=== PATIENT | male | born 1960 | race Caucasian/White ===

== ENCOUNTER 2022-01-11 08:48 | Day surgery (SDC) | payer BC ==
[2022-01-11 09:06] VITALS: BP 111/67; PULSE 102; RESP 16
--- NOTE | 2022-01-11 09:11 | P.PCN ---
Date of Procedure: 01/11/22 Preoperative Diagnosis: Pleural effusion, left-sided Postoperative Diagnosis: Pleural effusion, left-sided Procedure(s) Performed: Thoracentesis with ultrasound guidance Anesthesia: local Surgeon: Clary Castillo Estimated Blood Loss (ml): 0 Condition: stable Disposition: same day Operative Findings: A time out was performed and the chest x-ray was reviewed, the appropriate side was confirmed and marked. Ultrasound was used to cyndee the left-sided pleural effusion. My hands were washed immediately prior to the procedure. I wore a surgical cap, mask with protective eyewear, sterile gown and sterile gloves throughout the procedure. The patient was prepped and draped in a sterile manner using chlorhexidine scrub after the appropriate level was percussed and confirmed by ultrasound. 1% lidocaine was used to anesthesize the skin, subcutaneous tissue, superior aspect of the rib periosteum and parietal pleura. A finder needle was then introduced over the superior aspect of the rib to locate the pleural fluid; 2colored fluid was aspirated at a depth of approximately 2 cm. A 10-blade scalpel was used to eugenia the skin at the insertion site. The Trtd-w-Sssnswim needle was then introduced through the skin incision into the pleural space using negative aspiration pressure and the red colometric indicator to confirm appropriate positioning of the needle. The thoracentesis catheter was then threaded without difficulty. 650ml of turbid colored fluid was removed without difficulty. The catheter was then removed. No immediate complications were noted during the procedure. A post-procedure chest x-ray is pending at the time of this note. The fluid will be sent for studies. Estimated blood loss is 0cc
--- NOTE | 2022-01-11 09:28 | XR ---
EXAMINATION TYPE: XR chest 1V portable DATE OF EXAM: 01/11/2022 Comparison: 01/10/2022 Clinical History: 61-year-old male post left thoracentesis- pleural effusion Findings: Heart upper limits of normal in size. Sternotomy wires and post-CABG clips in the mediastinum. Surgic al clips project at the left upper quadrant. Mild interstitial prominence in the left hemithorax. No pneumothorax. Resolution of most of the previous left effusion. Impression: 1. Resolution of most of the previous left effusion. No pneumothorax. 2. Post-CABG changes. 3. Slight increase in interstitial opacities in the left hemithorax. Follow-up to exclude any develop ing infection.
[2022-01-12 06:22] LABS: Appearance,BF Hazy
[2022-01-12 06:41] LABS: Glucose, BF Source Pleural Fluid; Glucose, Body Fluid 97 mg/dL; LDH, Body Fluid Source Pleural Fluid; T. Protein, Body Fluid Source Pleural Fluid; Total Protein, Body Fluid 3450 mg/dL
== END 2022-01-14 07:51 | disposition home or self-care (01) ==
LOC: PROCWHC3 08:48
PROVIDERS: ATTEND Internal Medicine Critical Care Medicine
DX: C78.2 Secondary malignant neoplasm of pleura (principal)
CPT/HCPCS: 32554; 71045; 82945; 83615; 84157; 87070; 87075; 87077; 87116; 87186; 87205; 87206; 88108; 88305; 88341; 88342; 89050

== ENCOUNTER → 2022-01-11 | Outpatient (CLI) | payer BC ==
--- NOTE | 2022-01-11 15:45 | US ---
EXAMINATION TYPE: US chest DATE OF EXAM: 01/11/2022 COMPARISON: Radiograph same day CLINICAL HISTORY: 61-year-old male J91.8 Pleural Effusion. TECHNIQUE: Targeted ultrasound of the posterior lower left hemithorax FINDINGS: EXAM MEASUREMENTS: Left Pleural Effusion pocket size: 9.1 cm Left skin surface to fluid distance: 1.6 cm Left side marked for possible thoracentesis outside the dept. Pulmonologists are able to review the images in the patient?s EMR. IMPRESSIONS: Moderate size left-sided pleural effusion.
== END | disposition home or self-care (01) ==
LOC: RADUSWWP 08:29
PROVIDERS: ATTEND Internal Medicine Critical Care Medicine
DX: J90 Pleural effusion, not elsewhere classified (principal)
CPT/HCPCS: 76604

== ENCOUNTER → 2022-01-28 | Outpatient (CLI) | payer BC ==
--- NOTE | 2022-02-01 08:01 | PE ---
EXAMINATION TYPE: PET CT fusion skull to thigh DATE OF EXAM: 01/28/2022 COMPARISON: Outside CTA January 05, 2022 HISTORY: Lung cancer diagnosed and treated over 20 years ago. TECHNIQUE: Following the intravenous administration of 10.41 mCi of F-18 FDG, whole body images are performed from the skull base to the midthigh. Images are reviewed on the computer in the coronal, a xial, and sagittal planes. Reconstructed rotating images are created on independent workstation and reviewed on the computer. A localization and attenuation correction CT is performed in conjunction with the PET scan. Blood glucose level was 98. SCAN: Initial Scan FINDINGS: SKULL BASE AND NECK: No areas of abnormal hypermetabolic uptake. CHEST, MEDIASTINUM, AND HILAR REGION: Persistent abnormal hypermetabolic mass left hilar region exten ding superiorly and anteriorly measuring approximately 3.7 x 2.2 cm axial image 86 with max SUV of 8. 71. There is peripheral consolidation. There is persistent small to moderate-sized left pleural effus ion which is ametabolic. Subcentimeter mildly hypermetabolic area posterior left lower lung could ref lect pleural metastatic deposit axial image 126, max SUV is 3.46 at this level without CT correlate. This could also correspond to rib without definitive lesion. There is abnormal 1 cm lymph node adjacent to descending aorta axial image 106, Max SUV is 3.96. Ther e is abnormal 1.3 cm subcarinal hypermetabolic lymph node axial image 88, max SUV is 4.87. There is a bnormal 1.5 x 0.9 cm AP window hypermetabolic lymph node, max SUV is 4.58 on axial image 81. ABDOMEN AND PELVIS: No adrenal masses. Normal excretion. Uptake along course of right ureter is seen. No definitive areas of abnormal hypermetabolic uptake. OSSEOUS STRUCTURES: Subtle mildly hypermetabolic focus on axial image 83 in the right scapula, max HERNANDEZ V is 2.11, subtle sclerotic lesion may be present. OTHER CT: Moderate to severe calcified plaque bilateral carotid bulb level. Post CABG changes with st ernal wires and mediastinal clips. Right-sided subareolar gynecomastia. Surgical clips left groin region. Scattered bilateral pelvic phleboliths. Mildly enlarged prostate co nsistent with BPH. Additional surgical clips along the aorta and left iliac vessels. Scoliosis in the thoracolumbar spine with multilevel spurring and disc space narrowing. IMPRESSION: Left hilar mass or neoplasm with abnormal thoracic adenopathy. Asymmetric small to modera te size left pleural effusion. Possible early pleural-based metastatic lesion. Possible early osseous metastatic disease. Short-term monitoring advised..
== END | disposition home or self-care (01) ==
LOC: RADPETMAIN 07:18
PROVIDERS: ATTEND Internal Medicine Hematology & Oncology
DX: R91.8 Other nonspecific abnormal finding of lung field (principal); R59.0 Localized enlarged lymph nodes; J90 Pleural effusion, not elsewhere classified
CPT/HCPCS: 78815; A9552

== ENCOUNTER → 2022-01-29 | Outpatient (CLI) | payer BC ==
--- NOTE | 2022-01-30 03:55 | MR ---
EXAMINATION TYPE: MR brain wo/w con DATE OF EXAM: 01/29/2022 COMPARISON: None HISTORY: Lung cancer, evaluate for metastatic disease. CONTRAST: Standard multiplanar, multisequence MRI departmental protocol images were obtained without contrast a nd with 8 mL intravenous Gadavist gadolinium contrast. The ventricles and sulci appear normal. There is no mass effect or midline shift. No sign of intracra nial hemorrhage. Brainstem is intact. No evidence of an acute infarct on the diffusion images. There is multiple foci of increased signal on the FLAIR images in the periventricular white matter. T otal number is approximately 25 and these measure up to 7 mm. Cerebellum is intact. Corpus callosum a ppears intact. Sella turcica is normal. Contrast images show no pathologic enhancement. There is normal enhancement of the venous sinuses. IMPRESSION: White matter signal changes that could relate to demyelinating disease are less likely microvascular ischemia. No evidence of cortical infarct. No evidence of intracranial metastatic disease.
== END | disposition home or self-care (01) ==
LOC: RADMRIMAIN 13:02
PROVIDERS: ATTEND Internal Medicine Hematology & Oncology
DX: C34.90 Malignant neoplasm of unspecified part of unspecified bronchus or lung (principal)
CPT/HCPCS: 70553; A9585

== ENCOUNTER 2022-02-17 09:21 | Day surgery (SDC) | payer BC ==
[~2022-02-17 09:21] MED LIST: DEXAMETHASONE SOD PHOSPHATE 4 MG/ML 1 ML VIAL IV PRN; FAMOTIDINE 20 MG/2 ML VIAL IV PRN; ONDANSETRON 4 MG/2 ML VIAL IVP PRN; metroNIDAZOLE-NS PMX 500 MG in SALINE 1 100ML.BAG IVPB PRN
[2022-02-17] MEDS ORDERED: HYDROmorphone 0.5 MG/0.5 ML SYRINGE IVP PRN (09:55)
[2022-02-17] MEDS ORDERED: ONDANSETRON 4 MG/2 ML VIAL IVP ONE (09:55)
[2022-02-17] MEDS ORDERED: DEXAMETHASONE SOD PHOSPHATE 4 MG/ML 1 ML VIAL IV ONE (09:55)
[2022-02-17] MEDS: LACTATED RINGERS 1,000 ML IV SCH (10:11)
[2022-02-17] MEDS: OXYMETAZOLINE 0.05% NASL SPRAY 1 SPRAY BOTTLE EA NOSTRIL PRN ×5 (10:18→10:38)
[2022-02-17] MEDS ORDERED: MIDAZOLAM 2 MG/2 ML VIAL IVP ONE (10:33)
[2022-02-17] MEDS ORDERED: MIDAZOLAM 2 MG/2 ML VIAL ONE (12:21)
[2022-02-17] MEDS ORDERED: KETAMINE 10 MG/ML 20 ML VIAL ONE (12:21)
[2022-02-17] MEDS ORDERED: LIDOCAINE 2% INJ 20 MG/ML (2 ML VIAL) ONE (12:21)
[2022-02-17] MEDS ORDERED: fentaNYL (PF) 50 MCG/ML 2 ML AMP ONE (12:21)
[2022-02-17] MEDS ORDERED: GLYCOPYRROLATE 0.2 MG/ML 2 ML VIAL ONE (12:21)
[2022-02-17] MEDS ORDERED: PROPOFOL 10 MG/ML 20 ML VIAL IV ONE (12:21)
[2022-02-17] MEDS ORDERED: DEXAMETHASONE SOD PHOSPHATE 10 MG/ML 1 ML VIAL ONE (12:21)
[2022-02-17] MEDS ORDERED: LIDOCAINE 1%-EPI 1:100,000 20 ML VIAL SQ ONE (13:30)
[2022-02-17] MEDS ORDERED: BUPIVACAINE (PF) 0.5% 30 ML VIAL SQ ONE (13:30)
[2022-02-17] MEDS ORDERED: BACITRACIN ZINC 500 UNIT/GM OINT 28.4 GM TUBE TOPICAL ONE (14:07)
[2022-02-17] MEDS ORDERED: LACTATED RINGERS 1,000 ML IV ONE (14:11)
--- NOTE | 2022-02-17 14:30 | P.OP ---
Date of Procedure: 02/17/22 Preoperative Diagnosis: Left vocal cord paralysis, aspiration, dysphasia Postoperative Diagnosis: Same Procedure(s) Performed: Flexible direct laryngoscopy, left medialization thyroplasty utilizing a #10 Moise implant Anesthesia: JADE Surgeon: Chris Bloom Estimated Blood Loss (ml): 5 Pathology: none sent Condition: stable Disposition: PACU Indications for Procedure: This patient has a left vocal cord paralysis with associated aspiration, aphonia etc. After long discussion elected to proceed forward with a left medialization thyroplasty. All risks, benefits and alternative therapies were discussed in detail. Consent was obtained and all questions were answered. Patient's etiology for his left vocal cord paralysis is from a pulmonary malignancy. Operative Findings: Patient's left vocal cord was paralyzed any lateralized position. Right vocal cord had good function. Patient has issues with aspiration because of the paralysis. Description of Procedure: This patient was taken to the operative room and placed in the supine position. IV sedation was administered to the patient through a functioning IV line and monitored throughout the entire case by the department of anesthesia. A direct microscopic laryngoscopy was performed with use of a Zeiss microscope. Direct visualization was performed. We found a-LEFT VOCAL CORD PARALYSIS IN THE PARAMEDIAN POSITION. The neck was sterilely prepped and draped in usual fashion and the incision was marked. With use of lidocaine 1% with epinephrine 12 1000, the skin and deeper strap muscles were anesthetized. An incision was made over the lower portion of the thyroid cartilage horizontally in the neck. Hemostasis was obtained with use of electrocoagulation realizing a #12 setting without the flow of oxygen to prevent any fire risk. We dissected through the platysmas muscle to the strap muscles. We the strap muscles in the midline. We then exposed the thyroid cartilage the appropriate side of surgery. We then made a window into the lower portion of the thyroid cartilage in the usual fashion for Moise implant to be inserted. We then used with the sizer several different implants resistant to the voice and checked for stridor utilizing implants from #7-10. WE UTILIZED A #6 FEMALE MOISE IMPLANT ON THE LEFT SIDE. This was secured into position in the usual fashion. We then irrigated and then closed the strap muscles with 4-0 Vicryl in an interrupted type fashion. The close the platysmas layer of 4-0 Vicryl in an interrupted type fashion. We then closed the deep subcutaneous tissue with 4-0 Monocryl in an interrupted type fashion. We then closed the skin with a 5-0 Prolene in a running nonlocking fashion. Bacitracin ointment and Telfa were applied along with a Medpor tape. The patient tolerated this well and the patient is to follow up with me in the office in 1 week. One week voice rest restrictions were given that her absolute area and no heavy lifting or bending. She was also advised that if any stridor should occur she should come to the emergency room. They have been given my cell phone number and contact information.
[2022-02-17] MEDS ORDERED: NALOXONE 0.4 MG/ML 1 ML VIAL IV PRN ×2 (14:31→14:33)
[2022-02-17] MEDS ORDERED: HYDROcodone/APAP 5-325MG 1 EACH TAB PO PRN (14:33)
[2022-02-17] MEDS ORDERED: ONDANSETRON 4 MG/2 ML VIAL IVP PRN (14:33)
[2022-02-17] MEDS: D5-0.45% NACL WITH KCL 20MEQ/L 1,000 ML IV SCH (17:19)
--- NOTE | 2022-02-17 18:05 | XR ---
EXAMINATION TYPE: XR chest 1V portable DATE OF EXAM: 02/17/2022 COMPARISON: 01/11/2022 HISTORY: Shortness of breath TECHNIQUE: Single frontal view of the chest is obtained. FINDINGS: There is diffuse opacity in the left lower lobe relatively sparing the apex. There is acco mpanying moderate left pleural effusion. No pneumothorax seen. The cardiac silhouette size is partia lly obscured. Median sternotomy again seen. The osseous structures are stable. Stable left upper qu adrant surgical clips. IMPRESSION: Left pleural effusion with diffuse opacity.
[2022-02-17 19:45] VITALS: TEMP 97.6
[2022-02-17] MEDS: predniSONE 20 MG TAB PO SCH (20:03)
--- NOTE | 2022-02-17 23:06 | US ---
EXAMINATION TYPE: US chest DATE OF EXAM: 02/17/2022 COMPARISON: Xray chest 02/17/22 CLINICAL HISTORY: Markings for thoracentesis by pulmonary staff. TECHNIQUE: Targeted ultrasound of the posterior lower bilateral hemithoraces EXAM MEASUREMENTS: Left Pleural Effusion pocket size: 8.2 cm Left skin surface to fluid distance: 2.5 cm Right side NOT marked for possible thoracentesis outside the dept. Left side marked for possible thoracentesis outside the dept. Pulmonologists are able to review the images in the patient?s EMR. IMPRESSIONS: There is demonstrated moderate sized left pleural effusion.
[2022-02-18] MEDS: predniSONE 20 MG TAB PO SCH (08:20)
[2022-02-18] MEDS ORDERED: LIDOCAINE 2% (PF) 20 MG/ML 5 ML VIAL ONE (08:51)
--- NOTE | 2022-02-18 10:08 | XR ---
EXAMINATION TYPE: XR chest 1V portable DATE OF EXAM: 02/18/2022 HISTORY: Shortness of breath. COMPARISON: 02/17/22 TECHNIQUE: Single view of the chest is submitted. FINDINGS: Demonstrated are scattered senescent parenchymal change. Persistent but improving opacity throughout the left lung. The heart is stable. Hilar and mediastinal structures are within normal limits. Degenerative changes are seen of the dorsal spine. IMPRESSION: 1. Persistent but improving opacity throughout the left lung.
[2022-02-18] MEDS: LACTATED RINGERS 1,000 ML IV SCH (10:54)
[2022-02-18 12:07] VITALS: BMI 23.1
--- NOTE | 2022-02-18 13:01 | P.PN ---
Subjective Progress Note Date: 02/18/22 Principal diagnosis: Pulmonary effusion Status post left medialization thyroplasty for left vocal cord paralysis Patient had a thoracentesis with removal of a large amount of fluid. Patient feels much better. per pulmonary, the patient is ready to be discharged. Voice is actually excellent after implant placement. Objective - Vital Signs Vital signs: Vital Signs Temp 97.6 F 02/18/22 04:25 Pulse 95 02/18/22 04:25 Resp 18 02/18/22 04:25 BP 106/64 02/18/22 04:25 Pulse Ox 93 L 02/18/22 04:25 FiO2 Intake & Output 02/17/22 02/18/22 02/18/22 18:59 06:59 18:59 Intake Total 1350 580 Output Total 10 Balance 1340 580 Weight 75.4 kg 75.4 kg Intake: IV 1350 Intake, IV Titration 580 Amount D5-0.45% NaCl with KCl 480 20Meq/l 1,000 ml @ 40 mls /hr IV .Q24H REBA Rx#: [id number] ceFAZolin 1,000 mg In 100 Sodium Chloride 0.9% 50 ml @ 100 mls/hr IVPB Q8H REBA Rx#:[id number] Oral 0 Output: Estimated Blood Loss 10 Other: Voiding Method Toilet # Voids 3 - Constitutional General appearance: Present: average body habitus - EENT EENT Comment(s): Incision is good. Dressing in place. Voice is good. No stridor is noted. Eyes: Present: PERRLA ENT: Present: normal oropharynx - Neck Neck: Absent: lymphadenopathy - Integumentary Integumentary: Absent: calor - Musculoskeletal Musculoskeletal: Present: gait normal. Absent: generalized weakness - Psychiatric Psychiatric: Present: A&O x's 3 Assessment and Plan (1) Vocal cord paralysis Current Visit: Yes Status: Acute Code(s): J38.00 - PARALYSIS OF VOCAL CORDS AND LARYNX, UNSPECIFIED SNOMED Code(s): 999689869 Plan: Patient had a thoracentesis with removal of a large amount of fluid. Patient feels better. The patient is cleared to be discharged from the pulmonary an ENT perspective. Discharge instructions and prescriptions have been written for. She is to follow up with me in the office next week. He has 7 days of voice rest. Time with Patient: Greater than 30
[2022-02-18 13:16] VITALS: BP 161/83; PULSE 117; RESP 24
--- NOTE | 2022-02-18 13:17 | P.CNPUL ---
History of Present Illness Consult date: 02/18/22 Requesting physician: Chris Bloom Reason for consult: dyspnea, abnormal CXR/CT Chief complaint: Hoarseness, left-sided vocal cord paralysis History of present illness: This is a pleasant 61-year-old male patient who has a recent diagnosis of Hodgkin's lymphoma in remission stage II a at the time of diagnosis, coronary artery disease with previous coronary artery bypass grafting. He was recently seen in our office after being found to have a left hilar/infrahilar mass along with mediastinal lymphadenopathy and acute hoarseness highly suggestive of entrapment of the recurrent laryngeal nerve on the left. He is also found to have a left sided pleural effusion and had undergone a thoracentesis on 01/11/[address] Castillo that was positive for metastatic adenocarcinoma consistent with pulmonary primary. PET scan revealed positive left hilar mass with abnormal thoracic adenopathy. Asymmetric small to moderate-sized left pleural effusion. Possible early pleural-based metastatic lesion. Possible early osseous metastatic disease. He'll be referred to oncology services. He was also seen by ENT regarding the hoarseness and was brought in electively yesterday for a flexible direct laryngoscopy, left medius medialization thyroplasty utilizing a #10 Moise implant. His family had requested our services for a known recurrent left-sided pleural effusion and requested us to perform another thoracentesis. He was seen and evaluated today. Ultrasound of the left chest revealed a 8.2 cm pocket. Thoracentesis performed today by Dr. Mcneill with 900 ML's of cloudy yellow fluid returned. Chest x-ray revealed improved aeration of the left lung with persistent opacity. No evidence of pneumothorax. He is maintaining good O2 saturations in the 90s on room air. Sh ortness of breath, cough or congestion. He is afebrile. Review of Systems REVIEW OF SYSTEMS: CONSTITUTIONAL: Denies any recent significant weight loss or weight gain. EYES: Denies change in vision. EARS, NOSE, MOUTH, THROAT: Positive for hoarseness. CARDIOVASCULAR: Denies chest pain, palpitations or syncopal episodes. RESPIRATORY: Denies shortness of breath, cough, congestion or hemoptysis. GASTROINTESTINAL: Denies change in appetite, denies abdominal pain GENITOURINARY: Denies hematuria, denies infections. MUSKULOSKELETAL: Denies pain, denies swelling. INTEGUMENTARY: Denies rash, denies eczema. NEUROLOGICAL: Denies recent memory loss, no recent seizure activity. PSYCHIATRIC: Denies anxiety, denies depression. HEMATOLOGIC/LYMPHATIC: Denies anemia, denies enlarged lymph nodes. Past Medical History Past Medical History: Cancer, GERD/Reflux, Hyperlipidemia, Hypertension Additional Past Medical History / Comment(s): recent dx. of lung cancer-sees Dr Valerio-hasn't started tx. yet, SOB w/exertion & hoarseness, has upcoming appt. to see Dr. Schneider regarding recent carotid doppler results History of Any Multi-Drug Resistant Organisms: None Reported Past Surgical History: Coronary Bypass/CABG, Heart Catheterization With Stent, Hernia Repair Additional Past Surgical History / Comment(s): double bypass 20 yrs. ago Past Anesthesia/Blood Transfusion Reactions: No Reported Reaction Date of Last Stent Placement:: unk Past Psychological History: No Psychological Hx Reported Smoking Status: Never smoker Past Alcohol Use History: Occasional Past Drug Use History: None Reported - Past Family History Mother Family Medical History: No Reported History Father Family Medical History: Chest Pain / Angina Medications and Allergies Home Medications Medication Instructions Recorded Confirmed Type Aspirin [Adult Low Dose Aspirin EC] 81 mg PO DAILY 01/11/22 02/17/22 History OLANZapine [ZyPREXA] 10 mg PO HS 02/16/22 02/17/22 History Omeprazole [PriLOSEC] 40 mg PO DAILY 02/16/22 02/17/22 History Rosuvastatin Calcium [Crestor] 40 mg PO DAILY 02/16/22 02/17/22 History amLODIPine [Norvasc] 10 mg PO DAILY 02/16/22 02/17/22 History Allergies Allergy/AdvReac Type Severity Reaction Status Date / Time No Known Allergies Allergy Verified 02/17/22 09:58 Physical Exam Vitals: Vital Signs Temp Pulse Resp BP Pulse Ox 02/18/22 04:25 97.6 F 95 18 106/64 93 L 02/17/22 20:00 16 02/17/22 19:15 97.6 F 102 H 16 131/99 91 L 02/17/22 18:14 98.4 F 72 18 126/70 95 02/17/22 15:41 104 H 16 132/76 95 02/17/22 15:02 101 H 16 107/68 98 02/17/22 14:47 102 H 16 109/67 98 02/17/22 14:31 102 H 16 110/72 98 02/17/22 14:16 103 H 14 153/96 92 L Intake and Output 02/17/22 02/18/22 02/18/22 22:59 06:59 14:59 Intake Total 0 580 Balance 0 580 Intake: Intake, IV Titration 580 Amount D5-0.45% NaCl with KCl 480 20Meq/l 1,000 ml @ 40 mls /hr IV .Q24H REBA Rx#: [id number] ceFAZolin 1,000 mg In 100 Sodium Chloride 0.9% 50 ml @ 100 mls/hr IVPB Q8H REBA Rx#:[id number] Oral 0 Other: Voiding Method Toilet # Voids 3 Weight 75.4 kg 75.4 kg GENERAL EXAM: Alert, active, pleasant 61-year-old male patient, on room air, fairly comfortable in no apparent distress. HEAD: Normocephalic. EYES: Normal reaction of pupils, equal size. NOSE: Clear with pink turbinates. THROAT: No erythema or exudates. NECK: Dressing to anterior neck dry and intact. No masses, no JVD. CHEST: No chest wall deformity. LUNGS: Equal air entry with crackles, dullness in the left base. CVS: S1 and S2 normal with no audible murmur, regular rhythm. ABDOMEN: No hepatosplenomegaly, normal bowel sounds, no guarding or rigidity. SPINE: No scoliosis or deformity SKIN: No rashes CENTRAL NERVOUS SYSTEM: No focal deficits, tone is normal in all 4 extremities. EXTREMITIES: There is no peripheral edema. No clubbing, no cyanosis. Peripheral pulses are intact. Results - Diagnostic Findings Chest x-ray: image reviewed Assessment and Plan Assessment: 1 Left vocal cord paralysis with aspiration and dysphagia secondary to primary pulmonary adenocarcinoma. Status post flexible direct laryngoscopy, left medialization thyroplasty utilizing a #10 Moise implant. Postoperative day #1 2 Recurrent left-sided pleural effusion secondary to pulmonary adenocarcinoma diagnosed via pleural fluid from thoracentesis on 01/11/2022 3 History of Hodgkin's lymphoma, in remission, stage II at time of diagnosis 4 History of coronary artery disease with previous coronary artery bypass grafting 5 Hypertension 6 Hyperlipidemia 7 History of diverticulosis Plan: The patient was seen and evaluated Chest x-ray, ultrasound, medications reviewed Left-sided thoracentesis performed today with 900 ML's of cloudy yellow fluid returned Fluid was not sent for analysis or cytology due to previous diagnosis Follow up with Dr. Castillo in our office in 1-2 weeks' I have personally seen and examined the patient, performed the documentation and the assessment and plan as written. Number of minutes spent on the visit: 20.
[2022-02-18] MEDS: D5-0.45% NACL WITH KCL 20MEQ/L 1,000 ML IV SCH (14:22)
--- NOTE | 2022-02-18 15:16 | FL ---
Modified barium swallow. HISTORY: Dysphagia. Modified barium swallow was performed with the department of speech pathology. The patient was prese nted with various consistencies of barium. There is a one episode of aspiration with thin liquid barium. Vallecular and piriform sinus pooling o f ingested material. Full report is to follow from the department of speech pathology. Impression: Aspiration with thin liquid barium
--- NOTE | 2022-02-18 17:17 | OP ---
OPERATIVE REPORT OPERATIVE REPORT: Left-sided thoracentesis. PREOPERATIVE DIAGNOSIS: Recurrent left-sided pleural effusion/malignant. POSTOPERATIVE DIAGNOSIS: Recurrent left-sided pleural effusion/malignant. ANESTHESIA USED: Two mL of 1% lidocaine. PROCEDURE DESCRIPTION: The patient was placed in a sitting-upright position, leaning forward over a table. The area below the left scapula was prepared in a sterile fashion. Drapes were applied. The fluid was earlier localized by ultrasound. The marking was at the level of the 8th intercostal space and tip of the scapula. The area was locally anesthetized with 2 mL of 1% lidocaine. The fluid was localized with a 26-gauge needle. Then a small tiny incision was made at the same site, and a 9-Anguillan catheter was inserted at the same site, advanced into the pleural space until the fluid was obtained. The catheter was advanced over the needle, and the needle was pulled out of the pleural space. Freely flowing clear fluid was removed; roughly 900 mL of gretchen-colored fluid was removed from the left pleural space. Procedure was well tolerated. The fluid was discarded since we already have a diagnosis made from previous thoracentesis. Procedure was well tolerated. Chest x-ray showed no complications. The patient could be cleared to be discharged home today. MMODL / IJN: [id number] /
== END 2022-02-18 16:00 | disposition home or self-care (01) ==
LOC: OR 09:21 → 5NMEDONC 15:53 → OR 02-18 16:00
PROVIDERS: ATTEND Otolaryngology
DX: C34.90 Malignant neoplasm of unspecified part of unspecified bronchus or lung (principal); C79.9 Secondary malignant neoplasm of unspecified site; J91.0 Malignant pleural effusion; J38.01 Paralysis of vocal cords and larynx, unilateral; R47.02 Dysphasia; R49.1 Aphonia; I25.10 Atherosclerotic heart disease of native coronary artery without angina pectoris; C85.92 Non-Hodgkin lymphoma, unspecified, intrathoracic lymph nodes; Z95.1 Presence of aortocoronary bypass graft; K21.9 Gastro-esophageal reflux disease without esophagitis; E78.5 Hyperlipidemia, unspecified; I10 Essential (primary) hypertension; E78.00 Pure hypercholesterolemia, unspecified; Z95.5 Presence of coronary angioplasty implant and graft; Z98.890 Other specified postprocedural states; Z79.82 Long term (current) use of aspirin; Z79.899 Other long term (current) drug therapy; Z82.49 Family history of ischemic heart disease and other diseases of the circulatory system
CPT/HCPCS: 92611; 74230; 71045 ×2; 76604; 32554; 31591; L8509; J2250; J1100 ×2; J0690 ×3; J2405; J3010; J2704; J7512; J2001 ×2

== ENCOUNTER → 2022-03-21 | Outpatient (CLI) | payer BC ==
--- NOTE | 2022-03-21 17:39 | CT ---
EXAMINATION TYPE: CT angio chest DATE OF EXAM: 03/21/2022 COMPARISON: None HISTORY: SOB CT DLP: 278.9 mGycm Automated exposure control for dose reduction was used. CONTRAST: Performed with IV Contrast, patient injected with 80 mL of Isovue 370. There are Three-D postprocessed images. There is left-sided hydrothorax. There is complete atelectasis of the left lung. There is occlusion o f the left mainstem bronchus. I see no evidence of filling defect in the pulmonary arteries. Thoracic aorta is atheromatous. No aneurysm or dissection. No mediastinal adenopathy. Thoracic spine is intac t. There is no compression fracture. There are sternal wires. There is bilateral enlargement of the a drenal glands that measure up to 2.5 cm and have low attenuation. IMPRESSION: Large left pleural effusion with complete atelectasis of the left lung. Occlusion of the left mainste m bronchus. No evidence of pulmonary embolism. There is significant progression of the pleural fluid and atelectasis of the left lung compared to PET/CT scan of 01/28/2022. There is some adrenal gland en largement that could be metastatic disease and appears increased compared to old PET CT scan.
== END | disposition home or self-care (01) ==
LOC: RADCTMAIN 16:05
PROVIDERS: ATTEND Internal Medicine Hematology & Oncology
DX: J90 Pleural effusion, not elsewhere classified (principal); J98.11 Atelectasis
CPT/HCPCS: 82565; 84520; 71275; 36415; Q9967

== ENCOUNTER 2022-03-25 12:06 | Day surgery (SDC) | payer BC ==
[2022-03-25 12:46] VITALS: RESP 16; TEMP 98.2
[2022-03-25 12:54] LABS: Mean Platelet Volume 7.3; Platelet Count 795 k/uL (150-450)
[2022-03-25 13:03] LABS: Prothrombin Time 10.8 sec (9.0-12.0)
[2022-03-25 13:53] VITALS: BP 117/69; PULSE 100
--- NOTE | 2022-03-25 14:40 | US ---
EXAMINATION TYPE: US thoracentesis DATE OF EXAM: 03/25/2022 COMPARISON: NONE HISTORY: Pleural effusion. FINDINGS: Maximal barrier technique was utilized. The skin overlying a suitable pocket of fluid was localized and the overlying skin prepped and draped. Lidocaine was used for local anesthesia. Ultras ound was used with sterile technique. A 5 Turkish catheter over guide needle was advanced into the pl eural fluid collection using ultrasound guidance and the catheter advanced, needle removed. Approxim ately 1.3 liter(s) of yellow fluid was removed. Catheter was withdrawn and hemostasis achieved. The re is no immediate complication. The patient discharged in stable condition without complication. Sp ecimen sent for laboratory analysis. IMPRESSION: STATUS POST ULTRASOUND GUIDED THORACENTESIS, POST PROCEDURE CHEST X-RAY PENDING. THIS ND OCEDURE WAS PERFORMED BY THE UNDERSIGNED.
--- NOTE | 2022-03-25 14:42 | XR ---
EXAMINATION TYPE: XR chest 1V portable DATE OF EXAM: 03/25/2022 COMPARISON: Chest x-ray dated 02/18/2022 HISTORY: Pleural effusion on the left status post thoracentesis TECHNIQUE: Single frontal view of the chest is obtained. FINDINGS: There is opacification of left hemithorax. Postop changes are noted, is volume loss in the left hemithorax. Right lung is well aerated. Cardiac mediastinal silhouette is partially obscured. N o evident pneumothorax. IMPRESSION: No evident complication status post left thoracentesis. Residual left effusion and assoc iated atelectasis, patient became symptomatic during the procedure. Patient is asymptomatic at this t alex.
== END 2022-03-25 14:20 | disposition home or self-care (01) ==
LOC: RADPROMAIN 12:06
PROVIDERS: ATTEND Internal Medicine Hematology & Oncology
DX: J90 Pleural effusion, not elsewhere classified (principal)
CPT/HCPCS: 32555; 36415; 71045; 85049; 85610; 88108; 88305

== ENCOUNTER 2022-04-07 08:59 | Emergency (ER) | payer BC ==
[2022-04-07 09:19] VITALS: TEMP 98.3
--- NOTE | 2022-04-07 09:36 | ED ---
General Adult HPI - General Chief complaint: Shortness of Breath Stated complaint: fluid in lung, chemo pt Time Seen by Provider: 04/07/22 09:21 Source: patient, RN notes reviewed Mode of arrival: ambulatory Limitations: no limitations - History of Present Illness Initial comments: 61-year-old male presents emergency Department with chief complaint of shortness breath. Patient has lung cancer with recurrent pleural effusion. Patient states he feels like he has fluid buildup. He is scheduled after this week for weekly paracentesis by radiology. Patient states that he had a drink last week but states he feels too short of breath. Patient denies any fevers or chills no abdominal pain no other acute changes patient is currently on chemotherapy t herapy - Related Data Home Medications Medication Instructions Recorded Confirmed Aspirin [Adult Low Dose Aspirin EC] 81 mg PO DAILY 01/11/22 04/07/22 OLANZapine [ZyPREXA] 10 mg PO HS 02/16/22 04/07/22 Omeprazole [PriLOSEC] 40 mg PO DAILY 02/16/22 04/07/22 Rosuvastatin Calcium [Crestor] 40 mg PO HS 02/16/22 04/07/22 amLODIPine [Norvasc] 10 mg PO DAILY 02/16/22 04/07/22 Folic Acid 1 mg PO DAILY 04/07/22 04/07/22 Hydrocortisone Cream 1 applic TOPICAL BID 04/07/22 04/07/22 [Hydrocortisone 2.5% Cream] Isosorbide Mononitrate ER [Imdur] 60 mg PO DAILY 04/07/22 04/07/22 Nystatin [Nystatin Oral Susp] 400,000 unit PO QID 04/07/22 04/07/22 Zolpidem [Ambien] 10 mg PO HS 04/07/22 04/07/22 clonazePAM [KlonoPIN] 1 mg PO DAILY PRN 04/07/22 04/07/22 ondansetron HCL [Zofran] 8 mg PO Q6H PRN 04/07/22 04/07/22 Allergies Allergy/AdvReac Type Severity Reaction Status Date / Time No Known Allergies Allergy Verified 04/07/22 10:47 Review of Systems ROS Statement: Those systems with pertinent positive or pertinent negative responses have been documented in the HPI. ROS Other: All systems not noted in ROS Statement are negative. Past Medical History Past Medical History: Cancer, GERD/Reflux, Hyperlipidemia, Hypertension Additional Past Medical History / Comment(s): recent dx. of lung cancer-sees Dr Valerio-hasn't started tx. yet, SOB w/exertion & hoarseness, has upcoming appt. to see Dr. Schneider regarding recent carotid doppler results. History of Any Multi-Drug Resistant Organisms: None Reported Past Surgical History: Coronary Bypass/CABG, Heart Catheterization With Stent, Hernia Repair Additional Past Surgical History / Comment(s): double bypass 20 yrs. ago. 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 Past Anesthesia/Blood Transfusion Reactions: No Reported Reaction Date of Last Stent Placement:: unk Past Psychological History: No Psychological Hx Reported Smoking Status: Never smoker Past Alcohol Use History: Occasional Past Drug Use History: None Reported - Past Family History Mother Family Medical History: No Reported History Father Family Medical History: Chest Pain / Angina General Exam Limitations: no limitations General appearance: alert, in no apparent distress Head exam: Present: atraumatic, normocephalic, normal inspection Eye exam: Present: normal appearance, PERRL, EOMI. Absent: scleral icterus, conjunctival injection, periorbital swelling ENT exam: Present: normal exam, normal oropharynx, mucous membranes moist Neck exam: Present: normal inspection, full ROM. Absent: tenderness, meningismus, lymphadenopathy Respiratory exam: Present: rales, decreased breath sounds. Absent: normal lung sounds bilaterally, respiratory distress, wheezes, rhonchi, stridor Cardiovascular Exam: Present: normal rhythm, tachycardia, normal heart sounds. Absent: systolic murmur, diastolic murmur, rubs, gallop, clicks Course Vital Signs 04/07/22 04/07/22 04/07/22 09:14 09:48 11:05 Temperature 98.3 F Pulse Rate 118 H Pulse Rate [ 116 H Pulse Oximetery ] Respiratory 22 22 20 Rate Blood Pressure 132/76 Blood Pressure 114/79 [Left Arm] O2 Sat by Pulse 96 95 96 Oximetry 04/07/22 04/07/22 11:39 11:46 Temperature Pulse Rate Pulse Rate [ 110 H 108 H Pulse Oximetery ] Respiratory 20 20 Rate Blood Pressure Blood Pressure 105/65 96/73 [Left Arm] O2 Sat by Pulse 94 L 94 L Oximetry Medical Decision Making - Medical Decision Making 61-year-old male presented for pleural effusion recurrent from lung cancer patient presented for thoracentesis which was performed patient we discharged in stable condition. Disposition Clinical Impression: Recurrent pleural effusion on left, Lung cancer, Status post thoracentesis Disposition: HOME SELF-CARE Condition: Stable Instructions (If sedation given, give patient instructions): Thoracentesis (DC) Additional Instructions: Please return to the Emergency Department if symptoms worsen or any other concerns. Is patient prescribed a controlled substance at d/c from ED?: No Referrals: Azael Bloom MD [Primary Care Provider] - 1-2 days Time of Disposition: 12:06
--- NOTE | 2022-04-07 09:48 | XR ---
EXAMINATION TYPE: XR chest 2V DATE OF EXAM: 04/07/2022 COMPARISON: 03/25/2022 HISTORY: 61-year-old male recurrent pleural effusion, shortness of breath TECHNIQUE: PA and lateral views FINDINGS: There is white out of the left hemithorax, unchanged from prior. Median sternotomy wires and extensiv e surgical clips along the left hilum. Surgical clips also present within the left upper quadrant. Ri ght lung and pleural space appear clear. IMPRESSION: Ongoing white out left hemithorax likely due to very large pleural effusion and underlying collapsed left lung. Post-CABG changes.
[2022-04-07] MEDS ORDERED: LIDOCAINE 1% INJ 10MG/ML (5 ML VIAL-PF) SQ ONE (11:22)
[2022-04-07] MEDS ORDERED: LIDOCAINE 1% PF 10 MG/ML (5 ML AMP) SQ ONE (11:22)
[2022-04-07 12:14] VITALS: BP 113/75; PULSE 115; RESP 18
--- NOTE | 2022-04-07 12:19 | XR ---
EXAMINATION TYPE: XR chest 2V DATE OF EXAM: 04/07/2022 COMPARISON: Chest x-ray 04/07/2022 HISTORY: Status post thoracentesis TECHNIQUE: Frontal and lateral views of the chest are obtained. FINDINGS: Left-sided hydropneumothorax is present, remaining lung shows increased attenuation, posto p change. Surgical clips are present in left upper quadrant. No evident tension. Heart is largely obs cured. Patient is post median sternotomy. Right lung is relatively spared. IMPRESSION: Left-sided hydropneumothorax, findings may represent trapped lung. Findings relayed to t [facility] clinician at the time of interpretation.
--- NOTE | 2022-04-07 13:08 | ED ---
Medical Decision Making - Medical Decision Making X-ray was read radiologist for concerns for [place] pneumothorax. Case discussed with Dr. Mancilla who reviewed x-ray and just advised patient have repeat x-ray and evaluation in office tomorrow. Disposition Clinical Impression: Recurrent pleural effusion on left, Lung cancer, Status post thoracentesis, Hydropneumothorax Disposition: HOME SELF-CARE Condition: Stable Instructions (If sedation given, give patient instructions): Thoracentesis (DC) Additional Instructions: Please follow-up with pulmonary tomorrow. Please return to the Emergency Department if symptoms worsen or any other concerns. 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
--- NOTE | 2022-04-07 13:44 | US ---
EXAMINATION TYPE: US thoracentesis DATE OF EXAM: 04/07/2022 COMPARISON: NONE HISTORY: Pleural effusion. FINDINGS: Maximal barrier technique was utilized. The skin overlying a suitable pocket of fluid was localized and the overlying skin prepped and draped. Lidocaine was used for local anesthesia. Ultras ound was used with sterile technique. A 5 Omani catheter over guide needle was advanced into the pl eural fluid collection using ultrasound guidance and the catheter advanced, needle removed. Approxim ately 1.3 liter(s) of serous fluid was removed. Catheter was withdrawn and hemostasis achieved. The re is note made of probable trapped lung with hydropneumothorax, case discussed with the referring cl inician at the time of interpretation of the post procedure chest x-ray. The patient discharged in s table condition without complication. IMPRESSION: STATUS POST ULTRASOUND GUIDED THORACENTESIS, POST PROCEDURE CHEST X-RAY as described. TH IS PROCEDURE WAS PERFORMED BY THE UNDERSIGNED.
== END 2022-04-07 13:10 | disposition home or self-care (01) ==
LOC: EC 08:59
DX: J91.8 Pleural effusion in other conditions classified elsewhere (principal); Z48.813 Encounter for surgical aftercare following surgery on the respiratory system; C34.90 Malignant neoplasm of unspecified part of unspecified bronchus or lung; K21.9 Gastro-esophageal reflux disease without esophagitis; I10 Essential (primary) hypertension; E78.5 Hyperlipidemia, unspecified; Z79.82 Long term (current) use of aspirin; Z79.899 Other long term (current) drug therapy
CPT/HCPCS: 71046; 32555; 99285; J2001

== ENCOUNTER 2022-04-10 12:56 | Inpatient (IN) | payer BC ==
[2022-04-10] MEDS ORDERED: SODIUM CHLORIDE 0.9% 500 ML 500 ML IV STA (13:17)
--- NOTE | 2022-04-10 13:27 | ED ---
SOB HPI - General Chief Complaint: Shortness of Breath Stated Complaint: SOB Time Seen by Provider: 04/10/22 13:18 Source: patient, family, RN notes reviewed, old records reviewed Mode of arrival: ambulatory Limitations: no limitations - History of Present Illness Initial Comments: 61-year-old male presents to the emergency room with complaints of shortness of breath worsening throughout the day. Patient has a history of lung cancer and is on chemotherapy. He is in the care of Dr. Castillo and Dr Valerio. He did have a thoracentesis 3 days ago and 1.3 L of fluid was removed. He states at that time he felt much better until shortness of breath returned today. He states he has a productive cough with clear mucous. He denies any fevers. No chest pain. Patient also has a history of hypertension, CABG, cardiac stent and GERD. MD Complaint: shortness of breath, cough -: days(s) (1) Severity scale (1-10): 0 Known History Of: other (Lung cancer) Associated Symptoms: cough, sputum production (clear) - Related Data Home Medications Medication Instructions Recorded Confirmed Aspirin [Adult Low Dose Aspirin EC] 81 mg PO DAILY 01/11/22 04/10/22 OLANZapine [ZyPREXA] 10 mg PO HS 02/16/22 04/10/22 Omeprazole [PriLOSEC] 40 mg PO DAILY 02/16/22 04/10/22 Rosuvastatin Calcium [Crestor] 40 mg PO HS 02/16/22 04/10/22 amLODIPine [Norvasc] 10 mg PO DAILY 02/16/22 04/10/22 Folic Acid 1 mg PO DAILY 04/07/22 04/10/22 Hydrocortisone Cream 1 applic TOPICAL BID 04/07/22 04/10/22 [Hydrocortisone 2.5% Cream] Isosorbide Mononitrate ER [Imdur] 90 mg PO DAILY 04/07/22 04/10/22 Nystatin [Nystatin Oral Susp] 400,000 unit PO QID 04/07/22 04/10/22 Zolpidem [Ambien] 10 mg PO HS 04/07/22 04/10/22 clonazePAM [KlonoPIN] 1 mg PO DAILY PRN 04/07/22 04/10/22 Albuterol Inhaler [Ventolin Hfa 2 puff INHALATION RT-Q6H PRN 04/10/22 04/10/22 Inhaler] Super Beta 1 tab PO HS 04/10/22 04/10/22 Ubidecarenone [Co Q-10] 300 mg PO DAILY 04/10/22 04/10/22 Allergies Allergy/AdvReac Type Severity Reaction Status Date / Time No Known Allergies Allergy Verified 04/10/22 15:10 Review of Systems ROS Statement: Those systems with pertinent positive or pertinent negative responses have been documented in the HPI. ROS Other: All systems not noted in ROS Statement are negative. Past Medical History Past Medical History: Cancer, GERD/Reflux, Hyperlipidemia, Hypertension Additional Past Medical History / Comment(s): recent dx. of lung cancer-sees Dr Valerio-hasn't started tx. yet, SOB w/exertion & hoarseness, has upcoming appt. to see Dr. Schneider regarding recent carotid doppler results. History of Any Multi-Drug Resistant Organisms: None Reported Past Surgical History: Coronary Bypass/CABG, Heart Catheterization With Stent, Hernia Repair Additional Past Surgical History / Comment(s): double bypass 20 yrs. ago. 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 Past Anesthesia/Blood Transfusion Reactions: No Reported Reaction Date of Last Stent Placement:: unk Past Psychological History: No Psychological Hx Reported Smoking Status: Never smoker Past Alcohol Use History: Occasional Past Drug Use History: None Reported - Past Family History Mother Family Medical History: No Reported History Father Family Medical History: Chest Pain / Angina General Exam Limitations: no limitations General appearance: alert, in no apparent distress Head exam: Present: atraumatic Eye exam: Absent: scleral icterus, conjunctival injection, periorbital swelling ENT exam: Present: mucous membranes dry Neck exam: Present: full ROM. Absent: tenderness, meningismus Respiratory exam: Present: decreased breath sounds. Absent: respiratory distress, wheezes, rales, rhonchi, stridor, chest wall tenderness Expanded Location: Decreased Breath Sounds: Lower, Left, Right Cardiovascular Exam: Present: tachycardia, irregular rhythm GI/Abdominal exam: Present: soft. Absent: distended, tenderness Extremities exam: Present: normal capillary refill Back exam: Absent: tenderness, CVA tenderness (R), CVA tenderness (L), rash noted Neurological exam: Present: alert, oriented X3 Psychiatric exam: Present: normal affect, normal mood Skin exam: Present: warm, dry, normal color. Absent: cyanosis, diaphoretic, petechiae, pallor Course Vital Signs 04/10/22 04/10/22 04/10/22 13:11 14:27 15:08 Temperature 99.8 F H Pulse Rate 112 H 131 H 137 H Respiratory 22 18 14 Rate Blood Pressure 104/64 106/84 96/63 O2 Sat by Pulse 93 L 95 94 L Oximetry - Reevaluation(s) Reevaluation #1: 04/10/22 15:16 His heart rate remains elevated at 130, Cardizem drip increased to 10. Patient has no complaints of chest pain or difficulty breathing, oxygen saturations up to 94% on nasal cannula. Patient was advised of the results and the need for admission. He is agreeable to this plan of care. I did speak with Dr. Quiles and Dr. Mancilla Time: 15:16 Medical Decision Making - Medical Decision Making Patient has a known history of lung cancer. He is currently on chemotherapy with Dr. Valerio. He was in the hospital 3 days ago and had a thoracentesis done, 1.3 L drained, states felt better until today when he became short of breath again. Chest x-ray shows a left hydropneumothorax as seen on prior with air-fluid level and increased effusion. Patient was placed on oxygen his oxygen saturation increased to 94%. Patient was found to be in A. fib with RVR with a rate in the 130s. He was started on a Cardizem drip which was titrated and remains tachycardic in the 110s. Patient denies any chest pain. Troponin is 0.034. I did speak with Dr. Quiles and Dr. Mancilla regarding patient. He will be admitted to the hospital. I did discuss the results with the patient and family member they are agreeable to admission. Patient denies any pain at this time is resting comfortably on the cart. I did discuss CODE STATUS with the patient and he states that he is a full code. My attending is Dr. Anne. - Lab Data Result diagrams: 04/10/22 14:05 04/10/22 14:05 Lab Results 04/10/22 04/10/22 04/10/22 Range/Units 13:49 14:05 14:05 WBC 8.6 (3.8-10.6) k/uL RBC 3.90 L (4.30-5.90) m/uL Hgb 11.8 L (13.0-17.5) gm/dL Hct 34.9 L (39.0-53.0) % MCV 89.5 (80.0-100.0) fL MCH 30.4 (25.0-35.0) pg MCHC 33.9 (31.0-37.0) g/dL RDW 14.6 (11.5-15.5) % Plt Count 246 (150-450) k/uL MPV 7.8 Neutrophils % (Manual) 67 % Lymphocytes % (Manual) 12 % Monocytes % (Manual) 21 % Neutrophils # (Manual) 5.76 (1.3-7.7) k/uL Lymphocytes # (Manual) 1.03 (1.0-4.8) k/uL Monocytes # (Manual) 1.81 H (0-1.0) k/uL Nucleated RBCs 0 (0-0) /100 WBC Manual Slide Review Performed Hypersegmented Neuts Present Rouleaux Present PT 10.6 (9.0-12.0) sec INR 1.0 (<1.2) APTT 22.9 (22.0-30.0) sec VBG pH 7.58 H (7.31-7.41) VBG pCO2 23 L (37-51) mmHg VBG HCO3 21 L (24-28) mmol/L Sodium (137-145) mmol/L Potassium (3.5-5.1) mmol/L Chloride (98-107) mmol/L Carbon Dioxide (22-30) mmol/L Anion Gap mmol/L BUN (9-20) mg/dL Creatinine (0.66-1.25) mg/dL Est GFR (CKD-EPI)AfAm (>60 ml/min/1.73 sqM) Est GFR (CKD-EPI)NonAf (>60 ml/min/1.73 sqM) Glucose (74-99) mg/dL Plasma Lactic Acid Edwin (0.7-2.0) mmol/L Calcium (8.4-10.2) mg/dL Magnesium (1.6-2.3) mg/dL Total Bilirubin (0.2-1.3) mg/dL AST (17-59) U/L ALT (4-49) U/L Alkaline Phosphatase (38-126) U/L Troponin I (0.000-0.034) ng/mL NT-Pro-B Natriuret Pep pg/mL Total Protein (6.3-8.2) g/dL Albumin (3.5-5.0) g/dL 04/10/22 04/10/22 04/10/22 Range/Units 14:05 14:05 14:05 WBC (3.8-10.6) k/uL RBC (4.30-5.90) m/uL Hgb (13.0-17.5) gm/dL Hct (39.0-53.0) % MCV (80.0-100.0) fL MCH (25.0-35.0) pg MCHC (31.0-37.0) g/dL RDW (11.5-15.5) % Plt Count (150-450) k/uL MPV Neutrophils % (Manual) % Lymphocytes % (Manual) % Monocytes % (Manual) % Neutrophils # (Manual) (1.3-7.7) k/uL Lymphocytes # (Manual) (1.0-4.8) k/uL Monocytes # (Manual) (0-1.0) k/uL Nucleated RBCs (0-0) /100 WBC Manual Slide Review Hypersegmented Neuts Rouleaux PT (9.0-12.0) sec INR (<1.2) APTT (22.0-30.0) sec VBG pH (7.31-7.41) VBG pCO2 (37-51) mmHg VBG HCO3 (24-28) mmol/L Sodium 133 L (137-145) mmol/L Potassium 3.5 (3.5-5.1) mmol/L Chloride 99 (98-107) mmol/L Carbon Dioxide 23 (22-30) mmol/L Anion Gap 11 mmol/L BUN 12 (9-20) mg/dL Creatinine 0.81 (0.66-1.25) mg/dL Est GFR (CKD-EPI)AfAm >90 (>60 ml/min/1.73 sqM) Est GFR (CKD-EPI)NonAf >90 (>60 ml/min/1.73 sqM) Glucose 111 H (74-99) mg/dL Plasma Lactic Acid Edwin 1.0 (0.7-2.0) mmol/L Calcium 8.6 (8.4-10.2) mg/dL Magnesium 1.3 L (1.6-2.3) mg/dL Total Bilirubin 0.4 (0.2-1.3) mg/dL AST 25 (17-59) U/L ALT 18 (4-49) U/L Alkaline Phosphatase 71 (38-126) U/L Troponin I 0.034 (0.000-0.034) ng/mL NT-Pro-B Natriuret Pep pg/mL Total Protein 5.9 L (6.3-8.2) g/dL Albumin 3.4 L (3.5-5.0) g/dL 04/10/22 Range/Units 14:05 WBC (3.8-10.6) k/uL RBC (4.30-5.90) m/uL Hgb (13.0-17.5) gm/dL Hct (39.0-53.0) % MCV (80.0-100.0) fL MCH (25.0-35.0) pg MCHC (31.0-37.0) g/dL RDW (11.5-15.5) % Plt Count (150-450) k/uL MPV Neutrophils % (Manual) % Lymphocytes % (Manual) % Monocytes % (Manual) % Neutrophils # (Manual) (1.3-7.7) k/uL Lymphocytes # (Manual) (1.0-4.8) k/uL Monocytes # (Manual) (0-1.0) k/uL Nucleated RBCs (0-0) /100 WBC Manual Slide Review Hypersegmented Neuts Rouleaux PT (9.0-12.0) sec INR (<1.2) APTT (22.0-30.0) sec VBG pH (7.31-7.41) VBG pCO2 (37-51) mmHg VBG HCO3 (24-28) mmol/L Sodium (137-145) mmol/L Potassium (3.5-5.1) mmol/L Chloride (98-107) mmol/L Carbon Dioxide (22-30) mmol/L Anion Gap mmol/L BUN (9-20) mg/dL Creatinine (0.66-1.25) mg/dL Est GFR (CKD-EPI)AfAm (>60 ml/min/1.73 sqM) Est GFR (CKD-EPI)NonAf (>60 ml/min/1.73 sqM) Glucose (74-99) mg/dL Plasma Lactic Acid Edwin (0.7-2.0) mmol/L Calcium (8.4-10.2) mg/dL Magnesium (1.6-2.3) mg/dL Total Bilirubin (0.2-1.3) mg/dL AST (17-59) U/L ALT (4-49) U/L Alkaline Phosphatase (38-126) U/L Troponin I (0.000-0.034) ng/mL NT-Pro-B Natriuret Pep 2920 pg/mL Total Protein (6.3-8.2) g/dL Albumin (3.5-5.0) g/dL - EKG Data Rate: tachycardia EKG Comments: A. fib with RVR with a ventricular rate of 146, QRS 0.91, QTC 0.375 When compared to previous EKG there are: previous EKG unavailable Critical Care Time Critical Care Time: Yes Total Critical Care Time: 34 (Cardizem drip for A. fib with RVR. Spoke with Dr. Mancilla pulmonology regarding hydropneumothorax.) Disposition Clinical Impression: New onset atrial fibrillation, Lung cancer, Shortness of breath, Hydropneumothorax, Recurrent pleural effusion on left Disposition: ADMITTED IP TO THIS [facility] Condition: Fair Decision Date: 04/10/22 Decision Time: 13:46
--- NOTE | 2022-04-10 14:00 | XR ---
EXAMINATION TYPE: XR chest 2V DATE OF EXAM: 04/10/2022 1:54 PM COMPARISON: Chest radiographs from 04/07/2022 TECHNIQUE: XR chest 2V Frontal and lateral views of the chest. CLINICAL INDICATION:Male, 61 years old with history of difficulty breathing; FINDINGS: Lungs/Pleura: There is a left hydropneumothorax has increased pleural effusion component on today's e xam. No evidence of right pneumothorax, pleural effusion or focal consolidation. Pulmonary vascularity: Unremarkable. Heart/mediastinum: Cardiomediastinal silhouette is partially obscured due to overlying and adjacent o pacities. Surgical clips project over the heart Musculoskeletal: No acute osseous pathology. Midline sternotomy wires are noted. Other: Surgical clips seen projecting over the left upper quadrant. IMPRESSION: Left hydropneumothorax as seen on prior with air-fluid level and increase in fluid/pleural effusion c omponent on today's exam.
[2022-04-10] MEDS: DILTIAZEM 125 MG in SODIUM CHLORIDE 0.9% 100 ML IV SCH (14:06)
[2022-04-10 14:11] LABS: VBG PH 7.58 (7.31-7.41)
[2022-04-10 14:23] LABS: ALT 18 U/L (4-49); AST 25 U/L (17-59); African American GFR (CKD) >90 (>60 ml/min/1.73 sqM); Albumin 3.4 g/dL (3.5-5.0); Alkaline Phosphatase 71 U/L (38-126); Anion Gap 11 mmol/L; Blood Urea Nitrogen 12 mg/dL (9-20); Calcium 8.6 mg/dL (8.4-10.2); Carbon Dioxide 23 mmol/L (22-30); Chloride 99 mmol/L (98-107); Glucose 111 mg/dL (74-99); Magnesium 1.3 mg/dL (1.6-2.3); Non-African American GFR(CKD) >90 (>60 ml/min/1.73 sqM); Partial Thromboplastin Time 22.9 sec (22.0-30.0); Potassium 3.5 mmol/L (3.5-5.1); Prothrombin Time 10.6 sec (9.0-12.0); Sodium 133 mmol/L (137-145); Total Bilirubin 0.4 mg/dL (0.2-1.3); Total Protein 5.9 g/dL (6.3-8.2)
[2022-04-10 14:25] LABS: HCT 34.9 % (39.0-53.0); HGB 11.8 gm/dL (13.0-17.5); MCH 30.4 pg (25.0-35.0); MCHC 33.9 g/dL (31.0-37.0); MCV 89.5 fL (80.0-100.0); Mean Platelet Volume 7.8; Platelet Count 246 k/uL (150-450); RDW 14.6 % (11.5-15.5); WBC 8.6 k/uL (3.8-10.6)
[2022-04-10] MEDS ORDERED: ACETAMINOPHEN TAB 325 MG TAB PO STA (14:25)
[2022-04-10] MEDS ORDERED: ACETAMINOPHEN ORAL SUSP 160 MG/5 ML CUP PO ONE (14:34)
[2022-04-10 15:02] LABS: Lymphocytes # (M) 1.03 k/uL (1.0-4.8); Monocytes # (M) 1.81 k/uL (0-1.0); Neutrophils # (M) 5.76 k/uL (1.3-7.7); Neutrophils % (M) 67 %; Nucleated Red Blood Cells 0 /100 WBC (0-0); Total Cells Counted 100
[2022-04-10] MEDS ORDERED: NALOXONE 0.4 MG/ML 1 ML VIAL IV PRN (15:03)
[2022-04-10] MEDS ORDERED: Magnesium Replacement Protocol 1 EACH MISC MISCELLANE PRN (15:12)
[2022-04-10] MEDS ORDERED: clonazePAM 1 MG TAB PO PRN (15:12)
[2022-04-10 15:15] LABS: Hypersegmented Neutrophils Present; Rouleaux Present
[2022-04-10] MEDS ORDERED: SODIUM CHLORIDE 0.9% 500 ML 500 ML IV ONE (15:24)
--- NOTE | 2022-04-10 18:01 | P.HPIM ---
History of Present Illness H&P Date: 04/10/22 Chief Complaint: Short of breath This is a pleasant 61-year-old patient follows with Dr. Bloom. Chronic stable medical conditions include GERD, lipidemia, hypertension,. Has a diagnosis of metastatic adenocarcinoma, being followed by Dr. Yen from oncology. Has received 2 rounds of chemotherapy. Also receiving immunotherapy. Patient's had about 4 hours of left thoracentesis the last one being 3 days ago. 1.3 L was removed from the left side. Patient is decreased appetite. Weight loss. Patient also has left vocal cord paralysis with left medial ligation thyroplasty with the Moise implant done by Dr. Blanchard. Patient felt better after his thoracentesis 3 days ago. Presents now with worsening shortness of breath. Cough with some yellow sputum. No fever no chills. Tired rundown. ER found to be in atrial flutter with a rate of 140s. X-ray shows left hydropneumothorax. Review of systems: GEN.: Decreased appetite and weight loss EYES: None HEENT: Hoarse voice NECK: None RESPIRATORY: As above CARDIOVASCULAR: None GASTROINTESTINAL: None GENITOURINARY: None MUSCULOSKELETAL: None LYMPHATICS: None HEMATOLOGICAL: None PSYCHIATRY: None NEUROLOGICAL: None Past medical history to include: Metastatic lung adenocarcinoma getting chemotherapy and immunotherapy, GERD, hypertension, hyperlipidemia, CAD with stent, coronary bypass vocal cord implant Social history: Lives with his children. No smoking. Alcohol occasionally. Joel. 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 EYES: Pupils equal. Conjunctiva normal. HEENT: External appearance of nose and ears normal, oral cavity grossly normal. NECK: JVD not raised; masses not palpable. HEART: Heart sounds irregular; no edema. LUNGS: Respiratory rate increased, not able to speak in full sentences, pulmonary decreased patient the left side;. ABDOMEN: Soft, nontender, liver spleen not palpable, no masses palpable. PSYCH: Alert and oriented x3; mood and affect slightly anxiousl. MUSCULOSKELETAL:No Clubbing/cyanosis;muscles-grossly intact NEUROLOGICAL: Cranial nerves grossly intact; no facial asymmetry, power and sensation grossly intact. LYMPHATICS: No lymph nodes palpable in the axilla and neck INVESTIGATIONS, reviewed in the clinical context: White count 8.6 hemoglobin 11.8 platelets 246 sodium 133 potassium 3.5 creatinine 0.81 Troponin I 0.034 proBNP 2920 EKG tracing personally reviewed by me-atrial flutter with a rate of 146 Chest x-ray film personally reviewed by me-left hydropneumothorax Previous testing Personal fluid: Prostatic adenocarcinoma CT angiogram chest [March] large left pleural effusion. Complete atelectasis left lung. Occlusion of left mainstem bronchus Assessment and plan -Recurrent large left pleural effusion from underlying malignancy with pneumothorax. Patient gently said previous 3 thoracentesis. Last one being 3 days ago. Will need pleurodesis. Or pleur vac. Consultation to pulmonary, cardiothoracic surgery. -Metastatic lung adenocarcinoma. Patient received 2 cycles of chemotherapy. Immunotherapy. Consult oncology -Essential hypertension On amlodipine -New onset atrial flutter with a rapid ventricular rate IV Cardizem drip. 2-D echocardiogram. -CAD with a prior history of coronary bypass Crestor -Left vocal cord paralysis with implantation -Insomnia Ambien -GERD Prilosec -Full code IV Cardizem drip. Resume home medications. Consultation to cardiology, pulmonary, oncology, cardiothoracic surgery. Care was discussed with the patient. Hold off any anticoagulation for now. Past Medical History Past Medical History: Cancer, GERD/Reflux, Hyperlipidemia, Hypertension Additional Past Medical History / Comment(s): recent dx. of lung cancer-sees Dr Valerio-chemo 10 days ago and immuno therapy , SOB w/exertion & hoarseness, has upcoming appt. to see Dr. Schneider regarding recent carotid doppler results. History of Any Multi-Drug Resistant Organisms: None Reported Past Surgical History: Coronary Bypass/CABG, Heart Catheterization With Stent, Hernia Repair Additional Past Surgical History / Comment(s): double bypass 20 yrs. ago. 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 Past Anesthesia/Blood Transfusion Reactions: No Reported Reaction Date of Last Stent Placement:: unk Smoking Status: Never smoker - Past Family History Mother Family Medical History: No Reported History Father Family Medical History: Chest Pain / Angina Medications and Allergies Home Medications Medication Instructions Recorded Confirmed Type Aspirin [Adult Low Dose Aspirin EC] 81 mg PO DAILY 01/11/22 04/10/22 History OLANZapine [ZyPREXA] 10 mg PO HS 02/16/22 04/10/22 History Omeprazole [PriLOSEC] 40 mg PO DAILY 02/16/22 04/10/22 History Rosuvastatin Calcium [Crestor] 40 mg PO HS 02/16/22 04/10/22 History amLODIPine [Norvasc] 10 mg PO DAILY 02/16/22 04/10/22 History Folic Acid 1 mg PO DAILY 04/07/22 04/10/22 History Hydrocortisone Cream 1 applic TOPICAL BID 04/07/22 04/10/22 History [Hydrocortisone 2.5% Cream] Isosorbide Mononitrate ER [Imdur] 90 mg PO DAILY 04/07/22 04/10/22 History Nystatin [Nystatin Oral Susp] 400,000 unit PO QID 04/07/22 04/10/22 History Zolpidem [Ambien] 10 mg PO HS 04/07/22 04/10/22 History clonazePAM [KlonoPIN] 1 mg PO DAILY PRN 04/07/22 04/10/22 History Albuterol Inhaler [Ventolin Hfa 2 puff INHALATION RT-Q6H PRN 04/10/22 04/10/22 History Inhaler] Super Beta 1 tab PO HS 04/10/22 04/10/22 History Ubidecarenone [Co Q-10] 300 mg PO DAILY 04/10/22 04/10/22 History Allergies Allergy/AdvReac Type Severity Reaction Status Date / Time No Known Allergies Allergy Verified 04/10/22 15:10 Physical Exam Vitals: Vital Signs Temp Pulse Resp BP Pulse Ox 04/10/22 16:27 93 L 04/10/22 16:20 100.3 F H 119 H 20 103/57 96 04/10/22 15:08 137 H 14 96/63 94 L 04/10/22 14:27 131 H 18 106/84 95 04/10/22 13:11 99.8 F H 112 H 22 104/64 93 L Intake and Output 04/10/22 04/10/22 04/10/22 06:59 14:59 22:59 Intake Total 2.25 Balance 2.25 Intake: Intake, IV Titration 2.25 Amount Diltiazem 125 mg In 2.25 Sodium Chloride 0.9% 100 ml @ 5 MG/HR 5 mls/hr IV .Q24H COUNT INCLUDES THE [facility] Rx#:[id number] Other: Weight 77.111 kg 77.111 kg Results CBC & Chem 7: 04/10/22 14:05 04/10/22 14:05 Labs: Abnormal Lab Results - Last 24 Hours (Table) 04/10/22 04/10/22 04/10/22 Range/Units 13:49 14:05 14:05 RBC 3.90 L (4.30-5.90) m/uL Hgb 11.8 L (13.0-17.5) gm/dL Hct 34.9 L (39.0-53.0) % Monocytes # (Manual) 1.81 H (0-1.0) k/uL VBG pH 7.58 H (7.31-7.41) VBG pCO2 23 L (37-51) mmHg VBG HCO3 21 L (24-28) mmol/L Sodium 133 L (137-145) mmol/L Glucose 111 H (74-99) mg/dL Magnesium 1.3 L (1.6-2.3) mg/dL Total Protein 5.9 L (6.3-8.2) g/dL Albumin 3.4 L (3.5-5.0) g/dL Thrombosis Risk Factor Assmnt - Choose All That Apply Each Factor Represents 1 point: Serious lung disease incl. pneumonia (< 1month) Each Risk Factor Represents 2 Points: Age 61-74 years, Malignancy Other congenital or acquired thrombophilia - If yes, enter type in comment: No Thrombosis Risk Factor Assessment Total Risk Factor Score: 5 Thrombosis Risk Factor Assessment Level: High Risk
[2022-04-10] MEDS: MAGNESIUM SULFATE-D5W PMX 1 GM in DEXTROSE/WATER 1 100ML.BAG IVPB SCH ×3 (18:19→23:00)
[2022-04-10] MEDS: ALBUTEROL HFA INHALER INHALATION PRN (20:52)
[2022-04-10] MEDS: ATORVASTATIN 80 MG TAB PO SCH (20:55)
[2022-04-10] MEDS: ZOLPIDEM 5 MG TAB PO SCH (20:55)
[2022-04-10] MEDS: OLANZapine 10 MG TAB PO SCH (20:55)
[2022-04-11] MEDS: MAGNESIUM SULFATE-D5W PMX 1 GM in DEXTROSE/WATER 1 100ML.BAG IVPB SCH (00:38)
[2022-04-11] MEDS: DILTIAZEM 125 MG in SODIUM CHLORIDE 0.9% 100 ML IV SCH (04:15)
[2022-04-11] MEDS: PANTOPRAZOLE 40 MG TABLET PO SCH (06:50)
[2022-04-11] MEDS: FOLIC ACID 1 MG TAB PO SCH (08:14)
[2022-04-11] MEDS: ALBUTEROL HFA INHALER INHALATION PRN ×2 (08:22→19:45)
[2022-04-11] MEDS: METOPROLOL TARTRATE 25 MG TAB PO SCH ×2 (08:57→20:03)
[2022-04-11] MEDS ORDERED: NON FORMULARY DRUG (Ubidecarenone [Co Q-10] 300 MG Capsule) PO SCH (09:00)
[2022-04-11] MEDS ORDERED: amLODIPine 10 MG TAB PO SCH (09:00)
[2022-04-11] MEDS ORDERED: ISOSORBIDE MONONITRATE ER 30 MG TAB.ER.24H PO SCH (09:00)
--- NOTE | 2022-04-11 10:39 | P.GSCN ---
History of Present Illness Consult date: 04/11/22 Reason for Consult: Recurrent malignant left-sided pleural effusion Requesting physician: Michael Quiles History of present illness: This is a 61-year-old gentleman who follows on an outpatient basis with Dr. Castillo for pulmonology and Dr. Valerio for oncology as well as Dr. Bloom for primary care. He has a previous medical history of recent diagnosis metastatic adenocarcinoma with primary lung origin status post chemotherapy and immunotherapy, left vocal cord paralysis status post left medialization thyroplasty, recurrent malignant left-sided pleural effusion status post thoracentesis 4, Hodgkin's lymphoma in remission, coronary artery disease status post CABG, hypertension, and hyperlipidemia. He presented to [facility] emergency room yesterday with complaints of increased shortness of breath. Apparently his most recent thoracentesis was 04/07/2022 with removal of 1.3 L of fluid, patient states he feel better for a few days after this treatment, however became short of breath again and for this reason reported to the emergency room. He was found to be in atrial fibrillation with rapid v entricular response, which is new for him and was started on IV Cardizem. Chest x-ray was completed demonstrating left hydropneumothorax with air fluid level. Due to this finding consultation was placed to cardiothoracic surgery for possible placement of Pleurx catheter. Review of Systems Review of systems was completed and was negative except as noted - Respiratory Reports as per HPI, Reports dyspnea Past Medical History Past Medical History: Coronary Artery Disease (CAD), Cancer, GERD/Reflux, Hype rlipidemia, Hypertension Additional Past Medical History / Comment(s): recent dx. of metastatic adenocarcinoma -sees Dr Valerio-chemo 10 days ago and immuno therapy , SOB w/e xertion & hoarseness, has upcoming appt. to see Dr. Schneider regarding recent carotid doppler results. Left vocal cord paralysis. Hodgkin's lymphoma in remission History of Any Multi-Drug Resistant Organisms: None Reported Past Surgical History: Coronary Bypass/CABG, Heart Catheterization With Stent, Hernia Repair Additional Past Surgical History / Comment(s): double bypass 20 yrs. ago. Left medialization thyroplasty utilizing a #[address] Bloom Past Anesthesia/Blood Transfusion Reactions: No Reported Reaction Date of Last Stent Placement:: unk Past Psychological History: No Psychological Hx Reported Smoking Status: Never smoker Past Alcohol Use History: None Reported Past Drug Use History: None Reported - Past Family History Mother Family Medical History: No Reported History Father Family Medical History: Chest Pain / Angina Medications and Allergies Home Medications Medication Instructions Recorded Confirmed Type Aspirin [Adult Low Dose Aspirin EC] 81 mg PO DAILY 01/11/22 04/10/22 History OLANZapine [ZyPREXA] 10 mg PO HS 02/16/22 04/10/22 History Omeprazole [PriLOSEC] 40 mg PO DAILY 02/16/22 04/10/22 History Rosuvastatin Calcium [Crestor] 40 mg PO HS 02/16/22 04/10/22 History amLODIPine [Norvasc] 10 mg PO DAILY 02/16/22 04/10/22 History Folic Acid 1 mg PO DAILY 04/07/22 04/10/22 History Hydrocortisone Cream 1 applic TOPICAL BID 04/07/22 04/10/22 History [Hydrocortisone 2.5% Cream] Isosorbide Mononitrate ER [Imdur] 90 mg PO DAILY 04/07/22 04/10/22 History Nystatin [Nystatin Oral Susp] 400,000 unit PO QID 04/07/22 04/10/22 History Zolpidem [Ambien] 10 mg PO HS 04/07/22 04/10/22 History clonazePAM [KlonoPIN] 1 mg PO DAILY PRN 04/07/22 04/10/22 History Albuterol Inhaler [Ventolin Hfa 2 puff INHALATION RT-Q6H PRN 04/10/22 04/10/22 History Inhaler] Super Beta 1 tab PO HS 04/10/22 04/10/22 History Ubidecarenone [Co Q-10] 300 mg PO DAILY 04/10/22 04/10/22 History Allergies Allergy/AdvReac Type Severity Reaction Status Date / Time No Known Allergies Allergy Verified 04/10/22 15:10 Surgical - Exam Vital Signs Temp Pulse Resp BP Pulse Ox 99.8 F H 112 H 22 104/64 93 L 04/10/22 13:11 04/10/22 13:11 04/10/22 13:11 04/10/22 13:11 04/10/22 13:11 CONSTITUTIONAL: Awake and alert, cooperative, no pain, mild respiratory distress, speaks in very short sentences EYES: Pupils equal, round, reactive to light, normal ocular movement ENT: Moist mucous membranes without oral lesions present NECK: No masses, no bruits, trachea midline RESPIRATORY: Lungs sounds very diminished left side. Respirations even, slightly labored. Currently on 3 L nasal cannula with oxygen saturation 92%. Strong cough. CARDIOVASCULAR: S1, S2 present. Regular rate and rhythm, sinus rhythm on telemetry with heart rate in the 80s. Palpable peripheral pulses bilaterally. No edema present. GASTROINTESTINAL: Abdomen soft, nontender, nondistended without masses or organomegaly noted. There is no rebound or guarding present. Active bowel sounds present 4 quadrants. GENITOURINARY: Deferred INTEGUMENTARY: Skin is warm and dry with evidence of good perfusion. NEUROLOGIC: Cranial nerves II through XII intact, normal coordination, no obvious motor or sensory deficits, speech is hoarse MUSKULOSKELETAL: Able to move all extremities, strength equal bilaterally, normal posture PSYCHIATRIC: Alert and oriented to person place and time, appropriate affect, intact judgment and insight Results - Labs 04/10/22 14:05 04/10/22 14:05 Abnormal Lab Results - Last 24 Hours (Table) 04/10/22 04/10/22 04/10/22 Range/Units 13:49 14:05 14:05 RBC 3.90 L (4.30-5.90) m/uL Hgb 11.8 L (13.0-17.5) gm/dL Hct 34.9 L (39.0-53.0) % Monocytes # (Manual) 1.81 H (0-1.0) k/uL VBG pH 7.58 H (7.31-7.41) VBG pCO2 23 L (37-51) mmHg VBG HCO3 21 L (24-28) mmol/L Sodium 133 L (137-145) mmol/L Glucose 111 H (74-99) mg/dL Magnesium 1.3 L (1.6-2.3) mg/dL Total Protein 5.9 L (6.3-8.2) g/dL Albumin 3.4 L (3.5-5.0) g/dL Diabetes panel 04/10/22 Range/Units 14:05 Sodium 133 L (137-145) mmol/L Potassium 3.5 (3.5-5.1) mmol/L Chloride 99 (98-107) mmol/L Carbon Dioxide 23 (22-30) mmol/L BUN 12 (9-20) mg/dL Creatinine 0.81 (0.66-1.25) mg/dL Glucose 111 H (74-99) mg/dL Calcium 8.6 (8.4-10.2) mg/dL AST 25 (17-59) U/L ALT 18 (4-49) U/L Alkaline Phosphatase 71 (38-126) U/L Total Protein 5.9 L (6.3-8.2) g/dL Albumin 3.4 L (3.5-5.0) g/dL Calcium panel 04/10/22 Range/Units 14:05 Calcium 8.6 (8.4-10.2) mg/dL Albumin 3.4 L (3.5-5.0) g/dL Pituitary panel 04/10/22 Range/Units 14:05 Sodium 133 L (137-145) mmol/L Potassium 3.5 (3.5-5.1) mmol/L Chloride 99 (98-107) mmol/L Carbon Dioxide 23 (22-30) mmol/L BUN 12 (9-20) mg/dL Creatinine 0.81 (0.66-1.25) mg/dL Glucose 111 H (74-99) mg/dL Calcium 8.6 (8.4-10.2) mg/dL Adrenal panel 04/10/22 Range/Units 14:05 Sodium 133 L (137-145) mmol/L Potassium 3.5 (3.5-5.1) mmol/L Chloride 99 (98-107) mmol/L Carbon Dioxide 23 (22-30) mmol/L BUN 12 (9-20) mg/dL Creatinine 0.81 (0.66-1.25) mg/dL Glucose 111 H (74-99) mg/dL Calcium 8.6 (8.4-10.2) mg/dL Total Bilirubin 0.4 (0.2-1.3) mg/dL AST 25 (17-59) U/L ALT 18 (4-49) U/L Alkaline Phosphatase 71 (38-126) U/L Total Protein 5.9 L (6.3-8.2) g/dL Albumin 3.4 L (3.5-5.0) g/dL - Imaging Chest x-ray: report reviewed, image reviewed CT scan - chest: report reviewed, image reviewed EKG: image reviewed Assessment and Plan Assessment: 1. Recent diagnosis metastatic adenocarcinoma with primary lung origin status post chemotherapy and immunotherapy 2. Recurrent malignant left-sided pleural effusion status post thoracentesis 4 3. Hydropneumothorax with trapped lung 4. New-onset atrial fibrillation with rapid ventricular response on admission, currently sinus rhythm 5. Shortness of breath, secondary to above 6. Left vocal cord paralysis status post left medialization thyroplasty 7. Hodgkin's lymphoma in remission 8. Coronary artery disease status post CABG 9. History of hypertension 10. History of hyperlipidemia Plan: The patient was seen and examined this morning at the bedside with Dr. Soto. Chart/diagnostics reviewed. The usual course of Pleurx catheter placement was discussed with the patient and his daughter at the bedside, risks and benefits were reviewed, all questions were answered. The case was also discussed with Dr. Castillo who strongly feels chest tube would be a more appropriate measure at this time to try and eliminate fluid as well as air, and allow possibility of lung to re-expand. Patient may need bronchoscopy. We will hold off on Pleurx catheter placement at this time. Wean O2 as tolerated. Encourage incentive spirometry use. Management of other medical comorbidities per internal medicine, oncology, pulmonology, cardiology. Thank you Dr. Quiles for this consult. More recommendations to follow. I have personally seen and examined the patient, performed the documentation and the assessment and plan as written. Number of minutes spent on the visit: 30. ADE Joshi The patient is a 61 year old male who was recently diagnosed with metastatic lung cancer. He has undergone left thoracenteses on multiple occasions. He presents now with recurrent effusion and shortness of breath. CXR also reveals partial left lung collapse. Patient will likely benefit from Pleur-x catheter. However, we will speak first with pulmonary to determine whether bronchoscopy vs. repeat thoracentesis may be better initial treatment. I have personally seen and examined the patient, reviewed the documentation and the assessment and plan as written. Number of minutes spent on the visit: 45. Pawel Soto M.D.
[2022-04-11 11:09] LABS: Glucose,Whole Blood 119 mg/dL (70-110)
--- NOTE | 2022-04-11 11:10 | P.CRDCN ---
History of Present Illness History of present illness: HISTORY OF PRESENT ILLNESS: This is a 61-year-old male with a past medical history significant for hypertension, hyperlipidemia, lung CA with most recent chemotherapy 2 weeks ago, and coronary artery disease with 2 vessel CABG approximately 20 years ago per patient. 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 We have been asked to see the patient in consultation for atrial fibrillation. Patient examined at the bedside. Patient presented to the hospital due to a chief complaint of shortness of breath. Patient has a history of recurrent left sided pleural effusions and has had previous thoracentesis performed with most recent being on 04/07/2022 with 1.3 L of fluid removed. Patient was found to be in A. fib with RVR. The patient denies a history of atrial fibrillation. The patient was started on IV Cardizem. At the time of my examination this morning, the patient is maintaining sinus mechanism. * EKG reveals A. fib with RVR * Chest xray left hydropneumothorax is seen on prior imaging with air-fluid levels and increase in fluid/pleural effusion component on today's exam * Laboratory data: WBC 8.6. Hemoglobin 11.8. Platelet count 246. Sodium 133. Potassium 3.5. BUN 12. Creatinine 0.81. Magnesium 1.7. Troponin 0.034. ProBNP 2920. TSH 2.060 * Current home cardiac medications include amlodipine 10 mg daily, Crestor 40 mg at night, Imdur 90 mg daily, aspirin 81 mg daily REVIEW OF SYSTEMS: At the time of my exam: CONSTITUTIONAL: Denies fever or chills. HEENT: Denies blurred vision, vision changes, or eye pain. Denies hemoptysis CARDIOVASCULAR: Denies chest pain. Denies orthopnea. Denies PND. Denies palpitations RESPIRATORY: Denies shortness of breath. GASTROINTESTINAL: Denies abdominal pain. Denies nausea or vomiting. HEMATOLOGIC: Denies bleeding disorders. GENITOURINARY: Denies any blood in urine. SKIN: Denies pruitis. Denies rash. PHYSICAL EXAM: VITAL SIGNS: Reviewed. GENERAL: Well-developed in no acute distress. HEENT: Head is normocephalic. Pupils are equal, round. Sclerae anicteric. Mucous membranes of the mouth are moist. Neck supple. No JVD or thyromegaly LUNGS: Respirations even and unlabored. Lungs with decreased air exchange on the left side. HEART: Regular rate and rhythm. S1 and S2 heard. Systolic murmur noted ABDOMEN: Soft. Nondistended. Nontender. EXTREMITIES: Normal range of motion. No clubbing or cyanosis. Peripheral pulses intact. No lower extremity edema NEUROLOGIC: Awake and alert. Oriented x 3. ASSESSMENT: Shortness of breath Lung cancer with recent chemotherapy 2 weeks ago Recurrent left pleural effusion s/p thoracentesis, most recent 04/07/2022 Left hydropneumothorax New-onset paroxysmal atrial fibrillation with RVR, currently maintaining sinus mechanism Coronary artery disease with previous CABG 2 vessels History of Hodgkin's lymphoma Hypertension Hyperlipidemia PLAN: Obtain 2D echo to assess cardiac structure and function Discontinue IV Cardizem Begin metoprolol 25 mg twice a day TSH checked and within normal limits Resume Imdur at a lower dose of 60mg daily Resume Norvasc if patients blood pressure increases Hold off on anticoagulation at this time as patient is scheduled for thoracentesis today Further recommendations pending patient course Nurse practitioner note has been reviewed by physician. Signing provider agrees with the documented findings, assessment, and plan of care. Past Medical History Past Medical History: Cancer, GERD/Reflux, Hyperlipidemia, Hypertension Additional Past Medical History / Comment(s): recent dx. of lung cancer-sees Dr Valerio-chemo 10 days ago and immuno therapy , SOB w/exertion & hoarseness, has upcoming appt. to see Dr. Schneider regarding recent carotid doppler results. History of Any Multi-Drug Resistant Organisms: None Reported Past Surgical History: Coronary Bypass/CABG, Heart Catheterization With Stent, Hernia Repair Additional Past Surgical History / Comment(s): double bypass 20 yrs. ago. 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 Past Anesthesia/Blood Transfusion Reactions: No Reported Reaction Date of Last Stent Placement:: unk Smoking Status: Never smoker - Past Family History Mother Family Medical History: No Reported History Father Family Medical History: Chest Pain / Angina Medications and Allergies Home Medications Medication Instructions Recorded Confirmed Type Aspirin [Adult Low Dose Aspirin EC] 81 mg PO DAILY 01/11/22 04/10/22 History OLANZapine [ZyPREXA] 10 mg PO HS 02/16/22 04/10/22 History Omeprazole [PriLOSEC] 40 mg PO DAILY 02/16/22 04/10/22 History Rosuvastatin Calcium [Crestor] 40 mg PO HS 02/16/22 04/10/22 History amLODIPine [Norvasc] 10 mg PO DAILY 02/16/22 04/10/22 History Folic Acid 1 mg PO DAILY 04/07/22 04/10/22 History Hydrocortisone Cream 1 applic TOPICAL BID 04/07/22 04/10/22 History [Hydrocortisone 2.5% Cream] Isosorbide Mononitrate ER [Imdur] 90 mg PO DAILY 04/07/22 04/10/22 History Nystatin [Nystatin Oral Susp] 400,000 unit PO QID 04/07/22 04/10/22 History Zolpidem [Ambien] 10 mg PO HS 04/07/22 04/10/22 History clonazePAM [KlonoPIN] 1 mg PO DAILY PRN 04/07/22 04/10/22 History Albuterol Inhaler [Ventolin Hfa 2 puff INHALATION RT-Q6H PRN 04/10/22 04/10/22 History Inhaler] Super Beta 1 tab PO HS 04/10/22 04/10/22 History Ubidecarenone [Co Q-10] 300 mg PO DAILY 04/10/22 04/10/22 History Allergies Allergy/AdvReac Type Severity Reaction Status Date / Time No Known Allergies Allergy Verified 04/10/22 15:10 Physical Exam Vitals: Vital Signs Temp Pulse Pulse Resp BP BP Pulse Ox 04/11/22 04:00 98.1 F 99 18 102/65 92 L 04/11/22 02:00 109 H 18 04/11/22 00:00 97.9 F 109 H 18 139/57 94 L 04/10/22 20:00 98.1 F 106 H 18 124/67 95 04/10/22 16:27 93 L 04/10/22 16:20 100.3 F H 119 H 20 103/57 96 04/10/22 16:10 97.1 F L 92 20 165/65 95 04/10/22 15:08 137 H 14 96/63 94 L 04/10/22 14:27 131 H 18 106/84 95 04/10/22 13:11 99.8 F H 112 H 22 104/64 93 L Intake and Output 04/10/22 04/11/22 04/11/22 22:59 06:59 14:59 Intake Total 462.75 Balance 462.75 Intake: Intake, IV Titration 222.75 Amount Diltiazem 125 mg In 122.75 Sodium Chloride 0.9% 100 ml @ 5 MG/HR 5 mls/hr IV .Q24H [facility] Rx#:[id number] Magnesium Sulfate-D5w Pmx 100 1 gm In Dextrose/Water 1 100ml.bag @ 100 mls/hr IVPB Q1H [facility] Rx#: [id number] Oral 240 Other: Voiding Method Urinal Urinal # Voids 1 Weight 77.111 kg Results 04/10/22 14:05 04/10/22 14:05 Cardiac Enzymes 04/10/22 04/10/22 Range/Units 14:05 14:05 AST 25 (17-59) U/L Troponin I 0.034 (0.000-0.034) ng/mL Coagulation 04/10/22 Range/Units 14:05 PT 10.6 (9.0-12.0) sec APTT 22.9 (22.0-30.0) sec CBC 04/10/22 Range/Units 14:05 WBC 8.6 (3.8-10.6) k/uL RBC 3.90 L (4.30-5.90) m/uL Hgb 11.8 L (13.0-17.5) gm/dL Hct 34.9 L (39.0-53.0) % Plt Count 246 (150-450) k/uL Comprehensive Metabolic Panel 04/10/22 Range/Units 14:05 Sodium 133 L (137-145) mmol/L Potassium 3.5 (3.5-5.1) mmol/L Chloride 99 (98-107) mmol/L Carbon Dioxide 23 (22-30) mmol/L BUN 12 (9-20) mg/dL Creatinine 0.81 (0.66-1.25) mg/dL Glucose 111 H (74-99) mg/dL Calcium 8.6 (8.4-10.2) mg/dL AST 25 (17-59) U/L ALT 18 (4-49) U/L Alkaline Phosphatase 71 (38-126) U/L Total Protein 5.9 L (6.3-8.2) g/dL Albumin 3.4 L (3.5-5.0) g/dL Current Medications Generic Name Dose Route Start Last Admin Trade Name Freq PRN Reason Stop Dose Admin Albuterol Sulfate 2 puff 04/10/22 15:12 04/10/22 20:52 Albuterol Hfa Inhaler INHALATION 2 puff RT-Q6H PRN Administration Shortness Of Breath Atorvastatin Calcium 80 mg 04/10/22 21:00 04/10/22 20:55 Atorvastatin 80 Mg Tab PO 80 mg HS [facility] Administration Clonazepam 1 mg 04/10/22 15:12 04/10/22 20:55 Clonazepam 1 Mg Tab PO 1 mg DAILY PRN Administration Anxiety Folic Acid 1 mg 04/11/22 09:00 Folic Acid 1 Mg Tab PO DAILY [facility] Diltiazem HCl 125 mg/ Sodium 125 mls @ 5 mls/hr 04/10/22 13:45 04/11/22 04:15 Chloride IV 10 mg/hr .Q24H [facility] 10 mls/hr Administration 5 MG/HR Miscellaneous Information 1 each 04/10/22 15:12 Magnesium Replacement Protocol 1 Each Misc MISCELLANE DAILY PRN Per Protocol Protocol Naloxone HCl 0.2 mg 04/10/22 15:03 Naloxone 0.4 Mg/Ml 1 Ml Vial IV Q2M PRN Opioid Reversal Olanzapine 10 mg 04/10/22 21:00 04/10/22 20:55 Olanzapine 10 Mg Tab PO 10 mg HS REBA Administration Pantoprazole Sodium 40 mg 04/11/22 07:30 04/11/22 06:50 Pantoprazole 40 Mg Tablet PO 40 mg DAILY@0730 [facility] Administration Zolpidem Tartrate 10 mg 04/10/22 21:00 04/10/22 20:55 Zolpidem 5 Mg Tab PO 10 mg HS REBA Administration Intake and Output 04/10/22 04/11/22 04/11/22 22:59 06:59 14:59 Intake Total 462.75 Balance 462.75 Intake: Intake, IV Titration 222.75 Amount Diltiazem 125 mg In 122.75 Sodium Chloride 0.9% 100 ml @ 5 MG/HR 5 mls/hr IV .Q24H [facility] Rx#:[id number] Magnesium Sulfate-D5w Pmx 100 1 gm In Dextrose/Water 1 100ml.bag @ 100 mls/hr IVPB Q1H [facility] Rx#: [id number] Oral 240 Other: Voiding Method Urinal Urinal # Voids 1 Weight 77.111 kg 04/10/22 14:05 04/10/22 14:05
[2022-04-11] MEDS: HYDROmorphone 1 MG/ML 1 ML SYRINGE IVP PRN ×2 (13:28→19:39)
--- NOTE | 2022-04-11 13:42 | P.PN ---
Progress Note - Text Progress Note Date: 04/11/22 Chief Complaint: Short of breath This is a pleasant 61-year-old patient follows with Dr. Bloom. Chronic stable medical conditions include GERD, lipidemia, hypertension,. Has a diagnosis of metastatic adenocarcinoma, being followed by Dr. Yen from oncology. Has re ceived 2 rounds of chemotherapy. Also receiving immunotherapy. Patient's had about 4 hours of left thoracentesis the last one being 3 days ago. 1.3 L was removed from the left side. Patient is decreased appetite. Weight loss. Patient also has left vocal cord paralysis with left medial ligation thyroplasty with the Moise implant done by Dr. Blanchard. Patient felt better after his thoracentesis 3 days ago. Presents now with worsening shortness of breath. Cough with some yellow sputum. No fever no chills. Tired rundown. ER found to be in atrial flutter with a rate of 140s. X-ray shows left hydropneumothorax. April 11: Patient moved to the ICU. Discussed with Dr. Castillo. 4 chest tube. Patient may have a proximal obstruction of the bronchus. Shortness of breath. Patient back into sinus rhythm. Cardizem drip discontinued. Started on metoprolol 25 mg twice a day. R Active Medications Albuterol Sulfate (Albuterol Hfa Inhaler) 2 puff INHALATION RT-Q6H PRN PRN Reason: Shortness Of Breath Last Admin: 04/11/22 08:22 Dose: 2 puff Atorvastatin Calcium (Atorvastatin 80 Mg Tab) 80 mg PO HS [facility] Last Admin: 04/10/22 20:55 Dose: 80 mg Clonazepam (Clonazepam 1 Mg Tab) 1 mg PO DAILY PRN PRN Reason: Anxiety Last Admin: 04/10/22 20:55 Dose: 1 mg Folic Acid (Folic Acid 1 Mg Tab) 1 mg PO DAILY [facility] Last Admin: 04/11/22 08:14 Dose: 1 mg Hydromorphone HCl (Hydromorphone 1 Mg/Ml 1 Ml Syringe) 1 mg IVP Q4HR PRN PRN Reason: Pain Last Admin: 04/11/22 13:28 Dose: 1 mg Isosorbide Mononitrate (Isosorbide Mononitrate Er 60 Mg Tab.Er.24h) 60 mg PO DAILY [facility] Metoprolol Tartrate (Metoprolol Tartrate 25 Mg Tab) 25 mg PO BID [facility] Last Admin: 04/11/22 08:57 Dose: 25 mg Miscellaneous Information (Magnesium Replacement Protocol 1 Each Misc) 1 each MISCELLANE DAILY PRN; Protocol PRN Reason: Per Protocol Naloxone HCl (Naloxone 0.4 Mg/Ml 1 Ml Vial) 0.2 mg IV Q2M PRN PRN Reason: Opioid Reversal Olanzapine (Olanzapine 10 Mg Tab) 10 mg PO [facility] Last Admin: 04/10/22 20:55 Dose: 10 mg Pantoprazole Sodium (Pantoprazole 40 Mg Tablet) 40 mg PO DAILY@30 [facility] Last Admin: 04/11/22 06:50 Dose: 40 mg Zolpidem Tartrate (Zolpidem 5 Mg Tab) 10 mg PO [facility] Last Admin: 04/10/22 20:55 Dose: 10 mg Past medical history to include: Metastatic lung adenocarcinoma getting chemotherapy and immunotherapy, GERD, hypertension, hyperlipidemia, CAD with stent, coronary bypass vocal cord implant Social history: Lives with his children. No smoking. Alcohol occasionally. 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 EYES: Pupils equal. Conjunctiva normal. HEENT: External appearance of nose and ears normal, oral cavity grossly normal. NECK: JVD not raised; masses not palpable. HEART: Heart sounds regular; no edema. LUNGS: Respiratory rate increased, not able to speak in full sentences, pulmonary decreased patient the left side;. ABDOMEN: Soft, nontender, liver spleen not palpable, no masses palpable. PSYCH: Alert and oriented x3; mood and affect slightly anxiousl. INVESTIGATIONS, reviewed in the clinical context: TSH 2.0 White count 8.6 hemoglobin 11.8 platelets 246 sodium 133 potassium 3.5 creatinine 0.81 Troponin I 0.034 proBNP 2920 EKG tracing personally reviewed by me-atrial flutter with a rate of 146 Chest x-ray film personally reviewed by me-left hydropneumothorax Previous testing Personal fluid: Prostatic adenocarcinoma CT angiogram chest [March] large left pleural effusion. Complete atelectasis left lung. Occlusion of left mainstem bronchus Assessment and plan -Recurrent large left pleural effusion from underlying malignancy with pneumothorax. previous 3 thoracentesis. Last one being 3 days ago. Pending chest tube placement. -Metastatic lung adenocarcinoma. Patient received 2 cycles of chemotherapy. Immunotherapy. Follow with oncology -Essential hypertension On amlodipine -Paroxysmal atrial flutter with a rapid ventricular rate, currently in sinus rhythm IV Cardizem drip discontinued. Lopressor 25 mg twice a day 2-D echocardiogram. -CAD with a prior history of coronary bypass Crestor -Left vocal cord paralysis with implantation -Insomnia Ambien -GERD Prilosec -Full code IV Cardizem check discontinued. Started on Lopressor. Pending chest tube placement. Discussed with the patient. Patient may have proximal obstruction the bronchus. Prognosis guarded
--- NOTE | 2022-04-11 13:44 | P.CONS ---
History of Present Illness - Reason for Consult Consult date: 04/11/22 Stage 4 lung Cancer - History of Present Illness CT Scan revealed large left Hilar mass and left pleural effusion > US-Guided thoracentesis on 01/11/22 revealed metastatic Adenocarcinoma. He denies anorexia or weight loss, having horseness, was seen by Dr Bloom> has left vocal cord paralysis. He had history of intra-thoracic Hodgkins disease 30 years ago, treated with XRT to chest then upon recurrence was given ABVD ([facility])> CR Denies anorexia or weight loss He is a life time non smoker, no ETOH use. Has history of CAD > CABG/Stents > stable 02/15/22: Having recurrent thoracentesis, PD-L1 0%, no actionable mutations ([facility]). Will have surgery for L vocal cord by Dr Bloom soon. He is now admitted after pneuthorax after thoracentesis. Awaiting chest tube today. He is feeling overall ok. Daughter at bedside Review of Systems All systems: negative Constitutional: Reports as per HPI Past Medical History Past Medical History: Cancer, GERD/Reflux, Hyperlipidemia, Hypertension Additional Past Medical History / Comment(s): recent dx. of lung cancer-sees Dr Valerio-chemo 10 days ago and immuno therapy , SOB w/exertion & hoarseness, has upcoming appt. to see Dr. Schneider regarding recent carotid doppler results. History of Any Multi-Drug Resistant Organisms: None Reported Past Surgical History: Coronary Bypass/CABG, Heart Catheterization With Stent, Hernia Repair Additional Past Surgical History / Comment(s): double bypass 20 yrs. ago. 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 Past Anesthesia/Blood Transfusion Reactions: No Reported Reaction Date of Last Stent Placement:: unk Smoking Status: Never smoker - Past Family History Mother Family Medical History: No Reported History Father Family Medical History: Chest Pain / Angina Medications and Allergies Home Medications Medication Instructions Recorded Confirmed Type Aspirin [Adult Low Dose Aspirin EC] 81 mg PO DAILY 01/11/22 04/10/22 History OLANZapine [ZyPREXA] 10 mg PO HS 02/16/22 04/10/22 History Omeprazole [PriLOSEC] 40 mg PO DAILY 02/16/22 04/10/22 History Rosuvastatin Calcium [Crestor] 40 mg PO HS 02/16/22 04/10/22 History amLODIPine [Norvasc] 10 mg PO DAILY 02/16/22 04/10/22 History Folic Acid 1 mg PO DAILY 04/07/22 04/10/22 History Hydrocortisone Cream 1 applic TOPICAL BID 04/07/22 04/10/22 History [Hydrocortisone 2.5% Cream] Isosorbide Mononitrate ER [Imdur] 90 mg PO DAILY 04/07/22 04/10/22 History Nystatin [Nystatin Oral Susp] 400,000 unit PO QID 04/07/22 04/10/22 History Zolpidem [Ambien] 10 mg PO HS 04/07/22 04/10/22 History clonazePAM [KlonoPIN] 1 mg PO DAILY PRN 04/07/22 04/10/22 History Albuterol Inhaler [Ventolin Hfa 2 puff INHALATION RT-Q6H PRN 04/10/22 04/10/22 History Inhaler] Super Beta 1 tab PO HS 04/10/22 04/10/22 History Ubidecarenone [Co Q-10] 300 mg PO DAILY 04/10/22 04/10/22 History Allergies Allergy/AdvReac Type Severity Reaction Status Date / Time No Known Allergies Allergy Verified 04/10/22 15:10 Physical Exam Vitals: Vital Signs Temp Pulse Pulse Resp BP BP Pulse Ox 04/11/22 12:00 93 42 H 122/76 91 L 04/11/22 11:30 90 39 H 122/76 90 L 04/11/22 11:09 98.9 F 87 39 H 90 L 04/11/22 08:22 92 L 04/11/22 08:08 98.0 F 107 H 27 H 124/73 94 L 04/11/22 04:00 98.1 F 99 18 102/65 92 L 04/11/22 02:00 109 H 18 04/11/22 00:00 97.9 F 109 H 18 139/57 94 L 04/10/22 20:00 98.1 F 106 H 18 124/67 95 04/10/22 16:27 93 L 04/10/22 16:20 100.3 F H 119 H 20 103/57 96 04/10/22 16:10 97.1 F L 92 20 165/65 95 04/10/22 15:08 137 H 14 96/63 94 L 04/10/22 14:27 131 H 18 106/84 95 Intake and Output 04/10/22 04/11/22 04/11/22 22:59 06:59 14:59 Intake Total 462.75 200 Balance 462.75 200 Intake: IV 20 0.9 20 Intake, IV Titration 222.75 Amount Diltiazem 125 mg In 122.75 Sodium Chloride 0.9% 100 ml @ 5 MG/HR 5 mls/hr IV .Q24H [facility] Rx#:[id number] Magnesium Sulfate-D5w Pmx 100 1 gm In Dextrose/Water 1 100ml.bag @ 100 mls/hr IVPB Q1H [facility] Rx#: [id number] Oral 240 180 Other: Voiding Method Urinal Urinal Urinal # Voids 1 1 Weight 77.111 kg - Constitutional General appearance: cooperative, no acute distress - Neck Neck: normal ROM - Respiratory Respiratory: bilateral: diminished - Cardiovascular Rhythm: regularly irregular - Gastrointestinal General gastrointestinal: soft - Integumentary Integumentary: pale - Neurologic Neurologic: CNII-XII intact - Musculoskeletal Musculoskeletal: generalized weakness - Psychiatric Psychiatric: A&O x's 3 Results CBC & Chem 7: 04/10/22 14:05 04/10/22 14:05 Labs: Abnormal Lab Results - Last 24 Hours (Table) 04/10/22 04/10/22 04/10/22 Range/Units 13:49 14:05 14:05 RBC 3.90 L (4.30-5.90) m/uL Hgb 11.8 L (13.0-17.5) gm/dL Hct 34.9 L (39.0-53.0) % Monocytes # (Manual) 1.81 H (0-1.0) k/uL VBG pH 7.58 H (7.31-7.41) VBG pCO2 23 L (37-51) mmHg VBG HCO3 21 L (24-28) mmol/L Sodium 133 L (137-145) mmol/L Glucose 111 H (74-99) mg/dL POC Glucose (mg/dL) (70-110) mg/dL Magnesium 1.3 L (1.6-2.3) mg/dL Total Protein 5.9 L (6.3-8.2) g/dL Albumin 3.4 L (3.5-5.0) g/dL 04/11/22 Range/Units 11:08 RBC (4.30-5.90) m/uL Hgb (13.0-17.5) gm/dL Hct (39.0-53.0) % Monocytes # (Manual) (0-1.0) k/uL VBG pH (7.31-7.41) VBG pCO2 (37-51) mmHg VBG HCO3 (24-28) mmol/L Sodium (137-145) mmol/L Glucose (74-99) mg/dL POC Glucose (mg/dL) 119 H (70-110) mg/dL Magnesium (1.6-2.3) mg/dL Total Protein (6.3-8.2) g/dL Albumin (3.5-5.0) g/dL Chest x-ray: report reviewed Assessment and Plan (1) Hydropneumothorax Narrative/Plan: - CTA is following await their decision for intervention or surveillance of pneumothorax - Discussed with patient and daughter that weakened lungs from cancer will increase risk Current Visit: Yes Status: Acute Code(s): J94.8 - OTHER SPECIFIED PLEURAL CONDITIONS SNOMED Code(s): 81677101 (2) Lung cancer Narrative/Plan: Due for next round of treatment next week, anticipate being discharged and able to continue on schedule Current Visit: Yes Status: Acute Code(s): C34.90 - MALIGNANT NEOPLASM OF UNSP PART OF UNSP BRONCHUS OR LUNG SNOMED Code(s): 753252271 Plan: Dr. Gann: I have completed the full history and physical and developed the above impression and plan, agree with dictation, dictated as a ascribe
--- NOTE | 2022-04-11 13:55 | P.CNPUL ---
History of Present Illness Consult date: 04/11/22 Reason for consult: dyspnea History of present illness: This is a 61-year-old male patient was hospitalized yesterday with worsening shortness of breath. The patient is known to have stage IV adenocarcinoma of the lung. The patient presented to us with worsening shortness of breath, anorexia, weight loss, hoarseness and at that time is CAT scan of the chest revealed a left hilar mass along with left-sided pleural effusion. Based on that, the patient underwent thoracentesis on 01/11/2022 and the pathology was consistent with stage IV adenocarcinoma of the lung. The patient also underwent a medialization thyroplasty, by ENT. The patient accordingly was referred to medical oncology. He was started on systemic treatment and the patient was given a combination of carboplatin Taxol in addition to Keytruda. Since then, the patient had another thoracentesis on 02/15/2022 and the most recent thoracentesis that was done last week resulted in to development of a left-sided hydropneumothorax with absence of the expansion of the left lung. The patient was seen in the office following that and he was quite stable. Over the weekend his condition got worse and the patient came into the emergency room with worsening shortness of breath and he was hospitalized accordingly. Repeat chest x-ray showed a left-sided hydropneumothorax previously with increase in air- fluid level on the left. The patient was admitted to the hospital. Pulmonary consultation was requested. I saw the patient in the morning and the patient was quite short of breath. A chest at the intensive care unit. I inserted a left-sided chest tube, a 24-Venezuelan to with partially especially the left lung and persistent left apical pneumothorax. There was adequate drainage of left- sided pleural effusion and a pneumothorax after the chest tube insertion. The patient remains hemodynamically stable at this point in time. On his blood work, the white cell count 8.6 and hemoglobin 11.8 and a platelet count of 246. Coagulation profile within normal limits. Sodium is at 133 with a potassium level of 3.5 and a BUN of 12 with a creatinine of 0.8. TSH is within normal limits. 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 Is known to have coronary artery disease with previous coronary artery bypass surgery and coronary stent insertion. Note that the patient's fluid analysis was sent for molecular testing and the patient has a PD-L1 0% without any actionable mutation. Review of Systems Constitutional: Reports fatigue, Reports poor appetite, Reports weakness Eyes: denies as per HPI, denies blurred vision, denies bulging eye, denies decreased vision, denies diplopia, denies discharge, denies dry eye, denies irritation, denies itching, denies pain, denies photophobia, denies loss of peripheral vision, denies loss of vision, denies tunnel vision/blind spots Ears: deny: decreased hearing, ear discharge, earache, tinnitus Ears, nose, mouth and throat: Reports as per HPI Breasts: absent: as per HPI, gynecomastia Cardiovascular: Reports decreased exercise tolerance, Reports dyspnea on exertion Respiratory: Reports dyspnea Gastrointestinal: Reports as per HPI Genitourinary: Reports as per HPI Musculoskeletal: Reports as per HPI Musculoskeletal: absent: ankle pain, ankle stiffness, ankle swelling Integumentary: Reports as per HPI Neurological: Reports as per HPI, Reports gait dysfunction Psychiatric: Reports as per HPI, Reports sleep disturbances Endocrine: Reports as per HPI, Reports fatigue Hematologic/Lymphatic: Reports as per HPI Allergic/Immunologic: Reports as per HPI Past Medical History Past Medical History: Cancer (Lung adenocarcinoma, stage IV, previous history of Hodgkin's lymphoma), GERD/Reflux, Hyperlipidemia, Hypertension Additional Past Medical History / Comment(s): recent dx. of lung cancer-sees Dr Valerio-chemo 10 days ago and immuno therapy , SOB w/exertion & hoarseness, has upcoming appt. to see Dr. Schneider regarding recent carotid doppler results. History of Any Multi-Drug Resistant Organisms: None Reported Past Surgical History: Coronary Bypass/CABG, Heart Catheterization With Stent, Hernia Repair Additional Past Surgical History / Comment(s): double bypass 20 yrs. ago. 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 Past Anesthesia/Blood Transfusion Reactions: No Reported Reaction Date of Last Stent Placement:: unk Smoking Status: Never smoker - Past Family History Mother Family Medical History: No Reported History Father Family Medical History: Chest Pain / Angina Medications and Allergies Home Medications Medication Instructions Recorded Confirmed Type Aspirin [Adult Low Dose Aspirin EC] 81 mg PO DAILY 01/11/22 04/10/22 History OLANZapine [ZyPREXA] 10 mg PO HS 02/16/22 04/10/22 History Omeprazole [PriLOSEC] 40 mg PO DAILY 02/16/22 04/10/22 History Rosuvastatin Calcium [Crestor] 40 mg PO HS 02/16/22 04/10/22 History amLODIPine [Norvasc] 10 mg PO DAILY 02/16/22 04/10/22 History Folic Acid 1 mg PO DAILY 04/07/22 04/10/22 History Hydrocortisone Cream 1 applic TOPICAL BID 04/07/22 04/10/22 History [Hydrocortisone 2.5% Cream] Isosorbide Mononitrate ER [Imdur] 90 mg PO DAILY 04/07/22 04/10/22 History Nystatin [Nystatin Oral Susp] 400,000 unit PO QID 04/07/22 04/10/22 History Zolpidem [Ambien] 10 mg PO HS 04/07/22 04/10/22 History clonazePAM [KlonoPIN] 1 mg PO DAILY PRN 04/07/22 04/10/22 History Albuterol Inhaler [Ventolin Hfa 2 puff INHALATION RT-Q6H PRN 04/10/22 04/10/22 History Inhaler] Super Beta 1 tab PO HS 04/10/22 04/10/22 History Ubidecarenone [Co Q-10] 300 mg PO DAILY 04/10/22 04/10/22 History Allergies Allergy/AdvReac Type Severity Reaction Status Date / Time No Known Allergies Allergy Verified 04/10/22 15:10 Physical Exam Vitals: Vital Signs Temp Pulse Pulse Resp BP BP Pulse Ox 04/11/22 12:00 93 42 H 122/76 91 L 04/11/22 11:30 90 39 H 122/76 90 L 04/11/22 11:09 98.9 F 87 39 H 90 L 04/11/22 08:22 92 L 04/11/22 08:08 98.0 F 107 H 27 H 124/73 94 L 04/11/22 04:00 98.1 F 99 18 102/65 92 L 04/11/22 02:00 109 H 18 04/11/22 00:00 97.9 F 109 H 18 139/57 94 L 04/10/22 20:00 98.1 F 106 H 18 124/67 95 04/10/22 16:27 93 L 04/10/22 16:20 100.3 F H 119 H 20 103/57 96 04/10/22 16:10 97.1 F L 92 20 165/65 95 04/10/22 15:08 137 H 14 96/63 94 L 04/10/22 14:27 131 H 18 106/84 95 Intake and Output 04/10/22 04/11/22 04/11/22 22:59 06:59 14:59 Intake Total 462.75 200 Balance 462.75 200 Intake: IV 20 0.9 20 Intake, IV Titration 222.75 Amount Diltiazem 125 mg In 122.75 Sodium Chloride 0.9% 100 ml @ 5 MG/HR 5 mls/hr IV .Q24H [facility] Rx#:[id number] Magnesium Sulfate-D5w Pmx 100 1 gm In Dextrose/Water 1 100ml.bag @ 100 mls/hr IVPB Q1H [facility] Rx#: [id number] Oral 240 180 Other: Voiding Method Urinal Urinal Urinal # Voids 1 1 Weight 77.111 kg CONSTITUTIONAL: Awake and alert, cooperative, no pain, mild respiratory distress, speaks in very short sentences, currently on 3 L of oxygen by nasal cannula, slightly anxious EYES: Pupils equal, round, reactive to light, normal ocular movement ENT: Moist mucous membranes without oral lesions present NECK: No masses, no bruits, trachea midline RESPIRATORY: Lungs sounds very diminished left side. Respirations even, slightly labored. Currently on 3 L nasal cannula with oxygen saturation 92%. Strong cough. Left-sided chest tube in place with positive air leak and possible drainage. CARDIOVASCULAR: S1, S2 present. Regular rate and rhythm, sinus rhythm on telemetry with heart rate in the 80s. Palpable peripheral pulses bilaterally. No edema present. GASTROINTESTINAL: Abdomen soft, nontender, nondistended without masses or organomegaly noted. There is no rebound or guarding present. Active bowel sounds present 4 quadrants. GENITOURINARY: Deferred INTEGUMENTARY: Skin is warm and dry with evidence of good perfusion. NEUROLOGIC: Cranial nerves II through XII intact, normal coordination, no obvious motor or sensory deficits, speech is hoarse MUSKULOSKELETAL: Able to move all extremities, strength equal bilaterally, normal posture PSYCHIATRIC: Alert and oriented to person place and time, appropriate affect, intact judgment and insight Results - Laboratory Findings CBC and BMP: 04/10/22 14:05 04/10/22 14:05 PT/INR, D-dimer PT 10.6 sec (9.0-12.0) 04/10/22 14:05 INR 1.0 (<1.2) 04/10/22 14:05 Abnormal lab findings: Abnormal Labs 04/10/22 04/10/22 04/10/22 13:49 14:05 14:05 RBC 3.90 L Hgb 11.8 L Hct 34.9 L Monocytes # (Manual) 1.81 H VBG pH 7.58 H VBG pCO2 23 L VBG HCO3 21 L Sodium 133 L Glucose 111 H POC Glucose (mg/dL) Magnesium 1.3 L Total Protein 5.9 L Albumin 3.4 L 04/11/22 11:08 RBC Hgb Hct Monocytes # (Manual) VBG pH VBG pCO2 VBG HCO3 Sodium Glucose POC Glucose (mg/dL) 119 H Magnesium Total Protein Albumin - Diagnostic Findings Chest x-ray: image reviewed CT scan - chest: image reviewed Assessment and Plan Plan: Stage IV adenocarcinoma of the lung with malignant left-sided pleural effusion. Left-sided hydropneumothorax which Lung, probably due to a hilar mass causing mass effect obstruction of the main airways. The patient had developed a hydropneumothorax following the procedure which involved a thoracentesis. Based on that, the patient was given a left-sided chest tube. Acute hypoxic respiratory failure secondary to above, currently on 3 L of oxygen by nasal cannula. 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 Coronary artery disease, previous bypass surgery. Hodgkin's lymphoma in remission. Hypertension Hyperlipidemia Constitutional symptoms with weight loss and generalized weakness all secondary to above. Plan Keep the patient ICU for the next 24 hours He is a left-sided chest tube in place Daily chest x-ray and there has been adequate partial reexpansion of the left lung. There is persistent pneumothorax and effusion in the left lung base along with volume loss in the left hilar mass. May need a bronchoscopy for airway inspection, suspecting a endobronchial tumor. Based on all this, the patient will be kept nothing by mouth after midnight for possible bronchoscopy in a.m. Provide patient incentive spirometer Dilaudid for pain control Monitor the output from the left sided chest tube Patient on systemic chemotherapy and immunotherapy Long-term prognosis poor based on the above-mentioned comorbidities. We'll continue to follow
--- NOTE | 2022-04-11 13:56 | P.PCN ---
Date of Procedure: 04/11/22 Preoperative Diagnosis: Left-sided hydropneumothorax Postoperative Diagnosis: Left-sided hydropneumothorax Procedure(s) Performed: Left-sided chest tube insertion, 24-Ugandan Anesthesia: local Surgeon: Clary Castillo Estimated Blood Loss (ml): 0 Condition: critical Disposition: ICU Operative Findings: A time-out was completed verifying correct patient, procedure, site, positioning, and special equipment if applicable. The patient was positioned appropriately for chest tube placement. The patients left chest was prepped and draped in sterile fashion. 1% Lidocaine was used to anesthetize the surrounding skin area. A 2 cm skin incision was made in the mid-axillary line at the inframammarycrease. Utilizing blunt dissection a subcutaneous tunnel was created cephalad just adjacent to the superior rib. The pleural space was entered bluntly and gush of fluid and air was observed. A finger was inserted into the pleural space to check for anatomy and guide tube insertion. A 24- [place]andan thoracostomy tube was inserted using a Miladis clamp and positioned appropriately. The chest tube was sutured securely to the skin and a sterile dressing applied. A pleurevac was attached to the chest tube and a chest x-ray obtained. I personally performed this procedure and I was was present for the entire procedure. Estimated Blood Loss: 0 The patient tolerated the procedure well and there were no complications.
--- NOTE | 2022-04-11 14:18 | XR ---
EXAMINATION TYPE: XR chest 1V portable DATE OF EXAM: 04/11/2022 COMPARISON: 04/10/2022 INDICATION: Chest tube insertion TECHNIQUE: Single frontal view of the chest is obtained. FINDINGS: The heart size is normal. The pulmonary vasculature is normal. There is a left-sided hydropneumothorax. Large pneumothorax at the lung apex. This is diminished post chest tube placement. Chest tube is directed towards the left apex. IMPRESSION: 1. Diminished left apical pneumothorax post chest tube placement. Previous hydrothorax is diminished from comparison.
[2022-04-11] MEDS ORDERED: FUROSEMIDE 10 MG/ML 4 ML VIAL IV STA (15:50)
--- NOTE | 2022-04-11 17:12 | CA ---
Transthoracic Echo Report Name: Davidson Soto Age: 61 Gender: M : 1960 Exam Date: 04/11/2022 10:44 Exam Location: [place] [facility] Ht (in): 71 Wt (lb): 170 Ordering Physician: Arnold Tirado Attending/Referring Phys: Insurance Executive Shani Benitez RDCS Procedure CPT: Indications: New-onset A. fib with RVR Cardiac Hx: Technical Quality: Good Contrast 1: Total Dose (mL): Contrast 2: Total Dose (mL): MEASUREMENTS (Male / Female) Normal Values 2D ECHO LV Diastolic Diameter PLAX 2.9 cm 4.2 - 5.9 / 3.9 - 5.3 cm LV Systolic Diameter PLAX 1.9 cm IVS Diastolic Thickness 0.9 cm 0.6 - 1.0 / 0.6 - 0.9 cm LVPW Diastolic Thickness 1.2 cm 0.6 - 1.0 / 0.6 - 0.9 cm LV Relative Wall Thickness 0.7 RV Internal Dim ED PLAX 2.0 cm M-MODE Aortic Root Diameter MM 3.2 cm LA Systolic Diameter MM 3.2 cm LA Ao Ratio MM 1.0 MV E Point Septal Separation 1.4 cm AV Cusp Separation MM 1.4 cm DOPPLER AV Peak Velocity 108.9 cm/s AV Peak Gradient 4.7 mmHg AI Peak Velocity 207.0 cm/s AI Peak Gradient 17.1 mmHg AI Pressure Half Time 370.5 ms MV Peak Velocity 167.5 cm/s MV Peak Gradient 11.2 mmHg MV Mean Velocity 107.2 cm/s MV Mean Gradient 5.2 mmHg MV Velocity Time Integral 38.6 cm MV Area PHT 3.0 cm??? MR Peak Velocity 333.6 cm/s MR Peak Gradient 44.5 mmHg Mitral E Point Velocity 142.8 cm/s Mitral A Point Velocity 108.3 cm/s Mitral E to A Ratio 1.3 MV Deceleration Time 246.3 ms TR Peak Velocity 94.7 cm/s TR Peak Gradient 3.6 mmHg Right Ventricular Systolic Press 8.6 mmHg FINDINGS Left Ventricle Left ventricular ejection fraction is estimated at 55-60 %. Left ventricular cavity size normal. Left ventricular wall thickness normal. Right Ventricle The right ventricle is normal in size and function. Right Atrium The right atrium is normal in size. Left Atrium The left atrium is normal in size. Mitral Valve Mild Mitral stenosis. There is mild mitral regurgitation. Mitral annular calcification. Mitral valve thickened. Aortic Valve Structurally normal aortic valve without significant sclerosis or stenosis. There is trace aortic regurgitation. Tricuspid Valve Structurally normal tricuspid valve without significant stenosis. Pulmonary artery systolic pressure is normal. Trace tricuspid regurgitation. Pulmonic Valve Structurally normal pulmonic valve without significant stenosis. There is no pulmonic regurgitation. Pericardium Normal pericardium without effusion. Aorta Normal aortic root dimension. CONCLUSIONS Normal LV systolic function. Mechanical calcification with mild mitral regurgitation and mild aortic stenosis Previewed by: Dr. Santo Durham MD (Electronically Signed) Final Date: 11 April 2022 17:11
[2022-04-11] MEDS: ATORVASTATIN 80 MG TAB PO SCH (20:03)
[2022-04-11] MEDS: ZOLPIDEM 5 MG TAB PO SCH (20:03)
[2022-04-11] MEDS: OLANZapine 10 MG TAB PO SCH (20:32)
[2022-04-11] MEDS ORDERED: Potassium Replacement Protocol 1 EACH MISC MISCELLANE PRN (20:56)
[2022-04-11] MEDS: POTASSIUM CHLORIDE 10 MEQ in WATER FOR INJECTION 1 100ML.BAG IVPB SCH ×3 (21:08→22:59)
[2022-04-12] MEDS: POTASSIUM CHLORIDE 10 MEQ in WATER FOR INJECTION 1 100ML.BAG IVPB SCH ×5 (00:01→10:59)
[2022-04-12] MEDS: HYDROmorphone 1 MG/ML 1 ML SYRINGE IVP PRN ×3 (03:34→20:08)
[2022-04-12 06:24] LABS: HGB 11.3 gm/dL (13.0-17.5); Hypochromasia Slight; MCH 30.7 pg (25.0-35.0); MCHC 32.3 g/dL (31.0-37.0); MCV 95.3 fL (80.0-100.0); Mean Platelet Volume 7.5; Platelet Count 159 k/uL (150-450); RBC 3.67 m/uL (4.30-5.90); RDW 15.3 % (11.5-15.5); WBC 8.1 k/uL (3.8-10.6)
[2022-04-12 06:38] LABS: African American GFR (CKD) >90 (>60 ml/min/1.73 sqM); Anion Gap 7 mmol/L; Blood Urea Nitrogen 13 mg/dL (9-20); Calcium 7.7 mg/dL (8.4-10.2); Carbon Dioxide 28 mmol/L (22-30); Chloride 97 mmol/L (98-107); Glucose 99 mg/dL (74-99); Non-African American GFR(CKD) >90 (>60 ml/min/1.73 sqM); Potassium 3.4 mmol/L (3.5-5.1); Sodium 132 mmol/L (137-145)
[2022-04-12] MEDS: PANTOPRAZOLE 40 MG TABLET PO SCH (07:16)
--- NOTE | 2022-04-12 07:21 | XR ---
EXAMINATION TYPE: XR chest 1V portable DATE OF EXAM: 04/12/2022 COMPARISON: 04/11/2021 HISTORY: Follow-up pneumothorax FINDINGS: Left-sided chest tube is unchanged in position. Left-sided pneumothorax persists and is smaller in si ze with apical pleural distance estimated at 3.4 cm versus 5.4 cm previously. There is hydropneumotho rax component. There is diffuse opacification throughout the aerated left lung. Stable appearance of the cardio-mediastinal structures at this time. IMPRESSION: 1. Persistent but improving left-sided pneumothorax. 2. Diffuse opacification of aerated left lung is again noted.
[2022-04-12] MEDS: ALBUTEROL HFA INHALER INHALATION PRN (07:38)
[2022-04-12] MEDS: FOLIC ACID 1 MG TAB PO SCH (08:00)
--- NOTE | 2022-04-12 08:16 | P.PN ---
Subjective Progress Note Date: 04/12/22 PROGRESS NOTE The patient is a 61-year-old male with a known history of CAD, post CABG 20 years ago, history of metastatic lung cancer, receiving chemotherapy and had thoracentesis who presented was progressive dyspnea and significant effusion on the left side. He had an episode of paroxysmal atrial ablation, maintaining sinus mechanism since. He underwent chest tube placement yesterday with improvement in his symptoms. He is scheduled for possible bronchoscopy to further evaluate his lung status. He denies any chest discomfort, dizziness or palpitations. He is feeling better overall. Hemodynamically he is stable. His echocardiogram showed normal left ventricle size and systolic function with mitral annulus calcification and mild mitral regurgitation. Medications: Lipitor 80 mg daily, isosorbide 60 mg daily, metoprolol 25 mg twice a day. PHYSICAL EXAMINATION: Blood pressure 120/70 heart rate 90 LUNGS: Improved air exchange on the left side with scattered rhonchi, chest tube in place HEART: Regular rate and rhythm, S1, S2. No S3. systolic ejection murmur ABDOMEN: Soft, nontender, no organomegaly EXTREMETIES: No edema LAB: Hemoglobin 11.3, platelets 159, potassium 3.4, BUN 13, creatinine 0.74 IMPRESSION: 1. Recurrent left sided pleural effusion with pneumothorax, post chest tube placement 2. Stage IV adenocarcinoma of the lung, receiving chemotherapy 3. Paroxysmal atrial fibrillation, maintaining sinus mechanism 4. Status post CABG, stable 5. History of hyperlipidemia 6. History of hypertension PLAN: 1. Continue beta alexandre 2. Restart aspirin 3. Further workup of his effusion with possible bronchoscopy 4. Depending on his blood pressure and heart rate further adjustment of his beta alexandre will be done. Objective - Vital Signs Vital signs: Vital Signs Temp 97.4 F L 04/12/22 04:00 Pulse 101 H 04/12/22 07:00 Resp 28 H 04/12/22 07:00 BP 140/98 04/12/22 07:00 Pulse Ox 93 L 04/12/22 07:00 FiO2 Intake & Output 04/11/22 04/12/22 04/12/22 18:59 06:59 18:59 Intake Total 260 680 10 Output Total 3500 2480 440 Balance -3240 -1800 -430 Weight 74.3 kg Intake: IV 80 120 10 0.9 80 120 10 Intake, IV Titration 400 Amount Potassium Chloride 10 meq 400 In Water For Injection 1 100ml.bag @ 100 mls/hr IVPB Q1HR [facility] Rx#: [id number] Oral 180 160 0 Output: Chest Tube Drainage 1300 380 40 Chest Tube Left Mid- 1300 380 40 Axillary Chest Urine 2200 2100 400 Other: Voiding Method Toilet Bedside Commode # Voids 0 1 1 - Labs CBC & Chem 7: 04/12/22 05:46 04/12/22 05:46 Labs: Abnormal Lab Results - Last 24 Hours (Table) 04/11/22 04/11/22 04/12/22 Range/Units 11:08 20:30 05:46 RBC 3.67 L (4.30-5.90) m/uL Hgb 11.3 L (13.0-17.5) gm/dL Hct 35.0 L (39.0-53.0) % Sodium (137-145) mmol/L Potassium 3.3 L (3.5-5.1) mmol/L Chloride (98-107) mmol/L POC Glucose (mg/dL) 119 H (70-110) mg/dL Calcium (8.4-10.2) mg/dL 04/12/22 Range/Units 05:46 RBC (4.30-5.90) m/uL Hgb (13.0-17.5) gm/dL Hct (39.0-53.0) % Sodium 132 L (137-145) mmol/L Potassium 3.4 L (3.5-5.1) mmol/L Chloride 97 L (98-107) mmol/L POC Glucose (mg/dL) (70-110) mg/dL Calcium 7.7 L (8.4-10.2) mg/dL
--- NOTE | 2022-04-12 09:01 | P.PN ---
Subjective Progress Note Date: 04/12/22 Principal diagnosis: Recurrent malignant left-sided pleural effusion. Past medical history significant for a recent diagnosis metastatic adenocarcinoma with primary lung origin status post chemotherapy and immunotherapy, left vocal cord paralysis status post left medialization thyroplasty, recurrent malignant left-sided pleural effusion status post thoracentesis 4, Hodgkin's lymphoma in remission, coronary artery disease status post CABG, hypertension, and hyperlipidemia. Status post day #1 left-sided chest tube placement by Dr. Castillo from pulmonary/critical care medicine. The patient was seen and examined in follow-up today 04/12/2022 at his bedside in the intensive care unit. Currently he is laying in bed, is awake, alert, oriented 3 and is in no acute distress. A left-sided chest tube was placed yesterday by Dr. Castillo due to a left-sided hydropneumothorax. The left sided chest tube remains in place to low continuous wall suction -20 cm H2O. No air leak is present. Draining thin serosanguineous drainage with 180 mL output in the last 8 hours and 1.6 L output in the last 24 hours. Currently he rates his pain 5 out of 10 on the pain scale to the chest tube insertion site. Oxygen saturations are 94% on 2 L nasal cannula. Bedside telemetry showing sinus tachycardia heart rate 100 BPM. Chest x-ray this morning shows a persistent but improving left-sided pneumothorax. Laboratory results this morning show a WBC count 8.1, hemoglobin 11.3, hematocrit 35.0, platelets 159, sodium 132, potassium 3.4, chloride 97, CO2 28, BUN 13, creatinine 0.74 and calcium 7.7. He's been afebrile in the last 24 hours. Objective - Vital Signs Vital signs: Vital Signs Temp 97.4 F L 04/12/22 04:00 Pulse 101 H 04/12/22 07:00 Resp 28 H 04/12/22 07:00 BP 140/98 04/12/22 07:00 Pulse Ox 93 L 04/12/22 07:00 FiO2 Intake & Output 04/11/22 04/12/22 04/12/22 18:59 06:59 18:59 Intake Total 260 680 10 Output Total 3500 2480 440 Balance -3240 -1800 -430 Weight 74.3 kg Intake: IV 80 120 10 0.9 80 120 10 Intake, IV Titration 400 Amount Potassium Chloride 10 meq 400 In Water For Injection 1 100ml.bag @ 100 mls/hr IVPB Q1HR [facility] Rx#: [id number] Oral 180 160 0 Output: Chest Tube Drainage 1300 380 40 Chest Tube Left Mid- 1300 380 40 Axillary Chest Urine 2200 2100 400 Other: Voiding Method Toilet Bedside Commode # Voids 0 1 1 - Exam CONSTITUTIONAL: Sitting up in bed in the intensive care unit, appears comfortable, cooperative, no apparent acute distress. HEENT: Neck is supple, no JVD, no lymphadenopathy. RESPIRATORY: Lungs sounds with scattered rhonchi throughout, diminished to his left lower lobe.. Respirations are symmetrical and nonlabored. Currently on 2 L nasal cannula with oxygen saturations 94%. Strong cough. CARDIOVASCULAR: Regular rhythm and rate. S1 and S2 present, negative for S3, gallop or murmur. Palpable peripheral pulses. No edema present. GASTROINTESTINAL: Abdomen soft, nontender, nondistended. Hypoactive bowel sounds present 4 quadrants. Tolerating diet. Passing flatus. No guarding or rigidity. GENITOURINARY: Continues to void. 1200 mL of urine output in the last 8 hours INTEGUMENTARY: Skin is warm and dry with no evidence of clubbing or cyanosis. Dressing is clean, dry and intact to his left chest tube insertion site. NEUROLOGIC: Cranial nerves II through XII intact. No focal deficits. MUSKULOSKELETAL: Able to move all extremities, strength equal bilaterally, generalized weakness. PSYCHIATRIC: Alert and oriented to person place and time, appropriate affect, intact judgment and insight. Left pleural chest tube with 180 mL of thin sero sanguineous drainage overnight, 1600 mL output in the last 24 hours. - Allied health notes Allied health notes reviewed: nursing - Labs CBC & Chem 7: 04/12/22 05:46 04/12/22 05:46 Labs: Abnormal Lab Results - Last 24 Hours (Table) 04/11/22 04/11/22 04/12/22 Range/Units 11:08 20:30 05:46 RBC 3.67 L (4.30-5.90) m/uL Hgb 11.3 L (13.0-17.5) gm/dL Hct 35.0 L (39.0-53.0) % Sodium (137-145) mmol/L Potassium 3.3 L (3.5-5.1) mmol/L Chloride (98-107) mmol/L POC Glucose (mg/dL) 119 H (70-110) mg/dL Calcium (8.4-10.2) mg/dL 04/12/22 Range/Units 05:46 RBC (4.30-5.90) m/uL Hgb (13.0-17.5) gm/dL Hct (39.0-53.0) % Sodium 132 L (137-145) mmol/L Potassium 3.4 L (3.5-5.1) mmol/L Chloride 97 L (98-107) mmol/L POC Glucose (mg/dL) (70-110) mg/dL Calcium 7.7 L (8.4-10.2) mg/dL - Imaging and Cardiology Chest x-ray: report reviewed, image reviewed Assessment and Plan Assessment: 1. Recent diagnosis metastatic adenocarcinoma with primary lung origin status post chemotherapy and immunotherapy 2. Recurrent malignant left-sided pleural effusion status post thoracentesis 4 3. Hydropneumothorax with trapped lung, status post placement of left pleural chest tube by pulmonary/critical care medicine 4. New-onset atrial fibrillation with rapid ventricular response on admission, currently sinus rhythm 5. Shortness of breath, secondary to above 6. Left vocal cord paralysis status post left medialization thyroplasty 7. Hodgkin's lymphoma in remission 8. Coronary artery disease status post CABG 9. History of hypertension 10. History of hyperlipidemia Plan: 1. Keep left pleural chest tube in place to low continuous wall suction -20 cm H2O. 2. The patient is currently nothing by mouth, possible bronchoscopy today by pulmonary/critical care medicine. 3. We will order an incentive spirometry and encourage use 10 times every hour while awake. 4. Wean oxygen as tolerated. 5. Continued discussion on Pleurx catheter placement and timing. 6. Pain control per current when necessary orders. 7. Medical management other comorbidities per primary care service, oncology, hematology and cardiology. 8. More recommendations to follow based on patient's clinical course. Time with Patient: Greater than 30
[2022-04-12] MEDS: METOPROLOL TARTRATE 25 MG TAB PO SCH ×2 (10:29→20:08)
[2022-04-12] MEDS: ASPIRIN 81 MG PO SCH (10:29)
[2022-04-12] MEDS: ISOSORBIDE MONONITRATE ER 60 MG TAB.ER.24H PO SCH (10:29)
--- NOTE | 2022-04-12 10:44 | P.PN ---
Progress Note - Text Progress Note Date: 04/12/22 Chief Complaint: Short of breath This is a pleasant 61-year-old patient follows with Dr. Bloom. Chronic stable medical conditions include GERD, lipidemia, hypertension,. Has a diagnosis of metastatic adenocarcinoma, being followed by Dr. Yen from oncology. Has re ceived 2 rounds of chemotherapy. Also receiving immunotherapy. Patient's had about 4 hours of left thoracentesis the last one being 3 days ago. 1.3 L was removed from the left side. Patient is decreased appetite. Weight loss. Patient also has left vocal cord paralysis with left medial ligation thyroplasty with the Moise implant done by Dr. Blanchard. Patient felt better after his thoracentesis 3 days ago. Presents now with worsening shortness of breath. Cough with some yellow sputum. No fever no chills. Tired rundown. ER found to be in atrial flutter with a rate of 140s. X-ray shows left hydropneumothorax. April 11: Patient moved to the ICU. Discussed with Dr. Castillo. 4 chest tube. Patient may have a proximal obstruction of the bronchus. Shortness of breath. Patient back into sinus rhythm. Cardizem drip discontinued. Started on metoprolol 25 mg twice a day. April 12: ICU. Patient had a left-sided chest tube placed yesterday. Has put on about 1.7 L. Has Dilaudid for pain control. On [address] Castillo is contemplating bronchoscopy. Patient nothing by mouth. Sinus rhythm. Some pain of the chest tube site. Congested cough. Chest x-ray shows some left-sided pneumothorax, pleural fluid./Infiltrates Active Medications Albuterol Sulfate (Albuterol Hfa Inhaler) 2 puff INHALATION RT-Q6H PRN PRN Reason: Shortness Of Breath Last Admin: 04/12/22 07:38 Dose: 2 puff Aspirin (Aspirin 81 Mg) 81 mg PO DAILY [facility] Last Admin: 04/12/22 10:29 Dose: 81 mg Atorvastatin Calcium (Atorvastatin 80 Mg Tab) 80 mg PO HS REBA Last Admin: 04/11/22 20:03 Dose: 80 mg Clonazepam (Clonazepam 1 Mg Tab) 1 mg PO DAILY PRN PRN Reason: Anxiety Last Admin: 04/10/22 20:55 Dose: 1 mg Folic Acid (Folic Acid 1 Mg Tab) 1 mg PO DAILY [facility] Last Admin: 04/12/22 08:00 Dose: Not Given Hydromorphone HCl (Hydromorphone 1 Mg/Ml 1 Ml Syringe) 1 mg IVP Q4HR PRN PRN Reason: Pain Last Admin: 04/12/22 03:34 Dose: 1 mg Potassium Chloride 10 meq/ IV (Solution) 100 mls @ 100 mls/hr IVPB Q1HR [facility]; Protocol Stop: 04/12/22 11:59 Last Admin: 04/12/22 09:39 Dose: 100 mls/hr Isosorbide Mononitrate (Isosorbide Mononitrate Er 60 Mg Tab.Er.24h) 60 mg PO DAILY [facility] Last Admin: 04/12/22 10:29 Dose: 60 mg Metoprolol Tartrate (Metoprolol Tartrate 25 Mg Tab) 25 mg PO BID [facility] Last Admin: 04/12/22 10:29 Dose: 25 mg Miscellaneous Information (Magnesium Replacement Protocol 1 Each Misc) 1 each MISCELLANE DAILY PRN; Protocol PRN Reason: Per Protocol Miscellaneous Information (Potassium Replacement Protocol 1 Each Misc) 1 each MISCELLANE DAILY PRN; Protocol PRN Reason: Per Protocol Naloxone HCl (Naloxone 0.4 Mg/Ml 1 Ml Vial) 0.2 mg IV Q2M PRN PRN Reason: Opioid Reversal Olanzapine (Olanzapine 10 Mg Tab) 10 mg PO [facility] Last Admin: 04/11/22 20:32 Dose: 10 mg Pantoprazole Sodium (Pantoprazole 40 Mg Tablet) 40 mg PO DAILY@0730 [facility] Last Admin: 04/12/22 07:16 Dose: Not Given Zolpidem Tartrate (Zolpidem 5 Mg Tab) 10 mg PO [facility] Last Admin: 04/11/22 20:03 Dose: 10 mg Past medical history to include: Metastatic lung adenocarcinoma getting chemotherapy and immunotherapy, GERD, hypertension, hyperlipidemia, CAD with stent, coronary bypass vocal cord implant Social history: Lives with his children. No smoking. Alcohol occasionally. Joel. Soya artis/wheat Family history: Reviewed, noncontributory to presentation Physical examination: VITAL SIGNS: 98.4, 96, 28, 140/98, 95% on 2 L GENERAL: Sitting up in bed awake tired. EYES: Pupils equal. Conjunctiva normal. HEENT: External appearance of nose and ears normal, oral cavity grossly normal. NECK: JVD not raised; masses not palpable. HEART: First seconds are normal; no edema. LUNGS: Respiratory rate increased, decreased breath sounds. Left-sided chest tube.. ABDOMEN: Soft, nontender, liver spleen not palpable, no masses palpable. PSYCH: Alert and oriented x3; mood and affect slightly anxiousl. INVESTIGATIONS, reviewed in the clinical context: April 12: White count 8.1 hemoglobin 11.3 platelets 159 sodium 132 potassium 3.4 creatinine 0.74 2-D echocardiogram: EF 55-60%. TSH 2.0 White count 8.6 hemoglobin 11.8 platelets 246 sodium 133 potassium 3.5 creatinine 0.81 Troponin I 0.034 proBNP 2920 EKG tracing personally reviewed by me-atrial flutter with a rate of 146 Chest x-ray film personally reviewed by me-left hydropneumothorax Previous testing Pleural fluid: Metastatic adenocarcinoma CT angiogram chest [March] large left pleural effusion. Complete atelectasis left lung. Occlusion of left mainstem bronchus Assessment and plan -Recurrent large left pleural effusion from underlying malignancy with pneumothorax. previous 3 thoracentesis. : Slow to respond chest tube placed April 11 -Metastatic lung adenocarcinoma. Patient received 2 cycles of chemotherapy. Immunotherapy. Follow with oncology -Possible secondary pneumonia from obstruction on the left side Start ceftriaxone. Check pro-calcitonin -Essential hypertension On amlodipine -Paroxysmal atrial flutter with a rapid ventricular rate, currently in sinus rhythm IV Cardizem drip discontinued. Lopressor 25 mg twice a day -CAD with a prior history of coronary bypass Crestor -Left vocal cord paralysis with implantation -Insomnia Josefina Aguillon -Full code Lopressor. Oxygen 2 L. Supplement potassium. Pain control. Add ceftriaxone. Possible bronchoscopy by Dr. Castillo. Discussed with patient. Check pro- calcitonin.
--- NOTE | 2022-04-12 13:10 | P.PN ---
Subjective Progress Note Date: 04/12/22 On today's evaluation of 04/12/2022, the patient is on oxygen 2 L per minute nasal cannula. The patient is calm and comfortable and the patient is following commands and answering questions. Note that the left-sided chest tube was inserted yesterday and there was evacuation of left-sided pleural effusion and left-sided pneumothorax. Subsequent chest x-ray from today shows a persistent but improving left-sided pneumothorax and there is diffuse opacification of the elevated lung on the left. Note that overnight, the patient drained approximately 3 L of pleural fluid out of the left-sided chest tube. Note that the patient was also given a dose of Lasix 40 mg IV push and the neck fluid balance is -5 L over the past 24 hours. Clinically is feeling better. Less short of breath. His lungs are congested and the patient is scheduled to undergo bronchoscopy for airway inspection today. No evidence of any air leak on the chest tubes. The patient white cell count of 8.1 with a hemoglobin of 1 1.3. The patient also has a sodium level of 132 with a potassium level of 3.4. BUN is at 30 with a creatinine of 0.7. The patient's calcium level is at 7.7. The patient remains on bronchodilators and the patient is receiving albuterol HFA. The patient on IV Rocephin as an empiric antibiotic coverage. He is receiving Dilaudid for pain control. Objective - Vital Signs Vital signs: Vital Signs Temp 98.2 F 04/12/22 12:00 Pulse 87 04/12/22 12:00 Resp 24 04/12/22 12:00 BP 101/66 04/12/22 12:00 Pulse Ox 96 04/12/22 12:00 FiO2 Intake & Output 04/11/22 04/12/22 04/12/22 18:59 06:59 18:59 Intake Total 260 680 460 Output Total 3500 2480 940 Balance -3240 -1800 -480 Weight 74.3 kg Intake: IV 80 120 460 0.9 80 120 60 Potassium Chloride 10 meq 400 In Water For Injection 1 100ml.bag @ 100 mls/hr IVPB Q1HR [facility] Rx#: [id number] Intake, IV Titration 400 Amount Potassium Chloride 10 meq 400 In Water For Injection 1 100ml.bag @ 100 mls/hr IVPB Q1HR [facility] Rx#: [id number] Oral 180 160 0 Output: Chest Tube Drainage 1300 380 140 Chest Tube Left Mid- 1300 380 140 Axillary Chest Urine 2200 2100 800 Other: Voiding Method Toilet Bedside Commode Bedside Commode # Voids 0 1 1 - Exam CONSTITUTIONAL: Sitting up in bed in the intensive care unit, appears comfortable, cooperative, no apparent acute distress. HEENT: Neck is supple, no JVD, no lymphadenopathy. RESPIRATORY: Lungs sounds with scattered rhonchi throughout, diminished to his left lower lobe.. Respirations are symmetrical and nonlabored. Currently on 2 L nasal cannula with oxygen saturations 94%. Strong cough. CARDIOVASCULAR: Regular rhythm and rate. S1 and S2 present, negative for S3, gallop or murmur. Palpable peripheral pulses. No edema present. GASTROINTESTINAL: Abdomen soft, nontender, nondistended. Hypoactive bowel sounds present 4 quadrants. Tolerating diet. Passing flatus. No guarding or rigidity. GENITOURINARY: Continues to void. 1200 mL of urine output in the last 8 hours INTEGUMENTARY: Skin is warm and dry with no evidence of clubbing or cyanosis. Dressing is clean, dry and intact to his left chest tube insertion site. NEUROLOGIC: Cranial nerves II through XII intact. No focal deficits. MUSKULOSKELETAL: Able to move all extremities, strength equal bilaterally, generalized weakness. PSYCHIATRIC: Alert and oriented to person place and time, appropriate affect, intact judgment and insight. Left pleural chest tube with 180 mL of thin serosanguineous drainage overnight, 1600 mL output in the last 24 hours. - Labs CBC & Chem 7: 04/12/22 05:46 04/12/22 05:46 Labs: Abnormal Lab Results - Last 24 Hours (Table) 04/11/22 04/12/22 04/12/22 Range/Units 20:30 05:46 05:46 RBC 3.67 L (4.30-5.90) m/uL Hgb 11.3 L (13.0-17.5) gm/dL Hct 35.0 L (39.0-53.0) % Sodium 132 L (137-145) mmol/L Potassium 3.3 L 3.4 L (3.5-5.1) mmol/L Chloride 97 L (98-107) mmol/L Calcium 7.7 L (8.4-10.2) mg/dL Assessment and Plan Plan: Stage IV adenocarcinoma of the lung with malignant left-sided pleural effusion. Left-sided hydropneumothorax which Lung, probably due to a hilar mass causing mass effect obstruction of the main airways. The patient had developed a hydropneumothorax following the procedure which involved a thoracentesis. Based on that, the patient was given a left-sided chest tube. There was evacuation of approximately 3 L of pleural fluid and air from the left lung and the patient's chest x-ray shows opacification of the right lung on the left and a 10% pneumothorax on the left. Chest tube is in excellent location for now. No evidence of any air leak. Acute hypoxic respiratory failure secondary to above, currently on 3 L of oxygen by nasal cannula. Shortness of breath secondary to above, improving New-onset atrial fibrillation current rhythm is sinus Left vocal cord paralysis secondary to hilar mass post medialization thyroplasty. Coronary artery disease, previous bypass surgery. Hodgkin's lymphoma in remission. Hypertension Hyperlipidemia Constitutional symptoms with weight loss and generalized weakness all secondary to above. Plan Put the patient on DuoNeb nebulized treatments around the clock Bronchoscopy scheduled to be done today for an airway inspection Keep the left-sided chest tube in place to monitor the air leak and output Continue using the incentive spirometer Dilaudid for pain control Monitor the output from the left sided chest tube Patient on systemic chemotherapy and immunotherapy Long-term prognosis poor based on the above-mentioned comorbidities. We'll continue to follow We'll keep the patient denies to follow 24 hours
[2022-04-12] MEDS ORDERED: PHENYLEPHRINE-0.9% NACL SYG 1,000 MCG/10 ML SYRINGE ONE (14:21)
[2022-04-12] MEDS ORDERED: SUCCINYLCHOLINE CHLORIDE 200 MG/10 ML VIAL IV ONE (14:21)
[2022-04-12] MEDS ORDERED: MIDAZOLAM 2 MG/2 ML VIAL ONE (14:21)
[2022-04-12] MEDS ORDERED: LIDOCAINE 2% INJ 20 MG/ML (2 ML VIAL) ONE (14:21)
[2022-04-12] MEDS ORDERED: PROPOFOL 10 MG/ML 20 ML VIAL IV ONE (14:21)
[2022-04-12] MEDS ORDERED: fentaNYL (PF) 50 MCG/ML 2 ML AMP ONE (14:21)
[2022-04-12] MEDS ORDERED: IV FLUID CONTINUATION 1,000 ML IV ONE ×2 (14:27)
--- NOTE | 2022-04-12 14:51 | P.PCN ---
Date of Procedure: 04/12/22 Preoperative Diagnosis: Left-sided hydropneumothorax post chest tube insertion Left lung adenocarcinoma Postoperative Diagnosis: Extensive tumor involvement both endobronchial and extrinsic compression completely occluding the left upper lobe anterior and apical segments and causi ng significant narrowing of the lingular segment. Several endobronchial tumor was seen near completely occluding the orifice of the superior segment left lower lobe and causing narrowing of the left lower lobe by around 50% Procedure(s) Performed: Flexible bronchoscopy, airway inspection Anesthesia: GETA Surgeon: Clary Castillo Estimated Blood Loss (ml): 0 Pathology: none sent Condition: critical Disposition: ICU Operative Findings: This procedure was done to evaluate this patient's airways as the patient is known to have adenocarcinoma of the lung and the patient developed recurrent left-sided pleural effusion complicated by left-sided hydropneumothorax requiring a chest tube insertion. 4 chest tube insertion, there was incomplete extension of the left lung with some residual pneumothorax and left apex and persistent opacification of the elevated lung on the left. As such, endobronchial tumor was suspected and an airway inspection was indicated This procedure was done in the endoscopy suite. The patient was intubated and placed on a mechanical ventilator in the usual fashion. The intubation process was done by CASTING INSPECTOR. The patient was intubated by #8 orotracheal tube. Following that, a flexible bronchoscope was introduced with orotracheal tube and was advanced into the lower trachea. The procedure was done as the patient was fully oxygenated and ventilated. Distal and mid trachea was within normal limits. Right mainstem bronchus revealed some looseness to secretions that were suctioned out. Examination of the right-sided fluid the right upper lobe bronchus, bronchus intermedius, right middle lobe bronchus and right lower lobe bronchus and the various segments of the right lung were essentially patent and within normal limits. Following that, bronchoscope was moved to the left. Left mainstem bronchus was patent. The secondary bethany left upper and left lower lobe was involved with endobronchial tumor as the bethany was quite irregular and swollen and there was some friable mucosa growth findings suggestive of malignancy. Bronchoscope was moved to the left upper lobe bronchus. There was extensive amount of endobronchial tumor and signs of extrinsic compression with significant irregularities causing complete obstruction of the apical posterior and anterior segment of the left upper lobe. As for the lingular segment, it was significantly narrowed and I was unable to pass the flexible bronchoscope through the orifice of the lingula. The bronchoscope was moved to the left lower lobe bronchus which was again narrowed and the left lower lobe bronchus was estimated to be reduced by about 50% of his normal caliber. Nevertheless, I was able to pass the bronchoscope and visualized the various segments of the left lower lobe. However, the superior segment was extrinsically compressed Postop diagnosis left hilar tumor with extensive endobronchial extension and narrowing of the apical posterior and anterior segment of the left upper lobe, lingular segment of the left upper lobe and the superior segment of the left lower lobe. The left lower lobe bronchus itself was quite narrowed yet patent. No biopsies were obtained. No samples were collected. Bronchoscope was removed. The patient was extubated and transferred to MICU in a stable condition
[2022-04-12] MEDS: IPRATROPIUM-ALBUTEROL 3 ML NEB INHALATION SCH (20:03)
[2022-04-12] MEDS: ATORVASTATIN 80 MG TAB PO SCH (20:07)
[2022-04-12] MEDS: OLANZapine 10 MG TAB PO SCH (20:08)
[2022-04-12] MEDS: ZOLPIDEM 5 MG TAB PO SCH (20:08)
[2022-04-13 02:24] LABS: Glucose,Whole Blood 99 mg/dL (70-110)
[2022-04-13] MEDS: PANTOPRAZOLE 40 MG TABLET PO SCH (06:34)
--- NOTE | 2022-04-13 07:48 | P.PN ---
Subjective Progress Note Date: 04/13/22 PROGRESS NOTE The patient is a 61-year-old male with a known history of CAD, post CABG 20 years ago, history of metastatic lung cancer, receiving chemotherapy and had thoracentesis who presented was progressive dyspnea and significant effusion on the left side. He had an episode of paroxysmal atrial ablation, maintaining sinus mechanism since. He underwent chest tube placement yesterday with improvement in his symptoms. He is scheduled for possible bronchoscopy to further evaluate his lung status. He denies any chest discomfort, dizziness or palpitations. He is feeling better overall. Hemodynamically he is stable. His echocardiogram showed normal left ventricle size and systolic function with mitral annulus calcification and mild mitral regurgitation. April 13: The patient is sitting up in the chair, feeling well, continues to be in sinus mechanism without any chest discomfort, dizziness or palpitations. He continues to have a chest tube. He underwent bronchoscopy yesterday, was found to have extensive tumor involvement in post endobronchial an extrinsic compression with complete occlusion of the left upper lobe anterior and apical segment with significant narrowing of the lingular segment. He feels that his breathing has improved. He denies any dizziness or palpitations. He has no nausea. Medications: Lipitor 80 mg daily, isosorbide 60 mg daily, metoprolol 25 mg twice a day. Aspirin once a day PHYSICAL EXAMINATION: Blood pressure 113/84 heart rate 93 LUNGS: Improved air exchange on the left side with scattered rhonchi, chest tube in place HEART: Regular rate and rhythm, S1, S2. No S3. systolic ejection murmur ABDOMEN: Soft, nontender, no organomegaly EXTREMETIES: No edema LAB: Pending IMPRESSION: 1. Recurrent left sided pleural effusion with pneumothorax, post chest tube placement 2. Stage IV adenocarcinoma of the lung, receiving chemotherapy with significant narrowing of his bronchitis by invasion of the tumor 3. Paroxysmal atrial fibrillation, maintaining sinus mechanism 4. Status post CABG, stable 5. History of hyperlipidemia 6. History of hypertension PLAN: 1. Continue beta alexandre 2. Continue present therapy 3. Further management of his effusion by pulmonary service 4. We will see him on as-needed basis, place call us for any question. Objective - Vital Signs Vital signs: Vital Signs Temp 97.6 F 04/13/22 00:00 Pulse 101 H 04/13/22 07:00 Resp 24 04/13/22 07:00 BP 113/84 04/13/22 07:00 Pulse Ox 91 L 04/13/22 07:00 FiO2 Intake & Output 04/12/22 04/13/22 04/13/22 18:59 06:59 18:59 Intake Total 760 160 10 Output Total 1090 1480 400 Balance -330 -1320 -390 Weight 75.2 kg Intake: IV 760 110 10 0.9 110 110 10 Potassium Chloride 10 meq 400 In Water For Injection 1 100ml.bag @ 100 mls/hr IVPB Q1HR [facility] Rx#: [id number] Oral 0 50 Output: Chest Tube Drainage 190 80 Chest Tube Left Mid- 190 80 Axillary Chest Urine 900 1400 400 Other: Voiding Method Bedside Commode Bedside Commode # Voids 1 1 1 - Labs CBC & Chem 7: 04/12/22 05:46 04/12/22 05:46 Labs: Abnormal Lab Results - Last 24 Hours (Table) 04/12/22 Range/Units 05:46 Procalcitonin 0.19 H (0.02-0.09) ng/mL
[2022-04-13] MEDS: IPRATROPIUM-ALBUTEROL 3 ML NEB INHALATION SCH ×3 (08:00→18:39)
[2022-04-13 08:21] LABS: African American GFR (CKD) >90 (>60 ml/min/1.73 sqM); Anion Gap 10 mmol/L; Blood Urea Nitrogen 14 mg/dL (9-20); Calcium 8.1 mg/dL (8.4-10.2); Carbon Dioxide 29 mmol/L (22-30); Chloride 96 mmol/L (98-107); Glucose 141 mg/dL (74-99); Non-African American GFR(CKD) >90 (>60 ml/min/1.73 sqM); Potassium 3.6 mmol/L (3.5-5.1); Sodium 135 mmol/L (137-145)
--- NOTE | 2022-04-13 08:24 | P.PN ---
Subjective Progress Note Date: 04/13/22 Principal diagnosis: Recent diagnosis metastatic adenocarcinoma with primary lung origin status post chemotherapy and immunotherapy, recurrent malignant left-sided pleural effusion, hydropneumothorax with trapped lung, new-onset atrial fibrillation with rapid ventricular response on admission. History of recurrent malignant left pleural effusion status post thoracentesis x 4, left vocal cord paralysis status post left medialization thyroplasty, hodgkin's lymphoma in remission, coronary artery disease status post CABG, hypertension, hyperlipidemia The patient was seen and examined in the ICU sitting up in a recliner in no acute distress. Remains in sinus rhythm to sinus tach, states shortness of breath has improved. Left pleural chest tube remains to continuous wall suction without any air leak present. Patient states pain is controlled on current medication regimen. Bronchoscopy completed yesterday by Dr. Castillo. No other new concerns. Objective - Vital Signs Vital signs: Vital Signs Temp 97.6 F 04/13/22 00:00 Pulse 101 H 04/13/22 07:00 Resp 24 04/13/22 07:00 BP 113/84 04/13/22 07:00 Pulse Ox 91 L 04/13/22 07:00 FiO2 Intake & Output 04/12/22 04/13/22 04/13/22 18:59 06:59 18:59 Intake Total 760 160 10 Output Total 1090 1480 400 Balance -330 -1320 -390 Weight 75.2 kg Intake: IV 760 110 10 0.9 110 110 10 Potassium Chloride 10 meq 400 In Water For Injection 1 100ml.bag @ 100 mls/hr IVPB Q1HR [facility] Rx#: [id number] Oral 0 50 Output: Chest Tube Drainage 190 80 Chest Tube Left Mid- 190 80 Axillary Chest Urine 900 1400 400 Other: Voiding Method Bedside Commode Bedside Commode # Voids 1 1 1 - Exam CONSTITUTIONAL: Appears comfortable, cooperative, no acute distress RESPIRATORY: Lungs sounds diminished bilaterally. Respirations even, nonlabored. Currently on 2 LPM NC with oxygen saturation 94%. Able to achieve 500-750 mL on incentive spirometry. Strong cough. CARDIOVASCULAR: S1, S2 present. Regular rate and rhythm, sinus rhythm to sinus tach on telemetry. Palpable peripheral pulses bilaterally. No edema present. No calf pain or tenderness noted. GASTROINTESTINAL: Abdomen soft, nontender, nondistended. Active bowel sounds present 4 quadrants. Tolerating diet. GENITOURINARY: Continues to void clear, yellow urine INTEGUMENTARY: Skin is warm and dry with evidence of good perfusion. NEUROLOGIC: Cranial nerves II through XII intact MUSKULOSKELETAL: Able to move all extremities, strength equal bilaterally, gait normal PSYCHIATRIC: Alert and oriented to person place and time, appropriate affect, intact judgment and insight INVASIVE LINES AND TUBES: Left pleural chest tube present and connected to wall suction, no air leak present, 40 mL serosanguineous drainage overnight, 300 mL in the last 24 hours - Allied health notes Allied health notes reviewed: nursing - Labs CBC & Chem 7: 04/12/22 05:46 04/13/22 07:45 Labs: Abnormal Lab Results - Last 24 Hours (Table) 04/12/22 Range/Units 05:46 Procalcitonin 0.19 H (0.02-0.09) ng/mL - Imaging and Cardiology Chest x-ray: image reviewed Assessment and Plan Assessment: 1. Recent diagnosis metastatic adenocarcinoma with primary lung origin status post chemotherapy and immunotherapy, status post bronchoscopy by Dr. Castillo 2. Recurrent malignant left-sided pleural effusion status post thoracentesis 4, status post left pleural chest tube placement by Dr. Castillo 3. Hydropneumothorax with trapped lung 4. New-onset atrial fibrillation with rapid ventricular response on admission, currently sinus rhythm 5. Shortness of breath, secondary to above 6. Left vocal cord paralysis status post left medialization thyroplasty 7. Hodgkin's lymphoma in remission 8. Coronary artery disease status post CABG 9. History of hypertension 10. History of hyperlipidemia Plan: 1. Keep left pleural chest tube in place to low continuous wall suction -20 cm H2O. 2. Wean oxygen as tolerated. Encourage incentive spirometry use 10 times every hour while awake 3. Increase activity as tolerated 4. Pain control per current medication regimen 5. Will monitor daily CXR 6. Medical management other comorbidities per internal medicine, oncology, hematology and cardiology. 7. More recommendations to follow
[2022-04-13] MEDS: ASPIRIN 81 MG PO SCH (08:59)
[2022-04-13] MEDS: METOPROLOL TARTRATE 25 MG TAB PO SCH ×2 (08:59→21:09)
[2022-04-13] MEDS: ISOSORBIDE MONONITRATE ER 60 MG TAB.ER.24H PO SCH (08:59)
[2022-04-13] MEDS: FOLIC ACID 1 MG TAB PO SCH (08:59)
[2022-04-13] MEDS: HYDROmorphone 1 MG/ML 1 ML SYRINGE IVP PRN (09:09)
--- NOTE | 2022-04-13 10:13 | XR ---
EXAMINATION TYPE: XR chest 1V portable DATE OF EXAM: 04/13/2022 COMPARISON: 04/12/2022 INDICATION: Left hydropneumothorax TECHNIQUE: Single frontal view of the chest is obtained. FINDINGS: The heart size is normal. The pulmonary vasculature is normal. There is opacification through the left lung. Left-sided chest tube is present. The pneumothorax angelic ins present. Surgical clips in the left hilar region. Sternotomy wires are in the midline. IMPRESSION: 1. Stable appearing left apical pneumothorax. Left-sided chest tube remains position. 2. Diffuse increased lung markings in the visualized left lung
--- NOTE | 2022-04-13 12:30 | P.PN ---
Subjective Progress Note Date: 04/13/22 On today's evaluation of 04/12/2022, the patient is on oxygen 2 L per minute nasal cannula. The patient is calm and comfortable and the patient is following commands and answering questions. Note that the left-sided chest tube was inserted yesterday and there was evacuation of left-sided pleural effusion and left-sided pneumothorax. Subsequent chest x-ray from today shows a persistent but improving left-sided pneumothorax and there is diffuse opacification of the elevated lung on the left. Note that overnight, the patient drained approximately 3 L of pleural fluid out of the left-sided chest tube. Note that the patient was also given a dose of Lasix 40 mg IV push and the neck fluid balance is -5 L over the past 24 hours. Clinically is feeling better. Less short of breath. His lungs are congested and the patient is scheduled to undergo bronchoscopy for airway inspection today. No evidence of any air leak on the chest tubes. The patient white cell count of 8.1 with a hemoglobin of 1 1.3. The patient also has a sodium level of 132 with a potassium level of 3.4. BUN is at 30 with a creatinine of 0.7. The patient's calcium level is at 7.7. The patient remains on bronchodilators and the patient is receiving albuterol HFA. The patient on IV Rocephin as an empiric antibiotic coverage. He is receiving Dilaudid for pain control. 04/13/2022, the patient remains on 2 L. The patient is comfortable. Ultrasound the left-sided chest tube is minimal at this point in time and there may be some stable looking left apical pneumothorax. Monitor the output from the chest tube is minimal and there is no evidence of any air leak at this point in time. Bronchoscopy was done and the patient was found to have significant amount of endobronchial tumor and extrinsic compression in the left upper lobe. The left lower lobe superior segment was very much narrowed and the left lower lobe superior segment was also narrowed.Based on that, the left lung is partially trapped. Nevertheless, the patient has achieved reasonably expansion of the left lung and for that reason we're planning to put a Pleurx catheter. I made recommendations to remove the chest tube to let some of the pleural fluid reaccumulate and the plan is to go ahead and put a Pleurx catheter was there is some enough fluid to committing in the left pleural space. The patient is doing well otherwise.. He has no specific complaints. Objective - Vital Signs Vital signs: Vital Signs Temp 97.6 F 04/13/22 00:00 Pulse 98 04/13/22 08:14 Resp 24 04/13/22 07:00 BP 113/84 04/13/22 07:00 Pulse Ox 91 L 04/13/22 07:00 FiO2 Intake & Output 04/12/22 04/13/22 04/13/22 18:59 06:59 18:59 Intake Total 760 160 10 Output Total 1090 1480 400 Balance -330 -1320 -390 Weight 75.2 kg Intake: IV 760 110 10 0.9 110 110 10 Potassium Chloride 10 meq 400 In Water For Injection 1 100ml.bag @ 100 mls/hr IVPB Q1HR [facility] Rx#: [id number] Oral 0 50 Output: Chest Tube Drainage 190 80 Chest Tube Left Mid- 190 80 Axillary Chest Urine 900 1400 400 Other: Voiding Method Bedside Commode Bedside Commode # Voids 1 1 1 - Exam CONSTITUTIONAL: Sitting up in bed in the intensive care unit, appears comfortable, cooperative, no apparent acute distress. HEENT: Neck is supple, no JVD, no lymphadenopathy. RESPIRATORY: Lungs sounds with scattered rhonchi throughout, diminished to his left lower lobe.. Respirations are symmetrical and nonlabored. Currently on 2 L nasal cannula with oxygen saturations 94%. Strong cough. CARDIOVASCULAR: Regular rhythm and rate. S1 and S2 present, negative for S3, gallop or murmur. Palpable peripheral pulses. No edema present. GASTROINTESTINAL: Abdomen soft, nontender, nondistended. Hypoactive bowel sounds present 4 quadrants. Tolerating diet. Passing flatus. No guarding or rigidity. GENITOURINARY: Continues to void. 1200 mL of urine output in the last 8 hours INTEGUMENTARY: Skin is warm and dry with no evidence of clubbing or cyanosis. Dressing is clean, dry and intact to his left chest tube insertion site. NEUROLOGIC: Cranial nerves II through XII intact. No focal deficits. MUSKULOSKELETAL: Able to move all extremities, strength equal bilaterally, generalized weakness. PSYCHIATRIC: Alert and oriented to person place and time, appropriate affect, intact judgment and insight. Left pleural chest tube with 180 mL of thin seros anguineous drainage overnight, 1600 mL output in the last 24 hours. - Labs CBC & Chem 7: 08/09/22 05:46 04/13/22 07:45 Labs: Abnormal Lab Results - Last 24 Hours (Table) 04/12/22 04/13/22 Range/Units 05:46 07:45 Sodium 135 L (137-145) mmol/L Chloride 96 L (98-107) mmol/L Glucose 141 H (74-99) mg/dL Calcium 8.1 L (8.4-10.2) mg/dL Procalcitonin 0.19 H (0.02-0.09) ng/mL Assessment and Plan Plan: Stage IV adenocarcinoma of the lung with malignant left-sided pleural effusion. Left-sided hydropneumothorax post chest tube drainage and post bronchoscopy. There is endobronchial tumor in the left upper lobe apical posterior and anterior segment and left lower lobe superior segment and both of these areas are completely closed with extensive compression endobronchial tumor. The lingular segment is extremely narrowed and the left lower lobe bronchus is also narrowed yet it is patent and the various other segments of the left were patent . As such, the left lung is partially. Nevertheless, the patient had reasonable reexpansion of the left lung with a stable left apical pneumothorax. The plan is to proceed with a Pleurx catheter. Acute hypoxic respiratory failure secondary to above, currently on 2 L of oxygen by nasal cannula. Shortness of breath secondary to above, improving New-onset atrial fibrillation current rhythm is sinus Left vocal cord paralysis secondary to hilar mass post medialization thyroplasty. Coronary artery disease, previous bypass surgery. Hodgkin's lymphoma in remission. Hypertension Hyperlipidemia Constitutional symptoms with weight loss and generalized weakness all secondary to above. Plan Remove the chest tube today Awaiting pleural fluid the atrial fibrillation for subsequent Pleurx catheter insertion DuoNeb nebulized treatments around the clock Bronchoscopy was done and the results were discussed Continue using the incentive spirometer Dilaudid for pain control Patient on systemic chemotherapy and immunotherapy Daily chest x-rays Long-term prognosis poor based on the above-mentioned comorbidities. We'll continue to follow
--- NOTE | 2022-04-13 13:32 | P.PN ---
Progress Note - Text Progress Note Date: 04/13/22 Chief Complaint: Short of breath This is a pleasant 61-year-old patient follows with Dr. Bloom. Chronic stable medical conditions include GERD, lipidemia, hypertension,. Has a diagnosis of metastatic adenocarcinoma, being followed by Dr. Yen from oncology. Has re ceived 2 rounds of chemotherapy. Also receiving immunotherapy. Patient's had about 4 hours of left thoracentesis the last one being 3 days ago. 1.3 L was removed from the left side. Patient is decreased appetite. Weight loss. Patient also has left vocal cord paralysis with left medial ligation thyroplasty with the Moise implant done by Dr. Blanchard. Patient felt better after his thoracentesis 3 days ago. Presents now with worsening shortness of breath. Cough with some yellow sputum. No fever no chills. Tired rundown. ER found to be in atrial flutter with a rate of 140s. X-ray shows left hydropneumothorax. April 11: Patient moved to the ICU. Discussed with Dr. Castillo. 4 chest tube. Patient may have a proximal obstruction of the bronchus. Shortness of breath. Patient back into sinus rhythm. Cardizem drip discontinued. Started on metoprolol 25 mg twice a day. April 12: ICU. Patient had a left-sided chest tube placed yesterday. Has put on about 1.7 L. Has Dilaudid for pain control. On [address] Castillo is contemplating bronchoscopy. Patient nothing by mouth. Sinus rhythm. Some pain of the chest tube site. Congested cough. Chest x-ray shows some left-sided pneumothorax, pleural fluid./Infiltrates April 13: ICU: Chest tube removed. Dressing in place. Plan for some accumulation of pleural fluid to have the Pleur-evac place. Did eat his breakfast. Sinus rhythm. Pain controlled Active Medications Albuterol Sulfate (Albuterol Hfa Inhaler) 2 puff INHALATION RT-Q6H PRN PRN Reason: Shortness Of Breath Last Admin: 04/12/22 07:38 Dose: 2 puff Albuterol/Ipratropium (Ipratropium-Albuterol 3 Ml Neb) 3 ml INHALATION RT-TID REBA Last Admin: 04/13/22 12:18 Dose: Not Given Aspirin (Aspirin 81 Mg) 81 mg PO DAILY [facility] Last Admin: 04/13/22 08:59 Dose: 81 mg Atorvastatin Calcium (Atorvastatin 80 Mg Tab) 80 mg PO HS [facility] Last Admin: 04/12/22 20:07 Dose: 80 mg Clonazepam (Clonazepam 1 Mg Tab) 1 mg PO DAILY PRN PRN Reason: Anxiety Last Admin: 04/10/22 20:55 Dose: 1 mg Folic Acid (Folic Acid 1 Mg Tab) 1 mg PO DAILY [facility] Last Admin: 04/13/22 08:59 Dose: 1 mg Hydromorphone HCl (Hydromorphone 1 Mg/Ml 1 Ml Syringe) 1 mg IVP Q4HR PRN PRN Reason: Pain Last Admin: 04/13/22 09:09 Dose: 1 mg Ceftriaxone Sodium 1 gm/ (Sodium Chloride) 50 mls @ 100 mls/hr IVPB Q12HR [facility]; Protocol Last Admin: 04/13/22 08:59 Dose: 100 mls/hr Isosorbide Mononitrate (Isosorbide Mononitrate Er 60 Mg Tab.Er.24h) 60 mg PO DAILY [facility] Last Admin: 04/13/22 08:59 Dose: 60 mg Metoprolol Tartrate (Metoprolol Tartrate 25 Mg Tab) 25 mg PO BID [facility] Last Admin: 04/13/22 08:59 Dose: 25 mg Miscellaneous Information (Magnesium Replacement Protocol 1 Each Misc) 1 each MISCELLANE DAILY PRN; Protocol PRN Reason: Per Protocol Miscellaneous Information (Potassium Replacement Protocol 1 Each Misc) 1 each MISCELLANE DAILY PRN; Protocol PRN Reason: Per Protocol Naloxone HCl (Naloxone 0.4 Mg/Ml 1 Ml Vial) 0.2 mg IV Q2M PRN PRN Reason: Opioid Reversal Olanzapine (Olanzapine 10 Mg Tab) 10 mg PO HS [facility] Last Admin: 04/12/22 20:08 Dose: 10 mg Pantoprazole Sodium (Pantoprazole 40 Mg Tablet) 40 mg PO DAILY@0730 [facility] Last Admin: 04/13/22 06:34 Dose: 40 mg Zolpidem Tartrate (Zolpidem 5 Mg Tab) 10 mg PO HS [facility] Last Admin: 04/12/22 20:08 Dose: 10 mg Past medical history to include: Metastatic lung adenocarcinoma getting chemotherapy and immunotherapy, GERD, hypertension, hyperlipidemia, CAD with stent, coronary bypass vocal cord implant Social history: Lives with his children. No smoking. Alcohol occasionally. Jole. 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 Conjunctiva normal. HEENT: External appearance of nose and ears normal, oral cavity grossly normal. NECK: JVD not raised; masses not palpable. HEART: First seconds are normal; no edema. LUNGS: Respiratory rate increased, decreased breath sounds. Dressing over the chest tube site ABDOMEN: Soft, nontender, liver spleen not palpable, no masses palpable. PSYCH: Alert and oriented x3; mood and affect slightly anxiousl. INVESTIGATIONS, reviewed in the clinical context: April 13: Potassium 3.6 creatinine 0.71 Pro-calcitonin 0.19 April 12: White count 8.1 hemoglobin 11.3 platelets 159 sodium 132 potassium 3.4 creatinine 0.74 2-D echocardiogram: EF 55-60%. TSH 2.0 White count 8.6 hemoglobin 11.8 platelets 246 sodium 133 potassium 3.5 creatinine 0.81 Troponin I 0.034 proBNP 2920 EKG tracing personally reviewed by me-atrial flutter with a rate of 146 Chest x-ray film personally reviewed by me-left hydropneumothorax Previous testing Pleural fluid: Metastatic adenocarcinoma CT angiogram chest [March] large left pleural effusion. Complete atelectasis left lung. Occlusion of left mainstem bronchus Assessment and plan -Recurrent large left pleural effusion from underlying malignancy with pneumothorax. previous 3 thoracentesis. : Slow to respond chest tube placed April 11-discontinued April 13. -Metastatic lung adenocarcinoma. Patient received 2 cycles of chemotherapy. Immunotherapy. Follow with oncology -Possible secondary pneumonia from obstruction on the left side IV ceftriaxone. -Essential hypertension On amlodipine -Paroxysmal atrial flutter with a rapid ventricular rate, currently in sinus rhythm IV Cardizem drip discontinued. Lopressor 25 mg twice a day -CAD with a prior history of coronary bypass Crestor -Left vocal cord paralysis with implantation, by Dr. Blanchard -Kelly Rocha -LISA Aguillon -Full code Lopressor. Oxygen 2 L. IV ceftriaxone. Chest tubes removed today. pending Pleur-evac. Discussed with patient
[2022-04-13] MEDS ORDERED: DILTIAZEM 125 MG in SODIUM CHLORIDE 0.9% 100 ML IV SCH (21:00)
[2022-04-13] MEDS: OLANZapine 10 MG TAB PO SCH (21:10)
[2022-04-13] MEDS: ZOLPIDEM 5 MG TAB PO SCH (21:10)
[2022-04-13] MEDS: ATORVASTATIN 80 MG TAB PO SCH (21:10)
[2022-04-13] MEDS ORDERED: SODIUM CHLORIDE 0.9% 500 ML 200 ML IV ONE (23:11)
[2022-04-13] MEDS ORDERED: NOREPINEPHRINE 4 MG in SODIUM CHLORIDE 0.9% 250 ML IV SCH (23:45)
[2022-04-13] MEDS: ALBUTEROL HFA INHALER INHALATION PRN (23:45)
[2022-04-14 07:14] LABS: HCT 36.7 % (39.0-53.0); HGB 12.1 gm/dL (13.0-17.5); MCH 30.4 pg (25.0-35.0); MCHC 33.1 g/dL (31.0-37.0); MCV 91.8 fL (80.0-100.0); Mean Platelet Volume 8.2; Platelet Count 236 k/uL (150-450); RBC 3.99 m/uL (4.30-5.90); RDW 15.1 % (11.5-15.5); WBC 7.7 k/uL (3.8-10.6)
[2022-04-14 07:29] LABS: African American GFR (CKD) >90 (>60 ml/min/1.73 sqM); Anion Gap 10 mmol/L; Blood Urea Nitrogen 9 mg/dL (9-20); Calcium 8.1 mg/dL (8.4-10.2); Carbon Dioxide 31 mmol/L (22-30); Chloride 94 mmol/L (98-107); Glucose 93 mg/dL (74-99); Non-African American GFR(CKD) >90 (>60 ml/min/1.73 sqM); Potassium 3.3 mmol/L (3.5-5.1); Sodium 135 mmol/L (137-145)
--- NOTE | 2022-04-14 07:32 | XR ---
EXAMINATION TYPE: XR chest 1V portable DATE OF EXAM: 04/14/2022 Comparison: 04/13/2022 Clinical History: 61-year-old male Left hydropneumothorax Findings: Median sternotomy wires are present with post-CABG clips in the mediastinum. The left-sided chest tub e has been removed in the interval. A left basilar pleural catheter is demonstrated. A small left [employer] pneumothorax remains measuring 3.4 cm, not significantly changed. Underlying extensive opacificat ion throughout the left lung and small left pleural effusion remains. Surgical clips below the left h emidiaphragm. Impression: Persistent left-sided hydropneumothorax. 3.4 cm apical pneumothorax component and a small effusion. E xtensive consolidation throughout the left lung persists.
[2022-04-14] MEDS ORDERED: POTASSIUM CHLORIDE ER 20 MEQ TAB.ER PO SCH (08:00)
[2022-04-14] MEDS: ASPIRIN 81 MG PO SCH (08:28)
[2022-04-14] MEDS: FOLIC ACID 1 MG TAB PO SCH (08:28)
[2022-04-14] MEDS: METOPROLOL TARTRATE 25 MG TAB PO SCH (08:28)
[2022-04-14] MEDS: PANTOPRAZOLE 40 MG TABLET PO SCH (08:28)
[2022-04-14] MEDS: ISOSORBIDE MONONITRATE ER 60 MG TAB.ER.24H PO SCH (08:28)
[2022-04-14] MEDS ORDERED: Potassium Replacement Protocol 1 EACH MISC MISCELLANE PRN (08:29)
[2022-04-14] MEDS: POTASSIUM BICARBONATE/CIT AC 20 MEQ TABLET.EFF NG-TUBE SCH ×2 (08:37→12:35)
[2022-04-14] MEDS: IPRATROPIUM-ALBUTEROL 3 ML NEB INHALATION SCH ×3 (08:57→21:07)
[2022-04-14] MEDS: HYDROmorphone 1 MG/ML 1 ML SYRINGE IVP PRN ×2 (11:01→16:58)
[2022-04-14] MEDS ORDERED: MIDAZOLAM 2 MG/2 ML VIAL IV PRN (11:05)
[2022-04-14] MEDS ORDERED: LACTATED RINGERS 1,000 ML IV SCH (11:05)
[2022-04-14] MEDS ORDERED: LIDOCAINE 1% (10MG/ML) FOR IV START INTRADERMA PRN (11:05)
--- NOTE | 2022-04-14 12:09 | P.PN ---
Subjective Progress Note Date: 04/14/22 Principal diagnosis: Recurrent malignant left-sided pleural effusion. Past medical history significant for a recent diagnosis metastatic adenocarcinoma with primary lung origin status post chemotherapy and immunotherapy, left vocal cord paralysis status post left medialization thyroplasty, recurrent malignant left-sided pleural effusion status post thoracentesis 4, Hodgkin's lymphoma in remission, coronary artery disease status post CABG, hypertension, and hyperlipidemia. The patient was seen and examined today 04/14/2022 at his bedside in the intensive care unit. Currently is lying in bed, as awake, alert, oriented 3 and is in no acute apparent distress. Oxygen saturations are 94% on 2 L nasal cannula and he is achieving 1500 mL on his incentive spirometry with much encouragement. A Cardizem drip is infusing at 5 mg/hour. Bedside telemetry showing normal sinus rhythm heart rate 96 BPM. His left pleural chest tube was removed without incident yesterday. A follow-up chest x-ray today shows a persistent left-sided apical pneumothorax. He remains afebrile last 24 hours. Laboratory results this morning show a WBC count 7.7, hemoglobin 12.1, hematocrit 36.7, platelets 236, sodium 135, potassium 3.3, BUN 9, and creatinine 0.69. Objective - Vital Signs Vital signs: Vital Signs Temp 98.4 F 04/14/22 08:00 Pulse 95 04/14/22 11:16 Resp 13 04/14/22 09:00 BP 136/80 04/14/22 09:00 Pulse Ox 94 L 04/14/22 09:00 FiO2 Intake & Output 04/13/22 04/14/22 04/14/22 18:59 06:59 18:59 Intake Total 1070 670 320 Output Total 1320 1550 Balance -250 -880 320 Weight 76.8 kg Intake: IV 120 370 70 0.9 120 320 20 cefTRIAXone 1 gm In 50 50 Sodium Chloride 0.9% 50 ml @ 100 mls/hr IVPB Q12HR [facility] Rx#:[id number] Oral 950 300 250 Output: Chest Tube Drainage 20 Chest Tube Left Mid- 20 Axillary Chest Urine 1300 1550 Other: Voiding Method Bedside Commode Bedside Commode Bedside Commode # Voids 1 1 # Bowel Movements 1 - Exam CONSTITUTIONAL: Sitting up in bed in the intensive care unit, appears comfortable, cooperative, no apparent acute distress. HEENT: Neck is supple, no JVD, no lymphadenopathy. RESPIRATORY: Lungs sounds with essentially clear throughout with few scattered rhonchi throughout, diminished to his bilateral bases Respirations are symmetrical and nonlabored. Currently on 2 L nasal cannula with oxygen saturations 94%. Strong cough. Achieving 1500 mL on his incentive spirometry. CARDIOVASCULAR: Regular rhythm and rate. S1 and S2 present, negative for S3, gallop. Systolic murmur 3/6 heard best to his right sternal border. Palpable peripheral pulses. No edema present. GASTROINTESTINAL: Abdomen soft, nontender, nondistended. Active bowel sounds present 4 quadrants. Tolerating diet. Passing flatus. No guarding or rigidity. GENITOURINARY: Continues to void. 700 mL of urine output in the last 8 hours INTEGUMENTARY: Skin is warm and dry with no evidence of clubbing or cyanosis. Dressing is clean, dry and intact to his left chest tube insertion site. NEUROLOGIC: Cranial nerves II through XII intact. No focal deficits. MUSKULOSKELETAL: Able to move all extremities, strength equal bilaterally, generalized weakness. PSYCHIATRIC: Alert and oriented to person place and time, appropriate affect, intact judgment and insight. - Allied health notes Allied health notes reviewed: nursing - Labs CBC & Chem 7: 04/14/22 06:27 08 06:27 Labs: Abnormal Lab Results - Last 24 Hours (Table) 04/14/22 04/14/22 Range/Units 06:27 06:27 RBC 3.99 L (4.30-5.90) m/uL Hgb 12.1 L (13.0-17.5) gm/dL Hct 36.7 L (39.0-53.0) % Sodium 135 L (137-145) mmol/L Potassium 3.3 L (3.5-5.1) mmol/L Chloride 94 L (98-107) mmol/L Carbon Dioxide 31 H (22-30) mmol/L Calcium 8.1 L (8.4-10.2) mg/dL - Imaging and Cardiology Chest x-ray: report reviewed, image reviewed Assessment and Plan Assessment: 1. Recent diagnosis metastatic adenocarcinoma with primary lung origin status post chemotherapy and immunotherapy 2. Recurrent malignant left-sided pleural effusion status post thoracentesis 4 3. Hydropneumothorax with trapped lung, status post placement of left pleural chest tube by pulmonary/critical care medicine 4. New-onset atrial fibrillation with rapid ventricular response on admission, currently sinus rhythm 5. Shortness of breath, secondary to above 6. Left vocal cord paralysis status post left medialization thyroplasty 7. Hodgkin's lymphoma in remission 8. Coronary artery disease status post CABG 9. History of hypertension 10. History of hyperlipidemia Plan: 1. The patient is tentatively scheduled for a left-sided Pleurx catheter placement for tomorrow 04/15/2022 if his pleural effusion re-occurs. 2. Wean oxygen as tolerated. Encourage use of his incentive spirometry 10 times every hour while awake. 3. Pain control per current when necessary orders 4. Medical management other comorbidities per primary care service, oncology, hematology and cardiology. 5. Continue to monitor daily chest x-rays. 6. More recommendations to follow based on patient's clinical course. Time with Patient: Greater than 30
--- NOTE | 2022-04-14 15:47 | P.PN ---
Subjective Progress Note Date: 04/14/22 On today's evaluation of 04/12/2022, the patient is on oxygen 2 L per minute nasal cannula. The patient is calm and comfortable and the patient is following commands and answering questions. Note that the left-sided chest tube was inserted yesterday and there was evacuation of left-sided pleural effusion and left-sided pneumothorax. Subsequent chest x-ray from today shows a persistent but improving left-sided pneumothorax and there is diffuse opacification of the elevated lung on the left. Note that overnight, the patient drained approximately 3 L of pleural fluid out of the left-sided chest tube. Note that the patient was also given a dose of Lasix 40 mg IV push and the neck fluid balance is -5 L over the past 24 hours. Clinically is feeling better. Less short of breath. His lungs are congested and the patient is scheduled to undergo bronchoscopy for airway inspection today. No evidence of any air leak on the chest tubes. The patient white cell count of 8.1 with a hemoglobin of 1 1.3. The patient also has a sodium level of 132 with a potassium level of 3.4. BUN is at 30 with a creatinine of 0.7. The patient's calcium level is at 7.7. The patient remains on bronchodilators and the patient is receiving albuterol HFA. The patient on IV Rocephin as an empiric antibiotic coverage. He is receiving Dilaudid for pain control. 04/13/2022, the patient remains on 2 L. The patient is comfortable. Ultrasound the left-sided chest tube is minimal at this point in time and there may be some stable looking left apical pneumothorax. Monitor the output from the chest tube is minimal and there is no evidence of any air leak at this point in time. Bronchoscopy was done and the patient was found to have significant amount of endobronchial tumor and extrinsic compression in the left upper lobe. The left lower lobe superior segment was very much narrowed and the left lower lobe superior segment was also narrowed.Based on that, the left lung is partially trapped. Nevertheless, the patient has achieved reasonably expansion of the left lung and for that reason we're planning to put a Pleurx catheter. I made recommendations to remove the chest tube to let some of the pleural fluid reaccumulate and the plan is to go ahead and put a Pleurx catheter was there is some enough fluid to committing in the left pleural space. The patient is doing well otherwise.. He has no specific complaints. 04/14/2022, the patient is doing well and liters of oxygen by nasal cannula. Follow up chest x-ray today shows consolidation/mass within the elevated left lung and there is a persistent left apical pneumothorax in the order of 10-15%. Note that the chest was ordered to be removed and the patient is doing well. Overnight, the patient had a episodes of A. fib RVR, started on a Cardizem drip and within a short period of time the patient converted back into normal sinus rhythm. Currently, the patient is still on a Cardizem drip running at 5 mg an hour and the patient is also on metoprolol 25 mg twice a day. 90 tablets abuse for now. Remains on aspirin. Cardiothoracic surgeries on the case for possible Pleurx catheter insertion Objective - Vital Signs Vital signs: Vital Signs Temp 99.5 F 04/14/22 15:30 Pulse 100 04/14/22 15:30 Resp 19 04/14/22 15:30 BP 116/63 04/14/22 15:30 Pulse Ox 95 04/14/22 15:30 FiO2 Intake & Output 04/13/22 04/14/22 04/14/22 18:59 06:59 18:59 Intake Total 1070 670 320 Output Total 1320 1550 Balance -250 -880 320 Weight 76.8 kg Intake: IV 120 370 70 0.9 120 320 20 cefTRIAXone 1 gm In 50 50 Sodium Chloride 0.9% 50 ml @ 100 mls/hr IVPB Q12HR [facility] Rx#:[id number] Oral 950 300 250 Output: Chest Tube Drainage 20 Chest Tube Left Mid- 20 Axillary Chest Urine 1300 1550 Other: Voiding Method Bedside Commode Bedside Commode Bedside Commode # Voids 1 1 # Bowel Movements 1 - Exam CONSTITUTIONAL: Sitting up in bed in the intensive care unit, appears comfortable, cooperative, no apparent acute distress. HEENT: Neck is supple, no JVD, no lymphadenopathy. RESPIRATORY: Lungs sounds with scattered rhonchi throughout, diminished to his left lower lobe.. Respirations are symmetrical and nonlabored. Currently on 2 L nasal cannula with oxygen saturations 94%. CARDIOVASCULAR: Regular rhythm and rate. S1 and S2 present, negative for S3, gallop or murmur. Palpable peripheral pulses. No edema present. GASTROINTESTINAL: Abdomen soft, nontender, nondistended. Hypoactive bowel sounds present 4 quadrants. Tolerating diet. Passing flatus. No guarding or rigidity. GENITOURINARY: Continues to void. INTEGUMENTARY: Skin is warm and dry with no evidence of clubbing or cyanosis. Dressing is clean, dry and intact to his left chest tube insertion site. NEUROLOGIC: Cranial nerves II through XII intact. No focal deficits. MUSKULOSKELETAL: Able to move all extremities, strength equal bilaterally, generalized weakness. PSYCHIATRIC: Alert and oriented to person place and time, appropriate affect, intact judgment and insight. - Labs CBC & Chem 7: 04/14/22 06:27 08 06:27 Labs: Abnormal Lab Results - Last 24 Hours (Table) 04/14/22 04/14/22 Range/Units 06:27 06:27 RBC 3.99 L (4.30-5.90) m/uL Hgb 12.1 L (13.0-17.5) gm/dL Hct 36.7 L (39.0-53.0) % Sodium 135 L (137-145) mmol/L Potassium 3.3 L (3.5-5.1) mmol/L Chloride 94 L (98-107) mmol/L Carbon Dioxide 31 H (22-30) mmol/L Calcium 8.1 L (8.4-10.2) mg/dL Assessment and Plan Plan: Stage IV adenocarcinoma of the lung with malignant left-sided pleural effusion. Post chest tube drainage. The chest is currently removed. Left-sided hydropneumothorax post chest tube drainage and post bronchoscopy. There is endobronchial tumor in the left upper lobe apical posterior and anterior segment and left lower lobe superior segment and both of these areas are completely closed with extensive compression endobronchial tumor. The lingular segment is extremely narrowed and the left lower lobe bronchus is also narrowed yet it is patent and the various other segments of the left were patent. As such, the left lung is partially. Nevertheless, repeat chest x-ray from today shows adequate expansion of the left lung with persistent left apical pneumothorax and the patient would likely benefit from a Pleurx catheter insertion. Acute hypoxic respiratory failure secondary to above, currently on 2 L of oxygen by nasal cannula. Shortness of breath secondary to above, improving New-onset atrial fibrillation current rhythm is sinus, the patient had another episode of atrial fibrillation overnight currently on Cardizem drip at 5 mg an hour Left vocal cord paralysis secondary to hilar mass post medialization thyroplasty. Coronary artery disease, previous bypass surgery. Hodgkin's lymphoma in remission. Hypertension Hyperlipidemia Constitutional symptoms with weight loss and generalized weakness all secondary to above. Plan Awaiting Pleurx catheter insertion Discontinue the Cardizem drip Increase the metoprolol to 50 mg twice a day DuoNeb nebulized treatments around the clock Bronchoscopy was done and the results were discussed Continue using the incentive spirometer Dilaudid for pain control Patient on systemic chemotherapy and immunotherapy Oxygen 2 L per minute nasal cannula and arrange home O2 Long-term prognosis poor based on the above-mentioned comorbidities. We'll continue to follow May be able to transfer out of the intensive care unit
[2022-04-14] MEDS: ZOLPIDEM 5 MG TAB PO SCH (19:54)
[2022-04-14] MEDS: ATORVASTATIN 80 MG TAB PO SCH (19:55)
[2022-04-14] MEDS: METOPROLOL TARTRATE 50 MG TAB PO SCH (19:55)
[2022-04-14] MEDS: OLANZapine 10 MG TAB PO SCH (20:27)
--- NOTE | 2022-04-14 20:43 | P.PN ---
Progress Note - Text Progress Note Date: 04/14/22 Chief Complaint: Short of breath This is a pleasant 61-year-old patient follows with Dr. Bloom. Chronic stable medical conditions include GERD, lipidemia, hypertension,. Has a diagnosis of metastatic adenocarcinoma, being followed by Dr. Yen from oncology. Has re ceived 2 rounds of chemotherapy. Also receiving immunotherapy. Patient's had about 4 hours of left thoracentesis the last one being 3 days ago. 1.3 L was removed from the left side. Patient is decreased appetite. Weight loss. Patient also has left vocal cord paralysis with left medial ligation thyroplasty with the Moise implant done by Dr. Blanchard. Patient felt better after his thoracentesis 3 days ago. Presents now with worsening shortness of breath. Cough with some yellow sputum. No fever no chills. Tired rundown. ER found to be in atrial flutter with a rate of 140s. X-ray shows left hydropneumothorax. April 11: Patient moved to the ICU. Discussed with Dr. Castillo. 4 chest tube. Patient may have a proximal obstruction of the bronchus. Shortness of breath. Patient back into sinus rhythm. Cardizem drip discontinued. Started on metoprolol 25 mg twice a day. April 12: ICU. Patient had a left-sided chest tube placed yesterday. Has put on about 1.7 L. Has Dilaudid for pain control. On [address] Castillo is contemplating bronchoscopy. Patient nothing by mouth. Sinus rhythm. Some pain of the chest tube site. Congested cough. Chest x-ray shows some left-sided pneumothorax, pleural fluid./Infiltrates Bronchoscopy 04/12/[address] Castillo Extensive tumor involvement both endobronchial and extrinsic compression completely occluding the left upper lobe anterior and apical segments and causing significant narrowing of the lingular segment. Several endobronchial tumor was seen near completely occluding the orifice of the superior segment left lower lobe and causing narrowing of the left lower lobe by around 50% April 13: ICU: Chest tube removed. Dressing in place. Plan for some accumulation of pleural fluid to have the Pleur-evac place. Did eat his breakfast. Sinus rhythm. Pain controlled April 14:saw the patient this morning in ICU. Pain control. Some shortness of breath. Sinus rhythm. Did eat some. Chest x-ray showed persistent left-sided hydropneumothorax. With consolidation. Active Medications Albuterol Sulfate (Albuterol Hfa Inhaler) 2 puff INHALATION RT-Q6H PRN PRN Reason: Shortness Of Breath Last Admin: 04/13/22 23:45 Dose: 2 puff Albuterol/Ipratropium (Ipratropium-Albuterol 3 Ml Neb) 3 ml INHALATION RT-TID [facility] Last Admin: 04/14/22 11:01 Dose: 3 ml Aspirin (Aspirin 81 Mg) 81 mg PO DAILY [facility] Last Admin: 04/14/22 08:28 Dose: 81 mg Atorvastatin Calcium (Atorvastatin 80 Mg Tab) 80 mg PO HS [facility] Last Admin: 04/14/22 19:55 Dose: 80 mg Clonazepam (Clonazepam 1 Mg Tab) 1 mg PO DAILY PRN PRN Reason: Anxiety Last Admin: 04/10/22 20:55 Dose: 1 mg Dexamethasone Sodium Phosphate (Dexamethasone Sod Phosphate 4 Mg/Ml 1 Ml Vial) 4 mg IV ONCE ONE Stop: 04/15/22 11:01 Folic Acid (Folic Acid 1 Mg Tab) 1 mg PO DAILY [facility] Last Admin: 04/14/22 08:28 Dose: 1 mg Hydromorphone HCl (Hydromorphone 1 Mg/Ml 1 Ml Syringe) 1 mg IVP Q4HR PRN PRN Reason: Pain Last Admin: 04/14/22 16:58 Dose: 1 mg Hydromorphone HCl (Hydromorphone 0.5 Mg/0.5 Ml Syringe) 0.5 mg IVP Q5M PRN PRN Reason: Phase 1 or 2 - Pain Control Stop: 04/15/22 23:00 Ceftriaxone Sodium 1 gm/ (Sodium Chloride) 50 mls @ 100 mls/hr IVPB Q12HR [facility]; Protocol Last Admin: 04/14/22 19:54 Dose: 100 mls/hr Lactated Ringer's (Lactated Ringers) 1,000 mls @ 20 mls/hr IV .Q24H [facility] Last Admin: 04/14/22 11:52 Dose: Not Given Isosorbide Mononitrate (Isosorbide Mononitrate Er 60 Mg Tab.Er.24h) 60 mg PO DAILY [facility] Last Admin: 04/14/22 08:28 Dose: 60 mg Lidocaine HCl (Lidocaine 1% (10mg/Ml) For Iv Start) 0.1 ml INTRADERMA PER PROTOCOL PRN PRN Reason: IV Start Metoprolol Tartrate (Metoprolol Tartrate 50 Mg Tab) 50 mg PO BID [facility] Last Admin: 04/14/22 19:55 Dose: 50 mg Midazolam HCl (Midazolam 2 Mg/2 Ml Vial) 2 mg IV ONCE PRN PRN Reason: Pre-Op Anxiety Stop: 04/15/22 23:00 Miscellaneous Information (Magnesium Replacement Protocol 1 Each Mis) 1 each MISCELLANE DAILY PRN; Protocol PRN Reason: Per Protocol Miscellaneous Information (Potassium Replacement Protocol 1 Each Misc) 1 each MISCELLANE DAILY PRN; Protocol PRN Reason: Per Protocol Naloxone HCl (Naloxone 0.4 Mg/Ml 1 Ml Vial) 0.2 mg IV Q2M PRN PRN Reason: Opioid Reversal Olanzapine (Olanzapine 10 Mg Tab) 10 mg PO [facility] Last Admin: 04/14/22 20:27 Dose: 10 mg Ondansetron HCl (Ondansetron 4 Mg/2 Ml Vial) 4 mg IVP ONCE ONE Stop: 04/15/22 11:01 Pantoprazole Sodium (Pantoprazole 40 Mg Tablet) 40 mg PO DAILY@0730 [facility] Last Admin: 04/14/22 08:28 Dose: 40 mg Zolpidem Tartrate (Zolpidem 5 Mg Tab) 10 mg PO [facility] Last Admin: 04/14/22 19:54 Dose: 10 mg Past medical history to include: Metastatic lung adenocarcinoma getting chemotherapy and immunotherapy, GERD, hypertension, hyperlipidemia, CAD with stent, coronary bypass vocal cord implant Social history: Lives with his children. No smoking. Alcohol occasionally. Joel. 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 Conjunctiva normal. HEENT: External appearance of nose and ears normal, oral cavity grossly normal. NECK: JVD not raised; masses not palpable. HEART: First seconds are normal; no edema. LUNGS: Respiratory rate increased, decreased breath sounds. Dressing over the chest tube site ABDOMEN: Soft, nontender, liver spleen not palpable, no masses palpable. PSYCH: Alert and oriented x3; mood and affect slightly anxiousl. INVESTIGATIONS, reviewed in the clinical context: Bronchoscopy 04/22/[address] Castillo Extensive tumor involvement both endobronchial and extrinsic compression completely occluding the left upper lobe anterior and apical segments and causing significant narrowing of the lingular segment. Several endobronchial tumor was seen near completely occluding the orifice of the superior segment left lower lobe and causing narrowing of the left lower lobe by around 50% April 13: Potassium 3.6 creatinine 0.71 Pro-calcitonin 0.19 April 12: White count 8.1 hemoglobin 11.3 platelets 159 sodium 132 potassium 3.4 creatinine 0.74 2-D echocardiogram: EF 55-60%. TSH 2.0 White count 8.6 hemoglobin 11.8 platelets 246 sodium 133 potassium 3.5 creatinine 0.81 Troponin I 0.034 proBNP 2920 EKG tracing personally reviewed by me-atrial flutter with a rate of 146 Chest x-ray film personally reviewed by me-left hydropneumothorax Previous testing Pleural fluid: Metastatic adenocarcinoma CT angiogram chest [March] large left pleural effusion. Complete atelectasis left lung. Occlusion of left mainstem bronchus Assessment and plan -Recurrent large left pleural effusion from underlying malignancy with pneumothorax. previous 3 thoracentesis. : Slow to respond chest tube placed April 11-discontinued April 13. -Metastatic lung adenocarcinoma. received 2 cycles of chemotherapy. Immunotherapy. Follow with oncology -Possible secondary pneumonia from obstruction on the left side IV ceftriaxone. -Essential hypertension amlodipine -Paroxysmal atrial flutter with a rapid ventricular rate, currently in sinus rhythm IV Cardizem drip discontinued. Lopressor 25 mg twice a day -CAD with a prior history of coronary bypass Crestor -Left vocal cord paralysis with implantation, by Dr. Blanchard -Insomnia [facility] -[facility] [place] -Full code Lopressor. Oxygen 2 L. IV ceftriaxone. pending Pleur-evac. Discussed with patient. Patient be moved to the medical floor.
[2022-04-15 03:27] VITALS: TEMP 98.2
[2022-04-15] MEDS ORDERED: DILTIAZEM 125 MG in SODIUM CHLORIDE 0.9% 100 ML IV SCH (05:00)
[2022-04-15] MEDS: PANTOPRAZOLE 40 MG TABLET PO SCH (05:51)
[2022-04-15] MEDS ORDERED: MIDAZOLAM 2 MG/2 ML VIAL IV PRN (07:00)
[2022-04-15] MEDS ORDERED: HYDROmorphone 0.5 MG/0.5 ML SYRINGE IVP PRN (07:00)
--- NOTE | 2022-04-15 07:18 | XR ---
EXAMINATION TYPE: XR chest 1V portable DATE OF EXAM: 04/15/2022 HISTORY: Shortness of breath. COMPARISON: 04/14/2022 TECHNIQUE: Single view of the chest is submitted. FINDINGS: Left apical pneumothorax is redemonstrated measuring 3.4 cm versus 3.4 cm previously. Persistent opac ification throughout the aerated left lung. Left effusion is noted. Pleural catheter at the left lung base has been removed. The right lung remains clear. Sternotomy wires mediastinal clips are in place . The heart is stable. Hilar and mediastinal structures are within normal limits. Degenerative changes are seen of the dorsal spine. IMPRESSION: 1. Essentially stable chest.
[2022-04-15] MEDS: IPRATROPIUM-ALBUTEROL 3 ML NEB INHALATION SCH ×2 (08:13→12:12)
[2022-04-15] MEDS: ISOSORBIDE MONONITRATE ER 60 MG TAB.ER.24H PO SCH (08:17)
[2022-04-15] MEDS: ASPIRIN 81 MG PO SCH (08:17)
[2022-04-15] MEDS: FOLIC ACID 1 MG TAB PO SCH (08:17)
[2022-04-15] MEDS: METOPROLOL TARTRATE 50 MG TAB PO SCH (08:17)
[2022-04-15] MEDS ORDERED: METOPROLOL TARTRATE 25 MG TAB PO STA (09:44)
--- NOTE | 2022-04-15 10:06 | P.PN ---
Subjective Progress Note Date: 04/15/22 Principal diagnosis: Recent diagnosis metastatic adenocarcinoma with primary lung origin status post chemotherapy and immunotherapy, recurrent malignant left-sided pleural effusion, hydropneumothorax with trapped lung, new-onset atrial fibrillation with rapid ventricular response on admission. History of recurrent malignant left pleural effusion status post thoracentesis x 4, left vocal cord paralysis status post left medialization thyroplasty, hodgkin's lymphoma in remission, coronary artery disease status post CABG, hypertension, hyperlipidemia The patient was seen and examined this morning sitting up in bed on the cardiac stepdown unit in no acute distress. Remains on room air with oxygen saturation in the mid 90s. States he feels better every day, denies pain or shortness of breath. Currently in sinus rhythm. Chest x-ray reviewed, no reaccumulation of fluid. No new concerns. Objective - Vital Signs Vital signs: Vital Signs Temp 98.2 F 04/15/22 03:26 Pulse 96 04/15/22 08:26 Resp 19 04/15/22 08:18 BP 119/70 04/15/22 08:18 Pulse Ox 96 04/15/22 08:18 FiO2 Intake & Output 04/14/22 04/15/22 04/15/22 18:59 06:59 18:59 Intake Total 320 223.5 Balance 320 223.5 Intake: IV 70 0.9 20 cefTRIAXone 1 gm In 50 Sodium Chloride 0.9% 50 ml @ 100 mls/hr IVPB Q12HR REBA Rx#:[id number] Intake, IV Titration 23.5 Amount Diltiazem 125 mg In 23.5 Sodium Chloride 0.9% 100 ml @ 5 MG/HR 5 mls/hr IV .Q24H REBA Rx#:[id number] Oral 250 200 Other: Voiding Method Bedside Commode Bedside Commode Bedside Commode # Voids 1 1 # Bowel Movements 1 0 - Exam CONSTITUTIONAL: Appears comfortable, cooperative, no acute distress RESPIRATORY: Lungs sounds diminished bilaterally. Respirations even, nonlabored. Currently on room air with oxygen saturation 96%. Able to achieve 1500 mL on incentive spirometry. Strong cough. CARDIOVASCULAR: S1, S2 present. Regular rate and rhythm, sinus rhythm on telemetry. Palpable peripheral pulses bilaterally. No edema present. No calf pain or tenderness noted. GASTROINTESTINAL: Abdomen soft, nontender, nondistended. Active bowel sounds present 4 quadrants. Tolerating diet. GENITOURINARY: Continues to void clear, yellow urine INTEGUMENTARY: Skin is warm and dry with evidence of good perfusion. NEUROLOGIC: Cranial nerves II through XII intact MUSKULOSKELETAL: Able to move all extremities, strength equal bilaterally, gait normal PSYCHIATRIC: Alert and oriented to person place and time, appropriate affect, intact judgment and insight - Allied health notes Allied health notes reviewed: nursing - Labs CBC & Chem 7: 04/14/22 06:27 04/14/22 06:27 - Imaging and Cardiology Chest x-ray: report reviewed, image reviewed Assessment and Plan Assessment: 1. Recent diagnosis metastatic adenocarcinoma with primary lung origin status post chemotherapy and immunotherapy, status post bronchoscopy by Dr. Castillo 2. Recurrent malignant left-sided pleural effusion status post thoracentesis 4, status post left pleural chest tube placement by Dr. Castillo 3. Hydropneumothorax with trapped lung 4. New-onset atrial fibrillation with rapid ventricular response on admission, currently sinus rhythm 5. Shortness of breath, secondary to above 6. Left vocal cord paralysis status post left medialization thyroplasty 7. Hodgkin's lymphoma in remission 8. Coronary artery disease status post CABG 9. History of hypertension 10. History of hyperlipidemia Plan: 1. No need for Pleurx at this time, will schedule for Pleurx catheter placement if/when pleural fluid re-accumulates 2. Encourage incentive spirometry use 10 times every hour while awake 3. Increase activity as tolerated. May remove dressings and allow patient shower daily 4. Pain control per current medication regimen 5. Will monitor daily CXR while hospitalized 6. Medical management other comorbidities per internal medicine, oncology, hematology and cardiology. 7. May be discharged home from cardiothoracic surgery standpoint. Follow up appointment with Dr. Scott with pre-appointment chest x-ray to be completed on 04/19/2022 for planning for Pleurx catheter placement if necessary
[2022-04-15 10:40] LABS: African American GFR (CKD) >90 (>60 ml/min/1.73 sqM); Anion Gap 8 mmol/L; Blood Urea Nitrogen 13 mg/dL (9-20); Calcium 7.7 mg/dL (8.4-10.2); Carbon Dioxide 29 mmol/L (22-30); Chloride 97 mmol/L (98-107); Glucose 120 mg/dL (74-99); Non-African American GFR(CKD) >90 (>60 ml/min/1.73 sqM); Potassium 3.3 mmol/L (3.5-5.1); Sodium 134 mmol/L (137-145)
[2022-04-15] MEDS ORDERED: DEXAMETHASONE SOD PHOSPHATE 4 MG/ML 1 ML VIAL IV ONE (11:00)
[2022-04-15] MEDS ORDERED: ONDANSETRON 4 MG/2 ML VIAL IVP ONE (11:00)
[2022-04-15 11:33] VITALS: BP 102/58; PULSE 91; RESP 17
--- NOTE | 2022-04-15 12:52 | P.PN ---
Subjective Progress Note Date: 04/15/22 HISTORY OF PRESENT ILLNESS: This is a 61-year-old male with a past medical history significant for hypertension, hyperlipidemia, lung CA with most recent chemotherapy 2 weeks ago, and coronary artery disease with 2 vessel CABG approximately 20 years ago per patient. Patient follows with a want ad receiver out of [place]. We have been asked to see the patient in consultation for atrial fibrillation. Patient examined at the bedside. Patient presented to the hospital due to a chief complaint of shortness of breath. Patient has a history of recurrent left sided pleural effusions and has had previous thoracentesis performed with most recent being on 04/07/2022 with 1.3 L of fluid removed. Patient was found to be in A. fib with RVR. The patient denies a history of atrial fibrillation. The patient was started on IV Cardizem. At the time of my examination this morning, the patient is maintaining sinus mechanism. * EKG reveals A. fib with RVR * Chest xray left hydropneumothorax is seen on prior imaging with air-fluid levels and increase in fluid/pleural effusion component on today's exam * Laboratory data: WBC 8.6. Hemoglobin 11.8. Platelet count 246. Sodium 133. Potassium 3.5. BUN 12. Creatinine 0.81. Magnesium 1.7. Troponin 0.034. ProBNP 2920. TSH 2.060 * Current home cardiac medications include amlodipine 10 mg daily, Crestor 40 mg at night, Imdur 90 mg daily, aspirin 81 mg daily 04/15/2022 Patient examined this morning at the bedside. Patient went into atrial fibrillation with RVR overnight. He was started on IV Cardizem. At the time of my examination, the patient is maintaining sinus mechanism with a heart rate in the 90s. He denies chest pain or pressure. He denies shortness of breath. Patient is anxious to be discharged home today. PHYSICAL EXAM: VITAL SIGNS: Reviewed. GENERAL: Well-developed in no acute distress. HEENT: Head is normocephalic. Pupils are equal, round. Sclerae anicteric. Mucous membranes of the mouth are moist. Neck supple. No JVD or thyromegaly LUNGS: Respirations even and unlabored. Lungs with decreased air exchange on the left side. HEART: Regular rate and rhythm. S1 and S2 heard. Systolic murmur noted ABDOMEN: Soft. Nondistended. Nontender. EXTREMITIES: Normal range of motion. No clubbing or cyanosis. Peripheral pulses intact. No lower extremity edema NEUROLOGIC: Awake and alert. Oriented x 3. ASSESSMENT: Shortness of breath Lung cancer with recent chemotherapy 2 weeks ago Recurrent left pleural effusion s/p thoracentesis, most recent 04/07/2022, status post chest tube insertion 04/12/2022 Left hydropneumothorax New-onset paroxysmal atrial fibrillation with RVR, currently maintaining sinus mechanism Coronary artery disease with previous CABG 2 vessels History of Hodgkin's lymphoma Hypertension Hyperlipidemia PLAN: Discontinue IV Cardizem Increase metoprolol tartrate to 75 mg twice a day Hold off on anticoagulation at this time as patient states he may be scheduled for outpatient for thoravent placement when his pleural effusion builds up again Patient to follow up outpatient with his primary want ad receiver. Further recommendations pending patient course Nurse practitioner note has been reviewed by physician. Signing provider agrees with the documented findings, assessment, and plan of care. Objective - Vital Signs Vital signs: Vital Signs Temp 98.2 F 04/15/22 03:26 Pulse 91 04/15/22 11:32 Resp 17 04/15/22 11:32 BP 102/58 04/15/22 11:32 Pulse Ox 98 04/15/22 11:32 FiO2 Intake & Output 04/14/22 04/15/22 04/15/22 18:59 06:59 18:59 Intake Total 320 223.5 Balance 320 223.5 Intake: IV 70 0.9 20 cefTRIAXone 1 gm In 50 Sodium Chloride 0.9% 50 ml @ 100 mls/hr IVPB Q12HR REBA Rx#:[id number] Intake, IV Titration 23.5 Amount Diltiazem 125 mg In 23.5 Sodium Chloride 0.9% 100 ml @ 5 MG/HR 5 mls/hr IV .Q24H REBA Rx#:[id number] Oral 250 200 Other: Voiding Method Bedside Commode Bedside Commode Bedside Commode # Voids 1 1 # Bowel Movements 1 0 - Labs CBC & Chem 7: 04/14/22 06:27 04/15/22 10:00 Labs: Abnormal Lab Results - Last 24 Hours (Table) 04/15/22 Range/Units 10:00 Sodium 134 L (137-145) mmol/L Potassium 3.3 L (3.5-5.1) mmol/L Chloride 97 L (98-107) mmol/L Glucose 120 H (74-99) mg/dL Calcium 7.7 L (8.4-10.2) mg/dL
--- NOTE | 2022-04-15 16:59 | P.DS ---
Providers Date of admission: 04/10/22 15:16 Expected date of discharge: 04/15/22 Attending physician: Michael Quiles Consults: 04/10/22 15:03 Consult Physician Routine Consulting Provider: William Mancilla Consult Reason/Comments: Hydropneumothorax, lung cancer Do you want consulting provider notified?: Already Contacted 04/10/22 15:06 Consult Physician Routine Consulting Provider: Cem Nicole Consult Reason/Comments: New-onset atrial fibrillation with RVR Do you want consulting provider notified?: Yes, Notify in am 04/10/22 15:31 Consult Physician Routine Consulting Provider: Darby Valerio Consult Reason/Comments: Lung cancer, hydropneumothorax Do you want consulting provider notified?: Yes, Notify in am 04/10/22 17:56 Consult Physician Routine Consulting Provider: Azael Barros Consult Reason/Comments: Recurrent pleural effusion Do you want consulting provider notified?: Yes Primary care physician: [facility] Course: Chief Complaint: Short of breath This is a pleasant 61-year-old patient follows with Dr. Bloom. Chronic stable medical conditions include GERD, lipidemia, hypertension,. Has a diagnosis of metastatic adenocarcinoma, being followed by Dr. Yen from oncology. Has received 2 rounds of chemotherapy. Also receiving immunotherapy. Patient's had about 4 hours of left thoracentesis the last one being 3 days ago. 1.3 L was removed from the left side. Patient is decreased appetite. Weight loss. Patient also has left vocal cord paralysis with left medial ligation thyroplasty with the Moise implant done by Dr. Blanchard. Patient felt better after his thoracentesis 3 days ago. Presents now with worsening shortness of breath. Cough with some yellow sputum. No fever no chills. Tired rundown. ER found to be in atrial flutter with a rate of 140s. X-ray shows left hydropneumothorax. April 11: Patient moved to the ICU. Discussed with Dr. Castillo. 4 chest tube. Patient may have a proximal obstruction of the bronchus. Shortness of breath. Patient back into sinus rhythm. Cardizem drip discontinued. Started on metoprolol 25 mg twice a day. April 12: ICU. Patient had a left-sided chest tube placed yesterday. Has put on about 1.7 L. Has Dilaudid for pain control. On [address] Castillo is contemplating bronchoscopy. Patient nothing by mouth. Sinus rhythm. Some pain of the chest tube site. Congested cough. Chest x-ray shows some left-sided pneumothorax, pleural fluid./Infiltrates Bronchoscopy 04/12/[address] Castillo Extensive tumor involvement both endobronchial and extrinsic compression completely occluding the left upper lobe anterior and apical segments and causing significant narrowing of the lingular segment. Several endobronchial tumor was seen near completely occluding the orifice of the superior segment left lower lobe and causing narrowing of the left lower lobe by around 50% April 13: ICU: Chest tube removed. Dressing in place. Plan for some accumulation of pleural fluid to have the Pleur-evac place. Did eat his breakfast. Sinus rhythm. Pain controlled April 14:saw the patient this morning in ICU. Pain control. Some shortness of breath. Sinus rhythm. Did eat some. Chest x-ray showed persistent left-sided hydropneumothorax. With consolidation. April 15: Doing better. Oral intake would. Discussed with Dr. Castillo. home today. Outpatient Pleur-evac placement. 96% on room air. Outpatient follow- ups arranged. Past medical history to include: Metastatic lung adenocarcinoma getting chemotherapy and immunotherapy, GERD, hypertension, hyperlipidemia, CAD with stent, coronary bypass vocal cord implant Social history: Lives with his children. No smoking. Alcohol occasionally. Joel. Soya artis/wheat Family history: Reviewed, noncontributory to presentation Physical examination: VITAL SIGNS: Afebrile, 91, 17, 102/58, 98% room air GENERAL: Sitting up in bed comfortable EYES: Pupils equal. Conjunctiva normal. HEENT: External appearance of nose and ears normal, oral cavity grossly normal. NECK: JVD not raised; masses not palpable. HEART: First seconds are normal; no edema. LUNGS: Respiratory rate increased, decreased breath sounds. Dressing over the chest tube site ABDOMEN: Soft, nontender, liver spleen not palpable, no masses palpable. PSYCH: Alert and oriented x3; mood and affect slightly anxiousl. INVESTIGATIONS, reviewed in the clinical context: Bronchoscopy 04/22/[address] Castillo Extensive tumor involvement both endobronchial and extrinsic compression completely occluding the left upper lobe anterior and apical segments and causing significant narrowing of the lingular segment. Several endobronchial tumor was seen near completely occluding the orifice of the superior segment left lower lobe and causing narrowing of the left lower lobe by around 50% April 13: Potassium 3.6 creatinine 0.71 Pro-calcitonin 0.19 April 12: White count 8.1 hemoglobin 11.3 platelets 159 sodium 132 potassium 3.4 creatinine 0.74 2-D echocardiogram: EF 55-60%. TSH 2.0 White count 8.6 hemoglobin 11.8 platelets 246 sodium 133 potassium 3.5 creatinine 0.81 Troponin I 0.034 proBNP 2920 EKG tracing personally reviewed by me-atrial flutter with a rate of 146 Chest x-ray film personally reviewed by me-left hydropneumothorax Previous testing Pleural fluid: Metastatic adenocarcinoma CT angiogram chest [March] large left pleural effusion. Complete atelectasis left lung. Occlusion of left mainstem bronchus Assessment and plan -Recurrent large left pleural effusion from underlying malignancy with pneumothorax. previous 3 thoracentesis. : chest tube placed April 11-discontinued April 13. For outpatient Pleur-evac placement -Metastatic lung adenocarcinoma. received 2 cycles of chemotherapy. Immunotherapy. Follow with oncology -Possible secondary pneumonia from obstruction on the left side IV ceftriaxone. No further antibiotics -Essential hypertension amlodipine -Paroxysmal atrial flutter with a rapid ventricular rate, currently in sinus rhythm IV Cardizem drip discontinued. Lopressor 75 mg twice a day -CAD with a prior history of coronary bypass Crestor. Lopressor. Imdur -Left vocal cord paralysis with implantation, by Dr. Blanchard -Insomnia Ambien -GERD Pal -Full code Disposition: Home Patient Condition at Discharge: Fair Plan - Discharge Summary Discharge Rx Participant: No New Discharge Prescriptions: New Isosorbide Mononitrate ER [Imdur] 60 mg PO DAILY #30 tab Metoprolol Tartrate [Lopressor] 75 mg PO BID #100 tab Continue OLANZapine [ZyPREXA] 10 mg PO HS Nystatin [Nystatin Oral Susp] 400,000 unit PO QID Hydrocortisone Cream [Hydrocortisone 2.5% Cream] 1 applic TOPICAL BID Folic Acid 1 mg PO DAILY clonazePAM [KlonoPIN] 1 mg PO DAILY PRN PRN Reason: Anxiety Albuterol Inhaler [Ventolin Hfa Inhaler] 2 puff INHALATION RT-Q6H PRN PRN Reason: Shortness Of Breath Ubidecarenone [Co Q-10] 300 mg PO DAILY Aspirin [Adult Low Dose Aspirin EC] 81 mg PO DAILY Omeprazole [PriLOSEC] 40 mg PO DAILY Rosuvastatin Calcium [Crestor] 40 mg PO HS Super Beta 1 tab PO HS Discontinued amLODIPine [Norvasc] 10 mg PO DAILY Zolpidem [Ambien] 10 mg PO HS Isosorbide Mononitrate ER [Imdur] 90 mg PO DAILY Discharge Medication List Aspirin [Adult Low Dose Aspirin EC] 81 mg PO DAILY 01/11/22 [History] OLANZapine [ZyPREXA] 10 mg PO HS 02/16/22 [History] Omeprazole [PriLOSEC] 40 mg PO DAILY 02/16/22 [History] Rosuvastatin Calcium [Crestor] 40 mg PO HS 02/16/22 [History] Folic Acid 1 mg PO DAILY 04/07/22 [History] Hydrocortisone Cream [Hydrocortisone 2.5% Cream] 1 applic TOPICAL BID 04/07/22 [History] Nystatin [Nystatin Oral Susp] 400,000 unit PO QID 04/07/22 [History] clonazePAM [KlonoPIN] 1 mg PO DAILY PRN 04/07/22 [History] Albuterol Inhaler [Ventolin Hfa Inhaler] 2 puff INHALATION RT-Q6H PRN 04/10/22 [History] Super Beta 1 tab PO HS 04/10/22 [History] Ubidecarenone [Co Q-10] 300 mg PO DAILY 04/10/22 [History] Isosorbide Mononitrate ER [Imdur] 60 mg PO DAILY #30 tab 04/15/22 [Rx] Metoprolol Tartrate [Lopressor] 75 mg PO BID #100 tab 04/15/22 [Rx] Follow up Appointment(s)/Referral(s): Tati Moss MD [STAFF PHYSICIAN] - 1 Week (office will call you to schedule appt if you do not hear from them within 1-2 days please call office.) Azael Bloom MD [Primary Care Provider] - 1-2 days Shan Scott MD [STAFF PHYSICIAN] - 04/19/22 2:00 pm (Please have chest x-ray completed at the hospital prior to appointment) Clary Castillo MD [STAFF PHYSICIAN] - 05/16/22 1:30 pm Ambulatory/Diagnostic Orders: XR chest 2V [RAD.AMB] Time Frame: 04/19/22, [facility], Location: [facility] Patient Instructions/Handouts: Spontaneous Pneumothorax (DC) Activity/Diet/Wound Care/Special Instructions: DISCHARGE INSTRUCTIONS: 1. No driving for 1 week, or until physician gives their ok. 2. No lifting, pushing, or pulling more than 10 pounds for 2 weeks. The physician will advise of any restriction changes. 3. Continue pain control per as needed orders. Alternate acetaminophen (Tylenol) and ibuprofen (Motrin/Advil) for pain. 4. Continue with incentive spirometry and splinting until otherwise directed by the physician. 5. Leave chest tube dressing for 48 hours. After that, remove all dressings and shower daily. 6. Routine incision care. No powders, lotions, ointments on incisions. 7. Please call surgeon/ENGINEERING TECHNICIAN [employer]ARKING for temp greater than 101 F or purulent drainage from incisions. Any question please call Rocio Mcleod or Conrado [employer] TECH[employer]IC[employer] regarding thoracic incisions or pleurx catheter or Discharge Disposition: HOME WITH HOME HEALTH SERVICES
[2022-04-15] MEDS ORDERED: METOPROLOL TARTRATE 25 MG TAB PO SCH (21:00)
== END 2022-04-15 12:19 | disposition home health service (06) | DRG 199 ==
LOC: EC 12:56 → 3SCARD 15:16 → 2SICU 04-11 11:02 → 3SCARD 04-14 11:57
PROVIDERS: ADMIT Hospitalist; ATTEND Hospitalist
PROC: 0W9B00Z Drainage of Left Pleural Cavity with Drainage Device, Open Approach (ICD-10-PCS; 2022-04-11 11:55)
PROC: 0BJ08ZZ Inspection of Tracheobronchial Tree, Via Natural or Artificial Opening Endoscopic (ICD-10-PCS; principal; 2022-04-12 09:20)
DX: J93.83 Other pneumothorax (principal); J96.01 Acute respiratory failure with hypoxia; J94.8 Other specified pleural conditions; C79.9 Secondary malignant neoplasm of unspecified site; I48.92 Unspecified atrial flutter; C34.12 Malignant neoplasm of upper lobe, left bronchus or lung; J91.0 Malignant pleural effusion; J98.19 Other pulmonary collapse; J98.11 Atelectasis; I10 Essential (primary) hypertension; J38.01 Paralysis of vocal cords and larynx, unilateral; I48.0 Paroxysmal atrial fibrillation; E78.5 Hyperlipidemia, unspecified; F41.9 Anxiety disorder, unspecified; R00.0 Tachycardia, unspecified; I25.10 Atherosclerotic heart disease of native coronary artery without angina pectoris; R49.0 Dysphonia; R26.9 Unspecified abnormalities of gait and mobility; R63.4 Abnormal weight loss; G47.00 Insomnia, unspecified; K21.9 Gastro-esophageal reflux disease without esophagitis; R63.0 Anorexia; Z92.21 Personal history of antineoplastic chemotherapy; Z85.71 Personal history of Hodgkin lymphoma; Z92.3 Personal history of irradiation; Z95.1 Presence of aortocoronary bypass graft; Z95.5 Presence of coronary angioplasty implant and graft; Z79.82 Long term (current) use of aspirin; Z68.23 Body mass index [BMI] 23.0-23.9, adult; Z79.899 Other long term (current) drug therapy; Z98.890 Other specified postprocedural states; Z82.49 Family history of ischemic heart disease and other diseases of the circulatory system
CPT/HCPCS: 31645; 36410; 36415; 71045; 71046; 76937; 80048; 80053; 82803; 83605; 83735; 83880; 84132; 84145; 84443; 84484; 85025; 85027; 85610; 85730; 93005; 93306; 94640; 94760; 96365; 96366; 99285

== ENCOUNTER → 2022-04-18 | Outpatient (CLI) | payer BC ==
--- NOTE | 2022-04-18 13:11 | XR ---
EXAMINATION TYPE: XR chest 2V DATE OF EXAM: 04/18/2022 10:07 AM COMPARISON: Chest radiographs from 04/15/2022. TECHNIQUE: XR chest 2V Frontal and lateral views of the chest. CLINICAL INDICATION:Male, 61 years old with history of J90 pleural effusion; FINDINGS: Lungs/Pleura: No significant change in size of left hydropneumothorax from prior examination measurin g up to 3.4 cm in the apex. Persistent opacification throughout the aerated left lung. The right lung remains clear. Pulmonary vascularity: Unremarkable. Heart/mediastinum: Cardiomediastinal silhouette is partially obscured but stable. Postoperative alcala ges are present in the mediastinum. Musculoskeletal: No acute osseous pathology. Midline sternotomy wires are noted and stable. Other findings: Surgical clips in the left upper quadrant redemonstrated. IMPRESSION: Persistent left-sided hydropneumothorax with 3.4 cm apical pneumothorax component and small effusion. Similar extensive consolidation throughout the left lung.
== END | disposition home or self-care (01) ==
LOC: RADXRMAIN 09:44
PROVIDERS: ATTEND Nurse Practitioner Acute Care
DX: J90 Pleural effusion, not elsewhere classified (principal)
CPT/HCPCS: 71046

== ENCOUNTER → 2022-05-03 | Outpatient (CLI) | payer BC ==
--- NOTE | 2022-05-03 12:55 | FL ---
Exam Date: 05/03/2022 11:51 AM. Modified barium swallow for dysphagia. Consistencies administered: Various consistency of barium. Thin, nectar, pudding, honey Fluoro time: 1 minute 45 seconds No images were sent to PACS. Please see speech pathology report.
== END | disposition home or self-care (01) ==
LOC: RADFLMAIN 11:16
PROVIDERS: ATTEND Otolaryngology
DX: R13.10 Dysphagia, unspecified (principal)
CPT/HCPCS: 74230

== ENCOUNTER → 2022-05-20 | Outpatient (CLI) | payer BC ==
--- NOTE | 2022-05-23 09:35 | PE ---
Nuclear medicine PET CT HISTORY: Left lung carcinoma, subsequent, [id number] Patient received 11.3 mCi F-18 FDG intravenously and delayed scanning was performed from the skull ba se to the mid thighs. A localization and attenuation correction CT scan was performed. Correlation to prior nuclear medicine PET/CT dated 01/28/2022 Average mediastinal uptake SUV 1.9, average liver uptake SUV 2.6 Chest and neck: Patient is post median sternotomy. There is a left-sided Pleurx catheter in place. Up take along the tongue is felt likely to be physiologic. There are dense carotid artery calcifications . Density is present along the region of the vocal cord on the left, there may been interval calcific ation, question deviation of the left vocal cord, probably for possible vocal cord paralysis. The abnormal uptake seen at the left upper hemithorax anteriorly and medially is again noted but is l ess intense and extensive, SUV 3.2. Fluid attenuation is present2, there is likely loculated2 left pl eural effusion, there are areas of pneumothorax without tension within the left upper hemithorax poss ibly due to patient's Pleurx catheter. Left hilar activity is noted, SUV 5.3, there is subcarinal act ivity, SUV 5.6, right hilar activity SUV 3.7 is an interval finding. There is activity adjacent to th e descending aorta, small focus SUV 3.4, improved. Retrocaval pretracheal node shows SUV 3.6. Extensive calcifications again seen associated with the heart. No pericardial effusion evident. No amaya praclavicular or cervical adenopathy. ABDOMEN: Left adrenal gland shows hypermetabolic uptake, SUV 4.3. Nor liver mass. No retroperitoneal adenopathy. Bowel uptake felt likely be physiologic. There are surgical clips, postoperative changes within the abdomen. Prostate is enlarged. No free fluid.0 Osseous structures show no suspicious uptake. Sclerotic foci within the pelvis have developed in the interval to include the right ilium and sacrum which are subcentimeter in size and also the right pub ic bone. Within the right anterior ilium there is a subcentimeter focus of activity with SUV 3.2, pro gression compared to prior. Within the right scapula inferiorly there is a focus of uptake, SUV 3.2, adjacent rib also shows uptake, SUV 2.5 IMPRESSION: There is been progression of patient's osseous metastatic disease. Mixed response noted w ithin the chest, there is left-sided pneumothorax as described which could be related to patient's Pl eurx catheter or possibly some cavitation in the left upper lobe A Red level critical message alert has been initiated for Salbador Valerio MD via the [employer] Critical Results System on 05/23/2022 6:32 AM. This message alert has been sent to Salbador Valerio MD via the preferences provided by the clinician for the receipt of Radiology Critical Findings. Message ID [id number].
== END | disposition home or self-care (01) ==
LOC: RADPETMAIN 13:23
PROVIDERS: ATTEND Internal Medicine Hematology & Oncology
DX: C34.12 Malignant neoplasm of upper lobe, left bronchus or lung (principal); C79.51 Secondary malignant neoplasm of bone
CPT/HCPCS: 78815; A9552

== ENCOUNTER 2022-06-21 13:17 | Day surgery (SDC) | payer BC ==
[2022-06-17 11:44] VITALS: BMI 23.0
[~2022-06-21 13:17] MED LIST changes: +ACETAMINOPHEN TAB 500 MG TAB PO PRN; -DEXAMETHASONE SOD PHOSPHATE 4 MG/ML 1 ML VIAL IV PRN; -FAMOTIDINE 20 MG/2 ML VIAL IV PRN; +HEPARIN SODIUM,PORCINE/PF 5,000 UNIT/0.5 ML SYRINGE SQ PRN; -ONDANSETRON 4 MG/2 ML VIAL IVP PRN; +Pre Op ABX Message 1 EACH MISC MISCELLANE ONE; +fentaNYL (PF) 50 MCG/ML 2 ML AMP IV PRN; -metroNIDAZOLE-NS PMX 500 MG in SALINE 1 100ML.BAG IVPB PRN
[2022-06-21 13:40] VITALS: TEMP 98
[2022-06-21] MEDS: LACTATED RINGERS 1,000 ML IV SCH ×2 (13:51→14:39)
[2022-06-21] MEDS ORDERED: ONDANSETRON 4 MG/2 ML VIAL ONE (13:53)
[2022-06-21] MEDS ORDERED: DEXAMETHASONE SOD PHOSPHATE 4 MG/ML 1 ML VIAL IVP ONE (13:55)
[2022-06-21] MEDS ORDERED: MIDAZOLAM 2 MG/2 ML VIAL IVP ONE ×2 (14:07)
[2022-06-21] MEDS ORDERED: MIDAZOLAM 2 MG/2 ML VIAL ONE (14:35)
[2022-06-21] MEDS ORDERED: fentaNYL (PF) 50 MCG/ML 2 ML AMP ONE (14:35)
[2022-06-21] MEDS ORDERED: PROPOFOL 10 MG/ML 20 ML VIAL IV ONE (14:35)
[2022-06-21] MEDS ORDERED: KETAMINE 10 MG/ML 20 ML VIAL ONE (14:35)
--- NOTE | 2022-06-21 14:35 | P.GSHP ---
History of Present Illness H&P Date: 06/21/22 Chief Complaint: Lung cancer 61-year-old male here today for Port-A-Cath placement. Patient diagnosed earlier this year with left-sided lung cancer. Patient with poor IV access. For that reason here for Port-A-Cath. Past Medical History Past Medical History: Coronary Artery Disease (CAD), Cancer, GERD/Reflux, Hyperlipidemia, Hypertension Additional Past Medical History / Comment(s): Lung cancer-sees Dr Valerio-chemo and immuno therapy. SOB w/exertion & hoarseness. History of Any Multi-Drug Resistant Organisms: None Reported Past Surgical History: Coronary Bypass/CABG, Heart Catheterization With Stent, Hernia Repair Additional Past Surgical History / Comment(s): Double bypass 20 yrs ago, 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", 02/17/22, bronchoscopy, chest tube, two cardiac stents. Past Anesthesia/Blood Transfusion Reactions: No Reported Reaction Date of Last Stent Placement:: Unknown Past Psychological History: No Psychological Hx Reported Smoking Status: Never smoker Past Alcohol Use History: Rare Past Drug Use History: None Reported - Past Family History Mother Family Medical History: No Reported History Father Family Medical History: Chest Pain / Angina Medications and Allergies Home Medications Medication Instructions Recorded Confirmed Type Aspirin [Adult Low Dose Aspirin EC] 81 mg PO DAILY 01/11/22 06/17/22 History OLANZapine [ZyPREXA] 10 mg PO HS 02/16/22 06/17/22 History Omeprazole [PriLOSEC] 40 mg PO QAM 02/16/22 06/21/22 History Rosuvastatin Calcium [Crestor] 40 mg PO HS 02/16/22 06/17/22 History Folic Acid 1 mg PO DAILY 04/07/22 06/17/22 History clonazePAM [KlonoPIN] 1 mg PO DAILY PRN 04/07/22 06/21/22 History Super Beta 1 tab PO HS 04/10/22 06/17/22 History Ubidecarenone [Co Q-10] 200 mg PO DAILY 04/10/22 06/21/22 History Metoprolol Tartrate [Lopressor] 75 mg PO BID #100 tab 04/15/22 06/17/22 Rx Isosorbide Mononitrate ER [Imdur] 60 mg PO QAM 06/17/22 06/21/22 History Allergies Allergy/AdvReac Type Severity Reaction Status Date / Time No Known Allergies Allergy Verified 06/17/22 11:29 Surgical - Exam Vital Signs Temp Pulse Resp BP Pulse Ox 98 F 102 H 16 143/68 96 06/21/22 13:40 06/21/22 13:40 06/21/22 13:40 06/21/22 13:40 06/21/22 13:40 Physical exam: General: Well-developed, malnourished HEENT: Normocephalic, sclerae nonicteric Abdomen: Nontender, nondistended Extremities: No edema Neuro: Alert and oriented Assessment and Plan (1) Lung cancer Narrative/Plan: 61-year-old male with lung cancer. We'll proceed with Port-A-Cath placement at this time. Risks of bleeding, infection, DVT, pneumothorax, catheter malfunction, anesthesia related complications were discussed. The patient understands and wishes to proceed. Current Visit: Yes Status: Acute Code(s): C34.90 - MALIGNANT NEOPLASM OF UNSP PART OF UNSP BRONCHUS OR LUNG SNOMED Code(s): 259300632
[2022-06-21] MEDS ORDERED: SODIUM CHLORIDE 0.9% 50 ML with ceFAZolin 2,000 MG IV ONE ×2 (14:39)
[2022-06-21] MEDS ORDERED: LIDOCAINE 1% INJ 10MG/ML (20 ML MDV) SQ ONE ×3 (14:58→14:59)
[2022-06-21] MEDS ORDERED: traMADol 50 MG TAB PO PRN (15:26)
[2022-06-21] MEDS ORDERED: ACETAMINOPHEN TAB 325 MG TAB PO PRN (15:26)
[2022-06-21] MEDS ORDERED: NALOXONE 0.4 MG/ML 1 ML VIAL IV PRN (15:26)
--- NOTE | 2022-06-21 15:32 | P.OP ---
Date of Procedure: 06/21/22 Procedure(s) Performed: PREOPERATIVE DIAGNOSIS: Lung cancer POSTOPERATIVE DIAGNOSIS: Same PROCEDURE: Port-A-Cath placement with fluoroscopic and ultrasound guidance SURGEON: Rylee EBL: Minimal ANESTHESIA: Sedation COMPLICATIONS: None OPERATIVE PROCEDURE: Patient was brought and placed on the operative table in the supine position. The patient was sedated per anesthesia that time. The chest and neck were prepped and draped in usual sterile fashion. The ultrasound probe was used to identify the location of the right internal jugular vein. The skin was localized with lidocaine. The Seldinger needle was advanced into the IJ under ultrasound guidance. The wire was advanced through the needle under fluoroscopic guidance into the superior vena cava. A port pocket was created in the right infraclavicular location. The catheter was tunneled from the wire entrance site to the port pocket. The port was then connected to the catheter. The dilator introducer was threaded over the guidewire. The guidewire and dilator were then removed. The catheter was advanced through the introducer and introducer was then removed. The tip was seen to be in the right atrial junction via fluoroscopy. A picture of the radiograph showing the tip at the radial digital junction was taken. Port was flushed with both saline and a Hep- Lock solution. There was good flow both in and out of the port. The port was sutured in underlying tissues using 3-0 silk sutures. The subcutaneous tissues were reapproximated using 3-0 Vicryl sutures and the skin at both locations using 4-0 Monocryl sutures. Skin glue and sterile dressings then applied. DISPOSITION: Stable to recovery room
[2022-06-21 15:44] VITALS: RESP 18
--- NOTE | 2022-06-21 15:57 | XR ---
EXAMINATION TYPE: XR chest 1V portable DATE OF EXAM: 06/21/2022 COMPARISON: Chest x-ray 04/25/2022 HISTORY: Postop Port-A-Cath placement TECHNIQUE: frontal view of the chest is obtained 2 images. FINDINGS: There is been interval placement of a right-sided Port-A-Cath with the port in the pectora l region, jugular approach, distal tip the catheter overlying the region of the cavoatrial junction. No evident pneumothorax. Pleural parenchymal changes in the left hemithorax show similar appearance, there is a Pleurx catheter present. Patient is post median sternotomy. IMPRESSION: No evident complication status post central venous catheter placement.
[2022-06-21 16:11] VITALS: BP 110/78; PULSE 78
--- NOTE | 2022-06-21 16:34 | FL ---
EXAMINATION TYPE: FL guided central line placement DATE OF EXAM: 06/21/2022 FLUOROSCOPY Fluoroscopy time of 2 seconds was used during Port-A-Cath insertion. 1 image/s document/s the proced ure.
== END 2022-06-21 16:15 | disposition home or self-care (01) ==
LOC: OR 13:17
PROVIDERS: ATTEND Surgery
DX: C34.12 Malignant neoplasm of upper lobe, left bronchus or lung (principal); I25.10 Atherosclerotic heart disease of native coronary artery without angina pectoris; I10 Essential (primary) hypertension; E78.5 Hyperlipidemia, unspecified; K21.9 Gastro-esophageal reflux disease without esophagitis; Z85.118 Personal history of other malignant neoplasm of bronchus and lung; Z95.5 Presence of coronary angioplasty implant and graft; Z86.59 Personal history of other mental and behavioral disorders; Z79.82 Long term (current) use of aspirin; Z79.899 Other long term (current) drug therapy; Z98.890 Other specified postprocedural states
CPT/HCPCS: 77001; 71045; 36561; C1788; J2250; J1100; J2405; J0690; J2001; J3010; J1642; J2704; J1644

== ENCOUNTER → 2022-07-13 | Outpatient (CLI) | payer BC ==
[2022-07-13 10:48] LABS: African American GFR (CKD) >90 (>60 ml/min/1.73 sqM); Blood Urea Nitrogen 16 mg/dL (9-20); Non-African American GFR(CKD) >90 (>60 ml/min/1.73 sqM)
--- NOTE | 2022-07-13 11:28 | CT ---
EXAMINATION TYPE: CT angio chest DATE OF EXAM: 07/13/2022 COMPARISON: 03/21/2022 HISTORY: Shortness of breath. History of hodgkin's lymphoma and lung cancer. CT DLP: 218.5 mGycm CONTRAST: CT chest with contrast and 3D reconstruction with MIP imaging is performed with IV Contrast, patient injected with 58ml mL of Isovue 370. Contrast-enhanced CT of the chest was performed through the course of the pulmonary arteries with cassia g and mediastinal window settings submitted. 3D reconstruction with MIP imaging was also performed. PULMONARY ARTERIES: The pulmonary arteries and their major tributaries are patent. I do not see allison dence for sizable filling defect to suggest pulmonary embolic process. LUNGS: Large left-sided pleural effusion is smaller in size although does persist. Left basilar chest tube is in place. There is associated compressive atelectasis. Abnormal soft tissue left suprahilar region with narrowing of the left upper lobe bronchus. Underlying 2.8 x 2.4 cm mass is difficult to e xclude. Postobstructive changes seen within the left upper lobe. The right lung is clear. MEDIASTINUM: Thoracic aorta is of normal caliber,however, evaluation is limited given timing of the contrast bolus. If there is concern for thoracic aortic pathology consider ANNA. Correlate clinicall y . The heart is not enlarged. No evidence for mediastinal mass. No mediastinal lymph nodes greater than 1cm. HILAR STRUCTURES: No evidence for mass. No hilar lymph nodes greater than 1 cm. UPPER ABDOMEN: Bilateral adrenal nodules noted. IMPRESSION: 1. No evidence for Pulmonary embolism at this time. 2. Persistent but much smaller in size left-sided pleural effusion. Left basilar chest tube is in rita ce. 3. Left suprahilar mass may reflect underlying malignancy.
== END | disposition home or self-care (01) ==
LOC: RADCTMAIN 10:05
PROVIDERS: ATTEND Internal Medicine Hematology & Oncology
DX: C34.12 Malignant neoplasm of upper lobe, left bronchus or lung (principal); J90 Pleural effusion, not elsewhere classified; R06.02 Shortness of breath; R22.2 Localized swelling, mass and lump, trunk; Z85.71 Personal history of Hodgkin lymphoma
CPT/HCPCS: 82565; 84520; 71275; 36415; Q9967

== ENCOUNTER → 2022-08-01 | Outpatient (CLI) | payer BC ==
--- NOTE | 2022-08-01 12:27 | XR ---
EXAMINATION TYPE: XR chest 2V DATE OF EXAM: 08/01/2022 COMPARISON: Prior chest x-ray 10 days ago. CTA chest 19 days ago. HISTORY: Prior abnormal chest x-ray and CT studies. TECHNIQUE: Frontal and lateral views of the chest are obtained. FINDINGS: Stable right internal jugular Mediport catheter. Overlying sternal wires and mediastinal c lips are redemonstrated. Persistent left basilar pleural pigtail drainage catheter. Persistent left a pical pleural fluid collection. Persistent left-sided volume loss with increased central opacity. Rig ht lung remains clear. Cardiac silhouette size is stable and within normal limits. Osseous structures are intact. Surgical clips left upper quadrant are redemonstrated. IMPRESSION: No significant change from most recent chest x-ray. Persistent nonsimple left-sided pleu ral fluid collection and left basilar drainage catheter. No significant change from most recent x-ray .
== END | disposition home or self-care (01) ==
LOC: RADXRMAIN 10:16
PROVIDERS: ATTEND Thoracic Surgery (Cardiothoracic Vascular Surgery)
DX: R91.8 Other nonspecific abnormal finding of lung field (principal); Z46.82 Encounter for fitting and adjustment of non-vascular catheter
CPT/HCPCS: 71046

== ENCOUNTER → 2022-08-05 | Outpatient (CLI) | payer BC ==
--- NOTE | 2022-08-07 09:30 | PE ---
EXAMINATION TYPE: PET CT fusion skull to thigh DATE OF EXAM: 08/05/2022 CLINICAL INDICATION:Male, 62 years old with history of C34.12 lung ca; TECHNIQUE: Following the intravenous administration of 10.6 mCi of F-18 FDG, whole body images are performed from the skull base to the midthigh. Images are reviewed on the computer in the coronal, a xial, and sagittal planes. Reconstructed rotating images are created on independent workstation and reviewed on the computer. A non-contrast CT is performed in conjunction with the PET scan. Glucose level 81 mg/dL COMPARISON: CT 07/13/2022, PET/CT 05/20/2022, FINDINGS: Mediastinal SUV mean is 1.7. Hepatic parenchyma SUV mean is 2.4. SKULL BASE AND NECK: No suspicious FDG activity. * Bilateral thyroid gland uptake max SUV 4.7 on the right and 3.9 left. CHEST, MEDIASTINUM, AND HILAR REGION: * Consolidation in the left upper lobe has increased from prior CT. * Left pulmonary hilum max SUV 4.9 previously 5.3. * Subcarinal lymph node max SUV 5.03, previously 5.6. measuring 6 mm, previously 11 mm. * Right low paratracheal lymph node max SUV 4.5 previously 3.6. * Right pulmonary hilum FDG activity max SUV 4.1, previously 3.7. ABDOMEN AND PELVIS: No suspicious FDG activity. OSSEOUS STRUCTURES: Sclerotic foci throughout the osseous structures including for in the pelvic bone s, femoral heads and spine are similar in size. Majority of these lesions do not demonstrate increase d FDG activity. * Bilateral iliac bone lesions which are increased FDG activity, on the right axis 1.3, previously 1 .2 and on the left Max SUV 2.3, previously 1.7. * A more anterior right iliac bone lesion max SUV 5.3, previous to 3.2. * Posterior right rib 5 max SUV 1.4, previously 0.7. * Right scapula max SUV 4.2 previously 3.2. * Left iliac bone next to the sacroiliac joint max SUV 2.9, previously 1.5. OTHER CT: Atherosclerosis of the arterial vasculature including the coronary arteries and carotid bif urcations. Bilateral gynecomastia changes. Small hiatal hernia present. Right chest wall [id number] t distal tip in the superior vena cava. Sternotomy wires are present. Surgical clips in the left uppe r quadrant. Spleen appears surgically absent. Scattered splenosis noted. Surgical clips are seen scat tered throughout the abdomen. Left inguinal surgical clips. Few scattered clonic diverticula. Left thoracotomy tube tip in appropriate position. Moderate left pleural effusion. IMPRESSION: Overall findings suggestive of progressive disease with increasing metabolic activity within osseous metastatic lesions. Overall findings within the thorax demonstrate mixed response to therapy.
== END | disposition home or self-care (01) ==
LOC: RADPETMAIN 11:15
PROVIDERS: ATTEND Internal Medicine Hematology & Oncology
DX: C34.12 Malignant neoplasm of upper lobe, left bronchus or lung (principal)
CPT/HCPCS: 78815; A9552

== ENCOUNTER → 2022-12-26 | Outpatient (CLI) | payer BC ==
--- NOTE | 2022-12-26 11:08 | CT ---
EXAMINATION TYPE: CT chest wo con DATE OF EXAM: 12/26/2022 COMPARISON: 11/04/2022, 10/31/2002 HISTORY: wheezing and concern for pneumonitis hx of lung CA CT DLP: 682.40 mGycm. Automated Exposure Control for Dose Reduction was Utilized. TECHNIQUE: CT scan of the thorax is performed without IV contrast. FINDINGS: LUNGS: Large apical consolidation or mass medially again noted. Similar in size to prior exam. Pathol ogic left axillary lymph node noted measuring short axis 1.4 cm. Left hilar soft tissue fullness agai n stable likely representing adenopathy. Previously noted osseous lesion involving the right posterior sixth rib and right scapula and hypertr ophic and degenerative changes of the spine. No evidence of consolidative pneumonia. There is a left-sided pleural effusion with subsegmental area s of consolidation and interlobular septal thickening likely representing a degree of chronic interst itial lung disease. There is bilateral adrenal gland enlargement. Atherosclerotic change of the aorta and its branch vessels. Coronary artery calcification. Heart size normal. Bilateral gynecomastia incidentally. Mediport catheter seen and there is a pleural-based magnus cification axial image 27 on the lateral right pleura. Metallic density incidentally noted in the lef t upper quadrant. IMPRESSION: 1. Findings are similar to the prior exam demonstrating a left upper lobe lung mass, pathologic suspe cted hilar and left axillary lymphadenopathy. 2. Small left pleural effusion stable from prior exam 3. Bilateral adrenal gland enlargement suggestive of metastases. 4. Osseous metastasis stable from PET scan.
== END | disposition home or self-care (01) ==
LOC: RADCTMAIN 10:13
PROVIDERS: ATTEND Internal Medicine Hematology & Oncology
DX: C79.51 Secondary malignant neoplasm of bone (principal); C34.12 Malignant neoplasm of upper lobe, left bronchus or lung; J90 Pleural effusion, not elsewhere classified; E27.8 Other specified disorders of adrenal gland; R59.0 Localized enlarged lymph nodes
CPT/HCPCS: 71250

== ENCOUNTER 2023-01-31 19:32 | Inpatient (IN) | payer BC ==
--- NOTE | 2023-01-31 20:18 | ED ---
SOB HPI - General Chief Complaint: Shortness of Breath Stated Complaint: SOB-lung cancer Time Seen by Provider: 01/31/23 20:10 Source: patient, RN notes reviewed - History of Present Illness Initial Comments: Patient is 62-year-old male presented to the emergency room with worsening of shortness of breath. He reports no shortness of breath over the last 3 weeks with increase intensity recently in concerns of pleural effusion requiring drainage. He has had malignant pleural effusions requiring Pleurx catheter placement in the past. He is undergoing chemotherapy for lung cancer. His last chemotherapy treatment was on 01/20/2023 which she tolerated well. He reports a chronic cough with occasional sputum production that is unchanged. He denies any chest pain, orthopnea, nausea, vomiting, lower extremity edema, headache, dizziness, diaphoresis, fevers or chills. In addition to his lung ca ncer history his past medical history significant for hypertension, hyperlipidemia, CAD, and GERD. - Related Data Home Medications Medication Instructions Recorded Confirmed Aspirin [Adult Low Dose Aspirin EC] 81 mg PO DAILY 01/11/22 10/20/22 OLANZapine [ZyPREXA] 10 mg PO HS 02/16/22 10/20/22 Omeprazole [PriLOSEC] 40 mg PO QAM 02/16/22 10/20/22 Rosuvastatin Calcium [Crestor] 40 mg PO HS 02/16/22 10/20/22 Folic Acid 1 mg PO DAILY 04/07/22 10/20/22 clonazePAM [KlonoPIN] 1 mg PO DAILY PRN 04/07/22 10/20/22 Ubidecarenone [Co Q-10] 200 mg PO DAILY 04/10/22 10/20/22 Isosorbide Mononitrate ER [Imdur] 60 mg PO QAM 06/17/22 10/20/22 Levothyroxine Sodium [Synthroid] 100 mcg PO DAILY 10/17/22 10/20/22 Previous Rx's Medication Instructions Recorded Metoprolol Tartrate [Lopressor] 75 mg PO BID #100 tab 04/15/22 Allergies Allergy/AdvReac Type Severity Reaction Status Date / Time No Known Allergies Allergy Verified 01/31/23 20:09 Review of Systems ROS Statement: Those systems with pertinent positive or pertinent negative responses have been documented in the HPI. ROS Other: All systems not noted in ROS Statement are negative. Past Medical History Past Medical History: Coronary Artery Disease (CAD), Cancer, GERD/Reflux, Hyperlipidemia, Hypertension Additional Past Medical History / Comment(s): Lung cancer-sees Dr Valerio-chemo and immuno therapy. SOB w/exertion & hoarseness. History of Any Multi-Drug Resistant Organisms: None Reported Past Surgical History: Coronary Bypass/CABG, Heart Catheterization With Stent, Hernia Repair Additional Past Surgical History / Comment(s): Double bypass 20 yrs ago, 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", 02/17/22, bronchoscopy, chest tube, two cardiac stents, thoracentesis, left pleurex catheter Past Anesthesia/Blood Transfusion Reactions: No Reported Reaction Date of Last Stent Placement:: Unknown Past Psychological History: No Psychological Hx Reported Smoking Status: Never smoker Past Alcohol Use History: Rare Past Drug Use History: None Reported - Past Family History Mother Family Medical History: No Reported History Father Family Medical History: Chest Pain / Angina General Exam Limitations: no limitations General appearance: alert, in no apparent distress, cachectic Head exam: Present: atraumatic, normocephalic, normal inspection Eye exam: Present: normal appearance, PERRL, EOMI. Absent: scleral icterus, conjunctival injection, periorbital swelling ENT exam: Present: normal exam, mucous membranes moist Neck exam: Present: normal inspection, full ROM Respiratory exam: Present: respiratory distress (Occasional pursed lip breathing tachypnea), rales, rhonchi, decreased breath sounds (Left). Absent: wheezes, stridor, accessory muscle use Cardiovascular Exam: Present: regular rate, normal rhythm, normal heart sounds. Absent: systolic murmur, diastolic murmur, rubs, gallop, clicks GI/Abdominal exam: Present: soft, normal bowel sounds. Absent: distended, tenderness, guarding, rebound, rigid Extremities exam: Present: normal inspection. Absent: pedal edema, joint swelling Back exam: Present: normal inspection Neurological exam: Present: alert, oriented X3, CN II-XII intact Psychiatric exam: Present: flat affect Skin exam: Present: rash (Psoriatic rash noted to bilateral upper extremities) Course Vital Signs 01/31/23 02/01/23 20:09 00:33 Temperature 98.5 F Pulse Rate 93 95 Respiratory 18 17 Rate Blood Pressure 104/69 132/83 O2 Sat by Pulse 95 96 Oximetry Medical Decision Making - Medical Decision Making Was pt. sent in by a medical professional or institution (ERIKA Payton, [employer]ARM [employer], urgent care, hospital, or assisted...) When possible be specific @ -No Did you speak to anyone other than the patient for history (EMS, parent, family, police, friend...)? What history was obtained from this source @ -Yes, daughter at bedside history of presenting illness past medical history and current treatment plan for lung cancer. Did you review nursing and triage notes (agree or disagree)? Why? @ -I reviewed and agree with nursing and triage notes Were old charts reviewed (outside hosp., previous admission, EMS record, old EKG, old radiological studies, urgent care reports/EKG's, assisted records)? Report findings @ -Yes, most recent laboratory results from oncology available with patient indicates WBC on 01/24/23 of 31.8 Differential Diagnosis (chest pain, altered mental status, abdominal pain women, abdominal pain men, vaginal bleeding, weakness, fever, dyspnea, syncope, headache, dizziness, GI bleed, back pain, seizure, CVA, palpatations, mental health, musculoskeletal)? @ -Differential Dyspnea: Coronary syndrome, arrhythmia, tamponade, asthma, COPD, pulmonary embolism, pneumonia, pneumothorax, pulmonary effusion, anaphylaxis, diabetic ketoacidosis, flailed chest, pulmonary contusion, diaphragmatic rupture, anemia, neuromuscular, this is not meant to be an all-inclusive list. EKG interpreted by me (3pts min.). @ -None done X-rays interpreted by me (1pt min.). @ -Chest x-ray two-view: Small left pleural effusion, diffuse left lung opacity and right lobe consolidation. CT interpreted by me (1pt min.). @ -CT chest and heel: No evidence of pulmonary emboli. Left lower lobe consolidation patchy opacity right middle lobe left pleural effusion. U/S interpreted by me (1pt. min.). @ -None done What testing was considered but not performed or refused? (CT, X-rays, U/S, labs)? Why? @ -None What meds were considered but not given or refused? Why? @ -None Did you discuss the management of the patient with other professionals (jamaal herndon i.e. , PA, FARM MARK[employer], lab, RT, psych nurse, social welfare clerk, manager latin, teacher, bsa/aml compliance officer, therapeutic case manager)? Give summary @ -No Was smoking cessation discussed for >3mins.? @ -No Was critical care preformed (if so, how long)? @ -No Were there social determinants of health that impacted care today? How? (Homelessness, low income, unemployed, alcoholism, drug addiction, transportation, low edu. Level, literacy, decrease access to med. care, detention, rehab)? @ -No Was there de-escalation of care discussed even if they declined (Discuss DNR or withdrawal of care, Hospice)? DNR status @ -No What co-morbidities impacted this encounter? (DM, HTN, Smoking, COPD, CAD, Cancer, CVA, ARF, Chemo, Hep., AIDS, mental health diagnosis, sleep apnea, morbid obesity)? @ -Lung cancer Was patient admitted / discharged? Hospital course, mention meds given and route, prescriptions, significant lab abnormalities, going to OR and other pertinent info. @ - 62-year-old male presented to the emergency room with worsening of shortness of breath. He reports no shortness of breath over the last 3 weeks with increase intensity recently in concerns of pleural effusion requiring drainage. He has had malignant pleural effusions requiring Pleurx catheter placement in the past. While in triage workup began with laboratory studies of CBC, CMP, lactic acid, proBNP, troponin, coags and d-dimer along with chest x- ray. Laboratory results show significant leukocytosis at 35.9 however this is only slightly higher than last laboratory studies with the pathology when CBC was 31.8. Neutrophils elevated 33.7 lymphocytes low at 0.72 monocytes elevated 1.80. D-dimer elevated 1.29, normal coags. Due to d-dimer elevation will proceed with CT angios to evaluate for pulmonary emboli. CMP shows normal renal function, elevated glucose 111, low calcium at 7.9 with normal corrected calcium, elevated alkaline phosphate 157, normal bilirubin and AST, ALT. Troponin 0.027, proBNP elevated 2020 lactic acid normal 1.5. Computed tomography scan demonstrates no pulmonary emboli region insertion of small pleural effusion and confirms consolidation as seen on chest x-ray c oncerning for pneumonia. Despite high previous WBC count with trending upwards and consolidation on x-ray will initiate antibiotic therapy and plan for admission for treatment of community-acquired pneumonia in an immune compromised patient. Will place admission order to [facility] services and have provider notified in a.m. per on-call providers request. Will place consults to pulmonary and oncology. Will place on nebulized treatments in addition to antibiotic therapy. Will admit patient and stable condition to medical surgical unit for further evaluation and treatment for dyspnea and community-acquired pneumonia under [facility] services with consults to pulmonary and oncology. Undiagnosed new problem with uncertain prognosis? @ -No Drug Therapy requiring intensive monitoring for toxicity (Heparin, Nitro, Insulin, Cardizem)? @ -No Were any procedures done? @ -No Diagnosis/symptom? @ -Community-acquired pneumonia Acute, or Chronic, or Acute on Chronic? @ -Acute Uncomplicated (without systemic symptoms) or Complicated (systemic symptoms)? @ -Complicated Side effects of treatment? @ -No Exacerbation, Progression, or Severe Exacerbation? @ -No Poses a threat to life or bodily function? How? (Chest pain, [place], [place], pneumonia, PE, COPD, DKA, ARF, appy, cholecystitis, CVA, Diverticulitis, Homicidal, Suicidal, threat to staff... and all critical care pts) @ -Yes, high risk for hypoxemia and septicemia Diagnosis/symptom? @ -Lung cancer Acute, or Chronic, or Acute on Chronic? @ -Acute Uncomplicated (without systemic symptoms) or Complicated (systemic symptoms)? @ -Uncomplicated Side effects of treatment? @ -none Exacerbation, Progression, or Severe Exacerbation] @ -no Poses a threat to life or bodily function? @ -Yes at risk for hypoxemia and respiratory arrest. Case discussed with Dr. Dominguez. - Lab Data Result diagrams: 01/31/23 20:58 01/31/23 20:58 Lab Results 01/31/23 01/31/23 01/31/23 Range/Units 20:58 20:58 20:58 WBC 35.9 H (3.8-10.6) k/uL RBC 4.40 (4.30-5.90) m/uL Hgb 13.1 (13.0-17.5) gm/dL Hct 41.0 (39.0-53.0) % MCV 93.1 (80.0-100.0) fL MCH 29.9 (25.0-35.0) pg MCHC 32.1 (31.0-37.0) g/dL RDW 20.4 H (11.5-15.5) % Plt Count 185 (150-450) k/uL MPV 9.6 Neutrophils % (Manual) 90 % Band Neuts % (Manual) 4 % Lymphocytes % (Manual) 2 % Monocytes % (Manual) 5 % Neutrophils # (Manual) 33.70 H (1.3-7.7) k/uL Lymphocytes # (Manual) 0.72 L (1.0-4.8) k/uL Monocytes # (Manual) 1.80 H (0-1.0) k/uL Nucleated RBCs 0 (0-0) /100 WBC Manual Slide Review Performed Polychromasia Present Anisocytosis Moderate Anisocytosis (manual) Present Macrocytosis Slight Target Cells Present [place]-Dumas Bodies Present Crenated Cell Present Fragmented RBCs Present PT 11.0 (9.0-12.0) sec INR 1.0 (<1.2) APTT 24.8 (22.0-30.0) sec D-Dimer 1.29 H (<0.60) mg/L FEU Sodium 138 (137-145) mmol/L Potassium 4.1 (3.5-5.1) mmol/L Chloride 104 (98-107) mmol/L Carbon Dioxide 26 (22-30) mmol/L Anion Gap 8 mmol/L BUN 9 (9-20) mg/dL Creatinine 1.05 (0.66-1.25) mg/dL Est GFR (CKD-EPI)AfAm 87 (>60 ml/min/1.73 sqM) Est GFR (CKD-EPI)NonAf 75 (>60 ml/min/1.73 sqM) Glucose 111 H (74-99) mg/dL Plasma Lactic Acid Edwin (0.7-2.0) mmol/L Calcium 7.9 L (8.4-10.2) mg/dL Total Bilirubin 0.3 (0.2-1.3) mg/dL AST 27 (17-59) U/L ALT 19 (4-49) U/L Alkaline Phosphatase 157 H (38-126) U/L Troponin I (0.000-0.034) ng/mL NT-Pro-B Natriuret Pep pg/mL Total Protein 5.3 L (6.3-8.2) g/dL Albumin 2.9 L (3.5-5.0) g/dL 05/30/23 05/30/23 05/30/23 Range/Units 20:58 20:58 20:58 WBC (3.8-10.6) k/uL RBC (4.30-5.90) m/uL Hgb (13.0-17.5) gm/dL Hct (39.0-53.0) % MCV (80.0-100.0) fL MCH (25.0-35.0) pg MCHC (31.0-37.0) g/dL RDW (11.5-15.5) % Plt Count (150-450) k/uL MPV Neutrophils % (Manual) % Band Neuts % (Manual) % Lymphocytes % (Manual) % Monocytes % (Manual) % Neutrophils # (Manual) (1.3-7.7) k/uL Lymphocytes # (Manual) (1.0-4.8) k/uL Monocytes # (Manual) (0-1.0) k/uL Nucleated RBCs (0-0) /100 WBC Manual Slide Review Polychromasia Anisocytosis Anisocytosis (manual) Macrocytosis Target Cells [place]-Dumas Bodies Crenated Cell Fragmented RBCs PT (9.0-12.0) sec INR (<1.2) APTT (22.0-30.0) sec D-Dimer (<0.60) mg/L FEU Sodium (137-145) mmol/L Potassium (3.5-5.1) mmol/L Chloride (98-107) mmol/L Carbon Dioxide (22-30) mmol/L Anion Gap mmol/L BUN (9-20) mg/dL Creatinine (0.66-1.25) mg/dL Est GFR (CKD-EPI)AfAm (>60 ml/min/1.73 sqM) Est GFR (CKD-EPI)NonAf (>60 ml/min/1.73 sqM) Glucose (74-99) mg/dL Plasma Lactic Acid Edwin 1.5 (0.7-2.0) mmol/L Calcium (8.4-10.2) mg/dL Total Bilirubin (0.2-1.3) mg/dL AST (17-59) U/L ALT (4-49) U/L Alkaline Phosphatase (38-126) U/L Troponin I 0.027 (0.000-0.034) ng/mL NT-Pro-B Natriuret Pep 2020 pg/mL Total Protein (6.3-8.2) g/dL Albumin (3.5-5.0) g/dL - Radiology Data Radiology results: report reviewed Disposition Clinical Impression: Community acquired pneumonia, Lung cancer Disposition: ADMITTED IP TO THIS [facility] Condition: Stable Referrals: Azael Bloom MD [Primary Care Provider] - 1-2 days Time of Disposition: 02:48
--- NOTE | 2023-01-31 20:35 | XR ---
EXAMINATION TYPE: XR chest 2V DATE OF EXAM: 01/31/2023 COMPARISON: 10/20/2022 INDICATION: Difficulty breathing and increasing shortness of breath history of lung cancer TECHNIQUE: Frontal and lateral views of the chest are obtained. FINDINGS: The heart size is normal. The pulmonary vasculature is normal. There is opacification of the left lung apex. Increased lung markings are through the left lung. Port is present on the right with the tip in the superior vena cava region. Sternotomy wires are in the m idline.. IMPRESSION: 1. Small left pleural effusion. 2. Left lung opacification and right lobe consolidation
[2023-01-31 21:39] LABS: Albumin 2.9 g/dL (3.5-5.0); Calcium 7.9 mg/dL (8.4-10.2); Potassium 4.1 mmol/L (3.5-5.1); Total Bilirubin 0.3 mg/dL (0.2-1.3); Total Protein 5.3 g/dL (6.3-8.2)
[2023-01-31 21:41] LABS: Partial Thromboplastin Time 24.8 sec (22.0-30.0)
[2023-01-31 21:45] LABS: Anisocytosis Moderate; HGB 13.1 gm/dL (13.0-17.5); MCH 29.9 pg (25.0-35.0); MCHC 32.1 g/dL (31.0-37.0); MCV 93.1 fL (80.0-100.0); Macrocytosis Slight; Mean Platelet Volume 9.6; Platelet Count 185 k/uL (150-450); RDW 20.4 % (11.5-15.5); WBC 35.9 k/uL (3.8-10.6)
[2023-01-31 22:48] LABS: Anisocytosis (M) Present; Band Neutrophils % 4 %; Crenated RBC Present; Howell-Jolly Bodies Present; Lymphocytes # (M) 0.72 k/uL (1.0-4.8); Neutrophils % (M) 90 %; Nucleated Red Blood Cells 0 /100 WBC (0-0); Polychromasia Present; Target Cells Present; Total Cells Counted 200
[2023-01-31 22:49] LABS: RBC Fragments Present
--- NOTE | 2023-02-01 02:31 | CT ---
802 images EXAM: CT Angiography Chest With Intravenous Contrast CLINICAL HISTORY: dyspnea/ elevated d dimer TECHNIQUE: Axial computed tomographic angiography images of the chest with intravenous contrast. CTDI is 68 mGy and DLP is 292.1 mGy-cm. This CT exam was performed using one or more of the following dose reduction techniques: automated exposure control, adjustment of the mA and/or kV according to patient size, and/or use of iterative reconstruction technique. MIP reconstructed images were created and reviewed. Coronal and sagittal reformatted images were created and reviewed. COMPARISON: 12/26/22 FINDINGS: Pulmonary arteries: Unremarkable. No pulmonary embolism. Aorta: Moderate amount of atherosclerotic calcifications. Lungs: Moderate consolidations in left lower lobe, new. Collapsed right upper lobe is unchanged. Subtle patchy nodular opacities of right lung, predominantly in right middle lobe Pleural space: Small loculated left pleural effusion versus empyema, similar. No pneumothorax. Heart: Small amount of mitral and aortic annular calcifications. Mediastinum: Mediastinal clips. Bones/joints: Suspected osteopenia. Moderate degenerative changes. Sclerotic bone metastases, unchanged. No acute fracture. No dislocation. Soft tissues: Suspect bilateral gynecomastia. Lymph nodes: Mild left axillary lymphadenopathy, similar, nonspecific. Spleen: Splenectomy clips. Adrenals: Persistent Masslike enlargement of bilateral adrenal gland, nonspecific. Differential includes hyperplasia versus metastasis. Tubes, lines and devices: Sternal wires. IMPRESSION: 1. No pulmonary embolism. No thoracic aortic aneurysm or dissection. 2. Moderate consolidations in left lower lobe, new. Pneumonia and aspiration should be considered. New subtle patchy nodular opacities of right lung, predominantly in right middle lobe, suggest pneumonia 3. Small loculated left pleural effusion versus empyema, similar. 4. Collapsed right upper lobe is unchanged. Followup to resolution is recommended to rule out potential underlying neoplastic etiologies. 5. Mild left axillary lymphadenopathy, similar, nonspecific. These can be reactive or metastatic.
[2023-02-01] MEDS ORDERED: PNEUMONIA PROTOCOL UTILIZED 1 EACH MISC PO PRN (02:48)
[2023-02-01] MEDS ORDERED: AZITHROMYCIN 500 MG in SODIUM CHLORIDE 0.9% 250 ML IVPB STA (02:48)
[2023-02-01] MEDS ORDERED: ALBUTEROL NEBULIZED 2.5 MG/3 ML INHALATION PRN (04:21)
--- NOTE | 2023-02-01 05:36 | P.CNPUL ---
History of Present Illness Consult date: 02/01/23 Requesting physician: Summer Mota Reason for consult: dyspnea Chief complaint: Shortness of breath History of present illness: I am seeing this patient in new consultation today 02/01/2023 in the emergency room for progressive shortness of breath over the last 10 days. Patient is a 62-year-old white male with past significant medical history of stage IV adenocarcinoma of the lung, multiple thoracentesis for malignant pleural effusions, previous Pleurx catheter insertion and removal, coronary artery disease with previous CABG, Hodgkin's lymphoma in remission. Patient does follow with Dr. Castillo office for management of his stage IV adenocarcinoma originally diagnosed in Jan, 2022. Patient has had multiple prior thoracentesis for recurrent malignant effusions. Patient follows with his oncologist, Dr. Valerio, as well. Recent PET scan in November of this year shows disease progr ession with increased metabolic activity within the left medial left upper lobe pleura, osseous metastatic lesions, adrenal glands left greater than right, and new abdominal and axillary lymph nodes with increased FDG activity. Patient was switched to a combination of Taxotere and Cyramza. He has had a total of 3 rounds, with his most recent treatment on January 20. He has also underwent palliative radiation due to some obstructive changes. Patient did recently have a Pleurx catheter on the left side, however, this was removed due to being nonfunctioning. Patient has been reportedly experiencing shortness of breath especially on exertion for the last 10 days. Has had an associated productive cough with yellow sputum. Denies any fevers, chills, chest pain, hemoptysis. Denies sick contacts. Chest CTA on arrival shows no evidence of pulmonary embolism. There was moderate new consolidations in the left lower lobe concerning for pneumonia. There were also some new patchy nodular opacities of the right lung, predominantly the right middle lung. There was redemonstration of small left loculated pleural effusion versus empyema. There is also redemonstration of chronic metastatic and postobstructive changes. Patient is currently resting in bed, on room air, in no acute distress. He is accompanied by his daughter. CBC on arrival shows some marked leukocytosis with a WBC count of 36, hemoglobin 13, hematocrit 41, platelets 185. CMP on arrival shows a sodium 138, potassium 4.1, chloride 104, serum CO2 26, BUN 9, creatinine 1.05, glucose 111. Troponin is 0.027. NT proBNP 2000. Patient has received a dose of azithromycin and Rocephin in the emergency room. Vital signs are stable. Review of Systems REVIEW OF SYSTEMS: CONSTITUTIONAL: Admits to an unintentional weight loss EYES: Denies change in vision. EARS, NOSE, MOUTH, THROAT: Denies headaches, denies sore throat. CARDIOVASCULAR: Denies chest pain, palpitations or syncopal episodes. RESPIRATORY: See HPI GASTROINTESTINAL: Denies change in appetite, abdominal pain, nausea and vomiting, or diarrhea GENITOURINARY: Denies hematuria, denies infections. MUSKULOSKELETAL: Denies pain, denies swelling. INTEGUMENTARY: Denies rash, denies eczema. NEUROLOGICAL: Denies recent memory loss, no recent seizure activity. PSYCHIATRIC: Denies anxiety, denies depression. HEMATOLOGIC/LYMPHATIC: Denies anemia, denies enlarged lymph node Past Medical History Past Medical History: Coronary Artery Disease (CAD), Cancer, GERD/Reflux, Hyperlipidemia, Hypertension Additional Past Medical History / Comment(s): Stage IV adenocarcinoma, currently on a combination of Taxotere and Cyramza. Seen by Dr. Valerio. History of Hodgkin's lymphoma in remission, coronary artery disease with previous CABG, History of Any Multi-Drug Resistant Organisms: None Reported Past Surgical History: Coronary Bypass/CABG, Heart Catheterization With Stent, Hernia Repair Additional Past Surgical History / Comment(s): Double bypass 20 yrs ago, "imp lant in vocal box", 02/17/22, bronchoscopy, chest tube, two cardiac stents, thoracentesis, left pleurex catheter Past Anesthesia/Blood Transfusion Reactions: No Reported Reaction Date of Last Stent Placement:: Unknown Past Psychological History: No Psychological Hx Reported Smoking Status: Never smoker Past Alcohol Use History: Rare Past Drug Use History: None Reported - Past Family History Mother Family Medical History: No Reported History Father Family Medical History: Chest Pain / Angina Medications and Allergies Home Medications Medication Instructions Recorded Confirmed Type Aspirin [Adult Low Dose Aspirin EC] 81 mg PO DAILY 01/11/22 02/01/23 History OLANZapine [ZyPREXA] 10 mg PO HS 02/16/22 02/01/23 History Omeprazole [PriLOSEC] 40 mg PO DAILY 02/16/22 02/01/23 History Rosuvastatin Calcium [Crestor] 40 mg PO HS 02/16/22 02/01/23 History Folic Acid 1 mg PO DAILY 04/07/22 02/01/23 History clonazePAM [KlonoPIN] 1 mg PO DAILY PRN 04/07/22 02/01/23 History Ubidecarenone [Co Q-10] 200 mg PO DAILY 04/10/22 02/01/23 History Metoprolol Tartrate [Lopressor] 75 mg PO BID #100 tab 04/15/22 02/01/23 Rx Isosorbide Mononitrate ER [Imdur] 60 mg PO DAILY 06/17/22 02/01/23 History Levothyroxine Sodium [Synthroid] 100 mcg PO DAILY 10/17/22 02/01/23 History Albuterol Inhaler [Ventolin Hfa 2 puff INHALATION RT-QID PRN 02/01/23 02/01/23 History Inhaler] Albuterol Nebulized [Ventolin 2.5 mg INHALATION RT-TID 02/01/23 02/01/23 History Nebulized] Hydrocortisone Cream 1 applic TOPICAL BID 02/01/23 02/01/23 History [Hydrocortisone 2.5% Cream] Lidocaine/Maalox/Decadron/Benadryl 5 ml PO 5XD PRN 02/01/23 02/01/23 History Compound 1:1 dronabinoL [Marinol] 5 mg PO HS 02/01/23 02/01/23 History traMADol HCL 50 mg PO Q6H PRN 02/01/23 02/01/23 History Allergies Allergy/AdvReac Type Severity Reaction Status Date / Time No Known Allergies Allergy Verified 02/01/23 11:38 Physical Exam Vitals: Vital Signs Temp Pulse Resp BP Pulse Ox 02/01/23 03:30 98.4 F 97 17 109/67 98 02/01/23 00:33 95 17 132/83 96 01/31/23 20:09 98.5 F 93 18 104/69 95 Intake and Output 01/31/23 01/31/23 02/01/23 14:59 22:59 06:59 Other: Weight 68.039 kg GENERAL EXAM: Alert, frail 62-year-old male , comfortable in no apparent distr ess. HEAD: Normocephalic and atraumatic EYES: Normal reaction of pupils, equal size. NOSE: Clear with pink turbinates. THROAT: No erythema or exudates. NECK: No masses, no JVD. CHEST: No chest wall deformity. LUNGS: Diminished left sided lung sounds with no crackles, wheeze, rhonchi or dullness. On room air. No conversational dyspnea or accessory muscle use.. CVS: S1 and S2 normal with a loud harsh systolic murmur grade IV, regular rhythm. No other extra heart sounds ABDOMEN: No hepatosplenomegaly, active bowel sounds, no guarding or rigidity. SPINE: No scoliosis or deformity SKIN: No rashes CENTRAL NERVOUS SYSTEM: No focal deficits, tone is normal in all 4 extremities. EXTREMITIES: There is no peripheral edema, clubbing, or cyanosis. Peripheral pulses are intact. Results - Laboratory Findings CBC and BMP: 01/31/23 20:58 01/31/23 20:58 PT/INR, D-dimer PT 11.0 sec (9.0-12.0) 01/31/23 20:58 INR 1.0 (<1.2) 01/31/23 20:58 D-Dimer 1.29 mg/L FEU (<0.60) H 01/31/23 20:58 Abnormal lab findings: Abnormal Labs 01/31/23 01/31/23 01/31/23 20:58 20:58 20:58 WBC 35.9 H RDW 20.4 H Neutrophils # (Manual) 33.70 H Lymphocytes # (Manual) 0.72 L Monocytes # (Manual) 1.80 H D-Dimer 1.29 H Glucose 111 H Calcium 7.9 L Alkaline Phosphatase 157 H Total Protein 5.3 L Albumin 2.9 L - Diagnostic Findings Chest x-ray: image reviewed CT scan - chest: image reviewed Assessment and Plan Assessment: Dyspnea, CTA of the chest was negative for pulmonary embolism. It did show mo derate new consolidations in the left lower lobe concerning for community- acquired pneumonia. There were also some new patchy nodular opacities of the right lung, predominantly the right middle lung. There was redemonstration of small left loculated pleural effusion versus empyema. There is also r edemonstration of chronic metastatic and postobstructive changes. Stage IV lung adenocarcinoma with disease progression shown on recent PET scan in November,. There was increased metabolic activity within the left medial left upper lobe pleura, osseous metastatic lesions, adrenal glands left greater than right, and new increased FDG activity within the abdominal and axillary lymph nodes. Patient has been switched to a combination of Taxotere and Cyramza. He has had a total of 3 rounds, with his most recent treatment on January 20. He is also been receiving palliative radiation due to some obstructive changes. Leukocytosis Hypertension Hyperlipidemia Hypothyroidism Coronary artery disease, status/post CABG History of recurrent malignant pleural effusions with multiple prior thorac entesis and Pleurx catheter that was recently removed due to being non- functioning History of vocal cord paralysis status post medialization laryngoplasty History of Hodgkin's lymphoma, in remission Plan: Patient's medications, labs, chest x-ray, chest CTA were reviewed Patient is currently quite comfortable on room air, he does get short of breath with exertion Continue antibiotics Continue bronchodilators Check procalcitonin level Blood cultures are pending Obtain chest ultrasound Consult oncology Appears nontoxic and hemodynamically stable at the moment, and will be admitted to the oncology unit We will continue to follow I have personally seen and examined the patient, performed the documentation and the assessment and plan as written. Number of minutes spent on the visit:20 This is a joint evaluation that was done along with a nurse practitioner. The patient was seen and examined. The Chest Was Reviewed. There Is a New Area of Consolidation Left Lower Lobe As the Patient Is Receiving Systemic Chemotherapy. Obviously, This May Be an Area of Pneumonia and according to the patient was hospitalized for IV antibiotics. Consider aspiration. Cover the patient with IV Zosyn. Discontinue the Rocephin for now. Continue the Zithromax. Check pro calcitonin level. Patient is currently comfortable on room air oxygen. We'll continue to follow. Discussed the case with the patient. Discussed the case with oncology. Discussed the case with the daughter at the bedside. Time with Patient: Greater than 30
[2023-02-01] MEDS: ALBUTEROL NEBULIZED 2.5 MG/3 ML INHALATION SCH ×4 (07:45→20:05)
[2023-02-01] MEDS ORDERED: traMADol 50 MG TAB PO PRN (12:20)
--- NOTE | 2023-02-01 12:21 | P.HPIM ---
History of Present Illness Patient with adenocarcinoma of the lung last chemotherapy in 30 of January came in with compensative shortness of breath has been going on for 10 days. Patient had a CT of the chest which showed left lower lobe consolidation concerning for pneumonia and postobstructive pneumonia. No evidence of pulmonary embolism. Patient is on antibiotics Rocephin and azithromycin. Patient has leukocytosis with white blood cell count as going up to as high as 35,000 proBNP is 2000 denied any history of congestive heart failure. She also has cough without sputum production REVIEW OF SYSTEMS: CONSTITUTIONAL: No fever, no malaise, no fatigue. HEENT: No recent visual problems or hearing problems. Denied any sore throat. CARDIOVASCULAR: No chest pain, orthopnea, PND, no palpitations, no syncope. PULMONARY:no hemoptysis. GASTROINTESTINAL: No diarrhea, no nausea, no vomiting, no abdominal pain. NEUROLOGICAL: No headaches, no weakness, no numbness. HEMATOLOGICAL: Denies any bleeding or petechiae. GENITOURINARY: Denies any burning micturition, frequency, or urgency. MUSCULOSKELETAL/RHEUMATOLOGICAL: Denies any joint pain, swelling, or any muscle pain. ENDOCRINE: Denies any polyuria or polydipsia. The rest of the 14-point review of systems is negative. PHYSICAL EXAMINATION: GENERAL: The patient is alert and oriented x3, not in any acute distress. Well developed, well nourished. HEENT: Pupils are round and equally reacting to light. EOMI. No scleral icterus. No conjunctival pallor. Normocephalic, atraumatic. No pharyngeal erythema. No thyromegaly. CARDIOVASCULAR: S1 and S2 present. No murmurs, rubs, or gallops. PULMONARY: Crackles in the left upper posterior lung bradley along with bronchophony ABDOMEN: Soft, nontender, nondistended, normoactive bowel sounds. No palpable organomegaly. MUSCULOSKELETAL: No joint swelling or deformity. EXTREMITIES: No cyanosis, clubbing, or pedal edema. NEUROLOGICAL: Gross neurological examination did not reveal any focal deficits. SKIN: No rashes. Assessment and plan -Community-acquired/postobstructive pneumonia the left lower lobe patient continued on antibiotics inhalational treatments -Stage IV adenocarcinoma of the lung undergoing chemotherapy -Leukocytosis due to assessment #1 -Hypertension For hyperlipidemia -Hypothyroidism next From coronary artery disease status post CABG -History of recurrent pleural effusion still has some effusion on the CAT scan -Focal cord Paralysis posterior laryngoplasty -History of CONCERNS of lymphoma in remission DVT prophylaxis: Past Medical History Past Medical History: Coronary Artery Disease (CAD), Cancer, GERD/Reflux, Hyperlipidemia, Hypertension Additional Past Medical History / Comment(s): Stage IV adenocarcinoma, currently on a combination of Taxotere and Cyramza. Seen by Dr. Valerio. 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", 02/17/22, bronchoscopy, chest tube, two cardiac stents, thoracentesis, left pleurex catheter Past Anesthesia/Blood Transfusion Reactions: No Reported Reaction Date of Last Stent Placement:: Unknown Past Psychological History: No Psychological Hx Reported Smoking Status: Never smoker Past Alcohol Use History: Rare Past Drug Use History: None Reported - Past Family History Mother Family Medical History: No Reported History Father Family Medical History: Chest Pain / Angina Medications and Allergies Home Medications Medication Instructions Recorded Confirmed Type Aspirin [Adult Low Dose Aspirin EC] 81 mg PO DAILY 01/11/22 02/01/23 History OLANZapine [ZyPREXA] 10 mg PO HS 02/16/22 02/01/23 History Omeprazole [PriLOSEC] 40 mg PO DAILY 02/16/22 02/01/23 History Rosuvastatin Calcium [Crestor] 40 mg PO HS 02/16/22 02/01/23 History Folic Acid 1 mg PO DAILY 04/07/22 02/01/23 History clonazePAM [KlonoPIN] 1 mg PO DAILY PRN 04/07/22 02/01/23 History Ubidecarenone [Co Q-10] 200 mg PO DAILY 04/10/22 02/01/23 History Metoprolol Tartrate [Lopressor] 75 mg PO BID #100 tab 04/15/22 02/01/23 Rx Isosorbide Mononitrate ER [Imdur] 60 mg PO DAILY 06/17/22 02/01/23 History Levothyroxine Sodium [Synthroid] 100 mcg PO DAILY 10/17/22 02/01/23 History Albuterol Inhaler [Ventolin Hfa 2 puff INHALATION RT-QID PRN 02/01/23 02/01/23 History Inhaler] Albuterol Nebulized [Ventolin 2.5 mg INHALATION RT-TID 02/01/23 02/01/23 History Nebulized] Hydrocortisone Cream 1 applic TOPICAL BID 02/01/23 02/01/23 History [Hydrocortisone 2.5% Cream] Lidocaine/Maalox/Decadron/Benadryl 5 ml PO 5XD PRN 02/01/23 02/01/23 History Compound 1:1 dronabinoL [Marinol] 5 mg PO HS 02/01/23 02/01/23 History traMADol HCL 50 mg PO Q6H PRN 02/01/23 02/01/23 History Allergies Allergy/AdvReac Type Severity Reaction Status Date / Time No Known Allergies Allergy Verified 02/01/23 11:38 Physical Exam Vitals: Vital Signs Temp Pulse Resp BP Pulse Ox 02/01/23 12:05 110/73 97 02/01/23 11:24 98 02/01/23 11:12 96 02/01/23 09:00 96 22 109/62 96 02/01/23 07:59 102 H 02/01/23 07:48 100 100 02/01/23 06:25 98.4 F 92 15 109/72 96 02/01/23 04:45 97 17 115/71 95 02/01/23 03:30 98.4 F 97 17 109/67 98 02/01/23 00:33 95 17 132/83 96 01/31/23 20:09 98.5 F 93 18 104/69 95 Intake and Output 01/31/23 02/01/23 02/01/23 22:59 06:59 14:59 Other: Weight 68.039 kg Results CBC & Chem 7: 01/31/23 20:58 01/31/23 20:58 Labs: Abnormal Lab Results - Last 24 Hours (Table) 01/31/23 01/31/23 01/31/23 Range/Units 20:58 20:58 20:58 WBC 35.9 H (3.8-10.6) k/uL RDW 20.4 H (11.5-15.5) % Neutrophils # (Manual) 33.70 H (1.3-7.7) k/uL Lymphocytes # (Manual) 0.72 L (1.0-4.8) k/uL Monocytes # (Manual) 1.80 H (0-1.0) k/uL D-Dimer 1.29 H (<0.60) mg/L FEU Glucose 111 H (74-99) mg/dL Calcium 7.9 L (8.4-10.2) mg/dL Alkaline Phosphatase 157 H (38-126) U/L Total Protein 5.3 L (6.3-8.2) g/dL Albumin 2.9 L (3.5-5.0) g/dL Procalcitonin (0.02-0.09) ng/mL 02/01/23 Range/Units 05:00 WBC (3.8-10.6) k/uL RDW (11.5-15.5) % Neutrophils # (Manual) (1.3-7.7) k/uL Lymphocytes # (Manual) (1.0-4.8) k/uL Monocytes # (Manual) (0-1.0) k/uL D-Dimer (<0.60) mg/L FEU Glucose (74-99) mg/dL Calcium (8.4-10.2) mg/dL Alkaline Phosphatase (38-126) U/L Total Protein (6.3-8.2) g/dL Albumin (3.5-5.0) g/dL Procalcitonin 0.13 H (0.02-0.09) ng/mL
--- NOTE | 2023-02-01 12:26 | US ---
EXAMINATION TYPE: US chest DATE OF EXAM: 02/01/2023 COMPARISON: Correlation CT 02/01/2023 CLINICAL INDICATION: Male, 62 years old with history of left pleural effusion; TECHNIQUE: Targeted ultrasound of the posterior lower left hemithorax EXAM MEASUREMENTS: Left Pleural Effusion pocket size: 5.3 cm, dense, complex collection. Left skin surface to fluid distance: 2.2 cm Left side marked for possible thoracentesis outside the dept. Pulmonologists are able to review the images in the patient?s EMR. IMPRESSIONS: Thickened and very complex moderate-sized left pleural effusion.
[2023-02-01] MEDS: PIPERACILLIN-TAZOBACTAM 3.375 GM in SODIUM CHLORIDE 0.9% 100 ML IVPB SCH ×2 (16:11→23:28)
--- NOTE | 2023-02-01 17:23 | P.CONS ---
History of Present Illness - Reason for Consult Consult date: 02/01/23 hx lung cancer Requesting physician: Summer Mota - Chief Complaint SOB and cough - History of Present Illness Patient is a 62-year-old male with a significant history of non-small cell lung cancer. He is a patient of Dr. Valerio. Patient had US-guided thoracentesis on 01/11/22 which revealed metastatic lung adenocarcinoma. He was started on keytruda/carbo/alimta. Due to disease progression noted on CT chest/abdomen/pelvis and PET scan on 10/31/2022 and 11/04/2022, respectively, patient treatment was changed to Cyramza/Taxotere. He completed cycle 3 on 01/20/23, with neulasta given. Patient presented to the emergency room for progressing shortness of breath and productive cough over the last 10 days. Patient reports that shortness of breath worsens on exertion. Patient also complains of fatigue and generalized weakness. Patient denies hemoptysis. Denies fever and chills. denies any recent sick contacts. upon admission chest x-ray revealed small left pleural effusion. Left lung opacification and right lobe consolidation. CT chest negative for PE. No evidence of thoracic aortic aneurysm or dissection. Moderate consolidations of left lower lobe. New subtle patchy nodular opacities of right lung, predominate in the right middle lobe. Small loculated left pleural effusion versus empyema, similar to previous exam. Collapsed right upper lobe is unchanged. Mild left axillary lymphadenopathy, similar to previous exam. patient has been started on Zosyn and azithromycin. Ultrasound the chest showed thickened and very complex moderate sized left pleural effusion, measuring 5.3 cm in size. Pulmonary has been consulted. Patient is afebrile. D-dimer elevated. Hemoglobin 13.1, platelets 185,000, leukocytosis noted, 35.9. Review of Systems 10 point ROS is negative except as stated in the HPI Past Medical History Past Medical History: Coronary Artery Disease (CAD), Cancer, GERD/Reflux, Hyperlipidemia, Hypertension Additional Past Medical History / Comment(s): Stage IV adenocarcinoma, currently on a combination of Taxotere and Cyramza. Seen by Dr. Valerio. 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", 02/17/22, bronchoscopy, chest tube, two cardiac stents, thoracentesis, left pleurex catheter Past Anesthesia/Blood Transfusion Reactions: No Reported Reaction Date of Last Stent Placement:: Unknown Past Psychological History: No Psychological Hx Reported Smoking Status: Never smoker Past Alcohol Use History: Rare Past Drug Use History: None Reported - Past Family History Mother Family Medical History: No Reported History Father Family Medical History: Chest Pain / Angina Medications and Allergies Home Medications Medication Instructions Recorded Confirmed Type Aspirin [Adult Low Dose Aspirin EC] 81 mg PO DAILY 01/11/22 02/01/23 History OLANZapine [ZyPREXA] 10 mg PO HS 02/16/22 02/01/23 History Omeprazole [PriLOSEC] 40 mg PO DAILY 02/16/22 02/01/23 History Rosuvastatin Calcium [Crestor] 40 mg PO HS 02/16/22 02/01/23 History Folic Acid 1 mg PO DAILY 04/07/22 02/01/23 History clonazePAM [KlonoPIN] 1 mg PO DAILY PRN 04/07/22 02/01/23 History Ubidecarenone [Co Q-10] 200 mg PO DAILY 04/10/22 02/01/23 History Metoprolol Tartrate [Lopressor] 75 mg PO BID #100 tab 04/15/22 02/01/23 Rx Isosorbide Mononitrate ER [Imdur] 60 mg PO DAILY 06/17/22 02/01/23 History Levothyroxine Sodium [Synthroid] 100 mcg PO DAILY 10/17/22 02/01/23 History Albuterol Inhaler [Ventolin Hfa 2 puff INHALATION RT-QID PRN 02/01/23 02/01/23 History Inhaler] Albuterol Nebulized [Ventolin 2.5 mg INHALATION RT-TID 02/01/23 02/01/23 History Nebulized] Hydrocortisone Cream 1 applic TOPICAL BID 02/01/23 02/01/23 History [Hydrocortisone 2.5% Cream] Lidocaine/Maalox/Decadron/Benadryl 5 ml PO 5XD PRN 02/01/23 02/01/23 History Compound 1:1 dronabinoL [Marinol] 5 mg PO HS 02/01/23 02/01/23 History traMADol HCL 50 mg PO Q6H PRN 02/01/23 02/01/23 History Allergies Allergy/AdvReac Type Severity Reaction Status Date / Time No Known Allergies Allergy Verified 02/01/23 11:38 Physical Exam Vitals: Vital Signs Temp Pulse Resp BP Pulse Ox 02/01/23 09:00 96 22 109/62 96 02/01/23 07:59 102 H 02/01/23 07:48 100 100 02/01/23 06:25 98.4 F 92 15 109/72 96 02/01/23 04:45 97 17 115/71 95 02/01/23 03:30 98.4 F 97 17 109/67 98 02/01/23 00:33 95 17 132/83 96 01/31/23 20:09 98.5 F 93 18 104/69 95 Intake and Output 01/31/23 02/01/23 02/01/23 22:59 06:59 14:59 Other: Weight 68.039 kg - Constitutional General appearance: average body habitus, no acute distress - EENT Eyes: anicteric sclerae, EOMI ENT: hearing grossly normal - Respiratory breathing mildly labored Respiratory: bilateral: rales - Cardiovascular Rhythm: regular Heart sounds: normal: S1, S2 Abnormal Heart Sounds: no systolic murmur, no diastolic murmur, no rub, no S3 Gallop, no S4 Gallop, no click, no other - Gastrointestinal General gastrointestinal: soft, no tenderness - Integumentary dry erythematous rash to dorsal aspect of bilateral hands Integumentary: no cyanotic, rash - Neurologic grossly intact - Musculoskeletal Musculoskeletal: strength equal bilaterally - Psychiatric Psychiatric: A&O x's 3, appropriate affect, intact judgment & insight Results CBC & Chem 7: 01/31/23 20:58 01/31/23 20:58 Labs: Abnormal Lab Results - Last 24 Hours (Table) 01/31/23 01/31/23 01/31/23 Range/Units 20:58 20:58 20:58 WBC 35.9 H (3.8-10.6) k/uL RDW 20.4 H (11.5-15.5) % Neutrophils # (Manual) 33.70 H (1.3-7.7) k/uL Lymphocytes # (Manual) 0.72 L (1.0-4.8) k/uL Monocytes # (Manual) 1.80 H (0-1.0) k/uL D-Dimer 1.29 H (<0.60) mg/L FEU Glucose 111 H (74-99) mg/dL Calcium 7.9 L (8.4-10.2) mg/dL Alkaline Phosphatase 157 H (38-126) U/L Total Protein 5.3 L (6.3-8.2) g/dL Albumin 2.9 L (3.5-5.0) g/dL Procalcitonin (0.02-0.09) ng/mL 02/01/23 Range/Units 05:00 WBC (3.8-10.6) k/uL RDW (11.5-15.5) % Neutrophils # (Manual) (1.3-7.7) k/uL Lymphocytes # (Manual) (1.0-4.8) k/uL Monocytes # (Manual) (0-1.0) k/uL D-Dimer (<0.60) mg/L FEU Glucose (74-99) mg/dL Calcium (8.4-10.2) mg/dL Alkaline Phosphatase (38-126) U/L Total Protein (6.3-8.2) g/dL Albumin (3.5-5.0) g/dL Procalcitonin 0.13 H (0.02-0.09) ng/mL Comments: ultrasound chest reviewed Chest x-ray: report reviewed CT scan - chest: report reviewed Assessment and Plan (1) Community acquired pneumonia Current Visit: Yes Status: Acute Code(s): J18.9 - PNEUMONIA, UNSPECIFIED ORGANISM SNOMED Code(s): 482622776 (2) Lung cancer Current Visit: Yes Status: Acute Code(s): C34.90 - MALIGNANT NEOPLASM OF UNSP PART OF UNSP BRONCHUS OR LUNG SNOMED Code(s): 106799211 Plan: Metastatic NSCLC: -He is a patient of Dr. Valerio. US-guided thoracentesis on 01/11/22 revealed metastatic lung adenocarcinoma. He was started on keytruda/carbo/alimta -Disease progression noted on CT CAP and PET in 10/27. Started Cyramza/Taxotere 12/2022. Completed cycle 3 on 01/20/23, with Neulasta .-Hemoglobin 13.1, platelets 185,000, leukocytosis noted, 35.9. -Cycle 4 due on 02/10, will schedule f/u prior to next cycle to ensure patient has acutely recovered prior to receiving next treatment. Pneumonia: -Chest x-ray revealed small left pleural effusion and left lung opacification and right lobe consolidation. CT chest negative for PE. No evidence of thoracic aortic aneurysm or dissection. Moderate consolidations of left lower lobe. New subtle patchy nodular opacities of right lung, predominate in the right middle lobe. Small loculated left pleural effusion versus empyema, similar to previous exam. Collapsed right upper lobe is unchanged. -Pulmonology consulted. Sarted on Zosyn and azithromycin. Ultrasound the chest showed thickened and very complex moderate sized left pleural effusion, measuring 5.3 cm in size. May need thoracentesis, will defer medical management to pulmonology/IM attests: I have performed H&P and developed impression and plan of care for patient, discussed with dictator. I agree with dictated note, documented as a scribe
[2023-02-01] MEDS: ATORVASTATIN 80 MG TAB PO SCH (20:44)
[2023-02-01] MEDS: METOPROLOL TARTRATE 25 MG TAB PO SCH (20:45)
[2023-02-01] MEDS: OLANZapine 10 MG TAB PO SCH (20:45)
[2023-02-01] MEDS: HYDROCORTISONE 1% CREAM 30 GM TUBE TOPICAL SCH (20:46)
[2023-02-01] MEDS: BENZONATATE 100 MG CAP PO SCH (20:50)
[2023-02-01] MEDS: droNABinol 2.5 MG CAP PO SCH (20:50)
[2023-02-02] MEDS: AZITHROMYCIN 500 MG in SODIUM CHLORIDE 0.9% 250 ML IVPB SCH (05:46)
[2023-02-02] MEDS: LEVOTHYROXINE 100 MCG TAB PO SCH (05:47)
[2023-02-02] MEDS: ALBUTEROL NEBULIZED 2.5 MG/3 ML INHALATION SCH ×4 (07:40→20:03)
[2023-02-02] MEDS: PIPERACILLIN-TAZOBACTAM 3.375 GM in SODIUM CHLORIDE 0.9% 100 ML IVPB SCH ×3 (09:23→23:02)
[2023-02-02] MEDS: BENZONATATE 100 MG CAP PO SCH ×3 (09:25→21:41)
[2023-02-02] MEDS: ENOXAPARIN 40 MG/0.4 ML SYRINGE SQ SCH (09:26)
[2023-02-02] MEDS: ISOSORBIDE MONONITRATE ER 60 MG TAB.ER.24H PO SCH (09:26)
[2023-02-02] MEDS: FOLIC ACID 1 MG TAB PO SCH (09:26)
[2023-02-02] MEDS: ASPIRIN 81 MG PO SCH (09:26)
[2023-02-02] MEDS: PANTOPRAZOLE 40 MG TABLET PO SCH (09:27)
[2023-02-02] MEDS: METOPROLOL TARTRATE 25 MG TAB PO SCH ×2 (09:27→21:49)
[2023-02-02] MEDS: HYDROCORTISONE 1% CREAM 30 GM TUBE TOPICAL SCH ×2 (09:28→21:49)
[2023-02-02 11:08] LABS: Magnesium 1.8 mg/dL (1.5-2.4)
[2023-02-02 11:09] LABS: African American GFR (CKD) 106.9 (60.0-200.0); Anion Gap 11.9 mmol/L (10.00-18.00); BUN/Creat Ratio 8.1 Ratio (12.00-20.00); Blood Urea Nitrogen 6.9 mg/dL (9.0-27.0); Calcium 7.9 mg/dL (8.7-10.3); Carbon Dioxide 23.2 mmol/L (20.0-27.5); Non-African American GFR(CKD) 92.3 (60.0-200.0); Potassium 3.7 mmol/L (3.5-5.5)
--- NOTE | 2023-02-02 15:54 | P.PN ---
Subjective Progress Note Date: 02/02/23 I am seeing this patient in new consultation today 02/01/2023 in the emergency room for progressive shortness of breath over the last 10 days. Patient is a 62-year-old white male with past significant medical history of stage IV adenocarcinoma of the lung, multiple thoracentesis for malignant pleural ef fusions, previous Pleurx catheter insertion and removal, coronary artery disease with previous CABG, Hodgkin's lymphoma in remission. Patient does follow with Dr. Castillo office for management of his stage IV adenocarcinoma originally diagnosed in Jan, 2022. Patient has had multiple prior thoracentesis for recurrent malignant effusions. Patient follows with his oncologist, Dr. Valerio, as well. Recent PET scan in November of this year shows disease progression with increased metabolic activity within the left medial left upper lobe pleura, osseous metastatic lesions, adrenal glands left greater than right, and new abdominal and axillary lymph nodes with increased FDG activity. Patient was switched to a combination of Taxotere and Cyramza. He has had a total of 3 rounds, with his most recent treatment on January 20. He has also underwent palliative radiation due to some obstructive changes. Patient did recently have a Pleurx catheter on the left side, however, this was removed due to being nonfunctioning. Patient has been reportedly experiencing shortness of breath especially on e xertion for the last 10 days. Has had an associated productive cough with yellow sputum. Denies any fevers, chills, chest pain, hemoptysis. Denies sick contacts. Chest CTA on arrival shows no evidence of pulmonary embolism. There was moderate new consolidations in the left lower lobe concerning for pneumonia. There were also some new patchy nodular opacities of the right lung, predominantly the right middle lung. There was redemonstration of small left loculated pleural effusion versus empyema. There is also redemonstration of chronic metastatic and postobstructive changes. Patient is currently resting in bed, on room air, in no acute distress. He is accompanied by his daughter. CBC on arrival shows some marked leukocytosis with a WBC count of 36, hemoglobin 13, hematocrit 41, platelets 185. CMP on arrival shows a sodium 138, potassium 4.1, chloride 104, serum CO2 26, BUN 9, creatinine 1.05, glucose 111. Troponin is 0.027. NT proBNP 2000. Patient has received a dose of azithromycin and Rocephin in the emergency room. Vital signs are stable. On today's evaluation of 02/02/2023, the patient remains on Zosyn and Zithromax. He remains on room air oxygen. Awaiting a follow-up white cell count. The electrolytes are all within normal limits. He is using the senna spirometer. No respiratory difficulties. No chest pain. No pleurisy or hemoptysis. Blood cultures was positive for staph epidermidis which is probably a colonizer. Awaiting a sputum Gram stain and culture. Awaiting follow-up white cell count. Objective - Vital Signs Vital signs: Vital Signs Temp 98 F 02/02/23 11:42 Pulse 78 02/02/23 15:50 Resp 18 02/02/23 11:42 BP 98/61 02/02/23 11:42 Pulse Ox 95 02/02/23 11:42 FiO2 Intake & Output 02/01/23 02/02/23 02/02/23 18:59 06:59 18:59 Intake Total 200 Balance 200 Intake: Intake, IV Titration 200 Amount Piperacillin-Tazobactam 3 100 .375 gm In Sodium Chloride 0.9% 100 ml @ 25 mls/hr IVPB Q8HR [facility] Rx# :[id number] cefTRIAXone 2 gm In 100 Sodium Chloride 0.9% 50 ml @ 100 mls/hr IVPB Q24H [facility] Rx#:[id number] - Exam GENERAL EXAM: Alert, frail 62-year-old male , comfortable in no apparent distress. HEAD: Normocephalic and atraumatic EYES: Normal reaction of pupils, equal size. NOSE: Clear with pink turbinates. THROAT: No erythema or exudates. NECK: No masses, no JVD. CHEST: No chest wall deformity. LUNGS: Diminished left sided lung sounds with no crackles, wheeze, rhonchi or dullness. On room air. No conversational dyspnea or accessory muscle use.. CVS: S1 and S2 normal with a loud harsh systolic murmur grade IV, regular rhythm. No other extra heart sounds ABDOMEN: No hepatosplenomegaly, active bowel sounds, no guarding or rigidity. SPINE: No scoliosis or deformity SKIN: No rashes CENTRAL NERVOUS SYSTEM: No focal deficits, tone is normal in all 4 extremities. EXTREMITIES: There is no peripheral edema, clubbing, or cyanosis. Peripheral pulses are intact. - Labs CBC & Chem 7: 01/31/23 20:58 02/02/23 06:21 Labs: Abnormal Lab Results - Last 24 Hours (Table) 02/02/23 Range/Units 06:21 BUN 6.9 L (9.0-27.0) mg/dL BUN/Creatinine Ratio 8.10 L (12.00-20.00) Ratio Calcium 7.9 L (8.7-10.3) mg/dL Microbiology - Last 24 Hours (Table) 02/01/23 03:15 Blood Culture - Preliminary Blood 02/01/23 03:30 Blood Culture Gram Stain - Preliminary Blood Blood Culture - Preliminary Staphylococcus epidermidis Assessment and Plan Assessment: Dyspnea, CTA of the chest was negative for pulmonary embolism. It did show moderate new consolidations in the left lower lobe concerning for community- acquired pneumonia. There were also some new patchy nodular opacities of the right lung, predominantly the right middle lung. There was redemonstration of small left loculated pleural effusion versus empyema. There is also redemonstrat ion of chronic metastatic and postobstructive changes. Stage IV lung adenocarcinoma with disease progression shown on recent PET scan in November,. There was increased metabolic activity within the left medial left upper lobe pleura, osseous metastatic lesions, adrenal glands left greater than right, and new increased FDG activity within the abdominal and axillary lymph nodes. Patient has been switched to a combination of Taxotere and Cyramza. He has had a total of 3 rounds, with his most recent treatment on January 20. He is also been receiving palliative radiation due to some obstructive changes. Leukocytosis Hypertension Hyperlipidemia Hypothyroidism Coronary artery disease, status/post CABG History of recurrent malignant pleural effusions with multiple prior thoracentesis and Pleurx catheter that was recently removed due to being non- functioning History of vocal cord paralysis status post medialization laryngoplasty History of Hodgkin's lymphoma, in remission Plan: Repeat the white cell count and monitor the levels Repeat chest x-ray in the morning Continue current antibiotic coverage We'll possibly switched to oral antibiotics and clinically stable by tomorrow and this will depend on the chest x-ray in the white cell count Pro calcitonin level was at 0.13
--- NOTE | 2023-02-02 17:45 | P.PN ---
Subjective Progress Note Date: 02/02/23 Principal diagnosis: hx lung cancer At todays visit patient is resting comfortably in bed. Patient reports breathing is improved. He stated he had no shortness of breath during ambulation today. He continues on antibiotics. No other reported complaints at this time. Objective - Vital Signs Vital signs: Vital Signs Temp 98 F 02/02/23 11:42 Pulse 78 02/02/23 15:50 Resp 18 02/02/23 11:42 BP 98/61 02/02/23 11:42 Pulse Ox 95 02/02/23 11:42 FiO2 Intake & Output 02/01/23 02/02/23 02/02/23 18:59 06:59 18:59 Intake Total 200 Balance 200 Intake: Intake, IV Titration 200 Amount Piperacillin-Tazobactam 3 100 .375 gm In Sodium Chloride 0.9% 100 ml @ 25 mls/hr IVPB Q8HR [facility] Rx# :[id number] cefTRIAXone 2 gm In 100 Sodium Chloride 0.9% 50 ml @ 100 mls/hr IVPB Q24H [facility] Rx#:[id number] - Constitutional General appearance: Present: average body habitus, no acute distress - EENT Eyes: Present: anicteric sclerae, EOMI ENT: Present: hearing grossly normal - Respiratory Details: breathing is even and unlabored - Cardiovascular Details: skin is warm and dry - Integumentary Integumentary: Present: rash. Absent: cyanotic - Neurologic Neurologic Comment(s): grossly intact - Musculoskeletal Musculoskeletal: Present: strength equal bilaterally - Psychiatric Psychiatric: Present: A&O x's 3, appropriate affect, intact judgment & insight - Labs CBC & Chem 7: 01/31/23 20:58 02/02/23 06:21 Labs: Abnormal Lab Results - Last 24 Hours (Table) 02/02/23 Range/Units 06:21 BUN 6.9 L (9.0-27.0) mg/dL BUN/Creatinine Ratio 8.10 L (12.00-20.00) Ratio Calcium 7.9 L (8.7-10.3) mg/dL Microbiology - Last 24 Hours (Table) 02/01/23 03:15 Blood Culture - Preliminary Blood 02/01/23 03:30 Blood Culture Gram Stain - Preliminary Blood Blood Culture - Preliminary Staphylococcus epidermidis Assessment and Plan (1) Community acquired pneumonia Current Visit: Yes Status: Acute Code(s): J18.9 - PNEUMONIA, UNSPECIFIED ORGANISM SNOMED Code(s): 630564362 (2) Lung cancer Current Visit: Yes Status: Acute Code(s): C34.90 - MALIGNANT NEOPLASM OF UNSP PART OF UNSP BRONCHUS OR LUNG SNOMED Code(s): 260782811 Plan: Metastatic NSCLC: -He is a patient of Dr. Valerio. US-guided thoracentesis on 01/11/22 revealed metastatic lung adenocarcinoma. He was started on keytruda/carbo/alimta -Disease progression noted on CT CAP and PET in 10/27. Started Cyramza/Taxotere 12/2022. Completed cycle 3 on 01/20/23, with Neulasta .-Hemoglobin 13.1, platelets 185,000, leukocytosis noted, 35.9. -Cycle 4 due on 02/10, will schedule f/u prior to next cycle to ensure patient has acutely recovered prior to receiving next treatment. Pneumonia: -Chest x-ray revealed small left pleural effusion and left lung opacification and right lobe consolidation. CT chest negative for PE. No evidence of thoracic aortic aneurysm or dissection. Moderate consolidations of left lower lobe. New subtle patchy nodular opacities of right lung, predominate in the right middle lobe. Small loculated left pleural effusion versus empyema, similar to previous exam. Collapsed right upper lobe is unchanged. -Pulmonology consulted. Continues on Zosyn and azithromycin. Ultrasound the chest showed thickened and very complex moderate sized left pleural effusion, measuring 5.3 cm in size. No thoracentesis planned at this time. Sputum culture ordered. Blood cultures revealed staph epidermis, likely skin contamination. Patient remains afebrile. Will defer medical management to pulmonology/IM. attests: I have performed H&P and developed impression and plan of care for patient, discussed with dictator. I agree with dictated note, documented as a scribe
--- NOTE | 2023-02-02 21:22 | P.PN ---
Progress Note - Text Progress Note Date: 02/02/23 Patient with adenocarcinoma of the lung last chemotherapy in 30 of January came in with compensative shortness of breath has been going on for 10 days. Patient had a CT of the chest which showed left lower lobe consolidation concerning for pneumonia and postobstructive pneumonia. No evidence of pulmonary embolism. Patient is on antibiotics Rocephin and azithromycin. Patient has leukocytosis with white blood cell count as going up to as high as 35,000 proBNP is 2000 denied any history of congestive heart failure. She also has cough without sputum production February 02: I assumed care of the patient today. Remain short of breath. Eating fair. Able to walk to the bathroom. Bringing of yellow sputum. No pain. Patient has been getting radiation treatment for palliative treatment. On IV Zosyn and Zithromax. Past medical history to include: Metastatic lung adenocarcinoma getting chemotherapy and immunotherapy, GERD, hypertension, hyperlipidemia, CAD with stent, coronary bypass vocal cord implant Social history: Lives with his children. No smoking. Alcohol occasionally. Joel. Soya artis/wheat Active Medications Albuterol Sulfate (Albuterol Nebulized 2.5 Mg/3 Ml) 2.5 mg INHALATION RT-QID [facility] Last Admin: 02/02/23 20:03 Dose: 2.5 mg Albuterol Sulfate (Albuterol Nebulized 2.5 Mg/3 Ml) 2.5 mg INHALATION RT-Q2H PRN PRN Reason: Shortness Of Breath Or Wheezing Aspirin (Aspirin 81 Mg) 81 mg PO DAILY [facility] Last Admin: 02/02/23 09:26 Dose: Not Given Atorvastatin Calcium (Atorvastatin 80 Mg Tab) 80 mg PO [facility] Last Admin: 02/01/23 20:44 Dose: Not Given Benzonatate (Benzonatate 100 Mg Cap) 100 mg PO TID [facility] Last Admin: 02/02/23 17:00 Dose: 100 mg Dronabinol (Dronabinol 2.5 Mg Cap) 5 mg PO [facility] Last Admin: 02/01/23 20:50 Dose: 5 mg Enoxaparin Sodium (Enoxaparin 40 Mg/0.4 Ml Syringe) 40 mg SQ DAILY [facility] Last Admin: 02/02/23 09:26 Dose: Not Given Folic Acid (Folic Acid 1 Mg Tab) 1 mg PO DAILY [facility] Last Admin: 02/02/23 09:26 Dose: 1 mg Hydrocortisone (Hydrocortisone 1% Cream 30 Gm Tube) 1 applic TOPICAL BID [facility] Last Admin: 02/02/23 09:28 Dose: 1 applic Azithromycin 500 mg/ Sodium (Chloride) 250 mls @ 250 mls/hr IVPB DAILY@0500 [facility]; Protocol Stop: 02/04/23 05:59 Last Admin: 02/02/23 05:46 Dose: 250 mls/hr Piperacillin Sod/Tazobactam (Sod 3.375 gm/ Sodium Chloride) 100 mls @ 25 mls/hr IVPB Q8HR [facility]; Protocol Last Admin: 02/02/23 17:00 Dose: 25 mls/hr Isosorbide Mononitrate (Isosorbide Mononitrate Er 60 Mg Tab.Er.24h) 60 mg PO DAILY [facility] Last Admin: 02/02/23 09:26 Dose: Not Given Levothyroxine Sodium (Levothyroxine 100 Mcg Tab) 100 mcg PO 0630 [facility] Last Admin: 02/02/23 05:47 Dose: 100 mcg Metoprolol Tartrate (Metoprolol Tartrate 25 Mg Tab) 75 mg PO BID [facility] Last Admin: 02/02/23 09:27 Dose: Not Given Miscellaneous Information (Pneumonia Protocol Utilized 1 Each Misc) 1 each PO ONCE PRN PRN Reason: Per Protocol Olanzapine (Olanzapine 10 Mg Tab) 10 mg PO HS [facility] Last Admin: 02/01/23 20:45 Dose: Not Given Pantoprazole Sodium (Pantoprazole 40 Mg Tablet) 40 mg PO DAILY [facility] Last Admin: 02/02/23 09:27 Dose: Not Given Tramadol HCl (Tramadol 50 Mg Tab) 50 mg PO Q6H PRN PRN Reason: Pain On examination: VITAL SIGNS: [98, 99, 18, 98/61, 95% room air] GENERAL APPEARANCE: Sitting on bed, not in distress HEENT: Normal external appearance of nose and ear. Oral cavity normal EYES: Pupils equal. Conjunctiva normal. NECK: JVD not raised. Mass not palpable. RESPIRATORY: Respiratory effort increased Lungs decreased breath sounds. CARDIOVASCULAR: First and second sounds normal. No edema. ABDOMEN: Soft. Liver and spleen not palpable. No tenderness. No mass palpable. PSYCHIATRY: Alert and oriented x3. Mood and affect normal. INVESTIGATIONS, reviewed in the clinical context: White count 35.9 hemoglobin 13.1 platelets 195 potassium 3.7 creatinine 0.[address] chest: No PE. Moderate consolidation left lower lobe. Patchy nodular opacities in the right lung. Predominantly right middle lobe. Collapsed right upper lobe unchanged. Ultrasound chest: Complex left pleural effusion COVID 19 P/Cr: Not detected Urine Legionella antigen negative Assessment and plan -Community-acquired/postobstructive pneumonia the left lower lobe : Slow to respond IV Zosyn -Stage IV adenocarcinoma of the lung undergoing chemotherapy, palliative radiation -Leukocytosis due to assessment #1 -Essential Hypertension Lopressor -hyperlipidemia Lipitor -GERD Protonix -Hypothyroidism Synthroid -coronary artery disease status post CABG Aspirin, Lopressor, Lipitor -Anorexia from underlying malignancy Marinol -History of recurrent pleural effusion still has some effusion on the CAT scan -Left vocal cord Paralysis posterior laryngoplasty -History of CONCERNS of lymphoma in remission Discussed with patient. Continue current medication Past Medical History Past Medical History: Coronary Artery Disease (CAD), Cancer, GERD/Reflux, Hyperlipidemia, Hypertension Additional Past Medical History / Comment(s): Stage IV adenocarcinoma, currently on a combination of Taxotere and Cyramza. Seen by Dr. Valerio. 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", 02/17/22, bronchoscopy, chest tube, two cardiac stents, thoracentesis, left pleurex catheter Past Anesthesia/Blood Transfusion Reactions: No Reported Reaction Date of Last Stent Placement:: Unknown Past Psychological History: No Psychological Hx Reported Smoking Status: Never smoker Past Alcohol Use History: Rare Past Drug Use History: None Reported - Past Family History Mother Family Medical History: No Reported History Father Family Medical History: Chest Pain / Angina Medications and Allergies Home Medications Medication Instructions Recorded Confirmed Type Aspirin [Adult Low Dose Aspirin EC] 81 mg PO DAILY 01/11/22 02/01/23 History OLANZapine [ZyPREXA] 10 mg PO HS 02/16/22 02/01/23 History Omeprazole [PriLOSEC] 40 mg PO DAILY 02/16/22 02/01/23 History Rosuvastatin Calcium [Crestor] 40 mg PO HS 02/16/22 02/01/23 History Folic Acid 1 mg PO DAILY 04/07/22 02/01/23 History clonazePAM [KlonoPIN] 1 mg PO DAILY PRN 04/07/22 02/01/23 History Ubidecarenone [Co Q-10] 200 mg PO DAILY 04/10/22 02/01/23 History Metoprolol Tartrate [Lopressor] 75 mg PO BID #100 tab 04/15/22 02/01/23 Rx Isosorbide Mononitrate ER [Imdur] 60 mg PO DAILY 06/17/22 02/01/23 History Levothyroxine Sodium [Synthroid] 100 mcg PO DAILY 10/17/22 02/01/23 History Albuterol Inhaler [Ventolin Hfa 2 puff INHALATION RT-QID PRN 02/01/23 02/01/23 History Inhaler] Albuterol Nebulized [Ventolin 2.5 mg INHALATION RT-TID 02/01/23 02/01/23 History Nebulized] Hydrocortisone Cream 1 applic TOPICAL BID 02/01/23 02/01/23 History [Hydrocortisone 2.5% Cream] Lidocaine/Maalox/Decadron/Benadryl 5 ml PO 5XD PRN 02/01/23 02/01/23 History Compound 1:1 dronabinoL [Marinol] 5 mg PO HS 02/01/23 02/01/23 History traMADol HCL 50 mg PO Q6H PRN 02/01/23 02/01/23 History Allergies Allergy/AdvReac Type Severity Reaction Status Date / Time No Known Allergies Allergy Verified 02/01/23 11:38
[2023-02-02] MEDS: ATORVASTATIN 80 MG TAB PO SCH (21:48)
[2023-02-02] MEDS: droNABinol 2.5 MG CAP PO SCH (21:49)
[2023-02-02] MEDS: OLANZapine 10 MG TAB PO SCH (21:50)
[2023-02-03] MEDS: AZITHROMYCIN 500 MG in SODIUM CHLORIDE 0.9% 250 ML IVPB SCH (05:32)
[2023-02-03] MEDS: LEVOTHYROXINE 100 MCG TAB PO SCH (05:32)
[2023-02-03 07:21] VITALS: RESP 20
--- NOTE | 2023-02-03 07:56 | XR ---
EXAMINATION TYPE: XR chest 2V DATE OF EXAM: 02/03/2023 COMPARISON: CTA chest 2 days ago and older studies HISTORY: Pneumonia. TECHNIQUE: Frontal and lateral views of the chest are obtained. FINDINGS: Stable right internal jugular Mediport catheter. Overlying sternal wires and mediastinal c lips are redemonstrated. Persistent left apical and basilar increased opacities and central left rafaela r increased opacity. Persistent left-sided volume loss with left diaphragm elevation and mediastinal shift. Surgical clips left upper quadrant redemonstrated. IMPRESSION: No significant change from recent CT. Persistent left-sided volume loss with left-sided pleural fluid collections and left lung consolidation and/or atelectasis are all redemonstrated.
[2023-02-03] MEDS: ALBUTEROL NEBULIZED 2.5 MG/3 ML INHALATION SCH ×3 (08:37→15:54)
[2023-02-03] MEDS: BENZONATATE 100 MG CAP PO SCH ×2 (09:14→16:03)
[2023-02-03] MEDS: ISOSORBIDE MONONITRATE ER 60 MG TAB.ER.24H PO SCH (09:14)
[2023-02-03] MEDS: PANTOPRAZOLE 40 MG TABLET PO SCH (09:14)
[2023-02-03] MEDS: METOPROLOL TARTRATE 25 MG TAB PO SCH (09:14)
[2023-02-03] MEDS: ASPIRIN 81 MG PO SCH (09:14)
[2023-02-03] MEDS: FOLIC ACID 1 MG TAB PO SCH (09:15)
[2023-02-03] MEDS: HYDROCORTISONE 1% CREAM 30 GM TUBE TOPICAL SCH (09:15)
[2023-02-03] MEDS: ENOXAPARIN 40 MG/0.4 ML SYRINGE SQ SCH (09:15)
[2023-02-03] MEDS: PIPERACILLIN-TAZOBACTAM 3.375 GM in SODIUM CHLORIDE 0.9% 100 ML IVPB SCH ×2 (09:15→16:05)
[2023-02-03 12:00] VITALS: BP 99/64; TEMP 98
[2023-02-03 13:45] LABS: Anisocytosis Moderate; Basophils % (A) 0 %; Eosinophils # (A) 0.1 k/uL (0-0.7); Eosinophils % (A) 0 %; HCT 39.2 % (39.0-53.0); HGB 12.5 gm/dL (13.0-17.5); Hypochromasia Slight; Lymphocytes % (A) 4 %; MCH 29.9 pg (25.0-35.0); MCV 93.4 fL (80.0-100.0); Macrocytosis Slight; Monocytes # (A) 1.4 k/uL (0-1.0); Monocytes % (A) 6 %; Neutrophils # (A) 22.4 k/uL (1.3-7.7); Neutrophils % (A) 87 %; Platelet Count 311 k/uL (150-450); RBC 4.19 m/uL (4.30-5.90); RDW 20.5 % (11.5-15.5); WBC 25.6 k/uL (3.8-10.6)
--- NOTE | 2023-02-03 14:30 | P.PN ---
Subjective Progress Note Date: 02/03/23 I am seeing this patient in new consultation today 02/01/2023 in the emergency room for progressive shortness of breath over the last 10 days. Patient is a 62-year-old white male with past significant medical history of stage IV adenocarcinoma of the lung, multiple thoracentesis for malignant pleural ef fusions, previous Pleurx catheter insertion and removal, coronary artery disease with previous CABG, Hodgkin's lymphoma in remission. Patient does follow with Dr. Castillo office for management of his stage IV adenocarcinoma originally diagnosed in Jan, 2022. Patient has had multiple prior thoracentesis for recurrent malignant effusions. Patient follows with his oncologist, Dr. Valerio, as well. Recent PET scan in November of this year shows disease progression with increased metabolic activity within the left medial left upper lobe pleura, osseous metastatic lesions, adrenal glands left greater than right, and new abdominal and axillary lymph nodes with increased FDG activity. Patient was switched to a combination of Taxotere and Cyramza. He has had a total of 3 rounds, with his most recent treatment on January 20. He has also underwent palliative radiation due to some obstructive changes. Patient did recently have a Pleurx catheter on the left side, however, this was removed due to being nonfunctioning. Patient has been reportedly experiencing shortness of breath especially on e xertion for the last 10 days. Has had an associated productive cough with yellow sputum. Denies any fevers, chills, chest pain, hemoptysis. Denies sick contacts. Chest CTA on arrival shows no evidence of pulmonary embolism. There was moderate new consolidations in the left lower lobe concerning for pneumonia. There were also some new patchy nodular opacities of the right lung, predominantly the right middle lung. There was redemonstration of small left loculated pleural effusion versus empyema. There is also redemonstration of chronic metastatic and postobstructive changes. Patient is currently resting in bed, on room air, in no acute distress. He is accompanied by his daughter. CBC on arrival shows some marked leukocytosis with a WBC count of 36, hemoglobin 13, hematocrit 41, platelets 185. CMP on arrival shows a sodium 138, potassium 4.1, chloride 104, serum CO2 26, BUN 9, creatinine 1.05, glucose 111. Troponin is 0.027. NT proBNP 2000. Patient has received a dose of azithromycin and Rocephin in the emergency room. Vital signs are stable. On today's evaluation of 02/02/2023, the patient remains on Zosyn and Zithromax. He remains on room air oxygen. Awaiting a follow-up white cell count. The electrolytes are all within normal limits. He is using the senna spirometer. No respiratory difficulties. No chest pain. No pleurisy or hemoptysis. Blood cultures was positive for staph epidermidis which is probably a colonizer. Awaiting a sputum Gram stain and culture. Awaiting follow-up white cell count. On 02.03, I'm seeing the patient for a follow-up. Patient is doing well. No specific complaints. Patient remains on room air oxygen. Repeat chest x-ray from today shows no significant interval change. This persisted volume loss in the left lung related to his previous lung cancer treatment. Is also some atelectatic changes and consolidation left lung base. The patient's WBC count is improving and is currently down to 25.6 with a hemoglobin of 12.5. Electrolytes are all within normal limits. Pro-calcitonin level is at 0.1. Objective - Vital Signs Vital signs: Vital Signs Temp 98 F 02/03/23 11:59 Pulse 96 02/03/23 12:22 Resp 20 02/03/23 11:59 BP 99/64 02/03/23 11:59 Pulse Ox 95 02/03/23 11:59 FiO2 Intake & Output 02/02/23 02/03/23 02/03/23 18:59 06:59 18:59 Intake Total 200 490 Balance 200 490 Intake: Intake, IV Titration 200 490 Amount Azithromycin 500 mg In 250 Sodium Chloride 0.9% 250 ml @ 250 mls/hr IVPB DAILY@0500 [facility] Rx#: [id number] Piperacillin-Tazobactam 3 200 240 .375 gm In Sodium Chloride 0.9% 100 ml @ 25 mls/hr IVPB Q8HR [facility] Rx# :[id number] Other: # Voids 3 - Exam GENERAL EXAM: Alert, frail 62-year-old male , comfortable in no apparent distress. HEAD: Normocephalic and atraumatic EYES: Normal reaction of pupils, equal size. NOSE: Clear with pink turbinates. THROAT: No erythema or exudates. NECK: No masses, no JVD. CHEST: No chest wall deformity. LUNGS: Diminished left sided lung sounds with no crackles, wheeze, rhonchi or dullness. On room air. No conversational dyspnea or accessory muscle use.. CVS: S1 and S2 normal with a loud harsh systolic murmur grade IV, regular rhythm. No other extra heart sounds ABDOMEN: No hepatosplenomegaly, active bowel sounds, no guarding or rigidity. SPINE: No scoliosis or deformity SKIN: No rashes CENTRAL NERVOUS SYSTEM: No focal deficits, tone is normal in all 4 extremities. EXTREMITIES: There is no peripheral edema, clubbing, or cyanosis. Peripheral pulses are intact. - Labs CBC & Chem 7: 02/03/23 13:14 02/02/23 06:21 Labs: Abnormal Lab Results - Last 24 Hours (Table) 02/03/23 Range/Units 13:14 WBC 25.6 H (3.8-10.6) k/uL RBC 4.19 L (4.30-5.90) m/uL Hgb 12.5 L (13.0-17.5) gm/dL RDW 20.5 H (11.5-15.5) % Neutrophils # 22.4 H (1.3-7.7) k/uL Monocytes # 1.4 H (0-1.0) k/uL Microbiology - Last 24 Hours (Table) 02/01/23 03:30 Blood Culture Gram Stain - Final Blood Blood Culture - Final Staphylococcus epidermidis 02/01/23 03:15 Blood Culture - Preliminary Blood Assessment and Plan Assessment: Dyspnea, CTA of the chest was negative for pulmonary embolism. It did show moderate new consolidations in the left lower lobe concerning for community- acquired pneumonia. There were also some new patchy nodular opacities of the right lung, predominantly the right middle lung. There was redemonstration of small left loculated pleural effusion versus empyema. There is also redemonstration of chronic metastatic and postobstructive changes. The chest x- ray findings of essentially unchanged and the patient is not having any major respiratory distress this point in time and the patient is currently on room air oxygen. Stage IV lung adenocarcinoma with disease progression shown on recent PET scan in November,. There was increased metabolic activity within the left medial left upper lobe pleura, osseous metastatic lesions, adrenal glands left greater than right, and new increased FDG activity within the abdominal and axillary lymph nodes. Patient has been switched to a combination of Taxotere and Cyramza. He has had a total of 3 rounds, with his most recent treatment on January 20. He is also been receiving palliative radiation due to some obstructive changes. Leukocytosis, improving and the white cell count is down to 24 Hypertension Hyperlipidemia Hypothyroidism Coronary artery disease, status/post CABG History of recurrent malignant pleural effusions with multiple prior thoracentesis and Pleurx catheter that was recently removed due to being non- functioning History of vocal cord paralysis status post medialization laryngoplasty History of Hodgkin's lymphoma, in remission Plan: White cell count is improving Repeat chest x-ray in the morning are stable Continue current antibiotic coverage, the patient can be discharged home on a combination of Augmentin and Zithromax I'm going to treat this patient was discharged to be followed up on outpatient basis.
--- NOTE | 2023-02-03 14:56 | P.PN ---
Progress Note - Text Progress Note Date: 02/03/23 Patient with adenocarcinoma of the lung last chemotherapy in 30 of January came in with compensative shortness of breath has been going on for 10 days. Patient had a CT of the chest which showed left lower lobe consolidation concerning for pneumonia and postobstructive pneumonia. No evidence of pulmonary embolism. Patient is on antibiotics Rocephin and azithromycin. Patient has leukocytosis with white blood cell count as going up to as high as 35,000 proBNP is 2000 denied any history of congestive heart failure. She also has cough without sputum production February 02: I assumed care of the patient today. Remain short of breath. Eating fair. Able to walk to the bathroom. Bringing of yellow sputum. No pain. Patient has been getting radiation treatment for palliative treatment. On IV Zosyn and Zithromax. February 03: Eating well. Shortness of breath. Decreased sputum. Remains on IV Zosyn. Have the patient sit up on a chair. Active Medications Albuterol Sulfate (Albuterol Nebulized 2.5 Mg/3 Ml) 2.5 mg INHALATION RT-QID [facility] Last Admin: 02/03/23 12:12 Dose: 2.5 mg Albuterol Sulfate (Albuterol Nebulized 2.5 Mg/3 Ml) 2.5 mg INHALATION RT-Q2H PRN PRN Reason: Shortness Of Breath Or Wheezing Aspirin (Aspirin 81 Mg) 81 mg PO DAILY [facility] Last Admin: 02/03/23 09:14 Dose: 81 mg Atorvastatin Calcium (Atorvastatin 80 Mg Tab) 80 mg PO [facility] Last Admin: 02/02/23 21:48 Dose: Not Given Benzonatate (Benzonatate 100 Mg Cap) 100 mg PO TID [facility] Last Admin: 02/03/23 09:14 Dose: 100 mg Dronabinol (Dronabinol 2.5 Mg Cap) 5 mg PO [facility] Last Admin: 02/02/23 21:49 Dose: Not Given Enoxaparin Sodium (Enoxaparin 40 Mg/0.4 Ml Syringe) 40 mg SQ DAILY [facility] Last Admin: 02/03/23 09:15 Dose: 40 mg Folic Acid (Folic Acid 1 Mg Tab) 1 mg PO DAILY [facility] Last Admin: 02/03/23 09:15 Dose: 1 mg Hydrocortisone (Hydrocortisone 1% Cream 30 Gm Tube) 1 applic TOPICAL BID [facility] Last Admin: 02/03/23 09:15 Dose: 1 applic Azithromycin 500 mg/ Sodium (Chloride) 250 mls @ 250 mls/hr IVPB DAILY@0500 [facility]; Protocol Stop: 02/04/23 05:59 Last Admin: 02/03/23 05:32 Dose: 250 mls/hr Piperacillin Sod/Tazobactam (Sod 3.375 gm/ Sodium Chloride) 100 mls @ 25 mls/hr IVPB Q8HR [facility]; Protocol Last Admin: 02/03/23 09:15 Dose: 25 mls/hr Isosorbide Mononitrate (Isosorbide Mononitrate Er 60 Mg Tab.Er.24h) 60 mg PO DAILY [facility] Last Admin: 02/03/23 09:14 Dose: Not Given Levothyroxine Sodium (Levothyroxine 100 Mcg Tab) 100 mcg PO 0630 [facility] Last Admin: 02/03/23 05:32 Dose: 100 mcg Metoprolol Tartrate (Metoprolol Tartrate 25 Mg Tab) 75 mg PO BID [facility] Last Admin: 02/03/23 09:14 Dose: 75 mg Miscellaneous Information (Pneumonia Protocol Utilized 1 Each Misc) 1 each PO ONCE PRN PRN Reason: Per Protocol Olanzapine (Olanzapine 10 Mg Tab) 10 mg PO HS [facility] Last Admin: 02/02/23 21:50 Dose: Not Given Pantoprazole Sodium (Pantoprazole 40 Mg Tablet) 40 mg PO DAILY [facility] Last Admin: 02/03/23 09:14 Dose: 40 mg Tramadol HCl (Tramadol 50 Mg Tab) 50 mg PO Q6H PRN PRN Reason: Pain Past medical history to include: Metastatic lung adenocarcinoma getting chemotherapy and immunotherapy, GERD, hypertension, hyperlipidemia, CAD with stent, coronary bypass vocal cord implant Social history: Lives with his children. No smoking. Alcohol occasionally. Joel. Soya artis/wheat On examination: VITAL SIGNS: 98, 88, 20, 99/64, 95% room air GENERAL APPEARANCE: Sitting on bed, not in distress HEENT: Normal external appearance of nose and ear. Oral cavity normal EYES: Pupils equal. Conjunctiva normal. NECK: JVD not raised. Mass not palpable. RESPIRATORY: Respiratory effort increased Lungs decreased breath sounds. CARDIOVASCULAR: First and second sounds normal. No edema. ABDOMEN: Soft. Liver and spleen not palpable. No tenderness. No mass palpable. PSYCHIATRY: Alert and oriented x3. Mood and affect normal. INVESTIGATIONS, reviewed in the clinical context: February 03: WBC 25 hemoglobin 12.5 platelets 311 White count 35.9 hemoglobin 13.1 platelets 195 potassium 3.7 creatinine 0.[address] chest: No PE. Moderate consolidation left lower lobe. Patchy nodular opacities in the right lung. Predominantly right middle lobe. Collapsed right upper lobe unchanged. Ultrasound chest: Complex left pleural effusion COVID 19 P/Cr: Not detected Urine Legionella antigen negative Assessment and plan: -Community-acquired/postobstructive pneumonia the left lower lobe : Slow to respond IV Zosyn -Stage IV adenocarcinoma of the lung undergoing chemotherapy, palliative radiation -Leukocytosis due to assessment #1 -Essential Hypertension Lopressor -hyperlipidemia Lipitor -GERD Protonix -Hypothyroidism Synthroid -coronary artery disease status post CABG Aspirin, Lopressor, Lipitor -Anorexia from underlying malignancy Marinol -History of recurrent pleural effusion still has some effusion on the CAT scan -Left vocal cord Paralysis posterior laryngoplasty -History of lymphoma in remission Discussed with patient. Follow with pulmonary
[2023-02-03 16:06] VITALS: PULSE 104
--- NOTE | 2023-02-03 16:11 | P.DS ---
Providers Date of admission: 02/01/23 02:54 Expected date of discharge: 02/03/23 Attending physician: Michael Quiles Consults: 02/01/23 02:48 Consult Physician Stat Consulting Provider: Darby Valerio Consult Reason/Comments: Lung CA Do you want consulting provider notified?: Yes Consult Physician Stat Consulting Provider: Clary Castillo Consult Reason/Comments: Lung CA pneumonia and consolidation Do you want consulting provider notified?: Yes Primary care physician: [facility] Course: Patient with adenocarcinoma of the lung last chemotherapy in 30 of January came in with compensative shortness of breath has been going on for 10 days. Patient had a CT of the chest which showed left lower lobe consolidation concerning for pneumonia and postobstructive pneumonia. No evidence of pulmonary embolism. Patient is on antibiotics Rocephin and azithromycin. Patient has leukocytosis with white blood cell count as going up to as high as 35,000 proBNP is 2000 de nied any history of congestive heart failure. She also has cough without sputum production February 02: I assumed care of the patient today. Remain short of breath. Eating fair. Able to walk to the bathroom. Bringing of yellow sputum. No pain. Patient has been getting radiation treatment for palliative treatment. On IV Zosyn and Zithromax. February 03: Eating well. Shortness of breath. Decreased sputum. Remains on IV Zosyn. Have the patient sit up on a chair. Patient was later cleared by Dr. Castillo to go home. Patient keen to go home. Changed over to Augmentin. Follow-up with pulmonary, oncology upon discharge. Discussion and discharge planning more than 35 minutes Past medical history to include: Metastatic lung adenocarcinoma getting chemotherapy and immunotherapy, GERD, hypertension, hyperlipidemia, CAD with stent, coronary bypass vocal cord implant Social history: Lives with his children. No smoking. Alcohol occasionally. Joel. Soya artis/wheat On examination: VITAL SIGNS: 98, 88, 20, 99/64, 95% room air GENERAL APPEARANCE: Sitting on bed, not in distress HEENT: Normal external appearance of nose and ear. Oral cavity normal EYES: Pupils equal. Conjunctiva normal. NECK: JVD not raised. Mass not palpable. RESPIRATORY: Respiratory effort increased Lungs decreased breath sounds. CARDIOVASCULAR: First and second sounds normal. No edema. ABDOMEN: Soft. Liver and spleen not palpable. No tenderness. No mass palpable. PSYCHIATRY: Alert and oriented x3. Mood and affect normal. INVESTIGATIONS, reviewed in the clinical context: February 03: WBC 25 hemoglobin 12.5 platelets 311 White count 35.9 hemoglobin 13.1 platelets 195 potassium 3.7 creatinine 0.[address] chest: No PE. Moderate consolidation left lower lobe. Patchy nodular opacities in the right lung. Predominantly right middle lobe. Collapsed right upper lobe unchanged. Ultrasound chest: Complex left pleural effusion COVID 19 P/Cr: Not detected Urine Legionella antigen negative Assessment and plan: -Community-acquired/postobstructive pneumonia the left lower lobe : Better IV Zosyn. Cleared by Dr. Castillo for discharge on Augmentin. 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 Disposition: Home Plan - Discharge Summary New Discharge Prescriptions: New Amoxic-Pot Clav 875-125Mg [Augmentin 875-125] 1 tab PO BID #10 tab guaiFENesin [Mucinex] 600 mg PO Q12H #14 tab Continue OLANZapine [ZyPREXA] 10 mg PO HS Folic Acid 1 mg PO DAILY clonazePAM [KlonoPIN] 1 mg PO DAILY PRN PRN Reason: Anxiety Ubidecarenone [Co Q-10] 200 mg PO DAILY Albuterol Nebulized [Ventolin Nebulized] 2.5 mg INHALATION RT-TID dronabinoL [Marinol] 5 mg PO HS traMADol HCL 50 mg PO Q6H PRN PRN Reason: Pain Hydrocortisone Cream [Hydrocortisone 2.5% Cream] 1 applic TOPICAL BID Aspirin [Adult Low Dose Aspirin EC] 81 mg PO DAILY Omeprazole [PriLOSEC] 40 mg PO DAILY Rosuvastatin Calcium [Crestor] 40 mg PO HS Metoprolol Tartrate [Lopressor] 75 mg PO BID #100 tab Isosorbide Mononitrate ER [Imdur] 60 mg PO DAILY Levothyroxine Sodium [Synthroid] 100 mcg PO DAILY Albuterol Inhaler [Ventolin Hfa Inhaler] 2 puff INHALATION RT-QID PRN PRN Reason: Shortness Of Breath Lidocaine/Maalox/Decadron/Benadryl Compound 1:1 5 ml PO 5XD PRN PRN Reason: Pain Discharge Medication List Aspirin [Adult Low Dose Aspirin EC] 81 mg PO DAILY 01/11/22 [History] OLANZapine [ZyPREXA] 10 mg PO HS 02/16/22 [History] Omeprazole [PriLOSEC] 40 mg PO DAILY 02/16/22 [History] Rosuvastatin Calcium [Crestor] 40 mg PO HS 02/16/22 [History] Folic Acid 1 mg PO DAILY 04/07/22 [History] clonazePAM [KlonoPIN] 1 mg PO DAILY PRN 04/07/22 [History] Ubidecarenone [Co Q-10] 200 mg PO DAILY 04/10/22 [History] Metoprolol Tartrate [Lopressor] 75 mg PO BID #100 tab 04/15/22 [Rx] Isosorbide Mononitrate ER [Imdur] 60 mg PO DAILY 06/17/22 [History] Levothyroxine Sodium [Synthroid] 100 mcg PO DAILY 10/17/22 [History] Albuterol Inhaler [Ventolin Hfa Inhaler] 2 puff INHALATION RT-QID PRN 02/01/23 [History] Albuterol Nebulized [Ventolin Nebulized] 2.5 mg INHALATION RT-TID 02/01/23 [History] Hydrocortisone Cream [Hydrocortisone 2.5% Cream] 1 applic TOPICAL BID 02/01/23 [History] Lidocaine/Maalox/Decadron/Benadryl Compound 1:1 5 ml PO 5XD PRN 02/01/23 [History] dronabinoL [Marinol] 5 mg PO HS 02/01/23 [History] traMADol HCL 50 mg PO Q6H PRN 02/01/23 [History] Amoxic-Pot Clav 875-125Mg [Augmentin 875-125] 1 tab PO BID #10 tab 02/03/23 [Rx] guaiFENesin [Mucinex] 600 mg PO Q12H #14 tab 02/03/23 [Rx] Follow up Appointment(s)/Referral(s): Azael Bloom MD [Primary Care Provider] - 1-2 days Salbador Valerio MD [STAFF PHYSICIAN] - 1 Week Clary Castillo MD [STAFF PHYSICIAN] - 1 Week
--- NOTE | 2023-02-03 16:12 | P.PN ---
Subjective Progress Note Date: 02/03/23 Principal diagnosis: hx lung cancer At todays visit patient is resting comfortably in bed. Patient reports breathing is improved. He stated he had no shortness of breath during ambulation today. He continues on antibiotics. No other reported complaints at this time. Objective - Vital Signs Vital signs: Vital Signs Temp 98 F 02/03/23 11:59 Pulse 98 02/03/23 15:56 Resp 20 02/03/23 11:59 BP 99/64 02/03/23 11:59 Pulse Ox 95 02/03/23 11:59 FiO2 Intake & Output 02/02/23 02/03/23 02/03/23 18:59 06:59 18:59 Intake Total 200 490 Balance 200 490 Intake: Intake, IV Titration 200 490 Amount Azithromycin 500 mg In 250 Sodium Chloride 0.9% 250 ml @ 250 mls/hr IVPB DAILY@0500 [facility] Rx#: [id number] Piperacillin-Tazobactam 3 200 240 .375 gm In Sodium Chloride 0.9% 100 ml @ 25 mls/hr IVPB Q8HR [facility] Rx# :[id number] Other: # Voids 3 - Constitutional General appearance: Present: average body habitus, no acute distress - EENT Eyes: Present: anicteric sclerae, EOMI ENT: Present: hearing grossly normal - Respiratory Details: breathing is even and unlabored - Cardiovascular Details: skin warm and dry - Integumentary Integumentary: Present: rash. Absent: cyanotic - Neurologic Neurologic Comment(s): grossly intact - Musculoskeletal Musculoskeletal: Present: strength equal bilaterally - Psychiatric Psychiatric: Present: A&O x's 3, appropriate affect, intact judgment & insight - Labs CBC & Chem 7: 02/03/23 13:14 02/02/23 06:21 Labs: Abnormal Lab Results - Last 24 Hours (Table) 02/03/23 Range/Units 13:14 WBC 25.6 H (3.8-10.6) k/uL RBC 4.19 L (4.30-5.90) m/uL Hgb 12.5 L (13.0-17.5) gm/dL RDW 20.5 H (11.5-15.5) % Neutrophils # 22.4 H (1.3-7.7) k/uL Monocytes # 1.4 H (0-1.0) k/uL Microbiology - Last 24 Hours (Table) 02/01/23 03:30 Blood Culture Gram Stain - Final Blood Blood Culture - Final Staphylococcus epidermidis 02/01/23 03:15 Blood Culture - Preliminary Blood - Imaging and Cardiology Chest x-ray: report reviewed Assessment and Plan (1) Community acquired pneumonia Current Visit: Yes Status: Acute Code(s): J18.9 - PNEUMONIA, UNSPECIFIED ORGANISM SNOMED Code(s): 670293358 (2) Lung cancer Current Visit: Yes Status: Acute Code(s): C34.90 - MALIGNANT NEOPLASM OF UNSP PART OF UNSP BRONCHUS OR LUNG SNOMED Code(s): 366972673 Plan: Metastatic NSCLC: -He is a patient of Dr. Valerio. US-guided thoracentesis on 01/11/22 revealed metastatic lung adenocarcinoma. He was started on keytruda/carbo/alimta -Disease progression noted on CT CAP and PET in 10/27. Started Cyramza/Taxotere 12/2022. Completed cycle 3 on 01/20/23, with Neulasta -Hemoglobin 12.5, platelets 311,000, WBC 25.6 -Cycle 4 due on 02/10, will schedule f/u prior to next cycle to ensure patient has acutely recovered prior to receiving next treatment. Pneumonia: -Chest x-ray revealed small left pleural effusion and left lung opacification and right lobe consolidation. CT chest negative for PE. No evidence of thoracic aortic aneurysm or dissection. Moderate consolidations of left lower lobe. New subtle patchy nodular opacities of right lung, predominate in the right middle lobe. Small loculated left pleural effusion versus empyema, similar to previous exam. Collapsed right upper lobe is unchanged. repeat chest x-ray today revealed no significant changes from recent CT. Persistent left sided volume loss with left-sided pleural fluid collections and left lung consolidation and/or atelectasis -Pulmonology following. Continues on Zosyn and azithromycin. Ultrasound the chest showed thickened and very complex moderate sized left pleural effusion, measuring 5.3 cm in size. No thoracentesis planned at this time. Sputum culture ordered. Blood cultures revealed staph epidermis, likely skin contamination. Patient remains afebrile. Defer medical management to pulmonology/IM. Patient is cleared from hem/onc standpoint, once cleared by IM and other consulted medical specialties
== END 2023-02-03 16:42 | disposition home or self-care (01) | DRG 194 ==
LOC: EC 19:32 → 5NMEDONC 02-01 02:54
PROVIDERS: ADMIT Hospitalist; ATTEND Hospitalist
DX: J18.8 Other pneumonia, unspecified organism (principal); C34.12 Malignant neoplasm of upper lobe, left bronchus or lung; C79.51 Secondary malignant neoplasm of bone; J91.0 Malignant pleural effusion; J98.19 Other pulmonary collapse; J38.01 Paralysis of vocal cords and larynx, unilateral; E83.51 Hypocalcemia; I10 Essential (primary) hypertension; E78.5 Hyperlipidemia, unspecified; I25.10 Atherosclerotic heart disease of native coronary artery without angina pectoris; K21.9 Gastro-esophageal reflux disease without esophagitis; E03.9 Hypothyroidism, unspecified; R63.0 Anorexia; R59.0 Localized enlarged lymph nodes; L53.9 Erythematous condition, unspecified; Z20.822 Contact with and (suspected) exposure to COVID-19; Z95.5 Presence of coronary angioplasty implant and graft; Z95.1 Presence of aortocoronary bypass graft; Z92.21 Personal history of antineoplastic chemotherapy; Z79.899 Other long term (current) drug therapy; Z79.890 Hormone replacement therapy; Z79.82 Long term (current) use of aspirin; Z92.3 Personal history of irradiation; Z85.72 Personal history of non-Hodgkin lymphomas; Z68.21 Body mass index [BMI] 21.0-21.9, adult
CPT/HCPCS: 36415; 71046; 71275; 76604; 80048; 80053; 83605; 83735; 83880; 84145; 84484; 85025; 85379; 85610; 85730; 87040; 87449; 87635; 93005; 94640; 94760; 96365; 96366; 96367; 96368; 99285

== ENCOUNTER → 2023-02-16 | Outpatient (CLI) | payer BC ==
[2023-02-16 12:21] LABS: ALT 14 U/L (4-49); AST 21 U/L (17-59); African American GFR (CKD) >90 (>60 ml/min/1.73 sqM); Albumin 2.6 g/dL (3.5-5.0); Albumin/Globulin Ratio 1.2; Alkaline Phosphatase 102 U/L (38-126); Anion Gap 7 mmol/L; Blood Urea Nitrogen 15 mg/dL (9-20); Calcium 8.4 mg/dL (8.4-10.2); Carbon Dioxide 26 mmol/L (22-30); Chloride 103 mmol/L (98-107); Globulin 2.2 g/dL; Glucose 131 mg/dL (74-99); Non-African American GFR(CKD) >90 (>60 ml/min/1.73 sqM); Sodium 136 mmol/L (137-145); Total Bilirubin 0.5 mg/dL (0.2-1.3); Total Protein 4.8 g/dL (6.3-8.2)
[2023-02-16 12:39] LABS: Potassium 4.1 mmol/L (3.5-5.1)
--- NOTE | 2023-02-16 13:53 | CT ---
EXAMINATION TYPE: CT chest w con CT DLP: 208.2 mGycm, Automated exposure control for dose reduction was used. DATE OF EXAM: 02/16/2023 1:37 PM COMPARISON: CTA chest 02/01/2023, CT chest 12/26/2022, CT chest abdomen pelvis 10/31/2022. CLINICAL INDICATION:Male, 62 years old with history of C34.12; PHH, f/u lung ca TECHNIQUE: Multiple axial images were obtained through the chest following the administration of 100 cc of Isovue 300. . Coronal and sagittal reformats reviewed. FINDINGS: LUNGS/ PLEURA: Stable large apical consolidation/mass medially again noted. Small left loculated ple ural effusions. Decrease consolidative opacities within the left lung from prior examination. AIRWAY: Patent and unremarkable.. HEART: The heart is mildly increased in size.. Coronary calcifications. Post CABG changes. Aortic maynor vular leaflet calcifications. MEDIASTINUM: Stable left hilar soft tissue fullness likely representing residual adenopathy. VASCULATURE: No aortic aneurysm. Right IJ Mediport catheter with distal tip terminating in the low S VC. Atelectatic calcification of the aorta. MUSCULOSKELETAL: No acute osseous abnormalities. Mild multilevel degenerative disc disease. Sternotom y wires. Stable previously noted osseous lesions involving the right posterior sixth rib and right sc apula. SOFT TISSUES/LYMPH NODES: Stable prominent left axillary lymph nodes measuring up to 1.1 cm short axi s. Bilateral gynecomastia. LOWER NECK: No significant findings. UPPER ABDOMEN: Bilateral adrenal gland masses redemonstrated. Metallic clips identified within the le ft upper quadrant. 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 IMPRESSION: 1. Similar left upper lung masslike consolidation with suspected hilar and left axillary lymphadenopa thy. 2. Decrease consolidative opacities within the left lower lung. 3. Small loculated pleural effusions are stable. 4. Bilateral adrenal gland enlargement again suggestive of metastasis. 4. Stable osseous metastasis.
== END | disposition home or self-care (01) ==
LOC: RADCTMAIN 12:01
PROVIDERS: ATTEND Internal Medicine Hematology & Oncology
DX: C34.12 Malignant neoplasm of upper lobe, left bronchus or lung (principal); J90 Pleural effusion, not elsewhere classified; C79.51 Secondary malignant neoplasm of bone; E27.8 Other specified disorders of adrenal gland; R91.8 Other nonspecific abnormal finding of lung field
CPT/HCPCS: 80053; 71260; Q9967

== ENCOUNTER 2023-03-09 12:02 | Inpatient (IN) | payer BC ==
[2023-03-09] MEDS ORDERED: IPRATROPIUM-ALBUTEROL 3 ML NEB INHALATION PRN (12:44)
[2023-03-09] MEDS ORDERED: AZITHROMYCIN 500 MG in SODIUM CHLORIDE 0.9% 250 ML IVPB STA (12:44)
[2023-03-09] MEDS ORDERED: PNEUMONIA PROTOCOL UTILIZED 1 EACH MISC PO PRN (12:44)
[2023-03-09] MEDS ORDERED: ALBUTEROL NEBULIZED 2.5 MG/3 ML INHALATION PRN (12:44)
--- NOTE | 2023-03-09 12:44 | ED ---
General Adult HPI - General Chief complaint: Shortness of Breath Stated complaint: SOB Time Seen by Provider: 03/09/23 12:20 Source: patient, RN notes reviewed, old records reviewed Mode of arrival: ambulatory Limitations: no limitations - History of Present Illness Initial comments: This is a 62-year-old male who presents emergency Department from [facility]. Patient has a past medical history significant for lung cancer patient came to the ago was evaluated for shortness of breath possible. If it was negative and patient discharged home. Patient came back in today and had an oxygenation of 85% on room air patient was diagnosed with a pleural effusion and pneumonia. Patient states in the past she's had a pleural effusion drained by Cami Castillo. Patient denies any fever chills per patient states he does feel short of breath. Patient denies any chest pain or palpitations. - Related Data Home Medications Medication Instructions Recorded Confirmed Aspirin [Adult Low Dose Aspirin EC] 81 mg PO DAILY 01/11/22 02/01/23 OLANZapine [ZyPREXA] 10 mg PO HS 02/16/22 02/01/23 Omeprazole [PriLOSEC] 40 mg PO DAILY 02/16/22 02/01/23 Rosuvastatin Calcium [Crestor] 40 mg PO HS 02/16/22 02/01/23 Folic Acid 1 mg PO DAILY 04/07/22 02/01/23 clonazePAM [KlonoPIN] 1 mg PO DAILY PRN 04/07/22 02/01/23 Ubidecarenone [Co Q-10] 200 mg PO DAILY 04/10/22 02/01/23 Isosorbide Mononitrate ER [Imdur] 60 mg PO DAILY 06/17/22 02/01/23 Levothyroxine Sodium [Synthroid] 100 mcg PO DAILY 10/17/22 02/01/23 Albuterol Inhaler [Ventolin Hfa 2 puff INHALATION RT-QID PRN 02/01/23 02/01/23 Inhaler] Albuterol Nebulized [Ventolin 2.5 mg INHALATION RT-TID 02/01/23 02/01/23 Nebulized] Hydrocortisone Cream 1 applic TOPICAL BID 02/01/23 02/01/23 [Hydrocortisone 2.5% Cream] Lidocaine/Maalox/Decadron/Benadryl 5 ml PO 5XD PRN 02/01/23 02/01/23 Compound 1:1 dronabinoL [Marinol] 5 mg PO HS 02/01/23 02/01/23 traMADol HCL 50 mg PO Q6H PRN 02/01/23 02/01/23 Previous Rx's Medication Instructions Recorded Metoprolol Tartrate [Lopressor] 75 mg PO BID #100 tab 04/15/22 Amoxic-Pot Clav 875-125Mg 1 tab PO BID #10 tab 02/03/23 [Augmentin 875-125] guaiFENesin [Mucinex] 600 mg PO Q12H #14 tab 02/03/23 Allergies Allergy/AdvReac Type Severity Reaction Status Date / Time No Known Allergies Allergy Verified 03/09/23 12:20 Review of Systems ROS Statement: Those systems with pertinent positive or pertinent negative responses have been documented in the HPI. ROS Other: All systems not noted in ROS Statement are negative. Past Medical History Past Medical History: Coronary Artery Disease (CAD), Cancer, GERD/Reflux, Hyperlipidemia, Hypertension Additional Past Medical History / Comment(s): Stage IV adenocarcinoma, currently on a combination of Taxotere and Cyramza. Seen by Dr. Valerio. 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", 02/17/22, bronchoscopy, chest tube, two cardiac stents, thoracentesis, left pleurex catheter Past Anesthesia/Blood Transfusion Reactions: No Reported Reaction Date of Last Stent Placement:: Unknown Past Psychological History: No Psychological Hx Reported Smoking Status: Never smoker Past Alcohol Use History: Rare Past Drug Use History: None Reported - Past Family History Mother Family Medical History: No Reported History Father Family Medical History: Chest Pain / Angina General Exam - General Exam Comments Initial Comments: GENERAL: Patient is well-developed and well-nourished. Patient is nontoxic and well- hydrated and is in mild distress. ENT: Neck is soft and supple. No significant lymphadenopathy is noted. Oropharynx is clear. Moist mucous membranes. Neck has full range of motion without eliciting any pain. EYES: The sclera were anicteric and conjunctiva were pink and moist. Extraocular movements were intact and pupils were equal round and reactive to light. Eyelids were unremarkable. PULMONARY: Unlabored respirations. Good breath sounds bilaterally. No audible rales rhonchi or wheezing was noted. CARDIOVASCULAR: There is a regular rate and rhythm without any murmurs gallops or rubs. ABDOMEN: Soft and nontender with normal bowel sounds. SKIN: Skin is clear with no lesions or rashes and otherwise unremarkable. NEUROLOGIC: Patient is alert and oriented x3. Cranial nerves II through XII are grossly intact. Motor and sensory are also intact. Normal speech, volume and content. Symmetrical smile. MUSCULOSKELETAL: Normal extremities with adequate strength and full range of motion. LYMPHATICS: No significant lymphadenopathy is noted PSYCHIATRIC: Normal psychiatric evaluation. Limitations: no limitations Course Vital Signs 03/09/23 12:16 Temperature 97.8 F Pulse Rate 100 Respiratory 20 Rate Blood Pressure 124/74 O2 Sat by Pulse 97 Oximetry Medical Decision Making - Medical Decision Making EKG was interpreted by myself shows a sinus rhythm at 99 bpm WA interval is on a 36 dresses 97 Q-T intervals 3 5070 QTC is 413. Patient's ST segment elevation or depression Was pt. sent in by a medical professional or institution (, PA, ELECTRICAL PROSPECTING SUPERVISOR, urgent care, hospital, or alf...) When possible be specific @ -Dr. Hernandez from [facility] contacted me for the transfer Did you speak to anyone other than the patient for history (EMS, parent, family, police, friend...)? What history was obtained from this source @ -Dr. Hernandez to talk to me about the patient stay in [facility]. However spoke to the ER doc about all of the lab work radiological studies done today and the prior visit 2 days ago Did you review nursing and triage notes (agree or disagree)? Why? @ -[I reviewed and agree with nursing and triage notes] Were old charts reviewed (outside hosp., previous admission, EMS record, old EKG, old radiological studies, urgent care reports/EKG's, alf records)? Report findings @ -I reviewed prior lab work from the patient's visit at [facility] today and prior radiological studies. Differential Diagnosis (chest pain, altered mental status, abdominal pain women, abdominal pain men, vaginal bleeding, weakness, fever, dyspnea, syncope, headache, dizziness, GI bleed, back pain, seizure, CVA, palpatations, mental health, musculoskeletal)? @ -Differential Dyspnea: Coronary syndrome, arrhythmia, tamponade, asthma, COPD, pulmonary embolism, pneumonia, pneumothorax, pulmonary effusion, anaphylaxis, diabetic ketoacidosis, flailed chest, pulmonary contusion, diaphragmatic rupture, anemia, neuromuscular, this is not meant to be an all-inclusive list. EKG interpreted by me (3pts min.). @ -[As above] X-rays interpreted by me (1pt min.). @ -[None done] CT interpreted by me (1pt min.). @ -[None done] U/S interpreted by me (1pt. min.). @ -[None done] What testing was considered but not performed or refused? (CT, X-rays, U/S, labs)? Why? @ -[None] What meds were considered but not given or refused? Why? @ -[None] Did you discuss the management of the patient with other professionals (professionals i.e. , PA, ELECTRICAL PROSPECTING SUPERVISOR, lab, RT, psych nurse, psychotherapist social worker, yardage control operator, teacher, chief growth officer, supportive employment case manager)? Give summary @ -I spoke with Dr. Quiles he agreed to admit the patient to the patient wrote admitting orders Was smoking cessation discussed for >3mins.? @ -[No] Was critical care preformed (if so, how long)? @ -[No] Were there social determinants of health that impacted care today? How? (Homelessness, low income, unemployed, alcoholism, drug addiction, transportation, low edu. Level, literacy, decrease access to med. care, halfway, rehab)? @ -[No] Was there de-escalation of care discussed even if they declined (Discuss DNR or withdrawal of care, Hospice)? DNR status @ -[No] What co-morbidities impacted this encounter? (DM, HTN, Smoking, COPD, CAD, Cancer, CVA, ARF, Chemo, Hep., AIDS, mental health diagnosis, sleep apnea, morbid obesity)? @ -[None] Was patient admitted / discharged? Hospital course, mention meds given and route, prescriptions, significant lab abnormalities, going to OR and other pertinent info. @ -I evaluated the patient and reviewed all radiological studies and lab work. I spoke with Dr. Quiles he agreed to admit the patient I admitted the patient I consulted Dr. Reyes Undiagnosed new problem with uncertain prognosis? @ -[No] Drug Therapy requiring intensive monitoring for toxicity (Heparin, Nitro, Insulin, Cardizem)? @ -[No] Were any procedures done? @ -[No] Diagnosis/symptom? @ -Pneumonia Acute, or Chronic, or Acute on Chronic? @ -Acute Uncomplicated (without systemic symptoms) or Complicated (systemic symptoms)? @ -Complicated Side effects of treatment? @ -[No] Exacerbation, Progression, or Severe Exacerbation? @ -[No] Poses a threat to life or bodily function? How? (Chest pain, [place], [place], pneumonia, PE, COPD, DKA, ARF, appy, cholecystitis, CVA, Diverticulitis, Homicidal, Suicidal, threat to staff... and all critical care pts) @ -Yes this could lead to sepsis and end organ dysfunction Diagnosis/symptom? @ -Pleural effusion Acute, or Chronic, or Acute on Chronic? @ -Acute Uncomplicated (without systemic symptoms) or Complicated (systemic symptoms)? @ -Complicated Side effects of treatment? @ -[none] Exacerbation, Progression, or Severe Exacerbation] @ -[no] Poses a threat to life or bodily function? @ -[no] Disposition Clinical Impression: Pleural effusion, History of lung cancer, Pneumonia Disposition: ADMITTED IP TO THIS HOSP Referrals: Azael Bloom MD [Primary Care Provider] - 1-2 days Time of Disposition: 12:44
--- NOTE | 2023-03-09 15:49 | US ---
EXAMINATION TYPE: US chest DATE OF EXAM: 03/09/2023 COMPARISON: CT chest 02/16/2023, chest ultrasound 02/01/2023 CLINICAL INDICATION: Male, 62 years old with history of Thoracentesis; Pneumonia TECHNIQUE: Targeted ultrasound of the posterior lower bilateral hemithoraces EXAM MEASUREMENTS: Right Pleural Effusion pocket size: 1.6 cm Left Pleural Effusion pocket size: 5.0 cm Right side NOT marked for possible thoracentesis outside the dept. due to small pocket size. Left side NOT marked for possible thoracentesis outside the dept. due to loculated non simple appeari ng fluid collection. Pulmonologists are able to review the images in the patient?s EMR. IMPRESSIONS: 1. Trace right pleural effusion. 2. Left pleural significantly loculated nonsimple-appearing fluid collection redemonstrated.
[2023-03-09] MEDS ORDERED: clonazePAM 1 MG TAB PO PRN (20:06)
[2023-03-09] MEDS: TRIAMCINOLONE 0.1% CREAM 80 GM TUBE TOPICAL SCH (21:20)
[2023-03-09] MEDS: METOPROLOL TARTRATE 25 MG TAB PO SCH (21:21)
[2023-03-09] MEDS: OLANZapine 10 MG TAB PO SCH (21:21)
[2023-03-09] MEDS: ATORVASTATIN 80 MG TAB PO SCH (21:21)
[2023-03-09] MEDS: droNABinol 2.5 MG CAP PO SCH (21:21)
[2023-03-09] MEDS ORDERED: ONDANSETRON 4 MG/2 ML VIAL IVP PRN (21:46)
[2023-03-09] MEDS ORDERED: LORazepam 0.5 MG TAB PO PRN (21:46)
[2023-03-09] MEDS ORDERED: ACETAMINOPHEN TAB 325 MG TAB PO PRN (21:46)
[2023-03-09] MEDS ORDERED: NALOXONE 0.4 MG/ML 1 ML VIAL IV PRN (21:46)
[2023-03-09] MEDS: IPRATROPIUM-ALBUTEROL 3 ML NEB INHALATION SCH (21:55)
[2023-03-09] MEDS ORDERED: guaiFENesin 600 MG TABLET.ER PO SCH (22:00)
[2023-03-09] MEDS ORDERED: TEMAZEPAM 15 MG CAP PO PRN (22:00)
[2023-03-10] MEDS ORDERED: guaiFENesin SYRUP 100MG/5ML 200 MG/10 ML CUP PO PRN
[2023-03-10] MEDS: IPRATROPIUM-ALBUTEROL 3 ML NEB INHALATION SCH ×6 (00:07→19:57)
--- NOTE | 2023-03-10 00:32 | XR ---
EXAM: XR Chest, 2 Views CLINICAL HISTORY: ITS.REASON XR Reason: Short of breath TECHNIQUE: Frontal and lateral views of the chest. COMPARISON: CXR March 09, 2023. FINDINGS: Lungs: See below. Pleural space: Worsening large LEFT pleural effusion with opacified LEFT hemithorax. Airspace consolidation throughout the LEFT lung. Small RIGHT pleural effusion. No pneumothorax. Heart: Cardiomegaly. Mediastinum: Unremarkable. Bones/joints: Sternotomy wires. Tubes, lines and devices: RIGHT Port-A-Cath terminates in the SVC. IMPRESSION: Worsening large LEFT pleural effusion with opacified LEFT hemithorax. Airspace consolidation throughout the LEFT lung.
[2023-03-10] MEDS: PANTOPRAZOLE 40 MG TABLET PO SCH (05:35)
[2023-03-10] MEDS: LEVOTHYROXINE 100 MCG TAB PO SCH (05:35)
[2023-03-10 06:38] LABS: Anisocytosis Slight; HCT 33.9 % (39.0-53.0); HGB 10.5 gm/dL (13.0-17.5); Hypochromasia Moderate; MCH 31.4 pg (25.0-35.0); Macrocytosis Moderate; Mean Platelet Volume 12.1; RBC 3.35 m/uL (4.30-5.90); RDW 19.8 % (11.5-15.5); WBC 23.8 k/uL (3.8-10.6)
[2023-03-10 06:47] LABS: ALT 12 U/L (4-49); AST 21 U/L (17-59); African American GFR (CKD) >90 (>60 ml/min/1.73 sqM); Albumin 2.3 g/dL (3.5-5.0); Albumin/Globulin Ratio 1.2; Alkaline Phosphatase 99 U/L (38-126); Anion Gap 6 mmol/L; Blood Urea Nitrogen 11 mg/dL (9-20); Calcium 7.7 mg/dL (8.4-10.2); Carbon Dioxide 25 mmol/L (22-30); Chloride 105 mmol/L (98-107); Non-African American GFR(CKD) >90 (>60 ml/min/1.73 sqM); Potassium 3.3 mmol/L (3.5-5.1); Sodium 136 mmol/L (137-145); Total Bilirubin 0.6 mg/dL (0.2-1.3); Total Protein 4.3 g/dL (6.3-8.2)
[2023-03-10 07:06] LABS: MCV 101.2 fL (80.0-100.0)
[2023-03-10 07:13] LABS: Glucose 41 mg/dL (74-99)
[2023-03-10 07:18] LABS: Glucose,Whole Blood 66 mg/dL (70-110)
[2023-03-10 08:04] LABS: Glucose,Whole Blood 113 mg/dL (70-110)
[2023-03-10] MEDS: ASPIRIN 81 MG PO SCH (08:04)
[2023-03-10] MEDS: TRIAMCINOLONE 0.1% CREAM 80 GM TUBE TOPICAL SCH ×2 (08:04→20:39)
[2023-03-10] MEDS: FOLIC ACID 1 MG TAB PO SCH (08:04)
[2023-03-10] MEDS: METOPROLOL TARTRATE 25 MG TAB PO SCH (08:04)
[2023-03-10] MEDS: ISOSORBIDE MONONITRATE ER 60 MG TAB.ER.24H PO SCH (08:04)
[2023-03-10 08:16] LABS: Band Neutrophils % 2 %; Eosinophils # (M) 0.24 k/uL (0-0.7); Lymphocytes # (M) 0.48 k/uL (1.0-4.8); Monocytes # (M) 2.38 k/uL (0-1.0); Neutrophils % (M) 85 %; Nucleated Red Blood Cells 0 /100 WBC (0-0); Platelet Count 78 k/uL (150-450); Total Cells Counted 200
[2023-03-10 08:19] LABS: Howell-Jolly Bodies Present; Large Platelets Present; Target Cells Present
[2023-03-10 08:20] LABS: Poikilocytosis (M) Present
--- NOTE | 2023-03-10 08:52 | P.HPIM ---
History of Present Illness H&P Date: 03/09/23 Chief Complaint: Short of breath 62-year-old patient, follows with Dr. Bloom. adenocarcinoma of the lung . Currently on treatment. Presents with 10 days of worsening short of breath. Cough. Unable to expectorate. No fever no chills. Poor appetite and weight loss. Oncologist Dr. Yen. 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 Able to get about the house. Lives with his daughter. Tired rundown. Review of systems: GEN.: Decrease appetite and weight loss EYES: None HEENT: None NECK: None RESPIRATORY: As above CARDIOVASCULAR: None GASTROINTESTINAL: None GENITOURINARY: None MUSCULOSKELETAL: None LYMPHATICS: None HEMATOLOGICAL: None PSYCHIATRY: None NEUROLOGICAL: None Past medical history to include: Metastatic lung adenocarcinoma getting chemotherapy and immunotherapy, GERD, hypertension, hyperlipidemia, CAD with stent, coronary bypass vocal cord implant Social history: Lives with his children. No smoking. Alcohol occasionally. Joel. Soya artis/wheat Physical examination: VITAL SIGNS: [98.9, 116, 18, 140/77, 93% on 2 L] GENERAL: [BMI 20.8, declining but awake tired]. EYES: [Pupils equal. Conjunctiva pale]l. HEENT: [External appearance of nose and ears normal, oral cavity grossly normal]. NECK: [JVD not raised; masses not palpable]. HEART: [First and second heart sounds are normal; no edema]. LUNGS:[ Respiratory rate increased; diminished breath sounds or wheezing]. ABDOMEN: [Soft, nontender, liver spleen not palpable, no masses palpable]. PSYCH: [Alert and oriented x3; mood and affect anxious]l. MUSCULOSKELETAL:No Clubbing/cyanosis;muscles-grossly intact. Loss of muscle mass subcutaneous fat NEUROLOGICAL: [Cranial nerves grossly intact; no facial asymmetry, power and sensation grossly intact]. LYMPHATICS: [No lymph nodes palpable in the axilla and neck] INVESTIGATIONS, reviewed in the clinical context: EKG tracing personally reviewed by me-normal sinus rhythm. Some ST-T wave changes. Chest ultrasound: Left pleural effusion significantly loculated. Non-simple. Chest x-ray film personally reviewed by me-nearby pond on the left side WBC 23.8 hemoglobin 10.5 platelets 78 sodium 136 potassium 3.3 BUN 11 creatinine 0.67 albumin 2.3 Assessment and plan: -Probable pneumonia and in a immunosuppressed patient. IV ceftriaxone -Stage IV adenocarcinoma of the lung undergoing chemotherapy, palliative radiation Follows Dr. Yen -Essential Hypertension Lopressor -hyperlipidemia Crestor -GERD Prilosec -Hypothyroidism Synthroid -coronary artery disease status post CABG Aspirin, Lopressor, Lipitor -Anorexia from underlying malignancy Marinol -History of recurrent pleural effusion still has some effusion on the CAT scan -Left vocal cord Paralysis posterior laryngoplasty -Moderate protein calorie malnutrition Ensure -History of lymphoma in remission Antibiotics. Consult pulmonary and oncology. Home medications resumed. Discussed. Past Medical History Past Medical History: Coronary Artery Disease (CAD), Cancer, GERD/Reflux, Hyperlipidemia, Hypertension Additional Past Medical History / Comment(s): Stage IV adenocarcinoma, currently on a combination of Taxotere and Cyramza. Seen by Dr. Valerio. 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", 02/17/22, bronchoscopy, chest tube, two cardiac stents, thoracentesis, left pleurex catheter Past Anesthesia/Blood Transfusion Reactions: No Reported Reaction Date of Last Stent Placement:: Unknown Past Psychological History: No Psychological Hx Reported Smoking Status: Never smoker Past Alcohol Use History: Rare Past Drug Use History: None Reported - Past Family History Mother Family Medical History: No Reported History Father Family Medical History: Chest Pain / Angina Medications and Allergies Home Medications Medication Instructions Recorded Confirmed Type Aspirin [Adult Low Dose Aspirin EC] 81 mg PO DAILY 01/11/22 03/09/23 History OLANZapine [ZyPREXA] 10 mg PO HS 02/16/22 03/09/23 History Omeprazole [PriLOSEC] 40 mg PO DAILY 02/16/22 03/09/23 History Rosuvastatin Calcium [Crestor] 40 mg PO HS 02/16/22 03/09/23 History Folic Acid 1 mg PO DAILY 04/07/22 03/09/23 History clonazePAM [KlonoPIN] 1 mg PO DAILY PRN 04/07/22 03/09/23 History Ubidecarenone [Co Q-10] 200 mg PO DAILY 04/10/22 03/09/23 History Metoprolol Tartrate [Lopressor] 75 mg PO BID #100 tab 04/15/22 03/09/23 Rx Isosorbide Mononitrate ER [Imdur] 60 mg PO DAILY 06/17/22 03/09/23 History Levothyroxine Sodium [Synthroid] 100 mcg PO DAILY 10/17/22 03/09/23 History Albuterol Inhaler [Ventolin Hfa 2 puff INHALATION RT-QID PRN 02/01/23 03/09/23 History Inhaler] Albuterol Nebulized [Ventolin 2.5 mg INHALATION RT-TID 02/01/23 03/09/23 History Nebulized] Hydrocortisone Cream 1 applic TOPICAL BID 02/01/23 03/09/23 History [Hydrocortisone 2.5% Cream] Lidocaine/Maalox/Decadron/Benadryl 5 ml PO 5XD PRN 02/01/23 03/09/23 History Compound 1:1 dronabinoL [Marinol] 5 mg PO HS 02/01/23 03/09/23 History Allergies Allergy/AdvReac Type Severity Reaction Status Date / Time No Known Allergies Allergy Verified 03/09/23 13:46 Physical Exam Vitals: Vital Signs Temp Pulse Pulse Resp BP Pulse Ox 03/09/23 18:00 105 H 18 115/75 95 03/09/23 17:00 100 21 103/64 97 03/09/23 16:00 101 H 20 110/81 96 03/09/23 15:00 101 H 16 116/66 95 03/09/23 14:00 98 18 102/65 97 03/09/23 13:24 101 H 20 03/09/23 13:00 97 19 120/61 96 03/09/23 12:16 97.8 F 100 20 124/74 97 03/09/23 12:10 101 H 17 124/74 97 Intake and Output 03/09/23 03/09/23 03/09/23 06:59 14:59 22:59 Other: Weight 65.771 kg Results CBC & Chem 7: 03/10/23 05:40 03/10/23 05:40
[2023-03-10] MEDS: AZITHROMYCIN 500 MG TAB PO SCH (09:26)
--- NOTE | 2023-03-10 13:11 | P.GSCN ---
History of Present Illness Consult date: 03/10/23 History of present illness: CHIEF COMPLAINT: Shortness of breath HISTORY OF PRESENT ILLNESS: This is a 62-year-old male with a known history of lung cancer and is currently undergoing chemo treatment. He also has a known history of pleural effusion requiring thoracentesis in the past. Patient presents to the hospital for worsening shortness of breath with the chest ultrasound showing trace right pleural effusion and left pleural effusion significantly loculated [id number]-[id number] fluid collection redemonstrated. Pulmonary service and cardiothoracic service have been consulted. Patient is requiring 2 L of oxygen. Patient had a bowel movement with bright red blood this morning. He denies any blood clots. Denies any abdominal pain. Patient does report having some bleeding from his rectum a few years ago but does not recall what caused it. His last colonoscopy was about 3 years ago and was negative the one prior to that had shown a colon polyp that was benign. Patient never had an EGD. He denies being on any blood thinners. He does take an asp irin at home. Denies any NSAID use. Surgical service consulted for blood in stool. PAST MEDICAL HISTORY: Stage IV adenocarcinoma, Hodgkin's lymphoma in remission, Coronary Artery Disease (CAD), Cancer, GERD/Reflux, Hyperlipidemia, Hypertension, PAST SURGICAL HISTORY: Coronary Bypass/CABG, Heart Catheterization With Stent, Hernia Repair, Double bypass 20 yrs ago, 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", 02/17/22, bronchoscopy, chest tube, two cardiac stents, thoracentesis, left pleurex catheter MEDICATIONS: See below ALLERGIES: See below SOCIAL HISTORY: No illicit drug use. REVIEW OF SYSTEMS: CONSTITUTIONAL: Denies fever or chills. HEENT: Denies blurred vision, vision changes, or eye pain. Denies hemoptysis CARDIOVASCULAR: Denies chest pain or pressure. RESPIRATORY: No shortness of breath. GASTROINTESTINAL: See HPI for pertinent findings HEMATOLOGIC: Denies bleeding disorders. GENITOURINARY: Denies any blood in urine or increased urinary frequency. SKIN: Denies pruitis. Denies rash. PHYSICAL EXAM: VITAL SIGNS: Reviewed GENERAL: Well-developed in no acute distress. HEENT: No sclera icterus. Extraocular movements grossly intact. Moist buccal mucosa. Head is atraumatic, normocephalic. No nasal drainage. ABDOMEN: Soft. Nondistended. nontender NEUROLOGIC: Alert and oriented. Cranial nerves II through XII grossly intact. LABORATORY DATA: WBC 23.5 HGB 10.5 plt 78 hgb from 02/2023 was 12.5 Na 136 k 3.3 Cr 0.67 IMAGING: Chest x-ray worsening large left pleural effusion with opacified left hemothorax. Airspace consolidation throughout the left lung ASSESSMENT: 1. Bright red blood per rectum 1 2. Acute GI bleed 3. Anemia 4. Lung cancer stage IV 5. Left Pleural effusion with left hemothorax 6. Leukocytosis PLAN: -Patient is tentatively scheduled for colonoscopy on 03/13/[address] castellanos if medically stable -Continue to monitor for any signs or symptoms of bleeding -Continue to monitor CBC -Continue supportive -Continue dysphagia chopped diet Thank you for this consultation Physician Bulb Filler note has been reviewed by physician. Signing provider agrees with the documented findings, assessment, and plan of care. Past Medical History Past Medical History: Coronary Artery Disease (CAD), Cancer, GERD/Reflux, Hyperlipidemia, Hypertension Additional Past Medical History / Comment(s): Stage IV adenocarcinoma, currently on a combination of Taxotere and Cyramza. Seen by Dr. Valerio. 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", 02/17/22, bronchoscopy, chest tube, two cardiac stents, thoracentesis, left pleurex catheter Past Anesthesia/Blood Transfusion Reactions: No Reported Reaction Date of Last Stent Placement:: Unknown Past Psychological History: No Psychological Hx Reported Smoking Status: Never smoker Past Alcohol Use History: Rare Past Drug Use History: None Reported - Past Family History Mother Family Medical History: No Reported History Father Family Medical History: Chest Pain / Angina Medications and Allergies Home Medications Medication Instructions Recorded Confirmed Type Aspirin [Adult Low Dose Aspirin EC] 81 mg PO DAILY 01/11/22 03/09/23 History OLANZapine [ZyPREXA] 10 mg PO HS 02/16/22 03/09/23 History Omeprazole [PriLOSEC] 40 mg PO DAILY 02/16/22 03/09/23 History Rosuvastatin Calcium [Crestor] 40 mg PO HS 02/16/22 03/09/23 History Folic Acid 1 mg PO DAILY 04/07/22 03/09/23 History clonazePAM [KlonoPIN] 1 mg PO DAILY PRN 04/07/22 03/09/23 History Ubidecarenone [Co Q-10] 200 mg PO DAILY 04/10/22 03/09/23 History Metoprolol Tartrate [Lopressor] 75 mg PO BID #100 tab 04/15/22 03/09/23 Rx Isosorbide Mononitrate ER [Imdur] 60 mg PO DAILY 06/17/22 03/09/23 History Levothyroxine Sodium [Synthroid] 100 mcg PO DAILY 10/17/22 03/09/23 History Albuterol Inhaler [Ventolin Hfa 2 puff INHALATION RT-QID PRN 02/01/23 03/09/23 History Inhaler] Albuterol Nebulized [Ventolin 2.5 mg INHALATION RT-TID 02/01/23 03/09/23 History Nebulized] Hydrocortisone Cream 1 applic TOPICAL BID 02/01/23 03/09/23 History [Hydrocortisone 2.5% Cream] Lidocaine/Maalox/Decadron/Benadryl 5 ml PO 5XD PRN 02/01/23 03/09/23 History Compound 1:1 dronabinoL [Marinol] 5 mg PO HS 02/01/23 03/09/23 History Allergies Allergy/AdvReac Type Severity Reaction Status Date / Time No Known Allergies Allergy Verified 03/09/23 13:46 Surgical - Exam Vital Signs Pulse Resp BP Pulse Ox 101 H 17 124/74 97 03/09/23 12:10 03/09/23 12:10 03/09/23 12:10 03/09/23 12:10 Results - Labs 03/10/23 05:40 03/10/23 05:40 Abnormal Lab Results - Last 24 Hours (Table) 03/10/23 03/10/23 03/10/23 Range/Units 05:40 05:40 07:16 WBC 23.8 H (3.8-10.6) k/uL RBC 3.35 L (4.30-5.90) m/uL Hgb 10.5 L (13.0-17.5) gm/dL Hct 33.9 L (39.0-53.0) % MCV 101.2 H D (80.0-100.0) fL RDW 19.8 H (11.5-15.5) % Plt Count 78 L D (150-450) k/uL Neutrophils # (Manual) 20.70 H (1.3-7.7) k/uL Lymphocytes # (Manual) 0.48 L (1.0-4.8) k/uL Monocytes # (Manual) 2.38 H (0-1.0) k/uL Sodium 136 L (137-145) mmol/L Potassium 3.3 L (3.5-5.1) mmol/L Glucose 41 L* (74-99) mg/dL POC Glucose (mg/dL) 66 L (70-110) mg/dL Calcium 7.7 L (8.4-10.2) mg/dL Total Protein 4.3 L (6.3-8.2) g/dL Albumin 2.3 L (3.5-5.0) g/dL 03/10/23 Range/Units 08:03 WBC (3.8-10.6) k/uL RBC (4.30-5.90) m/uL Hgb (13.0-17.5) gm/dL Hct (39.0-53.0) % MCV (80.0-100.0) fL RDW (11.5-15.5) % Plt Count (150-450) k/uL Neutrophils # (Manual) (1.3-7.7) k/uL Lymphocytes # (Manual) (1.0-4.8) k/uL Monocytes # (Manual) (0-1.0) k/uL Sodium (137-145) mmol/L Potassium (3.5-5.1) mmol/L Glucose (74-99) mg/dL POC Glucose (mg/dL) 113 H (70-110) mg/dL Calcium (8.4-10.2) mg/dL Total Protein (6.3-8.2) g/dL Albumin (3.5-5.0) g/dL Diabetes panel 03/10/23 Range/Units 05:40 Sodium 136 L (137-145) mmol/L Potassium 3.3 L (3.5-5.1) mmol/L Chloride 105 (98-107) mmol/L Carbon Dioxide 25 (22-30) mmol/L BUN 11 (9-20) mg/dL Creatinine 0.67 (0.66-1.25) mg/dL Glucose 41 L* (74-99) mg/dL Calcium 7.7 L (8.4-10.2) mg/dL AST 21 (17-59) U/L ALT 12 (4-49) U/L Alkaline Phosphatase 99 (38-126) U/L Total Protein 4.3 L (6.3-8.2) g/dL Albumin 2.3 L (3.5-5.0) g/dL Calcium panel 03/10/23 Range/Units 05:40 Calcium 7.7 L (8.4-10.2) mg/dL Albumin 2.3 L (3.5-5.0) g/dL Pituitary panel 03/10/23 Range/Units 05:40 Sodium 136 L (137-145) mmol/L Potassium 3.3 L (3.5-5.1) mmol/L Chloride 105 (98-107) mmol/L Carbon Dioxide 25 (22-30) mmol/L BUN 11 (9-20) mg/dL Creatinine 0.67 (0.66-1.25) mg/dL Glucose 41 L* (74-99) mg/dL Calcium 7.7 L (8.4-10.2) mg/dL Adrenal panel 03/10/23 Range/Units 05:40 Sodium 136 L (137-145) mmol/L Potassium 3.3 L (3.5-5.1) mmol/L Chloride 105 (98-107) mmol/L Carbon Dioxide 25 (22-30) mmol/L BUN 11 (9-20) mg/dL Creatinine 0.67 (0.66-1.25) mg/dL Glucose 41 L* (74-99) mg/dL Calcium 7.7 L (8.4-10.2) mg/dL Total Bilirubin 0.6 (0.2-1.3) mg/dL AST 21 (17-59) U/L ALT 12 (4-49) U/L Alkaline Phosphatase 99 (38-126) U/L Total Protein 4.3 L (6.3-8.2) g/dL Albumin 2.3 L (3.5-5.0) g/dL
--- NOTE | 2023-03-10 14:20 | P.CNPUL ---
History of Present Illness Consult date: 03/10/23 Requesting physician: Michael Quiles Reason for consult: dyspnea, pleural effusion, abnormal CXR/CT Chief complaint: Shortness of breath History of present illness: This is a very pleasant 62-year-old white male with past significant medical history of stage IV adenocarcinoma of the lung, multiple thoracentesis for malignant pleural effusions, previous Pleurx catheter insertion and removal, co ronary artery disease with previous CABG, Hodgkin's lymphoma in remission. Recent PET scan 11/06/2022 shows disease progression with increased metabolic activity within the left medial left upper lobe pleura, osseous metastatic lesions, adrenal glands left greater than right, and new abdominal and axillary lymph nodes with increased FDG activity. Patient was switched to a combination of Taxotere and Cyramza. He has had his most recent treatment on 02/16/2023. He has also underwent palliative radiation due to some obstructive changes. He presented here to the emergency room yesterday with increasing shortness of breath. He states it started about 5 days after his last chemotherapy treatm ent. Ultrasound of the chest reveals a right-sided pleural effusion measuring 1.6 cm. Left-sided effusion at 5.0 cm. However on the left are significantly loculated [id number]-zyvhultcl fluid collections redemonstrated. Not marked for thoracentesis. 6 reveals a large left pleural effusion with opacified left hemothorax. Airspace consolidation throughout the left lung. White count 23.8. Hemoglobin 10.5. Platelets 78,000. Sodium 136. Potassium 3.3. Bicarb 25. BUN 11. Creatinine 0.67. Glucose 113. Pro-calcitonin 0.35. He is seen today in consultation on the regular medical floor. He is currently sitting up in bed. Awake and alert in no acute distress. Maintaining O2 saturations in the 90s on 2 L/m per nasal cannula. He's been initiated. Antibiotics in form of ceftriaxone and azithromycin. Review of Systems REVIEW OF SYSTEMS: CONSTITUTIONAL: Denies any recent significant weight loss or weight gain. EYES: Denies change in vision. EARS, NOSE, MOUTH, THROAT: Denies headaches, denies sore throat. CARDIOVASCULAR: Denies chest pain, palpitations or syncopal episodes. RESPIRATORY: Positive for shortness of breath, cough, congestion no hemoptysis. GASTROINTESTINAL: Denies change in appetite, denies abdominal pain GENITOURINARY: Denies hematuria, denies infections. MUSKULOSKELETAL: Denies pain, denies swelling. INTEGUMENTARY: Denies rash, denies eczema. NEUROLOGICAL: Denies recent memory loss, no recent seizure activity. PSYCHIATRIC: Denies anxiety, denies depression. HEMATOLOGIC/LYMPHATIC: Denies anemia, denies enlarged lymph nodes. Past Medical History Past Medical History: Coronary Artery Disease (CAD), Cancer, GERD/Reflux, Hyperlipidemia, Hypertension Additional Past Medical History / Comment(s): Stage IV adenocarcinoma, currently on a combination of Taxotere and Cyramza. Seen by Dr. Valerio. 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", 02/17/22, bronchoscopy, chest tube, two cardiac stents, thoracentesis, left pleurex catheter Past Anesthesia/Blood Transfusion Reactions: No Reported Reaction Date of Last Stent Placement:: Unknown Past Psychological History: No Psychological Hx Reported Smoking Status: Never smoker Past Alcohol Use History: Rare Past Drug Use History: None Reported - Past Family History Mother Family Medical History: No Reported History Father Family Medical History: Chest Pain / Angina Medications and Allergies Home Medications Medication Instructions Recorded Confirmed Type Aspirin [Adult Low Dose Aspirin EC] 81 mg PO DAILY 01/11/22 03/09/23 History OLANZapine [ZyPREXA] 10 mg PO HS 02/16/22 03/09/23 History Omeprazole [PriLOSEC] 40 mg PO DAILY 02/16/22 03/09/23 History Rosuvastatin Calcium [Crestor] 40 mg PO HS 02/16/22 03/09/23 History Folic Acid 1 mg PO DAILY 04/07/22 03/09/23 History clonazePAM [KlonoPIN] 1 mg PO DAILY PRN 04/07/22 03/09/23 History Ubidecarenone [Co Q-10] 200 mg PO DAILY 04/10/22 03/09/23 History Metoprolol Tartrate [Lopressor] 75 mg PO BID #100 tab 04/15/22 03/09/23 Rx Isosorbide Mononitrate ER [Imdur] 60 mg PO DAILY 06/17/22 03/09/23 History Levothyroxine Sodium [Synthroid] 100 mcg PO DAILY 10/17/22 03/09/23 History Albuterol Inhaler [Ventolin Hfa 2 puff INHALATION RT-QID PRN 02/01/23 03/09/23 History Inhaler] Albuterol Nebulized [Ventolin 2.5 mg INHALATION RT-TID 02/01/23 03/09/23 History Nebulized] Hydrocortisone Cream 1 applic TOPICAL BID 02/01/23 03/09/23 History [Hydrocortisone 2.5% Cream] Lidocaine/Maalox/Decadron/Benadryl 5 ml PO 5XD PRN 02/01/23 03/09/23 History Compound 1:1 dronabinoL [Marinol] 5 mg PO HS 02/01/23 03/09/23 History Allergies Allergy/AdvReac Type Severity Reaction Status Date / Time No Known Allergies Allergy Verified 03/09/23 13:46 Physical Exam Vitals: Vital Signs Temp Pulse Pulse Resp BP BP Pulse Ox 03/10/23 11:42 106 H 03/10/23 11:32 108 H 03/10/23 08:12 108 H 03/10/23 08:04 104 H 03/10/23 08:00 107 H 20 03/10/23 07:24 98.2 F 107 H 20 125/78 94 L 03/10/23 01:49 97.7 F 89 98/65 93 L 03/09/23 20:15 98.0 F 03/09/23 20:00 99 F 116 H 18 144/77 93 L 03/09/23 18:00 105 H 18 115/75 95 03/09/23 17:00 100 21 103/64 97 03/09/23 16:00 101 H 20 110/81 96 03/09/23 15:00 101 H 16 116/66 95 Intake and Output 03/09/23 03/10/23 03/10/23 22:59 06:59 14:59 Intake Total 480 Balance 480 Intake: Oral 480 Other: Voiding Method Toilet # Voids 2 GENERAL EXAM: Alert, thin very pleasant 62-year-old male patient on 2 L nasal cannula, fairly comfortable in no apparent distress. HEAD: Normocephalic. EYES: Normal reaction of pupils, equal size. NOSE: Clear with pink turbinates. THROAT: No erythema or exudates. NECK: No masses, no JVD. CHEST: No chest wall deformity. LUNGS: Equal air entry with no bilateral crackles left greater than right. CVS: S1 and S2 normal with no audible murmur, regular rhythm. ABDOMEN: No hepatosplenomegaly, normal bowel sounds, no guarding or rigidity. SPINE: No scoliosis or deformity SKIN: No rashes CENTRAL NERVOUS SYSTEM: No focal deficits, tone is normal in all 4 extremities. EXTREMITIES: There is no peripheral edema. No clubbing, no cyanosis. Peripheral pulses are intact. Results - Laboratory Findings CBC and BMP: 03/10/23 05:40 03/10/23 05:40 Abnormal lab findings: Abnormal Labs 03/10/23 03/10/23 03/10/23 05:40 05:40 05:40 WBC 23.8 H RBC 3.35 L Hgb 10.5 L Hct 33.9 L MCV 101.2 H D RDW 19.8 H Plt Count 78 L D Neutrophils # (Manual) 20.70 H Lymphocytes # (Manual) 0.48 L Monocytes # (Manual) 2.38 H Sodium 136 L Potassium 3.3 L Glucose 41 L* POC Glucose (mg/dL) Calcium 7.7 L Total Protein 4.3 L Albumin 2.3 L Procalcitonin 0.35 H 03/10/23 03/10/23 07:16 08:03 WBC RBC Hgb Hct MCV RDW Plt Count Neutrophils # (Manual) Lymphocytes # (Manual) Monocytes # (Manual) Sodium Potassium Glucose POC Glucose (mg/dL) 66 L 113 H Calcium Total Protein Albumin Procalcitonin - Diagnostic Findings Chest x-ray: image reviewed Assessment and Plan Assessment: Acute hypoxemic respiratory failure secondary to large left pleural effusion with opacified left hemithorax. There is a consolidation throughout the left lung. Ultrasound of the chest reveals a 5.0 cm pocket however there was s ignificantly loculated [id number]-[id number] fluid collection redemonstrated. Cannot exclude underlying pneumonia. Pro-calcitonin 0.35. Stage IV lung adenocarcinoma with disease progression shown on recent PET scan in November,. There was increased metabolic activity within the left medial left upper lobe pleura, osseous metastatic lesions, adrenal glands left greater than right, and new increased FDG activity within the abdominal and axillary lymph nodes. Patient has been switched to a combination of Taxotere and Cyramza. He has had his most recent treatment on 02/16/2023. He is also been receiving palliative radiation due to some obstructive changes. Thrombocytopenia Leukocytosis Episodes of hypoglycemia History of recurrent malignant pleural effusions with multiple prior thor acentesis and Pleurx catheter that was removed due to being non-functioning History of vocal cord paralysis status post medialization laryngoplasty History of Hodgkin's lymphoma, in remission Hypertension Hyperlipidemia Hypothyroidism Coronary artery disease, status/post CABG Plan: The patient was seen and evaluated Chest x-ray, ultrasound, labs and medications reviewed Complex left-sided pleural effusion Consult to thoracic surgery for any treatment options Titrate the FiO2 as tolerated Continue antibiotics Continue bronchodilators We will continue to follow and make further recommendations based on his clinical status I have personally seen and examined the patient, performed the documentation and the assessment and plan as written. Number of minutes spent on the visit: 20.
--- NOTE | 2023-03-10 15:18 | P.GSCN ---
History of Present Illness Consult date: 03/10/23 Reason for Consult: Recurrent left malignant pleural effusion Requesting physician: William Mancilla History of present illness: This a 62-year-old gentleman who follows on an outpatient basis with Dr. Merle maravilla primary care, Dr. Castillo for his pulmonary care and Dr. Valerio for his oncology care. He has a past medical history significant for metastatic adenocarcinoma with primary lung origin status post chemotherapy and immunotherapy, left vocal cord paralysis status post left medialization thyroplasty, recurrent malignant left-sided pleural effusion status post thoracentesis 4 and placement of left Pleurx catheter with subsequent removal in November 2022, Hodgkin's lymphoma in remission, coronary artery disease status post CABG, hypertension and hyperlipidemia. The patient presented to the emergency department here at [facility] yesterday 03/09/2023 with complaints of shortness of breath and an oxygen saturation of 85% on room air. The patient reports that he was having some complaints of shortness of breath at home, some hemoptysis and occasional emesis. He denies any recent fever, chills, hematemesis, diarrhea, constipation, headache, chest pain/pressure, palpitations, presyncope or syncope. A chest x-ray was completed which showed a worsening left pleural effusion with opacified left hemithorax and airspace consolidation throughout the left lung. For further evaluation an ultrasound of his chest was completed which demonstrated a trace right pleural effusion and a left pleural effusion pocket measuring 5.0 cm which was shown to be significantly loculated non-simple appearing fluid collection. Due to the patient's presenting symptoms and findings on his chest x-ray, ultrasound of his chest and history of recurrent left pleural effusions a consult was placed to c ardiothoracic surgery for further evaluation and treatment recommendations. Review of Systems A 14 point review of systems was completed and was negative except as mentioned in the HPI. Past Medical History Past Medical History: Coronary Artery Disease (CAD), Cancer, GERD/Reflux, Hyperlipidemia, Hypertension Additional Past Medical History / Comment(s): Stage IV adenocarcinoma, currently on a combination of Taxotere and Cyramza. Seen by Dr. Valerio. 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", 02/17/22, bronchoscopy, chest tube, two cardiac stents, thoracentesis, left pleurex catheter Past Anesthesia/Blood Transfusion Reactions: No Reported Reaction Date of Last Stent Placement:: Unknown Past Psychological History: No Psychological Hx Reported Smoking Status: Never smoker Past Alcohol Use History: Rare Past Drug Use History: None Reported - Past Family History Mother Family Medical History: No Reported History Father Family Medical History: Chest Pain / Angina Medications and Allergies Home Medications Medication Instructions Recorded Confirmed Type Aspirin [Adult Low Dose Aspirin EC] 81 mg PO DAILY 01/11/22 03/09/23 History OLANZapine [ZyPREXA] 10 mg PO HS 02/16/22 03/09/23 History Omeprazole [PriLOSEC] 40 mg PO DAILY 02/16/22 03/09/23 History Rosuvastatin Calcium [Crestor] 40 mg PO HS 02/16/22 03/09/23 History Folic Acid 1 mg PO DAILY 04/07/22 03/09/23 History clonazePAM [KlonoPIN] 1 mg PO DAILY PRN 04/07/22 03/09/23 History Ubidecarenone [Co Q-10] 200 mg PO DAILY 04/10/22 03/09/23 History Metoprolol Tartrate [Lopressor] 75 mg PO BID #100 tab 04/15/22 03/09/23 Rx Isosorbide Mononitrate ER [Imdur] 60 mg PO DAILY 06/17/22 03/09/23 History Levothyroxine Sodium [Synthroid] 100 mcg PO DAILY 10/17/22 03/09/23 History Albuterol Inhaler [Ventolin Hfa 2 puff INHALATION RT-QID PRN 02/01/23 03/09/23 History Inhaler] Albuterol Nebulized [Ventolin 2.5 mg INHALATION RT-TID 02/01/23 03/09/23 History Nebulized] Hydrocortisone Cream 1 applic TOPICAL BID 02/01/23 03/09/23 History [Hydrocortisone 2.5% Cream] Lidocaine/Maalox/Decadron/Benadryl 5 ml PO 5XD PRN 02/01/23 03/09/23 History Compound 1:1 dronabinoL [Marinol] 5 mg PO HS 02/01/23 03/09/23 History Allergies Allergy/AdvReac Type Severity Reaction Status Date / Time No Known Allergies Allergy Verified 03/09/23 13:46 Surgical - Exam Vital Signs Pulse Resp BP Pulse Ox 101 H 17 124/74 97 03/09/23 12:10 03/09/23 12:10 03/09/23 12:10 03/09/23 12:10 - General 62-year-old gentleman, who is cooperative, in no acute apparent distress and is cachectic. no distress, no pain, cachectic - Eyes PERRL, normal ocular movement, no pale, no icteric - ENT normal pinna, normal nares, normal mucosa, no hearing loss, no congestion - Neck no masses, no bruits, trachea midline, no venous distension - Respiratory Lung sounds with coarse rhonchi throughout, diminished to his bilateral bases and his left lobes. Respirations are symmetrical and nonlabored. - Cardiovascular Regular rhythm and rate. S1 and S2 present, positive systolic murmur heard best to his left sternal border. - Abdomen Abdomen is soft, nontender and nondistended. Active bowel sounds present in all 4 abdominal quadrants. No guarding or rigidity. - Genitourinary Deferred - Rectum Deferred - Integumentary Skin is warm and dry. No clubbing or cyanosis. no rash, no growths, no abnormal pigmentation - Neurologic No focal deficits. - Musculoskeletal Moves all 4 extremities with equal strength bilaterally. Generalized weakness. - Psychiatric Periods of forgetfulness oriented to time, oriented to person, oriented to place, speech is normal, no memory intact Results - Labs 03/10/23 05:40 03/10/23 05:40 Abnormal Lab Results - Last 24 Hours (Table) 03/10/23 03/10/23 03/10/23 Range/Units 05:40 05:40 05:40 WBC 23.8 H (3.8-10.6) k/uL RBC 3.35 L (4.30-5.90) m/uL Hgb 10.5 L (13.0-17.5) gm/dL Hct 33.9 L (39.0-53.0) % MCV 101.2 H D (80.0-100.0) fL RDW 19.8 H (11.5-15.5) % Plt Count 78 L D (150-450) k/uL Neutrophils # (Manual) 20.70 H (1.3-7.7) k/uL Lymphocytes # (Manual) 0.48 L (1.0-4.8) k/uL Monocytes # (Manual) 2.38 H (0-1.0) k/uL Sodium 136 L (137-145) mmol/L Potassium 3.3 L (3.5-5.1) mmol/L Glucose 41 L* (74-99) mg/dL POC Glucose (mg/dL) (70-110) mg/dL Calcium 7.7 L (8.4-10.2) mg/dL Total Protein 4.3 L (6.3-8.2) g/dL Albumin 2.3 L (3.5-5.0) g/dL Procalcitonin 0.35 H (0.02-0.09) ng/mL 03/10/23 03/10/23 Range/Units 07:16 08:03 WBC (3.8-10.6) k/uL RBC (4.30-5.90) m/uL Hgb (13.0-17.5) gm/dL Hct (39.0-53.0) % MCV (80.0-100.0) fL RDW (11.5-15.5) % Plt Count (150-450) k/uL Neutrophils # (Manual) (1.3-7.7) k/uL Lymphocytes # (Manual) (1.0-4.8) k/uL Monocytes # (Manual) (0-1.0) k/uL Sodium (137-145) mmol/L Potassium (3.5-5.1) mmol/L Glucose (74-99) mg/dL POC Glucose (mg/dL) 66 L 113 H (70-110) mg/dL Calcium (8.4-10.2) mg/dL Total Protein (6.3-8.2) g/dL Albumin (3.5-5.0) g/dL Procalcitonin (0.02-0.09) ng/mL Diabetes panel 03/10/23 Range/Units 05:40 Sodium 136 L (137-145) mmol/L Potassium 3.3 L (3.5-5.1) mmol/L Chloride 105 (98-107) mmol/L Carbon Dioxide 25 (22-30) mmol/L BUN 11 (9-20) mg/dL Creatinine 0.67 (0.66-1.25) mg/dL Glucose 41 L* (74-99) mg/dL Calcium 7.7 L (8.4-10.2) mg/dL AST 21 (17-59) U/L ALT 12 (4-49) U/L Alkaline Phosphatase 99 (38-126) U/L Total Protein 4.3 L (6.3-8.2) g/dL Albumin 2.3 L (3.5-5.0) g/dL Calcium panel 03/10/23 Range/Units 05:40 Calcium 7.7 L (8.4-10.2) mg/dL Albumin 2.3 L (3.5-5.0) g/dL Pituitary panel 03/10/23 Range/Units 05:40 Sodium 136 L (137-145) mmol/L Potassium 3.3 L (3.5-5.1) mmol/L Chloride 105 (98-107) mmol/L Carbon Dioxide 25 (22-30) mmol/L BUN 11 (9-20) mg/dL Creatinine 0.67 (0.66-1.25) mg/dL Glucose 41 L* (74-99) mg/dL Calcium 7.7 L (8.4-10.2) mg/dL Adrenal panel 03/10/23 Range/Units 05:40 Sodium 136 L (137-145) mmol/L Potassium 3.3 L (3.5-5.1) mmol/L Chloride 105 (98-107) mmol/L Carbon Dioxide 25 (22-30) mmol/L BUN 11 (9-20) mg/dL Creatinine 0.67 (0.66-1.25) mg/dL Glucose 41 L* (74-99) mg/dL Calcium 7.7 L (8.4-10.2) mg/dL Total Bilirubin 0.6 (0.2-1.3) mg/dL AST 21 (17-59) U/L ALT 12 (4-49) U/L Alkaline Phosphatase 99 (38-126) U/L Total Protein 4.3 L (6.3-8.2) g/dL Albumin 2.3 L (3.5-5.0) g/dL - Imaging Chest x-ray: report reviewed, image reviewed Additional studies: Ultrasound of chest report reviewed. Assessment and Plan Assessment: Stage IV Metastatic adenocarcinoma with primary lung origin status post chemotherapy and immunotherapy, currently taking Taxotere and Cyramza Acute hypoxic respiratory failure secondary to large left pleural effusion with opacified left hemithorax, on computed tomography scan of the chest consolidation throughout the left lung, ultrasound of the chest demonstrates a 5.0 cm pocket, with significantly loculated non-simple appearing fluid collection. History of recurrent left-sided malignant pleural effusions with multiple thoracentesis and placement of Pleurx catheter in April 2022 with subsequent removal in November 2022 Shortness of breath, secondary to above History of paroxysmal atrial fibrillation Left vocal cord paralysis status post left medialization thyroplasty Hodgkin's lymphoma in remission Coronary artery disease status post CABG History of hypertension History of hyperlipidemia Hypothyroidism Plan: The patient was seen and examined at his bedside on the fourth floor medical surgical unit. His chart diagnostic reviewed. His case was discussed in detail with Dr. Azael Barros from cardiothoracic surgery. Dr. Barros reviewed the patient's diagnostics and discussed in detail with Dr. Mancilla from pulmonary/critical care medicine. The patient at this time is not a surgical candidate as he would be an high risk patient due to his multiple comorbidities. Dr. Mancilla from pulmonary medicine agrees with Dr. Barros that the patient is a nonsurgical patient. Medical management other comorbidities per primary care service. Thank you Dr. Mancilla for this consult, and we will continue to follow the patient on an as-needed basis. I have personally seen and examined the patient, performed the documentation and the assessment and plan as written. 30 minutes spent on the visit . Conrado BOOKER
--- NOTE | 2023-03-10 16:30 | P.PN ---
Progress Note - Text Progress Note Date: 03/10/23 Chief Complaint: Short of breath 62-year-old patient, follows with Dr. Bloom. adenocarcinoma of the lung . Currently on treatment. Presents with 10 days of worsening short of breath. Cough. Unable to expectorate. No fever no chills. Poor appetite and weight loss. Oncologist Dr. Yen. 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 Able to get about the house. Lives with his daughter. Tired rundown. March 10: Short of breath. Cough. No sputum. Cardiothoracic surgery was c onsulted. Dr. Barros. He discussed with Dr. Hancock from pulmonary. Complex left pleural effusion. Not a surgical candidate. Continue current treatment plan. Eating better. Decreased dose of Lopressor. Active Medications Acetaminophen (Acetaminophen Tab 325 Mg Tab) 650 mg PO Q6HR PRN PRN Reason: Mild Pain or Fever > 100.5 Albuterol Sulfate (Albuterol Nebulized 2.5 Mg/3 Ml) 2.5 mg INHALATION RT-Q4H PRN PRN Reason: Shortness Of Breath Or Wheezing Albuterol/Ipratropium (Ipratropium-Albuterol 3 Ml Neb) 3 ml INHALATION RT-Q4H [facility] Last Admin: 03/10/23 15:22 Dose: 3 ml Aspirin (Aspirin 81 Mg) 81 mg PO DAILY [facility] Last Admin: 03/10/23 08:04 Dose: 81 mg Atorvastatin Calcium (Atorvastatin 80 Mg Tab) 80 mg PO HS [facility] Last Admin: 03/09/23 21:21 Dose: 80 mg Azithromycin (Azithromycin 500 Mg Tab) 500 mg PO DAILY [facility]; Protocol Stop: 03/11/23 09:01 Last Admin: 03/10/23 09:26 Dose: 500 mg Clonazepam (Clonazepam 1 Mg Tab) 1 mg PO DAILY PRN PRN Reason: Anxiety Dronabinol (Dronabinol 2.5 Mg Cap) 5 mg PO [facility] Last Admin: 03/09/23 21:21 Dose: 5 mg Folic Acid (Folic Acid 1 Mg Tab) 1 mg PO DAILY [facility] Last Admin: 03/10/23 08:04 Dose: 1 mg Guaifenesin (Guaifenesin Syrup 100mg/5ml 200 Mg/10 Ml Cup) 200 mg PO Q6HR PRN PRN Reason: Cough Last Admin: 03/10/23 05:35 Dose: 200 mg Ceftriaxone Sodium 2 gm/ (Sodium Chloride) 50 mls @ 100 mls/hr IVPB Q24HR [facility]; Protocol Stop: 03/13/23 09:29 Last Admin: 03/10/23 09:26 Dose: 100 mls/hr Isosorbide Mononitrate (Isosorbide Mononitrate Er 60 Mg Tab.Er.24h) 60 mg PO DAILY [facility] Last Admin: 03/10/23 08:04 Dose: 60 mg Levothyroxine Sodium (Levothyroxine 100 Mcg Tab) 100 mcg PO DAILY@0630 [facility] Last Admin: 03/10/23 05:35 Dose: 100 mcg Lorazepam (Lorazepam 0.5 Mg Tab) 0.5 mg PO Q6HR PRN PRN Reason: Anxiety Metoprolol Tartrate (Metoprolol Tartrate 25 Mg Tab) 75 mg PO BID [facility] Last Admin: 03/10/23 08:04 Dose: 75 mg Miscellaneous Information (Pneumonia Protocol Utilized 1 Each Misc) 1 each PO ONCE PRN PRN Reason: Per Protocol Naloxone HCl (Naloxone 0.4 Mg/Ml 1 Ml Vial) 0.2 mg IV Q2M PRN PRN Reason: Opioid Reversal Olanzapine (Olanzapine 10 Mg Tab) 10 mg PO HS [facility] Last Admin: 03/09/23 21:21 Dose: 10 mg Ondansetron HCl (Ondansetron 4 Mg/2 Ml Vial) 4 mg IVP Q8HR PRN PRN Reason: Nausea And Vomiting Pantoprazole Sodium (Pantoprazole 40 Mg Tablet) 40 mg PO AC-BRKFST [facility] Last Admin: 03/10/23 05:35 Dose: 40 mg Temazepam (Temazepam 15 Mg Cap) 15 mg PO HS PRN PRN Reason: Insomnia Triamcinolone Acetonide (Triamcinolone 0.1% Cream 80 Gm Tube) 1 applic TOPICAL BID [facility] Last Admin: 03/10/23 08:04 Dose: Not Given Past medical history to include: Metastatic lung adenocarcinoma getting chemotherapy and immunotherapy, GERD, hypertension, hyperlipidemia, CAD with stent, coronary bypass vocal cord implant Social history: Lives with his children. No smoking. Alcohol occasionally. Joel. 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 EYES: Pupils equal. Conjunctiva palel. HEENT: External appearance of nose and ears normal, oral cavity grossly normal. NECK: JVD not raised; masses not palpable. HEART: First and second heart sounds are normal; no edema. LUNGS:[ Respiratory rate increased; diminished breath sounds , some wheezing. ABDOMEN: Soft, nontender, liver spleen not palpable, no masses palpable. PSYCH: Alert and oriented x3; mood and affect anxious. MUSCULOSKELETAL:No Clubbing/cyanosis;muscles-grossly intact. Loss of muscle mass subcutaneous fat INVESTIGATIONS, reviewed in the clinical context: EKG tracing personally reviewed by me-normal sinus rhythm. Some ST-T wave changes. Chest ultrasound: Left pleural effusion significantly loculated. Non-simple. Chest x-ray film personally reviewed by me-nearby pond on the left side WBC 23.8 hemoglobin 10.5 platelets 78 sodium 136 potassium 3.3 BUN 11 creatinine 0.67 albumin 2.3 Assessment and plan: -Probable pneumonia - in a immunosuppressed patient. Slow to respond IV ceftriaxone -Stage IV adenocarcinoma of the lung undergoing chemotherapy, palliative radiation Follows Dr. Yen -Left-sided complex pleural effusion. Seen by Dr. Barros from cardiothoracic surgery. Conservative management. No surgical intervention -Essential Hypertension Lopressor -hyperlipidemia Crestor -GERD Prilosec -Hypothyroidism Synthroid -coronary artery disease status post CABG Aspirin, Lopressor, Lipitor -Anorexia from underlying malignancy Marinol -History of recurrent pleural effusion still has some effusion on the CAT scan -Left vocal cord Paralysis posterior laryngoplasty -Moderate protein calorie malnutrition Ensure -History of lymphoma in remission Discussed with patient. Decrease Lopressor to 50 mg twice a day follow blood pressure
--- NOTE | 2023-03-10 17:42 | P.CONS ---
History of Present Illness - Reason for Consult Consult date: 03/10/23 hx NSCLC Requesting physician: Michael Quiles - Chief Complaint SOB - History of Present Illness Patient is a 62-year-old male with a significant history of non-small cell lung cancer. He is a patient of Dr. Valerio. Patient had US-guided thoracentesis on 01/11/22 which revealed metastatic lung adenocarcinoma. He was started on keytruda/carbo/alimta. Due to disease progression noted on CT chest/abdomen/pelvis and PET scan on 10/31/2022 and 11/04/2022, respectively, patient treatment was changed to Cyramza/Taxotere. He completed cycle 5 on 03/03/23, with neulasta given. Patient presented to the emergency room for progressing shortness of breath, cough and hypoxia. Patient reports that shortness of breath worsens on exertion. Patient also complains of fatigue and generalized weakness. Patient denies hemoptysis. Denies fever and chills. Upon admission chest x-ray revealed worsening large left pleural effusion with opacified left hemithorax. Airspace consolidation throughout the left lung. Ultrasound of chest showed trace right pleural effusion and left pleural significantly loculated non-simple appearing fluid collection redemonstrated. Patient has been started on rocephin and azithromycin. Pulmonary has been consulted. Cardiothoracic surgery has also been consulted for evaluation of complex left pleural effusion. Patient is afebrile. SpO2 96% on 2L. Hemoglobin 10.5, platelets 78,000, leukocytosis noted, 23.8. Review of Systems 10 point ROS is negative except as stated in the HPI Past Medical History Past Medical History: Coronary Artery Disease (CAD), Cancer, GERD/Reflux, Hy perlipidemia, Hypertension Additional Past Medical History / Comment(s): Stage IV adenocarcinoma, currently on a combination of Taxotere and Cyramza. Seen by Dr. Valerio. 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", 02/17/22, bronchoscopy, chest tube, two cardiac stents, thoracentesis, left pleurex catheter Past Anesthesia/Blood Transfusion Reactions: No Reported Reaction Date of Last Stent Placement:: Unknown Past Psychological History: No Psychological Hx Reported Smoking Status: Never smoker Past Alcohol Use History: Rare Past Drug Use History: None Reported - Past Family History Mother Family Medical History: No Reported History Father Family Medical History: Chest Pain / Angina Medications and Allergies Home Medications Medication Instructions Recorded Confirmed Type Aspirin [Adult Low Dose Aspirin EC] 81 mg PO DAILY 01/11/22 03/09/23 History OLANZapine [ZyPREXA] 10 mg PO HS 02/16/22 03/09/23 History Omeprazole [PriLOSEC] 40 mg PO DAILY 02/16/22 03/09/23 History Rosuvastatin Calcium [Crestor] 40 mg PO HS 02/16/22 03/09/23 History Folic Acid 1 mg PO DAILY 04/07/22 03/09/23 History clonazePAM [KlonoPIN] 1 mg PO DAILY PRN 04/07/22 03/09/23 History Ubidecarenone [Co Q-10] 200 mg PO DAILY 04/10/22 03/09/23 History Metoprolol Tartrate [Lopressor] 75 mg PO BID #100 tab 04/15/22 03/09/23 Rx Isosorbide Mononitrate ER [Imdur] 60 mg PO DAILY 06/17/22 03/09/23 History Levothyroxine Sodium [Synthroid] 100 mcg PO DAILY 10/17/22 03/09/23 History Albuterol Inhaler [Ventolin Hfa 2 puff INHALATION RT-QID PRN 02/01/23 03/09/23 History Inhaler] Albuterol Nebulized [Ventolin 2.5 mg INHALATION RT-TID 02/01/23 03/09/23 History Nebulized] Hydrocortisone Cream 1 applic TOPICAL BID 02/01/23 03/09/23 History [Hydrocortisone 2.5% Cream] Lidocaine/Maalox/Decadron/Benadryl 5 ml PO 5XD PRN 02/01/23 03/09/23 History Compound 1:1 dronabinoL [Marinol] 5 mg PO HS 02/01/23 03/09/23 History Allergies Allergy/AdvReac Type Severity Reaction Status Date / Time No Known Allergies Allergy Verified 03/09/23 13:46 Physical Exam Vitals: Vital Signs Temp Pulse Pulse Resp BP BP Pulse Ox 07/07/23 08:12 108 H 03/10/23 08:04 104 H 03/10/23 07:24 98.2 F 107 H 20 125/78 94 L 03/10/23 01:49 97.7 F 89 98/65 93 L 03/09/23 20:15 98.0 F 03/09/23 20:00 99 F 116 H 18 144/77 93 L 03/09/23 18:00 105 H 18 115/75 95 03/09/23 17:00 100 21 103/64 97 03/09/23 16:00 101 H 20 110/81 96 03/09/23 15:00 101 H 16 116/66 95 03/09/23 14:00 98 18 102/65 97 03/09/23 13:24 101 H 20 03/09/23 13:00 97 19 120/61 96 03/09/23 12:16 97.8 F 100 20 124/74 97 03/09/23 12:10 101 H 17 124/74 97 Intake and Output 03/09/23 03/10/23 03/10/23 22:59 06:59 14:59 Intake Total 480 Balance 480 Intake: Oral 480 Other: # Voids 2 - Constitutional General appearance: no acute distress, thin - EENT Eyes: anicteric sclerae, EOMI ENT: hearing grossly normal - Respiratory Respiratory: bilateral: rales, rhonchi, wheezing - Cardiovascular Rhythm: regular Heart sounds: normal: S1, S2 Abnormal Heart Sounds: systolic murmur - Gastrointestinal General gastrointestinal: soft, no tenderness - Integumentary Integumentary: no cyanotic - Neurologic grossly intact - Musculoskeletal Musculoskeletal: generalized weakness - Psychiatric Psychiatric: A&O x's 3, appropriate affect, intact judgment & insight Results CBC & Chem 7: 03/10/23 05:40 03/10/23 05:40 Labs: Abnormal Lab Results - Last 24 Hours (Table) 03/10/23 03/10/23 03/10/23 Range/Units 05:40 05:40 07:16 WBC 23.8 H (3.8-10.6) k/uL RBC 3.35 L (4.30-5.90) m/uL Hgb 10.5 L (13.0-17.5) gm/dL Hct 33.9 L (39.0-53.0) % MCV 101.2 H D (80.0-100.0) fL RDW 19.8 H (11.5-15.5) % Plt Count 78 L D (150-450) k/uL Neutrophils # (Manual) 20.70 H (1.3-7.7) k/uL Lymphocytes # (Manual) 0.48 L (1.0-4.8) k/uL Monocytes # (Manual) 2.38 H (0-1.0) k/uL Sodium 136 L (137-145) mmol/L Potassium 3.3 L (3.5-5.1) mmol/L Glucose 41 L* (74-99) mg/dL POC Glucose (mg/dL) 66 L (70-110) mg/dL Calcium 7.7 L (8.4-10.2) mg/dL Total Protein 4.3 L (6.3-8.2) g/dL Albumin 2.3 L (3.5-5.0) g/dL 03/10/23 Range/Units 08:03 WBC (3.8-10.6) k/uL RBC (4.30-5.90) m/uL Hgb (13.0-17.5) gm/dL Hct (39.0-53.0) % MCV (80.0-100.0) fL RDW (11.5-15.5) % Plt Count (150-450) k/uL Neutrophils # (Manual) (1.3-7.7) k/uL Lymphocytes # (Manual) (1.0-4.8) k/uL Monocytes # (Manual) (0-1.0) k/uL Sodium (137-145) mmol/L Potassium (3.5-5.1) mmol/L Glucose (74-99) mg/dL POC Glucose (mg/dL) 113 H (70-110) mg/dL Calcium (8.4-10.2) mg/dL Total Protein (6.3-8.2) g/dL Albumin (3.5-5.0) g/dL Comments: chest ultrasound reviewed Chest x-ray: report reviewed Assessment and Plan (1) Pleural effusion Current Visit: Yes Status: Acute Priority: High Code(s): J90 - PLEURAL EFFUSION, NOT ELSEWHERE CLASSIFIED SNOMED Code(s): 03640889 (2) Pneumonia Current Visit: Yes Status: Acute Priority: High Code(s): J18.9 - PNEUMONIA, UNSPECIFIED ORGANISM SNOMED Code(s): 338822185 (3) Lung cancer Current Visit: Yes Status: Acute Priority: High Code(s): C34.90 - MALIGNANT NEOPLASM OF UNSP PART OF UNSP BRONCHUS OR LUNG SNOMED Code(s): 181877973 Plan: Metastatic NSCLC: -He is a patient of Dr. Valerio. US-guided thoracentesis on 01/11/22 revealed metastatic lung adenocarcinoma. He was started on keytruda/carbo/alimta. Disease progression noted on CT CAP and PET in 10/27. Started Cyramza/Taxotere 12/2022. Completed cycle 5 on 03/03/23, with Neulasta -Hemoglobin 10.5, platelets 78,000, leukocytosis noted, 23.8. -Will schedule f/u prior to next cycle to ensure patient has acutely recovered prior to receiving next treatment. Pneumonia: -Chest x-ray revealed worsening large left pleural effusion with opacified left hemithorax. Airspace consolidation throughout the left lung. -Patient started on rocephin and azithromycin. Blood cultures pending. Patient afebrile. SpO2 96% on 2L Pleural Effusions: -Ultrasound of chest showed trace right pleural effusion and left pleural significantly loculated non-simple appearing fluid collection redemonstrated. -Pulm following. Cardiothoracic surgery has also been consulted for evaluation of complex left pleural effusion. Will await further recommendations/plan attests: I have performed H&P and developed impression and plan of care for patient, Discussed with dictator. I agree with dictated note, documented as a scribe
[2023-03-10] MEDS ORDERED: Potassium Replacement Protocol 1 EACH MISC MISCELLANE PRN (19:55)
[2023-03-10 20:11] VITALS: RESP 16
[2023-03-10] MEDS: droNABinol 2.5 MG CAP PO SCH (20:36)
[2023-03-10] MEDS: ATORVASTATIN 80 MG TAB PO SCH (20:36)
[2023-03-10] MEDS: METOPROLOL TARTRATE 50 MG TAB PO SCH (20:37)
[2023-03-10] MEDS: OLANZapine 10 MG TAB PO SCH (20:38)
[2023-03-10] MEDS: POTASSIUM CHLORIDE ER 20 MEQ TAB.ER PO SCH ×2 (20:38→23:32)
[2023-03-10 20:45] LABS: Glucose,Whole Blood 210 mg/dL (70-110)
[2023-03-11] MEDS: IPRATROPIUM-ALBUTEROL 3 ML NEB INHALATION SCH ×5 (01:25→12:30)
[2023-03-11] MEDS: PANTOPRAZOLE 40 MG TABLET PO SCH (05:14)
[2023-03-11] MEDS: LEVOTHYROXINE 100 MCG TAB PO SCH (05:15)
[2023-03-11 05:56] LABS: Glucose,Whole Blood 103 mg/dL (70-110)
--- NOTE | 2023-03-11 07:11 | P.PN ---
Progress Note - Text Progress Note Date: 03/11/23 The patient's resting comfortably in his bed. He denies any significant abdominal pain. He's had no further bloody bowel movements. On exam vital signs appear stable. Abdomen soft nontender Isolated rectal bleeding may be due to traumatic bowel movement. Patient will be observed. If he has no further rectal bleeding he will be observed if there is persistent recommended to undergo endoscopy.
[2023-03-11] MEDS: METOPROLOL TARTRATE 50 MG TAB PO SCH (07:48)
[2023-03-11] MEDS: ASPIRIN 81 MG PO SCH (07:48)
[2023-03-11] MEDS: FOLIC ACID 1 MG TAB PO SCH (07:48)
[2023-03-11] MEDS: AZITHROMYCIN 500 MG TAB PO SCH (07:48)
[2023-03-11] MEDS: ISOSORBIDE MONONITRATE ER 60 MG TAB.ER.24H PO SCH (07:49)
[2023-03-11 07:50] VITALS: BP 109/70; TEMP 98.1
[2023-03-11] MEDS: TRIAMCINOLONE 0.1% CREAM 80 GM TUBE TOPICAL SCH (07:53)
--- NOTE | 2023-03-11 12:16 | P.PN ---
Subjective Progress Note Date: 03/11/23 This is a very pleasant 62-year-old white male with past significant medical history of stage IV adenocarcinoma of the lung, multiple thoracentesis for malignant pleural effusions, previous Pleurx catheter insertion and removal, coronary artery disease with previous CABG, Hodgkin's lymphoma in remission. Recent PET scan 11/06/2022 shows disease progression with increased metabolic activity within the left medial left upper lobe pleura, osseous metastatic lesions, adrenal glands left greater than right, and new abdominal and axillary lymph nodes with increased FDG activity. Patient was switched to a combination of Taxotere and Cyramza. He has had his most recent treatment on 02/16/2023. He has also underwent palliative radiation due to some obstructive changes. He presented here to the emergency room yesterday with increasing shortness of breath. He states it started about 5 days after his last chemotherapy treatment. Ultrasound of the chest reveals a right-sided pleural effusion measuring 1.6 cm. Left-sided effusion at 5.0 cm. However on the left are significantly loculated [id number] fluid collections redemonstrated. Not marked for thoracentesis. 6 reveals a large left pleural effusion with opacified left hemothorax. Airspace consolidation throughout the left lung. White count 23.8. Hemoglobin 10.5. Platelets 78,000. Sodium 136. Potassium 3.3. Bicarb 25. BUN 11. Creatinine 0.67. Glucose 113. Pro-calcitonin 0.35. He is seen today in consultation on the regular medical floor. He is currently sitting up in bed. Awake and alert in no acute distress. Maintaining O2 saturations in the 90s on 2 L/m per nasal cannula. He's been initiated. Antibiotics in form of ceftriaxone and azithromycin. The patient is seen today 03/11/2023 in follow-up on the regular medical floor. He is currently resting comfortably in bed. Awake and alert in no acute d istress. He is aware there are no plans for Pleurx catheter other surgical intervention for the chronic left-sided pleural effusion. He was tested for home oxygen as O2 saturations stayed in the 90s during the 6 minute walk. Cultures revealed no growth. He is continued on antibiotics in the form of ceftriaxone and azithromycin along with bronchodilators. Objective - Vital Signs Vital signs: Vital Signs Temp 98.1 F 03/11/23 07:13 Pulse 109 H 03/11/23 10:05 Resp 16 03/11/23 07:13 BP 109/70 03/11/23 07:13 Pulse Ox 95 03/11/23 10:05 FiO2 Intake & Output 03/10/23 03/11/23 03/11/23 18:59 06:59 18:59 Intake Total 100 Balance 100 Intake: Intake, IV Titration 0 Amount cefTRIAXone 2 gm In 0 Sodium Chloride 0.9% 50 ml @ 100 mls/hr IVPB Q24HR [facility] Rx#:[id number] Oral 100 Other: Voiding Method Toilet Toilet Toilet - Exam GENERAL EXAM: Alert, very pleasant 62-year-old male patient on room air, comfortable in no apparent distress. HEAD: Normocephalic. EYES: Normal reaction of pupils, equal size. NOSE: Clear with pink turbinates. THROAT: No erythema or exudates. NECK: No masses, no JVD. CHEST: No chest wall deformity. LUNGS: Equal air entry with no bilateral crackles left greater than right. CVS: S1 and S2 normal with no audible murmur, regular rhythm. ABDOMEN: No hepatosplenomegaly, normal bowel sounds, no guarding or rigidity. SPINE: No scoliosis or deformity SKIN: No rashes CENTRAL NERVOUS SYSTEM: No focal deficits, tone is normal in all 4 extremities. EXTREMITIES: There is no peripheral edema. No clubbing, no cyanosis. Peripheral pulses are intact. - Labs CBC & Chem 7: 03/10/23 05:40 03/10/23 05:40 Labs: Abnormal Lab Results - Last 24 Hours (Table) 03/10/23 Range/Units 20:43 POC Glucose (mg/dL) 210 H (70-110) mg/dL Microbiology - Last 24 Hours (Table) 03/09/23 14:39 Blood Culture - Preliminary Blood 03/09/23 14:34 Blood Culture - Preliminary Blood Assessment and Plan Assessment: Acute hypoxemic respiratory failure secondary to large left pleural effusion with opacified left hemithorax. There is a consolidation throughout the left lung. Ultrasound of the chest reveals a 5.0 cm pocket however there was significantly loculated mht-mngsoe-gkwoxsypk fluid collection redemonstrated. Cannot exclude underlying pneumonia. Pro-calcitonin 0.35. Stage IV lung adenocarcinoma with disease progression shown on recent PET scan in November,. There was increased metabolic activity within the left medial left upper lobe pleura, osseous metastatic lesions, adrenal glands left greater than right, and new increased FDG activity within the abdominal and axillary lymph nodes. Patient has been switched to a combination of Taxotere and Cyramza. He has had his most recent treatment on 02/16/2023. He is also been receiving palliative radiation due to some obstructive changes. Thrombocytopenia Leukocytosis Episodes of hypoglycemia History of recurrent malignant pleural effusions with multiple prior thoracentesis and Pleurx catheter that was removed due to being non-functioning History of vocal cord paralysis status post medialization laryngoplasty History of Hodgkin's lymphoma, in remission Hypertension Hyperlipidemia Hypothyroidism Coronary artery disease, status/post CABG Plan: The patient was seen and evaluated Medications reviewed Evaluated by thoracic surgery No plans for any surgical intervention Cleared for discharge from the pulmonary standpoint Did not qualify for home oxygen Complete a course of Augmentin Continue albuterol HFA Follow up in the office in 1 week I have personally seen and examined the patient, performed the documentation and the assessment and plan as written. Number of minutes spent on the visit: 10.
[2023-03-11 12:44] VITALS: PULSE 96
[2023-03-11 13:22] LABS: Anisocytosis Moderate; Basophils # (A) 0.1 k/uL (0-0.2); Basophils % (A) 0 %; Eosinophils # (A) 0.2 k/uL (0-0.7); Eosinophils % (A) 0 %; HCT 31.8 % (39.0-53.0); HGB 10.3 gm/dL (13.0-17.5); Hypochromasia Moderate; Lymphocytes # (A) 0.7 k/uL (1.0-4.8); Lymphocytes % (A) 2 %; MCH 32.2 pg (25.0-35.0); MCHC 32.2 g/dL (31.0-37.0); MCV 99.8 fL (80.0-100.0); Macrocytosis Moderate; Monocytes # (A) 2.9 k/uL (0-1.0); Monocytes % (A) 8 %; Neutrophils # (A) 32.9 k/uL (1.3-7.7); Neutrophils % (A) 87 %; Platelet Count 73 k/uL (150-450); RBC 3.19 m/uL (4.30-5.90); RDW 20.2 % (11.5-15.5); WBC 37.7 k/uL (3.8-10.6)
--- NOTE | 2023-03-11 13:46 | P.DS ---
Providers Date of admission: 03/09/23 12:44 Expected date of discharge: 03/11/23 Attending physician: Michael Quiles Consults: 03/09/23 12:44 Consult Physician Routine Consulting Provider: William Mancilla Consult Reason/Comments: Pleural effusion, pneumonia, history of lung cancer Do you want consulting provider notified?: Yes 03/10/23 08:52 Consult Physician Routine Consulting Provider: Darby Valerio Consult Reason/Comments: Cancer Do you want consulting provider notified?: Yes 03/10/23 09:45 Consult Physician Routine Consulting Provider: Shan Scott Consult Reason/Comments: ? another Pleurx Do you want consulting provider notified?: Yes 03/10/23 10:14 Consult Physician Routine Consulting Provider: Bang Monge Consult Reason/Comments: blood in stool Do you want consulting provider notified?: Yes Primary care physician: [facility] Course: Chief Complaint: Short of breath 62-year-old patient, follows with Dr. Bloom. adenocarcinoma of the lung . Currently on treatment. Presents with 10 days of worsening short of breath. Cough. Unable to expectorate. No fever no chills. Poor appetite and weight loss. Oncologist Dr. Yen. Visual Specialist Dr. Castillo. Able to get about the house. Lives with his daughter. Tired rundown. March 10: Short of breath. Cough. No sputum. Cardiothoracic surgery was consult ed. Dr. Barros. He discussed with Dr. Hancock from pulmonary. Complex left pleural effusion. Not a surgical candidate. Continue current treatment plan. Eating better. Decreased dose of Lopressor. March 11: Decreased appetite. Discussed with the patient. Patient cleared by Dr. Mancilla from pulmonary for discharge. Discharge in Augmentin. Patient see Dr. Castillo next week in the office. Diet further discussed with the patient. Very keen to go home. Has a daughter at home. Discharge home on Lopressor 50 mg twice a day Discussion and discharge planning more than 35 minutes Past medical history to include: Metastatic lung adenocarcinoma getting chemotherapy and immunotherapy, GERD, hypertension, hyperlipidemia, CAD with stent, coronary bypass vocal cord implant Social history: Lives with his children. No smoking. Alcohol occasionally. Joel. Soya artis/wheat Physical examination: VITAL SIGNS: 98.1, 106, 16, 109/70, 91% on 2 L GENERAL: In bed, reclining, tired. EYES: Pupils equal. Conjunctiva palel. HEENT: External appearance of nose and ears normal, oral cavity grossly normal. NECK: JVD not raised; masses not palpable. HEART: First and second heart sounds are normal; no edema. LUNGS:[ Respiratory rate increased; diminished breath sounds , ABDOMEN: Soft, nontender, liver spleen not palpable, no masses palpable. PSYCH: Alert and oriented x3; mood and affect anxious. MUSCULOSKELETAL:No Clubbing/cyanosis;muscles-grossly intact. Loss of muscle mass subcutaneous fat INVESTIGATIONS, reviewed in the clinical context: March 11: White count 37.7 hemoglobin 10.3 EKG tracing personally reviewed by me-normal sinus rhythm. Some ST-T wave changes. Chest ultrasound: Left pleural effusion significantly loculated. Non-simple. Chest x-ray film personally reviewed by me-nearby pond on the left side WBC 23.8 hemoglobin 10.5 platelets 78 sodium 136 potassium 3.3 BUN 11 creatinine 0.67 albumin 2.3 Assessment and plan: -Probable pneumonia - in a immunosuppressed patient. IV ceftriaxone. Discharge in Augmentin 7 days -Stage IV adenocarcinoma of the lung undergoing chemotherapy, palliative radiation Follows Dr.S. Yen -Left-sided complex pleural effusion. Seen by Dr. Barros from cardiothoracic surgery. Conservative management. No surgical intervention -Essential Hypertension Lopressor cutback to 50 mg twice a day -hyperlipidemia Crestor -GERD Prilosec -Hypothyroidism Synthroid -coronary artery disease status post CABG Aspirin, Lopressor, Lipitor -Anorexia from underlying malignancy Marinol -History of recurrent pleural effusion still has some effusion on the CAT scan -Left vocal cord Paralysis posterior laryngoplasty -Moderate protein calorie malnutrition Ensure -History of lymphoma in remission Disposition: Home Plan - Discharge Summary Discharge Rx Participant: No New Discharge Prescriptions: New Amoxic-Pot Clav 875-125Mg [Augmentin 875-125] 1 each PO Q12HR #14 tab Continue OLANZapine [ZyPREXA] 10 mg PO HS Folic Acid 1 mg PO DAILY clonazePAM [KlonoPIN] 1 mg PO DAILY PRN PRN Reason: Anxiety Ubidecarenone [Co Q-10] 200 mg PO DAILY Albuterol Nebulized [Ventolin Nebulized] 2.5 mg INHALATION RT-TID dronabinoL [Marinol] 5 mg PO HS Hydrocortisone Cream [Hydrocortisone 2.5% Cream] 1 applic TOPICAL BID Aspirin [Adult Low Dose Aspirin EC] 81 mg PO DAILY Omeprazole [PriLOSEC] 40 mg PO DAILY Rosuvastatin Calcium [Crestor] 40 mg PO HS Metoprolol Tartrate [Lopressor] 75 mg PO BID #100 tab Isosorbide Mononitrate ER [Imdur] 60 mg PO DAILY Levothyroxine Sodium [Synthroid] 100 mcg PO DAILY Albuterol Inhaler [Ventolin Hfa Inhaler] 2 puff INHALATION RT-QID PRN PRN Reason: Shortness Of Breath Lidocaine/Maalox/Decadron/Benadryl Compound 1:1 5 ml PO 5XD PRN PRN Reason: Pain Discharge Medication List Aspirin [Adult Low Dose Aspirin EC] 81 mg PO DAILY 01/11/22 [History] OLANZapine [ZyPREXA] 10 mg PO HS 02/16/22 [History] Omeprazole [PriLOSEC] 40 mg PO DAILY 02/16/22 [History] Rosuvastatin Calcium [Crestor] 40 mg PO HS 02/16/22 [History] Folic Acid 1 mg PO DAILY 04/07/22 [History] clonazePAM [KlonoPIN] 1 mg PO DAILY PRN 04/07/22 [History] Ubidecarenone [Co Q-10] 200 mg PO DAILY 04/10/22 [History] Metoprolol Tartrate [Lopressor] 75 mg PO BID #100 tab 04/15/22 [Rx] Isosorbide Mononitrate ER [Imdur] 60 mg PO DAILY 06/17/22 [History] Levothyroxine Sodium [Synthroid] 100 mcg PO DAILY 10/17/22 [History] Albuterol Inhaler [Ventolin Hfa Inhaler] 2 puff INHALATION RT-QID PRN 02/01/23 [History] Albuterol Nebulized [Ventolin Nebulized] 2.5 mg INHALATION RT-TID 02/01/23 [History] Hydrocortisone Cream [Hydrocortisone 2.5% Cream] 1 applic TOPICAL BID 02/01/23 [History] Lidocaine/Maalox/Decadron/Benadryl Compound 1:1 5 ml PO 5XD PRN 02/01/23 [History] dronabinoL [Marinol] 5 mg PO HS 02/01/23 [History] Amoxic-Pot Clav 875-125Mg [Augmentin 875-125] 1 each PO Q12HR #14 tab 03/11/23 [Rx] Follow up Appointment(s)/Referral(s): Azael Bloom MD [Primary Care Provider] - 1-2 days Salbador Valerio MD [STAFF PHYSICIAN] - 1 Week Clary Castillo MD [STAFF PHYSICIAN] - 1 Week Patient Instructions/Handouts: Pneumonia (DC)
[2023-03-11 13:58] LABS: Howell-Jolly Bodies Present; Poikilocytosis (M) Present
[2023-03-11 13:59] LABS: Large Platelets Present
[2023-03-11] MEDS ORDERED: AMOXIC-POT CLAV 875-125MG 1 EACH TAB PO SCH (21:00)
== END 2023-03-11 14:17 | disposition home or self-care (01) | DRG 193 ==
LOC: EC 12:02 → 5NMEDONC 12:44 → 4SSUR 19:31
PROVIDERS: ADMIT Hospitalist; ATTEND Hospitalist
DX: J18.9 Pneumonia, unspecified organism (principal); J96.01 Acute respiratory failure with hypoxia; J91.0 Malignant pleural effusion; E44.0 Moderate protein-calorie malnutrition; D84.9 Immunodeficiency, unspecified; C34.90 Malignant neoplasm of unspecified part of unspecified bronchus or lung; J38.01 Paralysis of vocal cords and larynx, unilateral; K21.9 Gastro-esophageal reflux disease without esophagitis; I48.0 Paroxysmal atrial fibrillation; I25.10 Atherosclerotic heart disease of native coronary artery without angina pectoris; I10 Essential (primary) hypertension; G47.00 Insomnia, unspecified; F41.9 Anxiety disorder, unspecified; E78.5 Hyperlipidemia, unspecified; E16.2 Hypoglycemia, unspecified; E03.9 Hypothyroidism, unspecified; D69.6 Thrombocytopenia, unspecified; D64.9 Anemia, unspecified; Z79.82 Long term (current) use of aspirin; Z79.890 Hormone replacement therapy; Z79.899 Other long term (current) drug therapy; Z85.118 Personal history of other malignant neoplasm of bronchus and lung; Z85.71 Personal history of Hodgkin lymphoma; Z87.19 Personal history of other diseases of the digestive system; Z92.21 Personal history of antineoplastic chemotherapy; Z92.3 Personal history of irradiation; Z95.5 Presence of coronary angioplasty implant and graft; Z68.20 Body mass index [BMI] 20.0-20.9, adult
CPT/HCPCS: 71046; 76604; 80053; 84145; 85025; 87040; 87070; 87205; 87449; 93005; 94640; 94760; 96365; 96366; 96367; 99285

== ENCOUNTER 2023-03-13 11:43 | Inpatient (IN) | payer BC ==
[2023-03-13] MEDS ORDERED: SODIUM CHLORIDE 0.9% 1,000 ML IV STA (11:44)
[2023-03-13 12:25] LABS: Anisocytosis Slight; HCT 33.8 % (39.0-53.0); HGB 10.2 gm/dL (13.0-17.5); Hypochromasia Marked; MCH 31.8 pg (25.0-35.0); MCHC 30.3 g/dL (31.0-37.0); Macrocytosis Marked; Mean Platelet Volume 12.1; RBC 3.22 m/uL (4.30-5.90); RDW 19.7 % (11.5-15.5)
[2023-03-13] MEDS ORDERED: PIPERACILLIN-TAZOBACTAM 3.375 GM in SODIUM CHLORIDE 0.9% 100 ML IVPB STA (12:25)
[2023-03-13] MEDS ORDERED: metroNIDAZOLE-NS PMX 500 MG in SALINE 1 100ML.BAG IVPB STA (12:26)
[2023-03-13] MEDS ORDERED: AZITHROMYCIN 500 MG in SODIUM CHLORIDE 0.9% 250 ML IVPB STA (12:26)
[2023-03-13 12:29] LABS: Potassium 5.7 mmol/L (3.5-5.1)
[2023-03-13 12:30] LABS: ALT 134 U/L (4-49); AST 380 U/L (17-59); African American GFR (CKD) 88 (>60 ml/min/1.73 sqM); Albumin 1.9 g/dL (3.5-5.0); Alkaline Phosphatase 263 U/L (38-126); Anion Gap 11 mmol/L; Blood Urea Nitrogen 9 mg/dL (9-20); Calcium 7.6 mg/dL (8.4-10.2); Carbon Dioxide 17 mmol/L (22-30); Chloride 108 mmol/L (98-107); Glucose 109 mg/dL (74-99); Magnesium 1.9 mg/dL (1.6-2.3); Non-African American GFR(CKD) 76 (>60 ml/min/1.73 sqM); Sodium 136 mmol/L (137-145); Total Bilirubin 0.5 mg/dL (0.2-1.3); Total Protein 3.8 g/dL (6.3-8.2)
[2023-03-13] MEDS ORDERED: NOREPINEPHRINE 4 MG in SODIUM CHLORIDE 0.9% 250 ML IV SCH (12:30)
--- NOTE | 2023-03-13 12:31 | XR ---
EXAMINATION TYPE: XR chest 1V portable DATE OF EXAM: 03/13/2023 COMPARISON: 03/09/2023 HISTORY: Chest pain TECHNIQUE: Single frontal view of the chest is obtained. FINDINGS: ET tube 6.4 cm above bethany and NG tube seen coursing in the abdomen likely within the gas tric antrum. There is complete opacification of the visualized portion of left hemithorax. There is a new large area of consolidation involving the medial margin of the right upper lobe. Postsurgical ch anges are seen. Ipratropium and degenerative change of the spine. Hyperexpansion suggest underlying C OPD. IMPRESSION: 1. ET and NG tubes appear in good position. 2. There is complete opacification of the left hemithorax with new large areas of consolidation invol ving the right upper lobe correlate for pneumonia.
[2023-03-13 12:34] LABS: INR 1.2 (<1.2); Partial Thromboplastin Time 41.1 sec (22.0-30.0)
--- NOTE | 2023-03-13 12:52 | ED ---
General Adult HPI - General Chief complaint: Cardiac Arrest/CPR Stated complaint: AMS Time Seen by Provider: 03/13/23 11:43 Source: patient, EMS, RN notes reviewed, old records reviewed Mode of arrival: EMS Limitations: no limitations - History of Present Illness Initial comments: This a 62-year-old male who presents emergency Department with a past medical history significant for metastatic lung cancer stage IV. Patient was last in the hospitalThis is my normal physical exam. This is a test of creating a macro. And he had a completely opacified left lung with pneumonia. Patient was sent home on March 11 according to family today the patient was having difficulty breathing about 9:00 he became unresponsive at 9:15 at which point in time they did CPR for about 15 minutes patient also vomited. EMS arrived 15 minutes later and noticed the patient was asystole and they started CPR and following ACS protocol. Patient got return of the pulses after 20 minutes of ACLS. Patient then was taken to EMS at which point in time he became asystolic again and they ran the code for another 10 minutes and got pulses back again. Patient was having blood pressure sustained throughout the ride into the hospital for 45 minutes with push dose epi. Patient arrived at the systolic blood pressure 55. Patient had been intubated in the field. - Related Data Home Medications Medication Instructions Recorded Confirmed Aspirin [Adult Low Dose Aspirin EC] 81 mg PO DAILY 01/11/22 03/13/23 OLANZapine [ZyPREXA] 10 mg PO HS 02/16/22 03/13/23 Omeprazole [PriLOSEC] 40 mg PO DAILY 02/16/22 03/13/23 Rosuvastatin Calcium [Crestor] 40 mg PO HS 02/16/22 03/13/23 Folic Acid 1 mg PO DAILY 04/07/22 03/13/23 clonazePAM [KlonoPIN] 1 mg PO DAILY PRN 04/07/22 03/13/23 Ubidecarenone [Co Q-10] 200 mg PO DAILY 04/10/22 03/13/23 Isosorbide Mononitrate ER [Imdur] 60 mg PO DAILY 06/17/22 03/13/23 Levothyroxine Sodium [Synthroid] 100 mcg PO DAILY 10/17/22 03/13/23 Albuterol Inhaler [Ventolin Hfa 2 puff INHALATION RT-QID PRN 02/01/23 03/13/23 Inhaler] Albuterol Nebulized [Ventolin 2.5 mg INHALATION RT-TID 02/01/23 03/13/23 Nebulized] Hydrocortisone Cream 1 applic TOPICAL BID 02/01/23 03/13/23 [Hydrocortisone 2.5% Cream] Lidocaine/Maalox/Decadron/Benadryl 5 ml PO 5XD PRN 02/01/23 03/13/23 Compound 1:1 dronabinoL [Marinol] 5 mg PO HS 02/01/23 03/13/23 Previous Rx's Medication Instructions Recorded Amoxic-Pot Clav 875-125Mg 1 tab PO Q12HR #14 tab 03/11/23 [Augmentin 875-125] Metoprolol Tartrate [Lopressor] 50 mg PO BID #60 tab 03/11/23 Allergies Allergy/AdvReac Type Severity Reaction Status Date / Time No Known Allergies Allergy Verified 03/13/23 11:57 Review of Systems ROS Statement: Those systems with pertinent positive or pertinent negative responses have been documented in the HPI. ROS Other: All systems not noted in ROS Statement are negative. Past Medical History Past Medical History: Coronary Artery Disease (CAD), Cancer, GERD/Reflux, Hyperlipidemia, Hypertension Additional Past Medical History / Comment(s): Stage IV adenocarcinoma, currently on a combination of Taxotere and Cyramza. Seen by Dr. Valerio. 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", 02/17/22, bronchoscopy, chest tube, two cardiac stents, thoracentesis, left pleurex catheter Past Anesthesia/Blood Transfusion Reactions: No Reported Reaction Date of Last Stent Placement:: Unknown Past Psychological History: No Psychological Hx Reported Smoking Status: Never smoker Past Alcohol Use History: Rare Past Drug Use History: None Reported - Past Family History Mother Family Medical History: No Reported History Father Family Medical History: Chest Pain / Angina General Exam - General Exam Comments Initial Comments: GENERAL: Patient is well-developed and well-nourished. Patient is unresponsive and on the vent. EYES: The sclera were anicteric and conjunctiva were pink and moist. PULMONARY: Poor breath sounds on the left CARDIOVASCULAR: There is a regular rate and rhythm without any murmurs gallops or rubs. Pulses are faint ABDOMEN: Soft and nontender with normal bowel sounds. SKIN: Skin is clear with no lesions or rashes and otherwise unremarkable. NEUROLOGIC: Patient is unresponsive and he is not fighting the vent at all MUSCULOSKELETAL: Patient is not moving any of his extremities LYMPHATICS: No significant lymphadenopathy is noted PSYCHIATRIC: Unable to evaluated this time Limitations: no limitations Course Vital Signs 03/13/23 03/13/23 03/13/23 11:51 11:53 11:54 Pulse Rate 67 Respiratory 18 Rate Blood Pressure 65/50 O2 Sat by Pulse 99 Oximetry Fraction of 100 100 Inspired Oxygen (FIO2) 03/13/23 03/13/23 03/13/23 12:50 13:00 13:09 Pulse Rate 68 68 66 Respiratory 17 14 22 Rate Blood Pressure 78/51 79/56 90/50 O2 Sat by Pulse 94 L 97 90 L Oximetry Fraction of Inspired Oxygen (FIO2) 03/13/23 03/13/23 03/13/23 13:20 13:40 14:00 Pulse Rate 64 65 62 Respiratory 23 22 27 H Rate Blood Pressure 82/54 84/53 73/47 O2 Sat by Pulse 91 L 92 L 85 L Oximetry Fraction of Inspired Oxygen (FIO2) 03/13/23 03/13/23 14:20 14:40 Pulse Rate 63 66 Respiratory 20 14 Rate Blood Pressure 103/56 88/49 O2 Sat by Pulse 87 L 82 L Oximetry Fraction of Inspired Oxygen (FIO2) Procedures - Central Line Placement Right Femoral Consent Obtained: emergent situation Prep: mask, gown, gloves Central Line Prep: Chlorhexidine scrub Ultrasound Used for Placement: Yes Central Line Lumen Inserted: triple Bloods Obtained for Lab: No Central Line Position: good blood return, sutured in place with nylon Dressing Applied: Tegaderm Patient Tolerated Procedure: well Complications: none - Sepsis Sepsis Focused Exam #1 Time Sepsis Criteria Met: 14:05 Sepsis Focused Exam Date: 03/13/23 Sepsis Focused Exam Time: 15:05 Sepsis Focused Exam Complete: Yes Vital Signs & RN Notes Reviewed: Yes Capillary Refill: > 2 Seconds: Fingers Peripheral Pulses: Weak: Radial (L) Skin Color: Ashen Respiratory Exam: other (Decreased breath sounds on the left) Cardiovascular Exam: bradycardia Medical Decision Making - Medical Decision Making EKG was interpreted by myself EKG shows sinus tachycardia at 112 bpm CO interval 184 QRS is 106 QT interval 354 QTC is 420. Patient's EKG shows Q waves in V1 and V2 no obvious ST segment elevation in consecutive leads. Was pt. sent in by a medical professional or institution (ERIKA Payton, MEDICAL STENOGRAPHER, urgent ca re, hospital, or [place] health care facility...) When possible be specific @ -[No] Did you speak to anyone other than the patient for history (EMS, parent, family, police, friend...)? What history was obtained from this source @ -EMS gave all the history Did you review nursing and triage notes (agree or disagree)? Why? @ -[I reviewed and agree with nursing and triage notes] Were old charts reviewed (outside hosp., previous admission, EMS record, old EKG, old radiological studies, urgent care reports/EKG's, [place] health [facility] facility records)? Report findings @ -I reviewed prior charts prior lab work prior radiological studies Differential Diagnosis (chest pain, altered mental status, abdominal pain women, abdominal pain men, vaginal bleeding, weakness, fever, dyspnea, syncope, headache, dizziness, GI bleed, back pain, seizure, CVA, palpatations, mental health, musculoskeletal)? @ -Differential Chest Pain: Stable Angina, Unstable Angina, STEMI, NSTEMI Aortic Dissection, Pneumothorax, Musculoskeletal, Esophageal Spasm GERD, Cholecystitis, Pancreatitis, Zoster, this is not meant to be an all-inclusive list. EKG interpreted by me (3pts min.). @ -[As above] X-rays interpreted by me (1pt min.). @ -Chest x-ray she continues to show a left-sided opacification along and a right sided upper infiltrate consistent with aspiration which is new from before CT interpreted by me (1pt min.). @ -[None done] U/S interpreted by me (1pt. min.). @ -[None done] What testing was considered but not performed or refused? (CT, X-rays, U/S, labs)? Why? @ -[None] What meds were considered but not given or refused? Why? @ -[None] Did you discuss the management of the patient with other professionals (professionals i.e. Dr., PA, MEDICAL STENOGRAPHER, lab, RT, psych nurse, social worker masters, rivet catcher, teacher, correctional probation officer, skilled nursing case manager)? Give summary @ -Spoke with Dr. Moss. I spoke with Dr. Castillo. I spoke with Dr. Quiles who accepted the patient for admission Was smoking cessation discussed for >3mins.? @ -[No] Was critical care preformed (if so, how long)? @ -55 minutes Were there social determinants of health that impacted care today? How? (Homelessness, low income, unemployed, alcoholism, drug addiction, transportation, low edu. Level, literacy, decrease access to med. care, fpc, rehab)? @ -[No] Was there de-escalation of care discussed even if they declined (Discuss DNR or withdrawal of care, Hospice)? DNR status @ -[No] What co-morbidities impacted this encounter? (DM, HTN, Smoking, COPD, CAD, Cancer, CVA, ARF, Chemo, Hep., AIDS, mental health diagnosis, sleep apnea, morbid obesity)? @ -[None] Was patient admitted / discharged? Hospital course, mention meds given and route, prescriptions, significant lab abnormalities, going to OR and other pertinent info. @ -Patient came in after having been coded twice. Patient blood pressure was kept at a palpable level by doing push dose epi 10 times in route to the hospital which was a [address] Patient coded once at the scene about 20 minutes with EMS 15 minutes with family pulses were returned and patient was loaded to EMS at which point time he coded for another 10 minutes. Patient arrival his blood pressure systolically was 55 pulse was very faint in the femoral region. I started the patient on Levophed patient got an x-ray which showed an infiltrate which is new from 2 days ago and antibiotics were started at that time. Patient had a central line placed because Levophed and single dose was not able to elevate the pressure enough. Patient received a liter of fluid with EMS a liter of fluid in the emergency department and then placed on 130 mL an hour. Patient was diagnosis septic shock at 205. Undiagnosed new problem with uncertain prognosis? @ -[No] Drug Therapy requiring intensive monitoring for toxicity (Heparin, Nitro, Insulin, Cardizem)? @ -[No] Were any procedures done? @ -[No] Diagnosis/symptom? @ -Cardiac arrest Acute, or Chronic, or Acute on Chronic? @ -Acute Uncomplicated (without systemic symptoms) or Complicated (systemic symptoms)? @ -Complicated Side effects of treatment? @ -No Exacerbation, Progression, or Severe Exacerbation? @ -[No] Poses a threat to life or bodily function? How? (Chest pain, [place], [place], pneumonia, PE, COPD, DKA, ARF, appy, cholecystitis, CVA, Diverticulitis, Homicidal, Suicidal, threat to staff... and all critical care pts) @ -Yes cardiac arrest often leads to Diagnosis/symptom? @ -Aspiration pneumonia Acute, or Chronic, or Acute on Chronic? @ -Acute Uncomplicated (without systemic symptoms) or Complicated (systemic symptoms)? @ -Complicated Side effects of treatment? @ -[none] Exacerbation, Progression, or Severe Exacerbation] @ -[no] Poses a threat to life or bodily function? @ -This can lead to hypoxia sepsis and Diagnosis/symptom? @ -Septic shock Acute, or Chronic, or Acute on Chronic? @ -Acute Uncomplicated (without systemic symptoms) or Complicated (systemic symptoms)? @ -Complicated Side effects of treatment? @ -[none] Exacerbation, Progression, or Severe Exacerbation] @ -[no] Poses a threat to life or bodily function? @ -Yes this could lead to hypotension and end organ dysfunction - Lab Data Result diagrams: 03/13/23 11:54 03/13/23 11:54 Lab Results 03/13/23 03/13/23 03/13/23 Range/Units 11:54 11:54 11:54 WBC 24.8 H (3.8-10.6) k/uL RBC 3.22 L (4.30-5.90) m/uL Hgb 10.2 L (13.0-17.5) gm/dL Hct 33.8 L (39.0-53.0) % MCV 105.0 H D (80.0-100.0) fL MCH 31.8 (25.0-35.0) pg MCHC 30.3 L (31.0-37.0) g/dL RDW 19.7 H (11.5-15.5) % Plt Count 73 L (150-450) k/uL MPV 12.1 Neutrophils % (Manual) 80 % Band Neuts % (Manual) 3 % Lymphocytes % (Manual) 7 % Monocytes % (Manual) 7 % Eosinophils % (Manual) 1 % Metamyelocytes % 2 % Myelocytes % 1 % Neutrophils # (Manual) 20.50 H (1.3-7.7) k/uL Lymphocytes # (Manual) 1.74 (1.0-4.8) k/uL Monocytes # (Manual) 1.74 H (0-1.0) k/uL Eosinophils # (Manual) 0.25 (0-0.7) k/uL Metamyelocytes # (Man) 0.50 H (0) k/uL Myelocytes # (Manual) 0.25 H (0) k/uL Nucleated RBCs 3 H (0-0) /100 WBC Manual Slide Review Performed Large Platelets Present Hypochromasia Marked Anisocytosis Slight Macrocytosis Marked A [place] Bodies Present PT 12.0 (9.0-12.0) sec INR 1.2 H (<1.2) APTT 41.1 H (22.0-30.0) sec Sodium 136 L (137-145) mmol/L Potassium 5.7 H (3.5-5.1) mmol/L Chloride 108 H (98-107) mmol/L Carbon Dioxide 17 L (22-30) mmol/L Anion Gap 11 mmol/L BUN 9 (9-20) mg/dL Creatinine 1.04 (0.66-1.25) mg/dL Est GFR (CKD-EPI)AfAm 88 (>60 ml/min/1.73 sqM) Est GFR (CKD-EPI)NonAf 76 (>60 ml/min/1.73 sqM) Glucose 109 H (74-99) mg/dL Plasma Lactic Acid Edwin (0.7-2.0) mmol/L Calcium 7.6 L (8.4-10.2) mg/dL Magnesium 1.9 (1.6-2.3) mg/dL Total Bilirubin 0.5 (0.2-1.3) mg/dL AST 380 H (17-59) U/L ALT 134 H (4-49) U/L Alkaline Phosphatase 263 H (38-126) U/L Troponin I (0.000-0.034) ng/mL Total Protein 3.8 L (6.3-8.2) g/dL Albumin 1.9 L (3.5-5.0) g/dL 03/13/23 03/13/23 Range/Units 11:54 13:58 WBC (3.8-10.6) k/uL RBC (4.30-5.90) m/uL Hgb (13.0-17.5) gm/dL Hct (39.0-53.0) % MCV (80.0-100.0) fL MCH (25.0-35.0) pg MCHC (31.0-37.0) g/dL RDW (11.5-15.5) % Plt Count (150-450) k/uL MPV Neutrophils % (Manual) % Band Neuts % (Manual) % Lymphocytes % (Manual) % Monocytes % (Manual) % Eosinophils % (Manual) % Metamyelocytes % % Myelocytes % % Neutrophils # (Manual) (1.3-7.7) k/uL Lymphocytes # (Manual) (1.0-4.8) k/uL Monocytes # (Manual) (0-1.0) k/uL Eosinophils # (Manual) (0-0.7) k/uL Metamyelocytes # (Man) (0) k/uL Myelocytes # (Manual) (0) k/uL Nucleated RBCs (0-0) /100 WBC Manual Slide Review Large Platelets Hypochromasia Anisocytosis Macrocytosis [place] Bodies PT (9.0-12.0) sec INR (<1.2) APTT (22.0-30.0) sec Sodium (137-145) mmol/L Potassium (3.5-5.1) mmol/L Chloride (98-107) mmol/L Carbon Dioxide (22-30) mmol/L Anion Gap mmol/L BUN (9-20) mg/dL Creatinine (0.66-1.25) mg/dL Est GFR (CKD-EPI)AfAm (>60 ml/min/1.73 sqM) Est GFR (CKD-EPI)NonAf (>60 ml/min/1.73 sqM) Glucose (74-99) mg/dL Plasma Lactic Acid Edwin 4.7 H* (0.7-2.0) mmol/L Calcium (8.4-10.2) mg/dL Magnesium (1.6-2.3) mg/dL Total Bilirubin (0.2-1.3) mg/dL AST (17-59) U/L ALT (4-49) U/L Alkaline Phosphatase (38-126) U/L Troponin I 0.041 H* (0.000-0.034) ng/mL Total Protein (6.3-8.2) g/dL Albumin (3.5-5.0) g/dL Critical Care Time Critical Care Time: Yes Total Critical Care Time: 55 Disposition Clinical Impression: Cardiac arrest, Aspiration pneumonia, Septic shock Disposition: ADMITTED IP TO THIS [facility] Referrals: Azael Bloom MD [Primary Care Provider] - 1-2 days Time of Disposition: 15:14
[2023-03-13 13:30] LABS: Band Neutrophils % 3 %; Metamyelocytes % 2 %; Myelocytes % 1 %; Neutrophils % (M) 80 %; Nucleated Red Blood Cells 3 /100 WBC (0-0); Total Cells Counted 200
[2023-03-13 13:31] LABS: Eosinophils # (M) 0.25 k/uL (0-0.7); Lymphocytes # (M) 1.74 k/uL (1.0-4.8); Monocytes # (M) 1.74 k/uL (0-1.0); Myelocytes # (M) 0.25 k/uL (0); WBC 24.8 k/uL (3.8-10.6)
[2023-03-13 13:36] LABS: Howell-Jolly Bodies Present
[2023-03-13 13:37] LABS: Large Platelets Present; Platelet Count 73 k/uL (150-450)
[2023-03-13] MEDS ORDERED: NOREPINEPHRINE 32 MG in SODIUM CHLORIDE 0.9% 218 ML IV ONE (13:37)
--- NOTE | 2023-03-13 13:51 | P.CRDCN ---
History of Present Illness Consult date: 03/13/23 History of present illness: History of Present Illness: The patient is a 62-year-old male with a known history of stage IV lung cancer metastatic, history of CABG, paroxysmal atrial fibrillation who was recently discharged from the hospital. Apparently became unresponsive at home had CPR and vomited and had recurrent episodes of asystole requiring recurrent CPR and I V epinephrine. He is intubated, hypotensive, and in sinus mechanism, he is intubated and unresponsive on no sedation on the Levophed. He had an echocardiogram in April 2022 that showed a normal systolic function with mild aortic stenosis. His chest x-ray showed chronic opacification of the left lung with a consolidation on the right side. His EKG showed sinus mechanism with anteroseptal myocardial infarction appears to be old with nonspecific ST-T wave changes. There is no documented ventricular tachycardia. His lab data showed WBC of 24.8 thousand, hemoglobin 10.2. His troponin 0.041 Medications: Lopressor 50 mg twice a day, Imdur 60 mg daily, aspirin, Ventolin, Synthroid, Crestor 40 mg daily, Klonopin Review of Systems: Could not be obtained, the patient is intubated Physical Examination: 62-year-old male, intubated appears to be chronically ill ,Blood pressure 50, Heart rate 70 Head: Normocephalic. Eyes: Sclerae nonicteric. Neck: Good carotid upstroke, no bruit, no jugular venous distention. Lungs: Decreased air exchange on the left side Heart: Regular rate and rhythm, S1-S2, no S3, no rub. Systolic murmur. Abdomen: Soft nontender, positive bowel sounds no organomegaly. Extremities: No edema, intact distal pulses. Labs: Hemoglobin 10.2, potassium 5.7, BUN 9, creatinine 1.04. AST 380, ALT 134 EKG: Sinus mechanism with evidence to suggest anteroseptal myocardial infarction and nonspecific ST-T wave changes Impression: 1. Cardiac arrest with asystole, no clear evidence for acute ischemic event most likely related to his primary malignancy 2. Stage IV lung cancer 3. History of CAD status post CABG 4. Paroxysmal atrial fibrillation, remains in sinus mechanism 5. History of hyperlipidemia Plan: 1. Obtain an echocardiogram with Doppler 2. And pulmonary consultations 3. Prognosis is very poor 4. Patient is not a candidate for aggressive cardiac evaluation 5. Thank you for this consult we will follow with you Past Medical History Past Medical History: Coronary Artery Disease (CAD), Cancer, GERD/Reflux, Hyp erlipidemia, Hypertension Additional Past Medical History / Comment(s): Stage IV adenocarcinoma, currently on a combination of Taxotere and Cyramza. Seen by Dr. Valerio. 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", 02/17/22, bronchoscopy, chest tube, two cardiac stents, thoracentesis, left pleurex catheter Past Anesthesia/Blood Transfusion Reactions: No Reported Reaction Date of Last Stent Placement:: Unknown Past Psychological History: No Psychological Hx Reported Smoking Status: Never smoker Past Alcohol Use History: Rare Past Drug Use History: None Reported - Past Family History Mother Family Medical History: No Reported History Father Family Medical History: Chest Pain / Angina Medications and Allergies Home Medications Medication Instructions Recorded Confirmed Type Aspirin [Adult Low Dose Aspirin EC] 81 mg PO DAILY 01/11/22 03/13/23 History OLANZapine [ZyPREXA] 10 mg PO HS 02/16/22 03/13/23 History Omeprazole [PriLOSEC] 40 mg PO DAILY 02/16/22 03/13/23 History Rosuvastatin Calcium [Crestor] 40 mg PO HS 02/16/22 03/13/23 History Folic Acid 1 mg PO DAILY 04/07/22 03/13/23 History clonazePAM [KlonoPIN] 1 mg PO DAILY PRN 04/07/22 03/13/23 History Ubidecarenone [Co Q-10] 200 mg PO DAILY 04/10/22 03/13/23 History Isosorbide Mononitrate ER [Imdur] 60 mg PO DAILY 06/17/22 03/13/23 History Levothyroxine Sodium [Synthroid] 100 mcg PO DAILY 10/17/22 03/13/23 History Albuterol Inhaler [Ventolin Hfa 2 puff INHALATION RT-QID PRN 02/01/23 03/13/23 History Inhaler] Albuterol Nebulized [Ventolin 2.5 mg INHALATION RT-TID 02/01/23 03/13/23 History Nebulized] Hydrocortisone Cream 1 applic TOPICAL BID 02/01/23 03/13/23 History [Hydrocortisone 2.5% Cream] Lidocaine/Maalox/Decadron/Benadryl 5 ml PO 5XD PRN 02/01/23 03/13/23 History Compound 1:1 dronabinoL [Marinol] 5 mg PO HS 02/01/23 03/13/23 History Amoxic-Pot Clav 875-125Mg 1 tab PO Q12HR #14 tab 03/11/23 03/13/23 Rx [Augmentin 875-125] Metoprolol Tartrate [Lopressor] 50 mg PO BID #60 tab 03/11/23 03/13/23 Rx Allergies Allergy/AdvReac Type Severity Reaction Status Date / Time No Known Allergies Allergy Verified 03/13/23 11:57 Physical Exam Vitals: Vital Signs Pulse Resp BP Pulse Ox FiO2 03/13/23 13:09 66 22 90/50 90 L 03/13/23 11:54 100 03/13/23 11:53 100 03/13/23 11:51 67 18 65/50 99 Intake and Output 03/12/23 03/13/23 03/13/23 22:59 06:59 14:59 Intake Total 0.799 Output Total 10 Balance -9.201 Intake: Intake, IV Titration 0.799 Amount Norepinephrine 4 mg In 0.799 Sodium Chloride 0.9% 250 ml @ 0.03 MCG/KG/MIN 9. 591 mls/hr IV .Q24H [facility] Rx#:[id number] Output: Urine 10 Uretheral (Schneider) 10 Other: Weight 83.915 kg Results 03/13/23 11:54 03/13/23 11:54 Cardiac Enzymes 03/13/23 03/13/23 Range/Units 11:54 11:54 AST 380 H (17-59) U/L Troponin I 0.041 H* (0.000-0.034) ng/mL Coagulation 03/13/23 Range/Units 11:54 PT 12.0 (9.0-12.0) sec APTT 41.1 H (22.0-30.0) sec CBC 03/13/23 Range/Units 11:54 WBC 24.8 H (3.8-10.6) k/uL RBC 3.22 L (4.30-5.90) m/uL Hgb 10.2 L (13.0-17.5) gm/dL Hct 33.8 L (39.0-53.0) % Plt Count 73 L (150-450) k/uL Comprehensive Metabolic Panel 03/13/23 Range/Units 11:54 Sodium 136 L (137-145) mmol/L Potassium 5.7 H (3.5-5.1) mmol/L Chloride 108 H (98-107) mmol/L Carbon Dioxide 17 L (22-30) mmol/L BUN 9 (9-20) mg/dL Creatinine 1.04 (0.66-1.25) mg/dL Glucose 109 H (74-99) mg/dL Calcium 7.6 L (8.4-10.2) mg/dL AST 380 H (17-59) U/L ALT 134 H (4-49) U/L Alkaline Phosphatase 263 H (38-126) U/L Total Protein 3.8 L (6.3-8.2) g/dL Albumin 1.9 L (3.5-5.0) g/dL Current Medications Generic Name Dose Route Start Last Admin Trade Name Freq PRN Reason Stop Dose Admin Norepinephrine Bitartrate 4 mg 254 mls @ 9.591 mls/hr 03/13/23 12:30 03/13/23 12:20 / Sodium Chloride IV 0.2 mcg/kg/min .Q24H REBA 63.943 mls/hr Titration Protocol 0.03 MCG/KG/MIN Metronidazole 500 mg/ IV 100 mls @ 100 mls/hr 03/13/23 16:00 Solution IVPB Q8HR REBA Protocol Norepinephrine Bitartrate 32 250 mls @ 1.18 mls/hr 03/13/23 13:37 mg/ Sodium Chloride IV 03/14/23 13:36 .Q24H ONE Protocol 0.03 MCG/KG/MIN Intake and Output 03/12/23 03/13/23 03/13/23 22:59 06:59 14:59 Intake Total 0.799 Output Total 10 Balance -9.201 Intake: Intake, IV Titration 0.799 Amount Norepinephrine 4 mg In 0.799 Sodium Chloride 0.9% 250 ml @ 0.03 MCG/KG/MIN 9. 591 mls/hr IV .Q24H [facility] Rx#:[id number] Output: Urine 10 Uretheral (Schneider) 10 Other: Weight 83.915 kg Patient Weight 03/14/23 06:59 Weight 83.915 kg 03/13/23 11:54 03/13/23 11:54
[2023-03-13] MEDS ORDERED: SODIUM CHLORIDE 0.9% 1,000 ML IV SCH (14:45)
--- NOTE | 2023-03-13 15:03 | P.CNPUL ---
History of Present Illness Consult date: 03/13/23 Chief complaint: Cardiopulmonary arrest History of present illness: This a 62-year-old male who presents emergency Department with a past medical history significant for metastatic lung cancer stage IV. Patient was sent home on March 11 according to family today the patient was having difficulty breathing about 9:00 he became unresponsive at 9:15 at which point in time they did CPR for about 15 minutes patient also vomited. EMS arrived 15 minutes later and noticed the patient was asystole and they started CPR and following ACS protocol. Patient got return of the pulses after 20 minutes of ACLS. Patient then was taken to EMS at which point in time he became asystolic again and they ran the code for another 10 minutes and got pulses back again. Patient was having blood pressure sustained throughout the ride into the hospital for 45 minutes with push dose epi. Patient arrived at the systolic blood pressure 55. At this point in time, the patient is on high doses of pressors and norepinephrine is is running at 0.21 mcg/kg/m. The patient is intubated on a mechanical ventilator. He is on assist-control mode, rate of 18, tidal volume of 400, FiO2 of 100% and a PEEP of 5. He does have some bloody respiratory secretions that are being suctioned out from his oral tracheal tube. Chest x- ray showed ET tube and NG tube being in the locations. There is complete opacification of the left and the thorax with a new area of consolidation involving the right upper lobe. Noted the patient has aspirated according to the daughter. His cardiac rhythm is sinus. He has received a total of 2 L of normal saline. The initial lactic acid level was at 4.7. Rest of the blood work shows a serum bicarb of 17, potassium level of 5.7, sodium level of 136, AST of 380, ALP of 134, alkaline phosphatase of 263, troponins are 0.04 and the patient's WBC count is at 24 with a hemoglobin of 10.2 and a platelet count of 73. He was discharged from the hospital after being treated for shortness of breath. Note that the patient is a very weak cough and he has been unable to expectorate effectively on earlier evaluations. He was discharged home on a course of Augmentin to be followed up on outpatient basis. His other comorbid conditions include metastatic adenocarcinoma of the lung, previous history of a malignant pleural effusion treated with Pleurx catheter and ultimately the catheter was removed as a follow-up CAT scan of the chest did not show significant fluid decannulation the left lung. He has hypertension, hyperlipidemia, hypothyroidism, coronary artery disease with previous bypass surgery and previous history of left vocal cord paralysis . He also has a previous history of lymphoma is very remission. Overall, he has been doing poorly, losing weight and looks extremely emancipated, and cachectic. Family wanted a full code and full medical support including intubation, mechanical ventilation and CPR if needed.Recent PET scan in November of this year shows disease progression with increased metabolic activity within the left medial left upper lobe pleura, osseous metastatic lesions, adrenal glands left greater than right, and new abdominal and axillary lymph nodes with increased FDG activity. Patient was switched to a combination of Taxotere and Cyramza. He has had a total of 3 rounds, with his most recent treatment on January 20. He has also underwent palliative radiation due to some obstructive changes. Review of Systems ROS unobtainable: due to endotracheal tube Past Medical History Past Medical History: Coronary Artery Disease (CAD), Cancer, GERD/Reflux, Hyperlipidemia, Hypertension Additional Past Medical History / Comment(s): Stage IV adenocarcinoma, currently on a combination of Taxotere and Cyramza. Seen by Dr. Valerio. 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", 02/17/22, bronchoscopy, chest tube, two cardiac stents, thoracentesis, left pleurex catheter Past Anesthesia/Blood Transfusion Reactions: No Reported Reaction Date of Last Stent Placement:: Unknown Past Psychological History: No Psychological Hx Reported Smoking Status: Never smoker Past Alcohol Use History: Rare Past Drug Use History: None Reported - Past Family History Mother Family Medical History: No Reported History Father Family Medical History: Chest Pain / Angina Medications and Allergies Home Medications Medication Instructions Recorded Confirmed Type Aspirin [Adult Low Dose Aspirin EC] 81 mg PO DAILY 01/11/22 03/13/23 History OLANZapine [ZyPREXA] 10 mg PO HS 02/16/22 03/13/23 History Omeprazole [PriLOSEC] 40 mg PO DAILY 02/16/22 03/13/23 History Rosuvastatin Calcium [Crestor] 40 mg PO HS 02/16/22 03/13/23 History Folic Acid 1 mg PO DAILY 04/07/22 03/13/23 History clonazePAM [KlonoPIN] 1 mg PO DAILY PRN 04/07/22 03/13/23 History Ubidecarenone [Co Q-10] 200 mg PO DAILY 04/10/22 03/13/23 History Isosorbide Mononitrate ER [Imdur] 60 mg PO DAILY 06/17/22 03/13/23 History Levothyroxine Sodium [Synthroid] 100 mcg PO DAILY 10/17/22 03/13/23 History Albuterol Inhaler [Ventolin Hfa 2 puff INHALATION RT-QID PRN 02/01/23 03/13/23 History Inhaler] Albuterol Nebulized [Ventolin 2.5 mg INHALATION RT-TID 02/01/23 03/13/23 History Nebulized] Hydrocortisone Cream 1 applic TOPICAL BID 02/01/23 03/13/23 History [Hydrocortisone 2.5% Cream] Lidocaine/Maalox/Decadron/Benadryl 5 ml PO 5XD PRN 02/01/23 03/13/23 History Compound 1:1 dronabinoL [Marinol] 5 mg PO HS 02/01/23 03/13/23 History Amoxic-Pot Clav 875-125Mg 1 tab PO Q12HR #14 tab 03/11/23 03/13/23 Rx [Augmentin 875-125] Metoprolol Tartrate [Lopressor] 50 mg PO BID #60 tab 03/11/23 03/13/23 Rx Allergies Allergy/AdvReac Type Severity Reaction Status Date / Time No Known Allergies Allergy Verified 03/13/23 11:57 Physical Exam Vitals: Vital Signs Pulse Resp BP Pulse Ox FiO2 03/13/23 14:40 66 14 88/49 82 L 03/13/23 14:20 63 20 103/56 87 L 03/13/23 14:00 62 27 H 73/47 85 L 03/13/23 13:40 65 22 84/53 92 L 03/13/23 13:20 64 23 82/54 91 L 03/13/23 13:09 66 22 90/50 90 L 03/13/23 13:00 68 14 79/56 97 03/13/23 12:50 68 17 78/51 94 L 03/13/23 11:54 100 03/13/23 11:53 100 03/13/23 11:51 67 18 65/50 99 Intake and Output 03/12/23 03/13/23 03/13/23 22:59 06:59 14:59 Intake Total 106.552 Output Total 10 Balance 96.552 Intake: Intake, IV Titration 106.552 Amount Norepinephrine 32 mg In 4.510 Sodium Chloride 0.9% 218 ml @ 0.03 MCG/KG/MIN 1.18 mls/hr IV .Q24H ONE Rx#: [id number] Norepinephrine 4 mg In 102.042 Sodium Chloride 0.9% 250 ml @ 0.03 MCG/KG/MIN 9. 591 mls/hr IV .Q24H REBA Rx#:[id number] Output: Urine 10 Uretheral (Schneider) 10 Other: Weight 83.915 kg GENERAL EXAM: frail 62-year-old male , comfortable in no apparent distress. The patient is currently not receiving any sedation. Intubated on a mechanical ventilator. Cachectic and MMSE dated HEAD: Normocephalic and atraumatic, orogastric and orotracheal tube are both in place EYES: Normal reaction of pupils, equal size. NOSE: Clear with pink turbinates. THROAT: No erythema or exudates. NECK: No masses, no JVD. CHEST: No chest wall deformity. LUNGS: Diminished left sided lung sounds with no crackles, wheeze, rhonchi or dullness. There are scattered rhonchi throughout the lung field bilaterally. Breast on the left arm markedly diminished. The patient also has a Mediport over the right anterior chest area. CVS: S1 and S2 normal with a loud harsh systolic murmur grade IV, regular rhythm. No other extra heart sounds ABDOMEN: No hepatosplenomegaly, active bowel sounds, no guarding or rigidity. SPINE: No scoliosis or deformity SKIN: No rashes, there is a skin abrasion at the site of the CPR over the anter ior chest area. CENTRAL NERVOUS SYSTEM: Pupils are round 3 mm in size, nonreactive to light, no blurring. No corneals. He does have a breathing to flex. Motor and sensory functions cannot be obtained. EXTREMITIES: There is no peripheral edema, clubbing, or cyanosis. Peripheral pulses are intact. Results - Laboratory Findings CBC and BMP: 03/13/23 11:54 03/13/23 11:54 PT/INR, D-dimer PT 12.0 sec (9.0-12.0) 03/13/23 11:54 INR 1.2 (<1.2) H 03/13/23 11:54 Abnormal lab findings: Abnormal Labs 03/13/23 03/13/23 03/13/23 11:54 11:54 11:54 WBC 24.8 H RBC 3.22 L Hgb 10.2 L Hct 33.8 L MCV 105.0 H D MCHC 30.3 L RDW 19.7 H Plt Count 73 L Neutrophils # (Manual) 20.50 H Monocytes # (Manual) 1.74 H Metamyelocytes # (Man) 0.50 H Myelocytes # (Manual) 0.25 H Nucleated RBCs 3 H Macrocytosis Marked A INR 1.2 H APTT 41.1 H Sodium 136 L Potassium 5.7 H Chloride 108 H Carbon Dioxide 17 L Glucose 109 H Plasma Lactic Acid Edwin Calcium 7.6 L AST 380 H ALT 134 H Alkaline Phosphatase 263 H Troponin I Total Protein 3.8 L Albumin 1.9 L 03/13/23 03/13/23 11:54 13:58 WBC RBC Hgb Hct MCV MCHC RDW Plt Count Neutrophils # (Manual) Monocytes # (Manual) Metamyelocytes # (Man) Myelocytes # (Manual) Nucleated RBCs Macrocytosis INR APTT Sodium Potassium Chloride Carbon Dioxide Glucose Plasma Lactic Acid Edwin 4.7 H* Calcium AST ALT Alkaline Phosphatase Troponin I 0.041 H* Total Protein Albumin - Diagnostic Findings Chest x-ray: image reviewed Assessment and Plan Plan: Acute cardiac pulmonary arrest with a prolonged downtime. It is very much like and the patient aspirated and subsequently went into hypoxic and cardiac arrest. Currently intubated on a mechanical ventilator Acute shock, possibly a combination of cardiogenic/septic shock post cardiac arrest. Currently on high dose of pressors and norepinephrine is O- 0.21 mcg/kg/m. Metabolic acidosis secondary to above Stage IV lung adenocarcinoma with disease progression shown on recent PET scan in November,. There was increased metabolic activity within the left medial left upper lobe pleura, osseous metastatic lesions, adrenal glands left greater than right, and new increased FDG activity within the abdominal and axillary lymph nodes. Patient has been switched to a combination of Taxotere and Cyramza. He has had a total of 3 rounds, with his most recent treatment on January 20. He is also been receiving palliative radiation due to some obstructive changes. The most recent CTA of the chest that was done on 02/01/2023 showed no evidence of any pulmonary embolism. There was consolidation of the left lower lobe/possible aspiration superimposed on October is lung cancer. A small left- sided pleural effusion is seen. There is some atelectatic changes in the right upper lobe and some left axillary lymphadenopathy, nonspecific. Leukocytosis, reactive versus infectious in nature, most recent sputum sample from 03/10/2023 showed Lela albicans Hypertension Hyperlipidemia Hypothyroidism Coronary artery disease, status/post CABG History of recurrent malignant pleural effusions with multiple prior thoracentesis and Pleurx catheter that was recently removed due to being non- functioning History of vocal cord paralysis status post medialization laryngoplasty History of Hodgkin's lymphoma, in remission Abnormal LFTs post cardiac arrest, abdominal exam is soft Plan Admit the patient ICU Continue ventilator support Obtain a blood gas and do the necessary ventilator changes Avoid sedation for now unless needed to make it significantly with a mechanical ventilator Start the patient on empiric antibiotic coverage with IV Zosyn Start the patient on normal saline at the rate of 150 mL an hour Obtain a CAT brain, without contrast, CAT scan of the chest with contrast DuoNeb nebulized treatments [id number] IV Solu-Medrol Heparin subcu portably prophylaxis IV Protonix Repeat an echocardiogram to evaluate LV function May initiate enteral feeding the next 24 hours Monitor lactic acid level Condition is obviously critical, very poor prognosis based on his poor baseline performance status, comorbidities, declining health status and general followed by cardiac arrest. Arterial line will be inserted in the ICU Continue Synthroid at a dose of 100 g on a daily basis Continue aspirin Hold the rest of the oral medications that the patient has been taken on outpatient basis Critical care evaluation that was done in more than 30 minutes Time with Patient: Greater than 30
[2023-03-13] MEDS ORDERED: NALOXONE 0.4 MG/ML 1 ML VIAL IV PRN (15:15)
--- NOTE | 2023-03-13 15:19 | CT ---
EXAMINATION TYPE: CT brain wo con CT DLP: 1260.4 mGycm, Automated exposure control for dose reduction was used. DATE OF EXAM: 03/13/2023 3:09 PM COMPARISON: PET 11/04/2022 CLINICAL INDICATION:Male, 62 years old with history of unresponsive/cpr, Unresponsive. TECHNIQUE: Brain: Axial CT images of the brain were obtained with coronal and sagittal reformats created and rev iewed. Contrast used: None. Oral contrast used: None. FINDINGS: Brain: Extra-axial spaces: No abnormal extra-axial fluid collections. Ventricular system: Within normal limits Cerebral parenchyma: No acute intraparenchymal hemorrhage or mass effect. The bernabe-white junction is well differentiated. Cerebellum: Unremarkable. Mass effect: No evidence of midline shift. Intracranial vasculature: Atherosclerotic calcifications of the intracranial vessels. Soft tissues: Normal. Calvarium/osseous structures: No depressed skull fracture. Paranasal sinuses and mastoid air cells: Mild scattered paranasal sinus disease. Visualized orbits: Orbital contents are intact. IMPRESSION: No acute intracranial process.
[2023-03-13] MEDS ORDERED: SODIUM CHLORIDE 0.9% 2,000 ML IV ONE ×2 (15:24→16:38)
[2023-03-13 15:26] LABS: ABG Base Excess -12.7 mmol/L; ABG HCO3 19 mmol/L (21-25); ABG Oxygen Saturation 45.3 % (94-97); ABG TCO2 21 mmol/L (19-24); Allen Test Performed? Yes
[2023-03-13] MEDS ORDERED: VASOPRESSIN 60 UNIT in SODIUM CHLORIDE 0.9% 150 ML IV SCH (15:30)
[2023-03-13 15:33] LABS: ABG PCO2 80 mmHg (35-45); ABG PH 6.98 (7.35-7.45); ABG PO2 35 mmHg (83-108)
[2023-03-13] MEDS ORDERED: ATROPINE SULFATE 0.1 MG/ML 10ML SYRINGE ONE (15:50)
[2023-03-13] MEDS ORDERED: EPINEPHrine 10 ML SYRINGE (0.1 MG/ML) ONE (15:50)
[2023-03-13] MEDS ORDERED: CISATRACURIUM 200 MG in SODIUM CHLORIDE 0.9% 180 ML IV SCH (16:00)
[2023-03-13] MEDS ORDERED: metroNIDAZOLE-NS PMX 500 MG in SALINE 1 100ML.BAG IVPB SCH (16:00)
[2023-03-13] MEDS ORDERED: propofoL 100 ML IV ONE (16:23)
[2023-03-13] MEDS ORDERED: DEXTROSE 50% SYRINGE 50 ML IVP ONE (16:25)
[2023-03-13 16:26] LABS: Glucose,Whole Blood 45 mg/dL (70-110)
[2023-03-13] MEDS ORDERED: SODIUM BICARB 8.4% 50 ML SYR (1 MEQ/ML) IV STA ×2 (16:27→17:10)
[2023-03-13 16:41] LABS: Glucose,Whole Blood 202 mg/dL (70-110)
[2023-03-13 17:05] LABS: ABG Base Excess -12.2 mmol/L; ABG HCO3 19 mmol/L (21-25); ABG Oxygen Saturation 76.1 % (94-97); ABG TCO2 22 mmol/L (19-24)
[2023-03-13 17:08] LABS: ABG PCO2 83 mmHg (35-45); ABG PH 6.98 (7.35-7.45); ABG PO2 57 mmHg (83-108); Allen Test Performed? no
[2023-03-13 17:42] VITALS: TEMP 87.4
[2023-03-13 17:44] VITALS: BP 75/48
[2023-03-13] MEDS ORDERED: methylPREDNISolone SOD SUCCI 40 MG/ML 1 ML VIAL IV SCH (18:00)
[2023-03-13] MEDS ORDERED: MORPHINE SULFATE 4 MG/ML SYRINGE IVP STA (18:23)
[2023-03-13 19:10] VITALS: PULSE 0; RESP 0
--- NOTE | 2023-03-13 19:21 | P.PCN ---
Date of Procedure: 03/13/23 Preoperative Diagnosis: Shock, hypotension Postoperative Diagnosis: Shock, hypotension Procedure(s) Performed: Arterial line insertion, right radial Anesthesia: local Surgeon: Clary Castillo Estimated Blood Loss (ml): 0 Pathology: none sent Condition: critical Disposition: ICU Operative Findings: Indication: Hemodynamic monitoring. A time-out was completed verifying correct patient, procedure, site, positioning, and implant(s) or special equipment if applicable. Allens test was performed to ensure adequate perfusion. The patients left wrist was prepped and draped in sterile fashion. 1% Lidocaine was used to anesthetize the area. An 18G Arrow arterial line was introduced into the right radial artery. The catheter was threaded over the guide wire and the needle was removed with appropriate pulsatile blood return. Blood loss was minimal. The catheter was then sutured in place to the skin and a sterile dressing applied. Perfusion to the extremity distal to the point of catheter insertion was checked and found to be adequate. The patient tolerated the procedure well and there were no complications.
--- NOTE | 2023-03-13 19:26 | P.HPIM ---
History of Present Illness H&P Date: 03/13/23 Chief Complaint: Cardiac arrest Patient presented to ER following cardiac arrest. Admitted to the ICU. Patient was not seen by me. Patient was terminally extubated and . Past Medical History Past Medical History: Coronary Artery Disease (CAD), Cancer, GERD/Reflux, Hyperlipidemia, Hypertension Additional Past Medical History / Comment(s): Stage IV adenocarcinoma, currently on a combination of Taxotere and Cyramza. Seen by Dr. Valerio. 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", 02/17/22, bronchoscopy, chest tube, two cardiac stents, thoracentesis, left pleurex catheter Past Anesthesia/Blood Transfusion Reactions: No Reported Reaction Date of Last Stent Placement:: Unknown Past Psychological History: No Psychological Hx Reported Smoking Status: Never smoker Past Alcohol Use History: Rare Past Drug Use History: None Reported - Past Family History Mother Family Medical History: No Reported History Father Family Medical History: Chest Pain / Angina Medications and Allergies Home Medications Medication Instructions Recorded Confirmed Type Aspirin [Adult Low Dose Aspirin EC] 81 mg PO DAILY 01/11/22 03/13/23 History OLANZapine [ZyPREXA] 10 mg PO HS 02/16/22 03/13/23 History Omeprazole [PriLOSEC] 40 mg PO DAILY 02/16/22 03/13/23 History Rosuvastatin Calcium [Crestor] 40 mg PO HS 02/16/22 03/13/23 History Folic Acid 1 mg PO DAILY 04/07/22 03/13/23 History clonazePAM [KlonoPIN] 1 mg PO DAILY PRN 04/07/22 03/13/23 History Ubidecarenone [Co Q-10] 200 mg PO DAILY 04/10/22 03/13/23 History Isosorbide Mononitrate ER [Imdur] 60 mg PO DAILY 06/17/22 03/13/23 History Levothyroxine Sodium [Synthroid] 100 mcg PO DAILY 10/17/22 03/13/23 History Albuterol Inhaler [Ventolin Hfa 2 puff INHALATION RT-QID PRN 02/01/23 03/13/23 History Inhaler] Albuterol Nebulized [Ventolin 2.5 mg INHALATION RT-TID 02/01/23 03/13/23 History Nebulized] Hydrocortisone Cream 1 applic TOPICAL BID 02/01/23 03/13/23 History [Hydrocortisone 2.5% Cream] Lidocaine/Maalox/Decadron/Benadryl 5 ml PO 5XD PRN 02/01/23 03/13/23 History Compound 1:1 dronabinoL [Marinol] 5 mg PO HS 02/01/23 03/13/23 History Amoxic-Pot Clav 875-125Mg 1 tab PO Q12HR #14 tab 03/11/23 03/13/23 Rx [Augmentin 875-125] Metoprolol Tartrate [Lopressor] 50 mg PO BID #60 tab 03/11/23 03/13/23 Rx Allergies Allergy/AdvReac Type Severity Reaction Status Date / Time No Known Allergies Allergy Verified 03/13/23 11:57 Physical Exam Vitals: Vital Signs Temp Pulse Pulse Resp BP BP BP 03/13/23 18:50 0 L 0 L 03/13/23 18:40 30 L 0 L 03/13/23 18:30 58 L 03/13/23 18:20 78 03/13/23 18:10 83 03/13/23 18:00 80 32 H 03/13/23 17:50 84 35 H 03/13/23 17:40 82 32 H 75/48 03/13/23 17:39 03/13/23 17:30 83 32 H 03/13/23 17:15 87.4 F L 82 82 32 H 75/48 107/53 03/13/23 17:00 82 101/67 03/13/23 16:54 83 98/67 03/13/23 16:31 03/13/23 16:00 98 13 145/97 03/13/23 15:40 46 L 18 65/40 03/13/23 15:20 50 L 18 60/40 03/13/23 15:00 52 L 74/52 03/13/23 14:40 66 14 88/49 03/13/23 14:20 63 20 103/56 03/13/23 14:00 62 27 H 73/47 03/13/23 13:40 65 22 84/53 03/13/23 13:20 64 23 82/54 03/13/23 13:09 66 22 90/50 03/13/23 13:00 68 14 79/56 03/13/23 12:50 68 17 78/51 03/13/23 11:54 03/13/23 11:53 03/13/23 11:51 67 18 65/50 Pulse Ox FiO2 03/13/23 18:50 03/13/23 18:40 21 L 03/13/23 18:30 61 L 03/13/23 18:20 66 L 03/13/23 18:10 70 L 03/13/23 18:00 73 L 03/13/23 17:50 78 L 03/13/23 17:40 77 L 03/13/23 17:39 100 03/13/23 17:30 81 L 03/13/23 17:15 70 L 03/13/23 17:00 03/13/23 16:54 82 L 03/13/23 16:31 100 03/13/23 16:00 92 L 03/13/23 15:40 91 L 03/13/23 15:20 89 L 03/13/23 15:00 03/13/23 14:40 82 L 03/13/23 14:20 87 L 03/13/23 14:00 85 L 03/13/23 13:40 92 L 03/13/23 13:20 91 L 03/13/23 13:09 90 L 03/13/23 13:00 97 03/13/23 12:50 94 L 03/13/23 11:54 100 03/13/23 11:53 100 03/13/23 11:51 99 Intake and Output 03/13/23 03/13/23 03/13/23 06:59 14:59 22:59 Intake Total 106.552 73.129 Output Total 10 10 Balance 96.552 63.129 Intake: Intake, IV Titration 106.552 73.129 Amount Cisatracurium 200 mg In 15.776 Sodium Chloride 0.9% 180 ml @ 1 MCG/KG/MIN 5.035 mls/hr IV .Q24H [facility] Rx#: [id number] Norepinephrine 32 mg In 4.510 36.777 Sodium Chloride 0.9% 218 ml @ 0.03 MCG/KG/MIN 1.18 mls/hr IV .Q24H [facility] Rx#: [id number] Norepinephrine 4 mg In 102.042 Sodium Chloride 0.9% 250 ml @ 0.03 MCG/KG/MIN 9. 591 mls/hr IV .Q24H [facility] Rx#:[id number] Vasopressin 60 unit In 11.093 Sodium Chloride 0.9% 150 ml @ 0.03 UNITS/MIN 4.59 mls/hr IV .Q24H [facility] Rx#: [id number] propofoL 1,000 mg In 9.483 Empty Bag 1 bag @ 15 MCG/ KG/MIN 7.552 mls/hr IV . [id number] [facility] Rx#:[id number] Output: Urine 10 10 Uretheral (Schneider) 10 10 Other: Weight 83.915 kg ABP, PAP, CO, CI - Last 8 Hours Arterial Blood Pressure 7/7 Arterial Blood Pressure 12/12 Arterial Blood Pressure 45/30 Arterial Blood Pressure 59/38 Arterial Blood Pressure 85/48 Arterial Blood Pressure 66/41 Arterial Blood Pressure 103/52 Arterial Blood Pressure 108/53 Arterial Blood Pressure 127/57 Arterial Blood Pressure 99/51 Results CBC & Chem 7: 03/13/23 11:54 03/13/23 11:54 Labs: Abnormal Lab Results - Last 24 Hours (Table) 03/13/23 03/13/23 03/13/23 Range/Units 11:54 11:54 11:54 WBC 24.8 H (3.8-10.6) k/uL RBC 3.22 L (4.30-5.90) m/uL Hgb 10.2 L (13.0-17.5) gm/dL Hct 33.8 L (39.0-53.0) % MCV 105.0 H D (80.0-100.0) fL MCHC 30.3 L (31.0-37.0) g/dL RDW 19.7 H (11.5-15.5) % Plt Count 73 L (150-450) k/uL Neutrophils # (Manual) 20.50 H (1.3-7.7) k/uL Monocytes # (Manual) 1.74 H (0-1.0) k/uL Metamyelocytes # (Man) 0.50 H (0) k/uL Myelocytes # (Manual) 0.25 H (0) k/uL Nucleated RBCs 3 H (0-0) /100 WBC Macrocytosis Marked A INR 1.2 H (<1.2) APTT 41.1 H (22.0-30.0) sec ABG pH (7.35-7.45) ABG pCO2 (35-45) mmHg ABG pO2 (83-108) mmHg ABG HCO3 (21-25) mmol/L ABG O2 Saturation (94-97) % Sodium 136 L (137-145) mmol/L Potassium 5.7 H (3.5-5.1) mmol/L Chloride 108 H (98-107) mmol/L Carbon Dioxide 17 L (22-30) mmol/L Glucose 109 H (74-99) mg/dL POC Glucose (mg/dL) (70-110) mg/dL Plasma Lactic Acid Edwin (0.7-2.0) mmol/L Calcium 7.6 L (8.4-10.2) mg/dL AST 380 H (17-59) U/L ALT 134 H (4-49) U/L Alkaline Phosphatase 263 H (38-126) U/L Troponin I (0.000-0.034) ng/mL Total Protein 3.8 L (6.3-8.2) g/dL Albumin 1.9 L (3.5-5.0) g/dL 03/13/23 03/13/23 03/13/23 Range/Units 11:54 13:58 15:24 WBC (3.8-10.6) k/uL RBC (4.30-5.90) m/uL Hgb (13.0-17.5) gm/dL Hct (39.0-53.0) % MCV (80.0-100.0) fL MCHC (31.0-37.0) g/dL RDW (11.5-15.5) % Plt Count (150-450) k/uL Neutrophils # (Manual) (1.3-7.7) k/uL Monocytes # (Manual) (0-1.0) k/uL Metamyelocytes # (Man) (0) k/uL Myelocytes # (Manual) (0) k/uL Nucleated RBCs (0-0) /100 WBC Macrocytosis INR (<1.2) APTT (22.0-30.0) sec ABG pH 6.98 L* (7.35-7.45) ABG pCO2 80 H* (35-45) mmHg ABG pO2 35 L* (83-108) mmHg ABG HCO3 19 L (21-25) mmol/L ABG O2 Saturation 45.3 L (94-97) % Sodium (137-145) mmol/L Potassium (3.5-5.1) mmol/L Chloride (98-107) mmol/L Carbon Dioxide (22-30) mmol/L Glucose (74-99) mg/dL POC Glucose (mg/dL) (70-110) mg/dL Plasma Lactic Acid Edwin 4.7 H* (0.7-2.0) mmol/L Calcium (8.4-10.2) mg/dL AST (17-59) U/L ALT (4-49) U/L Alkaline Phosphatase (38-126) U/L Troponin I 0.041 H* (0.000-0.034) ng/mL Total Protein (6.3-8.2) g/dL Albumin (3.5-5.0) g/dL 03/13/23 03/13/23 03/13/23 Range/Units 16:25 16:40 16:54 WBC (3.8-10.6) k/uL RBC (4.30-5.90) m/uL Hgb (13.0-17.5) gm/dL Hct (39.0-53.0) % MCV (80.0-100.0) fL MCHC (31.0-37.0) g/dL RDW (11.5-15.5) % Plt Count (150-450) k/uL Neutrophils # (Manual) (1.3-7.7) k/uL Monocytes # (Manual) (0-1.0) k/uL Metamyelocytes # (Man) (0) k/uL Myelocytes # (Manual) (0) k/uL Nucleated RBCs (0-0) /100 WBC Macrocytosis INR (<1.2) APTT (22.0-30.0) sec ABG pH (7.35-7.45) ABG pCO2 (35-45) mmHg ABG pO2 (83-108) mmHg ABG HCO3 (21-25) mmol/L ABG O2 Saturation (94-97) % Sodium (137-145) mmol/L Potassium (3.5-5.1) mmol/L Chloride (98-107) mmol/L Carbon Dioxide (22-30) mmol/L Glucose (74-99) mg/dL POC Glucose (mg/dL) 45 L 202 H (70-110) mg/dL Plasma Lactic Acid Edwin 5.9 H* (0.7-2.0) mmol/L Calcium (8.4-10.2) mg/dL AST (17-59) U/L ALT (4-49) U/L Alkaline Phosphatase (38-126) U/L Troponin I (0.000-0.034) ng/mL Total Protein (6.3-8.2) g/dL Albumin (3.5-5.0) g/dL 03/13/23 Range/Units 17:03 WBC (3.8-10.6) k/uL RBC (4.30-5.90) m/uL Hgb (13.0-17.5) gm/dL Hct (39.0-53.0) % MCV (80.0-100.0) fL MCHC (31.0-37.0) g/dL RDW (11.5-15.5) % Plt Count (150-450) k/uL Neutrophils # (Manual) (1.3-7.7) k/uL Monocytes # (Manual) (0-1.0) k/uL Metamyelocytes # (Man) (0) k/uL Myelocytes # (Manual) (0) k/uL Nucleated RBCs (0-0) /100 WBC Macrocytosis INR (<1.2) APTT (22.0-30.0) sec ABG pH 6.98 L* (7.35-7.45) ABG pCO2 83 H* (35-45) mmHg ABG pO2 57 L* (83-108) mmHg ABG HCO3 19 L (21-25) mmol/L ABG O2 Saturation 76.1 L (94-97) % Sodium (137-145) mmol/L Potassium (3.5-5.1) mmol/L Chloride (98-107) mmol/L Carbon Dioxide (22-30) mmol/L Glucose (74-99) mg/dL POC Glucose (mg/dL) (70-110) mg/dL Plasma Lactic Acid Edwin (0.7-2.0) mmol/L Calcium (8.4-10.2) mg/dL AST (17-59) U/L ALT (4-49) U/L Alkaline Phosphatase (38-126) U/L Troponin I (0.000-0.034) ng/mL Total Protein (6.3-8.2) g/dL Albumin (3.5-5.0) g/dL
--- NOTE | 2023-03-13 19:28 | P.DS ---
Providers Date of admission: 03/13/23 15:15 Expected date of discharge: 03/13/23 () Attending physician: Michael Quiles Consults: 03/13/23 15:15 Consult Physician Stat Consulting Provider: Clary Castillo Consult Reason/Comments: Critical care management Do you want consulting provider notified?: Yes Consult Physician Urgent Consulting Provider: Tati Moss Consult Reason/Comments: Cardiac arrest Do you want consulting provider notified?: Yes Primary care physician: [facility] Course: Patient presented to ER with cardiac arrest. Intubated. Admitted to the ICU. Patient was not seen by me. Patient was terminally extubated. Patient . Family was present. Cause of : Adenocarcinoma of the lung. Plan - Discharge Summary New Discharge Prescriptions: No Action OLANZapine [ZyPREXA] 10 mg PO HS Folic Acid 1 mg PO DAILY clonazePAM [KlonoPIN] 1 mg PO DAILY PRN PRN Reason: Anxiety Ubidecarenone [Co Q-10] 200 mg PO DAILY Albuterol Nebulized [Ventolin Nebulized] 2.5 mg INHALATION RT-TID dronabinoL [Marinol] 5 mg PO HS Hydrocortisone Cream [Hydrocortisone 2.5% Cream] 1 applic TOPICAL BID Aspirin [Adult Low Dose Aspirin EC] 81 mg PO DAILY Omeprazole [PriLOSEC] 40 mg PO DAILY Rosuvastatin Calcium [Crestor] 40 mg PO HS Isosorbide Mononitrate ER [Imdur] 60 mg PO DAILY Levothyroxine Sodium [Synthroid] 100 mcg PO DAILY Albuterol Inhaler [Ventolin Hfa Inhaler] 2 puff INHALATION RT-QID PRN PRN Reason: Shortness Of Breath Lidocaine/Maalox/Decadron/Benadryl Compound 1:1 5 ml PO 5XD PRN PRN Reason: Pain Metoprolol Tartrate [Lopressor] 50 mg PO BID #60 tab Amoxic-Pot Clav 875-125Mg [Augmentin 875-125] 1 tab PO Q12HR #14 tab Discharge Medication List Aspirin [Adult Low Dose Aspirin EC] 81 mg PO DAILY 01/11/22 [History] OLANZapine [ZyPREXA] 10 mg PO HS 02/16/22 [History] Omeprazole [PriLOSEC] 40 mg PO DAILY 02/16/22 [History] Rosuvastatin Calcium [Crestor] 40 mg PO HS 02/16/22 [History] Folic Acid 1 mg PO DAILY 04/07/22 [History] clonazePAM [KlonoPIN] 1 mg PO DAILY PRN 04/07/22 [History] Ubidecarenone [Co Q-10] 200 mg PO DAILY 04/10/22 [History] Isosorbide Mononitrate ER [Imdur] 60 mg PO DAILY 06/17/22 [History] Levothyroxine Sodium [Synthroid] 100 mcg PO DAILY 10/17/22 [History] Albuterol Inhaler [Ventolin Hfa Inhaler] 2 puff INHALATION RT-QID PRN 02/01/23 [History] Albuterol Nebulized [Ventolin Nebulized] 2.5 mg INHALATION RT-TID 02/01/23 [History] Hydrocortisone Cream [Hydrocortisone 2.5% Cream] 1 applic TOPICAL BID 02/01/23 [History] Lidocaine/Maalox/Decadron/Benadryl Compound 1:1 5 ml PO 5XD PRN 02/01/23 [History] dronabinoL [Marinol] 5 mg PO HS 02/01/23 [History] Amoxic-Pot Clav 875-125Mg [Augmentin 875-125] 1 tab PO Q12HR #14 tab 03/11/23 [Rx] Metoprolol Tartrate [Lopressor] 50 mg PO BID #60 tab 03/11/23 [Rx] Follow up Appointment(s)/Referral(s): Azael Bloom MD [Primary Care Provider] - 1-2 days
[2023-03-13] MEDS ORDERED: CHLORHEXIDINE GLUCONATE 15 ML CUP MUCOUS MEM SCH (21:00)
[2023-03-13] MEDS ORDERED: PIPERACILLIN-TAZOBACTAM 3.375 GM in SODIUM CHLORIDE 0.9% 100 ML IVPB SCH (21:00)
--- NOTE | 2023-03-14 07:39 | CDI ---
Documentation Clarification Form Date: 03/14/23 From: La Contreras Admit Date: 03/13/2023 03:15:00 PM Patient Name: Davidson Soto Visit Number: [id number] Discharge Date: 03/13/2023 10:15:00 PM ATTENTION: The Clinical Documentation Specialists (CDI) and [facility] Coding Staff appreciate your assistance in clarifying documentation. Please respond to the clarification below the line at the bottom and electronically sign. The CDI & [facility] Coding staff will review the response and follow-up if needed. Please note: Queries are made part of the Legal Health Record. If you have any questions, please contact the author of this message via ITS. Dr. Michael Quiles, Your patient presents to ED following cardiac arrest at home with difficulty breathing, intubate by EMS and placed on mechanical ventilation in ED. Based on this information and the findings below, is there an additional diagnosis that is clinically appropriate for this patient? History/Risk Factors: Stage IV left lung cancer, hx CABG & stents Tobacco use: never Home oxygen: not documented Clinical Indicators: Cardiac arrest at home, intubated by EMS and placed on mechanical ventilation ED Vital signs: P 67, R 18, BP 65/20, O2 Sat by pulse 99, T 87.4 Pulse oximetry: Lung/Breathing assessment: ABG: pH 6.98 pO2 35 pCO2 80 HCO3 19 Treatment: mechanical ventilation Continuous Pulse ox Vent Is there an additional diagnosis that is clinically appropriate for this patient? [ + ] Acute Hypoxic Respiratory Failure (pO2 <60 mm Hg or SpO2 <91% on room air) [ + ] Acute Hypercapnic Respiratory Failure (pCO2 >50 and pH <7.35) [ ] Acute on Chronic Respiratory Failure [ ] Chronic Respiratory Failure [ ] Acute Respiratory Distress [ ] Acute Respiratory Insufficiency [ ] Other Diagnosis, please specify [ ] Unable to determine MTDD
--- NOTE | 2023-03-14 07:56 | CDI ---
Documentation Clarification Form Date: 03/14/23 From: La Contreras Admit Date: 03/13/2023 03:15:00 PM Patient Name: Davidson Soto Visit Number: [id number] Discharge Date: 03/13/2023 10:15:00 PM ATTENTION: The Clinical Documentation Specialists (CDI) and [facility] Coding Staff appreciate your assistance in clarifying documentation. Please respond to the clarification below the line at the bottom and electronically sign. The CDI & [facility] Coding staff will review the response and follow-up if needed. Please note: Queries are made part of the Legal Health Record. If you have any questions, please contact the author of this message via ITS. Dr. Michael Quiles, The patient has [insert documentation with location and date]. Based on this information and the findings below, is there an additional diagnosis that is clinically appropriate for this patient? History/Risk Factors: Stage IV left lung cancer, hx CABG & stents Clinical Indicators: Per ED septic shock. Central line placed and Levophid started WBC: 24.8 Neutrophils: 20.50 Lactic acid: 4.7 Blood cultures: none Vitals signs: P 67, R 18, BP 65/20, O2 Sat by pulse 99, T 87.4 Antibiotics: IV Zosyn, IV Azithromycin, IV Flagyl, IV Bolus: Yes Is there an additional diagnosis that is clinically appropriate for this patient? [ + ] Sepsis, present on admission [ ] Sepsis, developed during stay, not present on admission [ ] Sepsis ruled out [ ] Severe Sepsis with organ failure [ ] Septic Shock [ ] SIRS, without underlying infectious process [ ] Other, please specify [ ] Unable to determine SIRS Criteria: 2 or more of the following may indicate SIRS Temperature < 96.8F (36C) or > 101.0F (38.3C) Heart Rate > 90 bpm Respiratory Rate > 20 breaths/min or PaCO2 < 32 mmHg White Blood Cell Count > 12,000 or < 4,000 cells/mm3 or > 10% bands MTDD
[2023-03-14] MEDS ORDERED: AZITHROMYCIN 500 MG in SODIUM CHLORIDE 0.9% 250 ML IVPB SCH (09:00)
== END 2023-03-13 22:15 | disposition expired | DRG 871 ==
LOC: EC 11:43 → 2SICU 15:15
PROVIDERS: ADMIT Hospitalist; ATTEND Hospitalist
PROC: 5A1935Z Respiratory Ventilation, Less than 24 Consecutive Hours (ICD-10-PCS; principal; 2023-03-13)
PROC: 06HY33Z Insertion of Infusion Device into Lower Vein, Percutaneous Approach (ICD-10-PCS; principal; 2023-03-13)
PROC: 5A12012 Performance of Cardiac Output, Single, Manual (ICD-10-PCS; principal; 2023-03-13)
PROC: 3E043XZ Introduction of Vasopressor into Central Vein, Percutaneous Approach (ICD-10-PCS; principal; 2023-03-13)
PROC: 4A133B1 Monitoring of Arterial Pressure, Peripheral, Percutaneous Approach (ICD-10-PCS; 2023-03-13)
PROC: 0D9670Z Drainage of Stomach with Drainage Device, Via Natural or Artificial Opening (ICD-10-PCS; 2023-03-13)
PROC: 03HY32Z Insertion of Monitoring Device into Upper Artery, Percutaneous Approach (ICD-10-PCS; 2023-03-13)
PROC: 4A133J1 Monitoring of Arterial Pulse, Peripheral, Percutaneous Approach (ICD-10-PCS; 2023-03-13)
DX: A41.9 Sepsis, unspecified organism (principal); J69.0 Pneumonitis due to inhalation of food and vomit; J96.01 Acute respiratory failure with hypoxia; J96.02 Acute respiratory failure with hypercapnia; R65.21 Severe sepsis with septic shock; R64 Cachexia; C79.51 Secondary malignant neoplasm of bone; J91.0 Malignant pleural effusion; C34.90 Malignant neoplasm of unspecified part of unspecified bronchus or lung; I46.8 Cardiac arrest due to other underlying condition; J38.01 Paralysis of vocal cords and larynx, unilateral; I48.0 Paroxysmal atrial fibrillation; Z66 Do not resuscitate; E03.9 Hypothyroidism, unspecified; E78.5 Hyperlipidemia, unspecified; I10 Essential (primary) hypertension; I25.10 Atherosclerotic heart disease of native coronary artery without angina pectoris; I25.2 Old myocardial infarction; E27.8 Other specified disorders of adrenal gland; K21.9 Gastro-esophageal reflux disease without esophagitis; Z79.82 Long term (current) use of aspirin; Z79.890 Hormone replacement therapy; Z79.899 Other long term (current) drug therapy; Z95.5 Presence of coronary angioplasty implant and graft; Z95.1 Presence of aortocoronary bypass graft; Z85.71 Personal history of Hodgkin lymphoma
CPT/HCPCS: 36415; 36556; 36600; 70450; 71045; 80053; 82805; 83605; 83735; 84484; 85025; 85610; 85730; 87040; 87070; 87205; 92950; 93005; 94002; 96361; 96365; 96366; 96367; 96368; 96375; 99291